=== PATIENT | female | born 1945 | race Caucasian/White ===

== ENCOUNTER 2017-01-20 17:30 | Inpatient (IN) | payer OTHER, MEDICARE ==
[~2017-01-20] VITALS: Ht 175.3 cm; Wt 136.2 kg
[~2017-01-20 17:30] MED LIST: ALL100 PO; ASPI-461 PO; COEN1CAP PO; CZR25 PO; ESCI10TA17 PO; FENO145T26 PO; FERRTAB18 PO; FURO40TA3 PO; IMDSR60 PO; INSUINJ14 SC; INSUINJ4 SC; LORA0.5T12 PO; METO25TA3 PO; NTRGSL/4 UT; OMEG10007 PO; PLV75 PO; POLY335019 PO; TRAM-10 PO; [UNRECOGNIZED DRUG - CODE] PO
[2017-01-20] MEDS ORDERED: LSX40 PO (18:03)
[2017-01-20] MEDS ORDERED: LSX80 PO (18:03)
[2017-01-20] MEDS ORDERED: LXP/20 PO (18:03)
[2017-01-20] MEDS ORDERED: ROSU5TAB9 PO (18:08)
[2017-01-20 18:19] LABS: BASO % 0.6 %; BASO ABS # 0.05 K/uL (0-0.2); COMPLETE YES; EOS % 1.5 %; HEMATOCRIT 36.2 % (37-47); IG% 0.1 %; LYMPH ABS # 1.86 K/uL (1.2-3.4); MEAN CELL VOLUME 91.6 fL (80-100); MEAN CORPUSCULAR HEMOGLOBIN 30.4 pg (25-34); MEAN CORPUSCULAR HGB CONC 33.1 g/dl (32-36); MEAN PLATELET VOLUME 10.4 fL (7.4-10.4); MONO % 5.6 %; NEUT % 70.2 %; PLATELET COUNT 230 K/uL (130-400); RED BLOOD COUNT 3.95 M/uL (4.2-5.4); WHITE BLOOD COUNT 8.44 K/uL (4.8-10.8)
[2017-01-20 18:36] LABS: ALT/SGPT 23 U/L (12-78); AST/SGOT 11 U/L (15-37); BLOOD UREA NITROGEN 76 mg/dl (7-18); BUN/CREATININE RATIO 42.3 (10-20); CALCIUM 10.1 mg/dl (8.5-10.1); CARBON DIOXIDE 31 mmol/L (21-32); CHLORIDE 105 mmol/L (98-107); GLUCOSE 112 mg/dl (70-99); POTASSIUM 4.3 mmol/L (3.5-5.1); SODIUM 142 mmol/L (136-145)
--- NOTE | 2017-01-20 18:40 | DIAGNOSTIC IMAGING REPORT ---
CHEST ONE VIEW PORTABLE CLINICAL HISTORY: Respiratory distress. Shortness of breath. COMPARISON STUDY: 07/21/2016 FINDINGS: The heart remains enlarged. There are postsurgical changes of a midline sternotomy. There is cephalization of pulmonary vascular flow consistent with mild pulmonary venous hypertension. There is no overt edema. There is no focal pulmonary consolidation. There are no pleural effusions.[ IMPRESSION: Cardiomegaly and radiographic evidence of pulmonary venous hypertension. No evidence of overt edema. No evidence of focal pulmonary consolidation Electronically signed by: Erick Briceno M.D. 01/20/2017 6:39 PM Dictated Date/Time: 01/20/2017 6:38 PM
[2017-01-20 18:41] LABS: ALB/GLOB RATIO 1.1 (0.9-2); ALKALINE PHOSPHATASE 52 U/L (45-117)
[2017-01-20 18:48] LABS: PARTIAL THROMBOPLASTIN RATIO 0.9; PROTHROMBIN TIME (PATIENT) 10.8 SECONDS (9.0-12.0)
[2017-01-20 18:57] LABS: URINE APPEARANCE CLEAR (CLEAR); URINE BILIRUBIN NEG (NEG); URINE COLOR YELLOW; URINE NITRITE NEG (NEG); URINE PH 6.5 (4.5-7.5); UROBILINOGEN NEG (NEG)
[2017-01-20] MEDS ORDERED: SODIUM CHLORIDE 0.9% 500ML 500 ML IV STA (19:00)
[2017-01-20] MEDS ORDERED: ASPIRIN 81 MG CHEW PO STA (19:00)
[2017-01-20 19:05] LABS: MANUAL MICROSCOPIC REQUIRED? NO; REVIEW REQ? NO
[2017-01-20] MEDS ORDERED: OPTIRAY 320 IV PRN (20:30)
--- NOTE | 2017-01-20 20:38 | DIAGNOSTIC IMAGING REPORT ---
CT ANGIOGRAM OF THE CHEST CLINICAL HISTORY: Chest pain and shortness of breath. Positive d-dimer. COMPARISON STUDY: 07/29/2011 TECHNIQUE: Following the IV administration of 98 mL of Optiray-320, CT angiogram of the thorax was performed from the thoracic inlet to the lung bases utilizing the pulmonary embolus protocol. Images are reviewed in the axial, sagittal, and coronal planes. IV contrast was administered without complication. MIP imaging was performed. CT DOSE: 817.35 mGy.cm FINDINGS: No pathologically enlarged axillary mediastinal or hilar lymph nodes were visualized. There was no evidence of thoracic aortic dilatation. The heart is enlarged. There are coronary artery calcifications present. There are postsurgical changes of a midline sternotomy. There were no pulmonary artery filling defects to indicate acute pulmonary embolism. No pleural effusions are visualized. There was no evidence of focal pulmonary consolidation. IMPRESSION: 1. No evidence of acute pulmonary embolism 2. No evidence of focal pulmonary consolidation. No pleural effusions identified. 3. Cardiomegaly and coronary artery calcifications. Electronically signed by: Erick Briceno M.D. 01/20/2017 8:37 PM Dictated Date/Time: 01/20/2017 8:32 PM
[2017-01-20 21:18] VITALS: O2SAT 98; BMI 45.3
--- NOTE | 2017-01-20 21:55 | History and Physical ---
History & Physical Date & Time of Service: Jan 20, 2017 at 21:54 Chief Complaint: Sob,Face Flushed,New Meds Primary Care Physician: Chetan Rivas III, M.D. History of Present Illness Source: patient Patient is a 71 yr old female with PMH of CAD S/P CABG, DM II, CKD III, Diastolic HF, Depression, GERD, SAMANTHA ON CPAP, HTN, PAD and other comorbidities presents from evaluation of SOB on exertion, weakness and worsening B/L LE pain on walking. Patient is very poor historian. She states going to her physical therapist today and believes that her physical therapist is concerned about her having SOB on exertion and sent to ED for further evaluation. States being more fatigued today. States having exertional SOB with minimal exertion which lasts for only a minute and resolves with rest, states this has been going on since many days. 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 Also complains of chronic B/L LE swelling/stiffness and pain which ambulation. Also states having minimal chest pain on exertion this morning which resolved. Denies any nausea, vomiting, diaphoresis, dizziness, diarrhea, abd pain, palpitations, headache, urinary symptoms. 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 (7) Gastroparesis Status: Chronic (8) GERD (gastroesophageal reflux disease) Status: Chronic (9) Hyperlipidemia Nec/Nos Status: Chronic (10) Hypertension Nos Status: Chronic (11) SAMANTHA on CPAP Status: Chronic (12) PAD (peripheral artery disease) Status: Chronic Surgical Problems: (1) Bilateral tubal ligation Status: Resolved (2) History of angioplasty Permanent Comment: 05/28/2011- POBA for the PDA and for the right posterolateral branch 11/16/2010- BMS to RCA; LAD with relatively small but severely diffusely diseased and heavily calcified and has an FFR that confirms hemodynamic significance of the lesion-- not intervened Status: Resolved (3) Other Toe(S) Amputation Status Status: Resolved (4) S/P CABG x 4 Status: Chronic (5) S/P peripheral artery angioplasty Permanent Comment: 09/13/13 left superficial femoral artery angioplasty, left popliteal artery angioplasty, left peroneal artery angioplasty, and amputation metatarsal with toe single (Left 5th toe amputation) 10/23/2013 -left popliteal artery angioplasty 01/20/2016- fem/pop artery revasc w/ angioplasty Status: Chronic (6) Status post amputation of finger Status: Chronic (7) Tonsillectomy Status: Resolved Family History Cancer MOTHER FATHER SISTER Cardiac disorder MOTHER FATHER GRANDFATHER GRANDMOTHER Diabetes mellitus FATHER GRANDMOTHER Heart disease Hypertension MOTHER BROTHER Lung disease Social History Smoking Status: Never Smoker Alcohol Use: none Drug Use: none Marital Status: Housing status: lives with family Immunizations History of Influenza Vaccine: Yes Influenza Vaccine Date: May 27, 2012 History of Tetanus Vaccine?: UTD History of Pneumococcal: Yes Pneumococcal Date: May 27, 2007 History of Hepatitis B Vaccine: Unknown Multi-Drug Resistant Organisms History of MDRO: No Allergies Coded Allergies: Sulfa Antibiotics (Verified Allergy, Unknown, RASH, 01/20/17) Lisinopril (Verified Adverse Reaction, Mild, COUGH, 01/20/17) Statins (Verified Adverse Reaction, Unknown, LEG CRAMPS, 01/20/17) Home Medications Scheduled Allopurinol (Allopurinol), 300 MG PO DAILY Aspirin (Aspirin), 81 MG PO QAM Clopidogrel Bisulfate (Clopidogrel), 150 MG PO QAM Coenzyme Q10 (Ubidecarenone) (Co Q10), 1 CAP PO QAM Escitalopram Oxalate (Escitalopram Oxalate), 20 MG PO QAM Fenofibrate (Tricor ), 145 MG PO DAILY Fish Oil ([place]-3), 1,000 MG PO QAM Furosemide (Furosemide), 80 MG PO QAM Furosemide (Furosemide), 40 MG PO HS Insulin Aspart (Novolog Penfill), UNITS SC UD Insulin Glargine (Lantus Solostar Pen), 50 UNITS SC Q12 Iron-Vitamin C (Vitron-C), 1 TAB PO Q2D Isosorbide Mononitrate (Isosorbide Mononitrate ER), 60 MG PO DAILY Losartan Potassium (Losartan Potassium), 12.5 MG PO QAM Metoprolol Succ (Toprol Xl) (Toprol-Xl), 25 MG PO QAM Rosuvastatin Calcium (Rosuvastatin Calcium), 5 MG PO QAM Scheduled PRN Bisacodyl (Ra Laxative), 5 MG PO DAILY PRN for Constipation Lorazepam (Lorazepam), 1 TAB PO TID PRN for Anxiety Nitroglycerin (Nitrostat), 0.4 MG UT UD PRN for Chest Pain Polyethylene Glycol 3350 (Miralax), 17 GM PO DAILY PRN for Constipation Tramadol (Ultram), 25 MG PO Q6 PRN for Pain Review of Systems See HPI for pertinent positives & negatives. A total of 10 systems reviewed and were otherwise negative. Physical Exam Vital Signs Date Time Temp Pulse Resp B/P Pulse Ox O2 Delivery O2 Flow Rate FiO2 01/20/17 21:18 98 Room Air 01/20/17 20:30 147/50 98 Room Air 01/20/17 20:01 139/72 01/20/17 19:45 54 18 95 Room Air 01/20/17 19:32 53 01/20/17 19:31 145/62 01/20/17 19:01 166/57 01/20/17 18:36 53 20 141/51 94 Room Air 01/20/17 18:36 94 Room Air 01/20/17 18:36 94 Room Air 01/20/17 17:34 94 Room Air 01/20/17 17:34 36.5 54 20 138/54 94 Room Air General Appearance: WD/WN, no apparent distress, + obese Head: normocephalic, atraumatic Eyes: normal inspection, PERRL, EOMI, sclerae normal ENT: normal ENT inspection, hearing grossly normal Neck: supple, trachea midline Respiratory/Chest: chest non-tender, lungs clear, no respiratory distress, no accessory muscle use Cardiovascular: regular rate, rhythm, no murmur, + bradycardia, + pertinent finding (B/L LE Edema, Lymphedema ) Abdomen/GI: normal bowel sounds, non tender, soft, no organomegaly Back: normal inspection Extremities/Musculoskelatal: normal inspection, + pertinent finding (B/L LE Edema, Lymphedema, Tender LE bilaterally ) 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2 % Lymphocytes (%) (Auto) 22.0 % Monocytes (%) (Auto) 5.6 % Eosinophils (%) (Auto) 1.5 % Basophils (%) (Auto) 0.6 % Neutrophils # (Auto) 5.92 1.4-6.5 K/uL Lymphocytes # (Auto) 1.86 1.2-3.4 K/uL Monocytes # (Auto) 0.47 0.11-0.59 K/uL Eosinophils # (Auto) 0.13 0-0.5 K/uL Basophils # (Auto) 0.05 0-0.2 K/uL RDW Standard Deviation 52.6 36.4-46.3 fL RDW Coefficient of Variation 15.7 11.5-14.5 % Immature Granulocyte % (Auto) 0.1 % Immature Granulocyte # (Auto) 0.01 0.00-0.02 K/uL Prothrombin Time 10.8 9.0-12.0 SECONDS Prothromb Time International Ratio 1.0 0.9-1.1 Activated Partial Thromboplast Time 23.7 21.0-31.0 SECONDS Partial Thromboplastin Ratio 0.9 D-Dimer 550 0-500 ug/L FEU Sodium Level 142 136-145 mmol/L Potassium Level 4.3 3.5-5.1 mmol/L Chloride Level 105 98-107 mmol/L Carbon Dioxide Level 31 21-32 mmol/L Anion Gap 6.0 3-11 mmol/L Blood Urea Nitrogen 76 7-18 mg/dl Creatinine 1.80 0.60-1.20 mg/dl Est Creatinine Clear Calc Drug Dose 43.7 ml/min Estimated GFR () 32.7 Estimated GFR (Non- 28.2 BUN/Creatinine Ratio 42.3 10-20 Random Glucose 112 70-99 mg/dl Calcium Level 10.1 8.5-10.1 mg/dl Total Bilirubin 0.5 0.2-1 mg/dl Aspartate Amino Transf (AST/SGOT) 11 15-37 U/L Alanine Aminotransferase (ALT/SGPT) 23 12-78 U/L Alkaline Phosphatase 52 45-117 U/L Total Creatine Kinase 59 26-192 U/L Troponin I < 0.015 0-0.045 ng/ml Total Protein 7.4 6.4-8.2 gm/dl Albumin 3.8 3.4-5.0 gm/dl Globulin 3.6 2.5-4.0 gm/dl Albumin/Globulin Ratio 1.1 0.9-2 Urine Color YELLOW Urine Appearance CLEAR CLEAR Urine pH 6.5 4.5-7.5 Urine Specific [place] 1.010 1.000-1.030 Urine Protein NEG NEG Urine Glucose (UA) NEG NEG Urine Ketones NEG NEG Urine Occult Blood NEG NEG Urine Nitrite NEG NEG Urine Bilirubin NEG NEG Urine Urobilinogen NEG NEG Urine Leukocyte Esterase NEG NEG Diagnostic Radiology CTA: 1. No evidence of acute pulmonary embolism 2. No evidence of focal pulmonary consolidation. No pleural effusions identified. 3. Cardiomegaly and coronary artery calcifications. CXR: Cardiomegaly and radiographic evidence of pulmonary venous hypertension. No evidence of overt edema. No evidence of focal pulmonary consolidation EKG EKG: sinus bradycardia, RBBB, No significant changes Impression Assessment and Plan Chest Pain R/O ACS. H/O CAD S/P CABG: presents with exertional SOB and chest pain which relieves with rest Risk factors: H/O CAD, HTN, HLP, DM II, Obesity clinically no overt signs of heart failure Initial Troponin:Negative EKG shows: Sinus bradycardia, RBBB, No signs of ischemia CTA: Negative for PE, consolidation Check ECHO Trend serial cardiac enzymes, repeat EKG, fasting lipid panel in AM Continue Aspirin, Plavix Hold statin for ? concerned for allergy Metoprol decreased in dose secondary to relative bradycardia Oxygen PRN Consider Stress test in AM NPO after midnight Consider Cardiology consult in AM if necessary CHRIS on CKD III: Baseline Cr:1- 1.5 Currently 1.80 [place] IV fluids secondary to history of HF Avoid nephrotoxic agents Hold losartan, Lasix for now Elevated D-dimer: CTA: Negative for PE Check Venous Doppler Sinus Bradycardia: Currently resolved Decrease Metoprolol to 12.5md daily Monitor Chronic Bilateral LE swelling and Pain: Likely secondary to PAD, lymphedema Follows with physical therapy as outpatient DM II: Continue ISS, Lantus, accu checks PAD: Continue ASA, Plavix Statins on hold H/O CAD S/P CABG Currently denies chest pain Continue home meds H/O Diastolic HF Diuretics on hold secondary to CHRIS To resume diuretics when appropriate Check ECHO SAMANTHA on CPAP Stable DVT Px: Heparin SQ Code Status: Full code Disposition: Monitor in Tele Advanced Directives Existing Living Will: No Existing Power of Fire Prevention Specialist: No
[2017-01-20] MEDS ORDERED: SODIUM CHLORIDE 0.9% 1000ML 1,000 ML IV SCH (22:22)
[2017-01-20] MEDS ORDERED: ACETAMINOPHEN 325 MG TAB PO PRN (22:30)
[2017-01-20] MEDS ORDERED: ONDANSETRON INJ 2 MG/ML 2 ML VIAL IV PRN (22:30)
[2017-01-20] MEDS ORDERED: NITROGLYCERIN 0.4 MG SL PER TAB CHARGE SL PRN (22:30)
[2017-01-20] MEDS ORDERED: PHARMACY GLYCEMIC MGMT CONSULT PRN (22:57)
[2017-01-20] MEDS ORDERED: POLYETHYLENE (MIRALAX) 17 GM PACK PO PRN (23:00)
[2017-01-20] MEDS ORDERED: NITROGLYCERIN 0.4 MG SL PER TAB CHARGE UT PRN (23:00)
[2017-01-20] MEDS ORDERED: LORAZEPAM 0.5 MG TAB PO PRN (23:00)
[2017-01-20] MEDS ORDERED: SODIUM CHLORIDE 0.9% 1000ML 1,000 ML IV ONE (23:00)
[2017-01-20] MEDS ORDERED: GLUCOSE 10 TABS/TUBE PO PRN (23:00)
[2017-01-20] MEDS ORDERED: GLUCOSE 40% GEL 15 GM TUBE PO PRN (23:00)
[2017-01-20] MEDS ORDERED: GLUCAGON FOR INJ 1 MG VIAL SQ PRN (23:00)
[2017-01-20] MEDS ORDERED: TRAMADOL HCL 50 MG TAB PO PRN (23:00)
[2017-01-20] MEDS ORDERED: DEXTROSE 50% 50 ML SYR IV PRN (23:00)
[2017-01-21] VITALS (10 sets, daily range): BP systolic 116–163; BP diastolic 51–82; PULSE 53–67; TEMP 36.5–37.2; O2SAT 92–98; Ht 175.3 cm; Wt 136.2 kg
--- NOTE | 2017-01-21 01:14 | EMERGENCY ROOM VISIT NOTE ---
History Report prepared by Manuela: Yaritza George Under the Supervision of: Dr. Cr Dow D.O. First contact with patient: 17:40 Chief Complaint: SHORTNESS OF BREATH Stated Complaint: SOB,FACE FLUSHED,NEW MEDS Nursing Triage Summary: PT PRESENTS WITH SOB FROM PHYSICAL THERAPY, BROUGHT IN BY PHYSICAL THERAPIST. PT VERBALIZES SHE STARTED TAKING CRESTOR ON TUESDAY, BUT HAS A STATIN ALLERGY. PT WONDERING IF HER EXTREME FATIGUE, STIFFNESS IN LEGS, AND SOB ARE R/T NEW MEDICATION. 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 The patient states that she was at physical therapy today when she began feeling short of breath and fatigued. She reports within 1 minute of rest after exertion her symptoms resolve. However, she notes that she recently started taking Crestor again 8 days ago after being off of it for 2 years because she has a statin allergy. She states that she thinks she was sent here today for evaluation after starting the new medication. The patient complains of leg swelling, stiffness, tiredness, SOB with exertion that started 2 years ago and is usual and is not getting any worse than usual, slight chest pain that she had earlier today with exertion and for her but is slightly worsened and more frequent, and fatigue. 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 She denies any nausea, vomiting diarrhea, and urinary symptoms, Review of Systems See HPI for pertinent positives & negatives. A total of 10 systems reviewed and were otherwise negative. 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 (8) Gastroparesis (9) GERD (gastroesophageal reflux disease) (10) Hyperlipidemia Nec/Nos (11) Hypertension Nos (12) SAMANTHA on CPAP (13) PAD (peripheral artery disease) Surgical Problems: (1) Bilateral tubal ligation (2) History of angioplasty (3) Other Toe(S) Amputation Status (4) S/P CABG x 4 (5) S/P peripheral artery angioplasty (6) Status post amputation of finger (7) Tonsillectomy Family History Cancer MOTHER FATHER SISTER Cardiac disorder MOTHER FATHER GRANDFATHER GRANDMOTHER Diabetes mellitus FATHER GRANDMOTHER Heart disease Hypertension MOTHER BROTHER Lung disease Social History Smoking Status: Never Smoker Alcohol Use: none Drug Use: none Marital Status: Housing Status: lives with significant other Current/Historical Medications Scheduled Allopurinol (Allopurinol), 300 MG PO DAILY Aspirin (Aspirin), 81 MG PO QAM Clopidogrel Bisulfate (Clopidogrel), 150 MG PO QAM Coenzyme Q10 (Ubidecarenone) (Co Q10), 1 CAP PO QAM Escitalopram Oxalate (Escitalopram Oxalate), 20 MG PO QAM Fenofibrate (Tricor ), 145 MG PO DAILY Fish Oil ([place]-3), 1,000 MG PO QAM Furosemide (Furosemide), 80 MG PO QAM Furosemide (Furosemide), 40 MG PO HS Insulin Aspart (Novolog Penfill), UNITS SC UD Insulin Glargine (Lantus Solostar Pen), 50 UNITS SC Q12 Iron-Vitamin C (Vitron-C), 1 TAB PO Q2D Isosorbide Mononitrate (Isosorbide Mononitrate ER), 60 MG PO DAILY Losartan Potassium (Losartan Potassium), 12.5 MG PO QAM Metoprolol Succ (Toprol Xl) (Toprol-Xl), 25 MG PO QAM Rosuvastatin Calcium (Rosuvastatin Calcium), 5 MG PO QAM Scheduled PRN Bisacodyl (Ra Laxative), 5 MG PO DAILY PRN for Constipation Lorazepam (Lorazepam), 1 TAB PO TID PRN for Anxiety Nitroglycerin (Nitrostat), 0.4 MG UT UD PRN for Chest Pain Polyethylene Glycol 3350 (Miralax), 17 GM PO DAILY PRN for Constipation Tramadol (Ultram), 25 MG PO Q6 PRN for Pain Allergies Coded Allergies: Sulfa Antibiotics (Verified Allergy, Unknown, RASH, 01/20/17) Lisinopril (Verified Adverse Reaction, Mild, COUGH, 01/20/17) Statins (Verified Adverse Reaction, Unknown, LEG CRAMPS, 01/20/17) Physical Exam Vital Signs Date Time Temp Pulse Resp B/P Pulse Ox O2 Delivery O2 Flow Rate FiO2 01/20/17 21:18 98 Room Air 01/20/17 20:30 147/50 98 Room Air 01/20/17 20:01 139/72 01/20/17 19:45 54 18 95 Room Air 01/20/17 19:32 53 01/20/17 19:31 145/62 01/20/17 19:01 166/57 01/20/17 18:36 53 20 141/51 94 Room Air 01/20/17 18:36 94 Room Air 01/20/17 18:36 94 Room Air 01/20/17 17:34 94 Room Air 01/20/17 17:34 36.5 54 20 138/54 94 Room Air Physical Exam GENERAL: sitting up in bed, disheveled, alert, well appearing, well nourished, non-toxic, talking in full sentences EYE EXAM: normal conjunctiva OROPHARYNX: no exudate, no erythema, lips, buccal mucosa, and tongue normal and mucous membranes are moist NECK: supple, no nuchal rigidity, no adenopathy, non-tender LUNGS: Clear to auscultation. Normal chest wall mechanics HEART: no murmurs, S1 normal and S2 normal ABDOMEN: abdomen soft, non-tender, normo-active bowel sounds, no masses, no rebound or guarding. BACK: Back is symmetrical on inspection and there is no deformity, no midline tenderness, no CVA tenderness. SKIN: no rashes and no bruising UPPER EXTREMITIES: upper extremities are grossly normal. LOWER EXTREMITIES: No pitting edema, calves are equal bilaterally NEURO EXAM: Normal sensorium, cranial nerves II-XII grossly intact, normal speech, no gross weakness of arms, no gross weakness of legs, able to transfer from wheelchair to bed Medical Decision & Procedures ER Provider Diagnostic Interpretation: Radiology results as stated below per my review and the radiologist's interpretation: CHEST ONE VIEW PORTABLE FINDINGS: The heart remains enlarged. There are postsurgical changes of a midline sternotomy. There is cephalization of pulmonary vascular flow consistent with mild pulmonary venous hypertension. There is no overt edema. There is no focal pulmonary consolidation. There are no pleural effusions.[ IMPRESSION: Cardiomegaly and radiographic evidence of pulmonary venous hypertension. No evidence of overt edema. No evidence of focal pulmonary consolidation Electronically signed by: Erick Briceno M.D. 01/20/2017 6:39 PM Dictated Date/Time: 01/20/2017 6:[address] ANGIOGRAM OF THE CHEST FINDINGS: No pathologically enlarged axillary mediastinal or hilar lymph nodes were visualized. There was no evidence of thoracic aortic dilatation. The heart is enlarged. There are coronary artery calcifications present. There are postsurgical changes of a midline sternotomy. There were no pulmonary artery filling defects to indicate acute pulmonary embolism. No pleural effusions are visualized. There was no evidence of focal pulmonary consolidation. IMPRESSION: 1. No evidence of acute pulmonary embolism 2. No evidence of focal pulmonary consolidation. No pleural effusions identified. 3. Cardiomegaly and coronary artery calcifications. Electronically signed by: Erick Briceno M.D. 01/20/2017 8:37 PM Dictated Date/Time: 01/20/2017 8:32 PM Laboratory Results 01/20/17 18:00 Red Blood Count 3.95, Mean Corpuscular Volume 91.6, Mean Corpuscular Hemoglobin 30.4, Mean Corpuscular Hemoglobin Concent 33.1, Mean Platelet Volume 10.4, Neutrophils (%) (Auto) 70.2, Lymphocytes (%) (Auto) 22.0, Monocytes (%) (Auto) 5.6, Eosinophils (%) (Auto) 1.5, Basophils (%) (Auto) 0.6, Neutrophils # (Auto) 5.92, Lymphocytes # (Auto) 1.86, Monocytes # (Auto) 0.47, Eosinophils # (Auto) 0.13, Basophils # (Auto) 0.05 01/20/17 18:00 Test 01/20/17 18:00 01/20/17 18:30 White Blood Count 8.44 K/uL (4.8-10.8) Red Blood Count 3.95 M/uL (4.2-5.4) Hemoglobin 12.0 g/dL (12.0-16.0) Hematocrit 36.2 % (37-47) Mean Corpuscular Volume 91.6 fL (80-100) Mean Corpuscular Hemoglobin 30.4 pg (25-34) Mean Corpuscular Hemoglobin Concent 33.1 g/dl (32-36) Platelet Count 230 K/uL (130-400) Mean Platelet Volume 10.4 fL (7.4-10.4) Neutrophils (%) (Auto) 70.2 % Lymphocytes (%) (Auto) 22.0 % Monocytes (%) (Auto) 5.6 % Eosinophils (%) (Auto) 1.5 % Basophils (%) (Auto) 0.6 % Neutrophils # (Auto) 5.92 K/uL (1.4-6.5) Lymphocytes # (Auto) 1.86 K/uL (1.2-3.4) Monocytes # (Auto) 0.47 K/uL (0.11-0.59) Eosinophils # (Auto) 0.13 K/uL (0-0.5) Basophils # (Auto) 0.05 K/uL (0-0.2) RDW Standard Deviation 52.6 fL (36.4-46.3) RDW Coefficient of Variation 15.7 % (11.5-14.5) Immature Granulocyte % (Auto) 0.1 % Immature Granulocyte # (Auto) 0.01 K/uL (0.00-0.02) Prothrombin Time 10.8 SECONDS (9.0-12.0) Prothromb Time International Ratio 1.0 (0.9-1.1) Activated Partial Thromboplast Time 23.7 SECONDS (21.0-31.0) Partial Thromboplastin Ratio 0.9 D-Dimer 550 ug/L FEU (0-500) Anion Gap 6.0 mmol/L (3-11) Est Creatinine Clear Calc Drug Dose 43.7 ml/min Estimated GFR () 32.7 Estimated GFR (Non- 28.2 BUN/Creatinine Ratio 42.3 (10-20) Calcium Level 10.1 mg/dl (8.5-10.1) Total Bilirubin 0.5 mg/dl (0.2-1) Aspartate Amino Transf (AST/SGOT) 11 U/L (15-37) Alanine Aminotransferase (ALT/SGPT) 23 U/L (12-78) Alkaline Phosphatase 52 U/L (45-117) Total Creatine Kinase 59 U/L (26-192) Total Protein 7.4 gm/dl (6.4-8.2) Albumin 3.8 gm/dl (3.4-5.0) Globulin 3.6 gm/dl (2.5-4.0) Albumin/Globulin Ratio 1.1 (0.9-2) Urine Color YELLOW Urine Appearance CLEAR (CLEAR) Urine pH 6.5 (4.5-7.5) Urine Specific [place] 1.010 (1.000-1.030) Urine Protein NEG (NEG) Urine Glucose (UA) NEG (NEG) Urine Ketones NEG (NEG) Urine Occult Blood NEG (NEG) Urine Nitrite NEG (NEG) Urine Bilirubin NEG (NEG) Urine Urobilinogen NEG (NEG) Urine Leukocyte Esterase NEG (NEG) Laboratory results per my review. Medications Administered Medications (Trade) Dose Ordered Sig/Cheko Route Start Time Stop Time Status Last Admin Dose Admin Aspirin 324 mg 324 mg NOW STAT PO 01/20/17 19:00 01/20/17 19:01 DC 01/20/17 19:00 324 MG Sodium Chloride (Nss 500ml) 500 ml @ 999 mls/hr Q31M STAT IV 01/20/17 19:00 01/20/17 19:30 DC 01/20/17 19:00 999 MLS/HR ECG Indication: chest pain Rate (beats per minute): 53 Rhythm: sinus bradycardia Findings: RBBB, left axis deviation Comparison ECG Date: 21-JUL-2016 Change: no significant change ED Course ED COURSE: Vital signs were reviewed and showed bradycardia The patients medical record was reviewed The above diagnostic studies were performed and reviewed. ED treatments and interventions as stated above. 0: The patient was evaluated in room B9. A complete history and physical examination was performed. 1832: I reevaluated the patient and she is doing okay. 1899: Sodium Chloride 500 ml @ 999 mls/hr IV, Aspirin 324mg PO. 1908: I updated the patient. 1958: I reevaluated the patient. She is uncomfortable sitting on the bed. 2137: I reviewed the patient's case with Dr. Moran of [facility]. Dr. Moran will evaluate the patient for further management. 2144: Upon reevaluation, the patient is hemodynamically stable.I discussed my findings with the patient and she understands and agrees with the treatment plan. Based on the patients age, coexisting illnesses, exam and lab findings the decision to treat as an inpatient was made. The patient remained stable while under my care. The patient will be evaluated for further management. Medical Decision Differential diagnoses includes but is not limited to pneumonia, bronchitis, COPD/Asthma exacerbation, pneumothorax, pulmonary embolism, congestive heart failure, acute coronary syndrome Patient is a 71-year-old female who presents the ER for exertional shortness of breath associated with some worsening chest pain. She has a history of hypertension, diabetes and a CABG 4. Labs show no significant leukocytosis or anemia. Creatinine is at baseline of 1.8. LFTs was unremarkable. Bilirubin was normal. Troponins were negative negative. UA was negative. EKG shows no acute change. Chest x-ray was unremarkable. D-dimer was elevated consequently a CT PE was performed which was negative. Based on her symptoms I am concerned with the exertional shortness of breath and chest pain. I consulted internal medicine for observation overnight. Consults Time Called: 2049 Consulting Physician: Dr. Luisa Diaz Returned Call: [phone] I reviewed the patient's case with Dr. Moran of [facility]. Dr. Moran will evaluate the patient for further management. Impression Primary Impression: Exertional shortness of breath Additional Impressions: Exertional chest pain Chronic kidney disease Scribe Attestation The scribe's documentation has been prepared under my direction and personally reviewed by me in its entirety. I confirm that the note above accurately reflects all work, treatment, procedures, and medical decision making performed by me. Departure Information Dispostion Being Evaluated By Hospitalist Referrals Chetan Rivas III, M.D. (PCP) Patient Instructions My [facility] Problem Qualifiers Additional Impressions: Chronic kidney disease Chronic kidney disease stage: unspecified stage Qualified Codes: N18.9 - Chronic kidney disease, unspecified
[2017-01-21] MEDS: INSULIN ASPART 100 UNITS/ML 3 ML PEN SC SCH ×5 (02:00→21:20)
[2017-01-21 05:15] LABS: BASO % 0.4 %; BASO ABS # 0.03 K/uL (0-0.2); COMPLETE YES; EOS % 1.8 %; HEMATOCRIT 33.2 % (37-47); IG% 0.3 %; LYMPH % 27.3 %; LYMPH ABS # 1.84 K/uL (1.2-3.4); MEAN CORPUSCULAR HEMOGLOBIN 30.7 pg (25-34); MEAN CORPUSCULAR HGB CONC 33.4 g/dl (32-36); MEAN PLATELET VOLUME 10.3 fL (7.4-10.4); MONO % 7.1 %; NEUT % 63.1 %; PLATELET COUNT 194 K/uL (130-400); RED BLOOD COUNT 3.61 M/uL (4.2-5.4); WHITE BLOOD COUNT 6.75 K/uL (4.8-10.8)
[2017-01-21 05:33] LABS: BLOOD UREA NITROGEN 75 mg/dl (7-18); BUN/CREATININE RATIO 46.9 (10-20); CALCIUM 9.4 mg/dl (8.5-10.1); CARBON DIOXIDE 31 mmol/L (21-32); CHLORIDE 107 mmol/L (98-107); GLUCOSE 132 mg/dl (70-99); MAGNESIUM 2.9 mg/dl (1.8-2.4); POTASSIUM 4.2 mmol/L (3.5-5.1); SODIUM 144 mmol/L (136-145)
[2017-01-21 05:39] LABS: CHOLESTEROL 164 mg/dl (0-200); CHOLESTEROL/HDL RATIO 4.8; HDL CHOLESTEROL 34 mg/dl; LDL CHOLESTEROL CALCULATED 73 mg/dl; TRIGLYCERIDES 287 mg/dl (0-150); VERY LOW DENSITY LIPOPROT CALC 57 mg/dl
[2017-01-21] MEDS: HEPARIN SOD 5000 UNIT/0.5 ML CARP SQ SCH ×3 (06:13→21:20)
[2017-01-21 06:38] LABS: ESTIMATED AVERAGE GLUCOSE 183 mg/dl; HA1C FLAG Normal (Normal)
[2017-01-21] MEDS ORDERED: INSULIN GLARGINE SOLOSTAR 100 UNITS/ML 3 ML PEN SC SCH (08:00)
[2017-01-21] MEDS: METOPROLOL SUCC 25MG EXT REL TAB PO SCH (08:23)
[2017-01-21] MEDS: ASPIRIN 81 MG ECTAB PO SCH (08:24)
[2017-01-21] MEDS: ESCITALOPRAM OXALATE 20 MG TAB PO SCH (08:25)
[2017-01-21] MEDS: OMEGA-3 (PURIFIED FISH OIL) 1 GM CAP PO SCH (08:25)
[2017-01-21] MEDS: ISOSORBIDE MONONITRATE 60 MG TABCR PO SCH (08:25)
[2017-01-21] MEDS: ALLOPURINOL 300 MG TAB PO SCH (08:25)
[2017-01-21] MEDS: FENOFIBRATE 145 MG TAB PO SCH (08:25)
[2017-01-21] MEDS: CLOPIDOGREL BISULFATE 75 MG TAB PO SCH (08:36)
[2017-01-21] MEDS ORDERED: METOPROLOL SUCC 25MG EXT REL TAB PO SCH (09:00)
--- NOTE | 2017-01-21 10:01 | Pharmacy Progress Note ---
Glycemic Control Intl Consult Date of Service Jan 21, 2017. Scope Glycemic Pharmacist consulted by Dr Moran on 01/20/17 for glycemic control and to write orders per [facility] inpatient glycemic control protocol Objective Weight (Kilograms): 136.700 Accuchecks BSG (last 24hrs): Test 01/20/17 18:00 01/21/17 01:42 01/21/17 05:03 Random Glucose 112 mg/dl (70-99) 132 mg/dl (70-99) Bedside Glucose 130 mg/dl (70-90) Laboratory Data (last 24hrs) Test 01/20/17 18:00 01/21/17 05:03 Anion Gap 6.0 mmol/L 6.0 mmol/L BUN/Creatinine Ratio 42.3 46.9 Blood Urea Nitrogen 76 mg/dl 75 mg/dl Creatinine 1.80 mg/dl 1.60 mg/dl Potassium Level 4.3 mmol/L 4.2 mmol/L Sodium Level 142 mmol/L 144 mmol/L White Blood Count 8.44 K/uL 6.75 K/uL Red Blood Count 3.95 M/uL 3.61 M/uL Hemoglobin 12.0 g/dL 11.1 g/dL Hematocrit 36.2 % 33.2 % Mean Corpuscular Volume 91.6 fL 92.0 fL Mean Corpuscular Hemoglobin 30.4 pg 30.7 pg Mean Corpuscular Hemoglobin Concent 33.1 g/dl 33.4 g/dl Platelet Count 230 K/uL 194 K/uL Mean Platelet Volume 10.4 fL 10.3 fL Neutrophils (%) (Auto) 70.2 % 63.1 % Lymphocytes (%) (Auto) 22.0 % 27.3 % Monocytes (%) (Auto) 5.6 % 7.1 % Eosinophils (%) (Auto) 1.5 % 1.8 % Basophils (%) (Auto) 0.6 % 0.4 % Neutrophils # (Auto) 5.92 K/uL 4.26 K/uL Lymphocytes # (Auto) 1.86 K/uL 1.84 K/uL Monocytes # (Auto) 0.47 K/uL 0.48 K/uL Eosinophils # (Auto) 0.13 K/uL 0.12 K/uL Basophils # (Auto) 0.05 K/uL 0.03 K/uL Hemoglobin A1c 8.0 % HbA1c Test 01/21/17 05:03 Hemoglobin A1c 8.0 %(4.5-5.6) H Recent Pertinent Medications Outpatient Anti-diabetic Regimen: * Lantus * 50 units SQ BID * NovoLog * 45 units SQ with meals * 20 units with bedtime snack * SS with correction factor of 25mg/dL/unit if BSG >150mg/dL * A1c = 8 % 12/2016 The patient is currently receiving: * Basal insulin: * Lantus 40 units every 12 hours * Bolus Insulin: * NovoLog Correction per scale AC/HS * Goal Range: Low 120 mg/dL - High 160 mg/dL * Correction Factor: 15 mg/dL/unit * Carb ratio of 1 unit per 6 grams CHO consumed Risk Factors for Insulin Resistance: * IVF: NSS * Pain: chest pain on admission * Diet: NPO overnight * Other: large doses of insulin as an outpatient Risk Factors for Insulin Sensitivity: * CHRIS: Serum creatinine 1.8mg/dL on admission - baseline 1-1.5mg/dL Assessment & Plan ASSESSMENT: Initial: * ADA & AACE recommend a goal blood sugar range 140-180 mg/dl for the majority of critically ill & non-critically ill patients. * 71 y/o type 2 diabetic known to the glycemic service with her most recent consultation in July 2016. 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 * BSG control as an outpatient likely appropriate based on the Elements of Diabetes Care Scoring Scale and A1c 01/21/17 * NPO overnight and into this AM * reduce AM Lantus dose to 30 units secondary to this * re-assess ongoing Lantus orders based on lunch BSG and diet * NovoLog parameters not yet able to be assessed, however historically requires large doses * empirically tighten correction factor and carb ratio based on last consultation PLAN FOR INPATIENT GLYCEMIC CONTROL: * Basal insulin: * Lantus 30 units SQ x1 dose this AM * Lantus 40-50 units SQ BID * Bolus insulin: * NovoLog SC AC and HS * Correction factor: 10mg/dL/unit * Carb ratio: 1 unit per 3 g of CHO consumed * Goal: 140-180mg/dL per ADA recommendations * A1c - current * add to discharge instructions RECOMMENDATION FOR DISCHARGE: * Likely, Ms Man can continue home regimen at discharge given A1c * Please note that the plan above was derived based on current level of insulin resistance and hospital stress. These recommendations are appropriate for inpatient admission only. Plan of care upon discharge will need to be reassessed to avoid potential outpatient hypo/hyperglycemia. Thank you.
[2017-01-21] MEDS ORDERED: TRAMADOL HCL 50 MG TAB PO PRN (10:45)
--- NOTE | 2017-01-21 10:58 | Progress Note ---
Medicine Progress Note Date & Time of Visit: Jan 21, 2017 at 10:47. Subjective patient seen resting in bed, comfortable states she still has diffuse muscle stiffness/aches most pronounced on her legs (started after she resumed taking Crestor) reports dyspnea on minimal exertion recently, no chest pain/nausea/dizziness no other symptoms Objective Last 8 Hrs Date Time Temp Pulse Resp B/P Pulse Ox O2 Delivery O2 Flow Rate FiO2 01/21/17 08:23 53 98 01/21/17 08:00 CPAP 01/21/17 07:40 37.0 56 16 136/71 94 Room Air 01/21/17 04:00 Room Air 01/21/17 03:54 36.8 58 20 135/66 94 Room Air Physical Exam: General- oriented x 3, not in distress, speaks in sentences with no effort Head- atraumatic Eyes- EOMI, anicteric ENT- oropharynx clear Neck- supple, no JVD, no adenopathy Lungs- clear to auscultation bilaterally Heart-normal rate, regular rhythm; no murmurs Abdomen- normal bowel sounds, soft, nontender Extremities- trace pretibial edema, mild tenderness on both legs, no erythema, fair dorsalis pedis pulses Neuro- alert, oriented x 3; no gross focal deficits Skin- warm & dry Laboratory Results: Last 24 Hours Test 01/20/17 18:00 01/20/17 18:30 01/20/17 22:52 01/20/17 23:07 White Blood Count 8.44 K/uL Red Blood Count 3.95 M/uL Hemoglobin 12.0 g/dL Hematocrit 36.2 % Mean Corpuscular Volume 91.6 fL Mean Corpuscular Hemoglobin 30.4 pg Mean Corpuscular Hemoglobin Concent 33.1 g/dl Platelet Count 230 K/uL Mean Platelet Volume 10.4 fL Neutrophils (%) (Auto) 70.2 % Lymphocytes (%) (Auto) 22.0 % Monocytes (%) (Auto) 5.6 % Eosinophils (%) (Auto) 1.5 % Basophils (%) (Auto) 0.6 % Neutrophils # (Auto) 5.92 K/uL Lymphocytes # (Auto) 1.86 K/uL Monocytes # (Auto) 0.47 K/uL Eosinophils # (Auto) 0.13 K/uL Basophils # (Auto) 0.05 K/uL RDW Standard Deviation 52.6 fL RDW Coefficient of Variation 15.7 % Immature Granulocyte % (Auto) 0.1 % Immature Granulocyte # (Auto) 0.01 K/uL Prothrombin Time 10.8 SECONDS Prothromb Time International Ratio 1.0 Activated Partial Thromboplast Time 23.7 SECONDS Partial Thromboplastin Ratio 0.9 D-Dimer 550 ug/L FEU Sodium Level 142 mmol/L Potassium Level 4.3 mmol/L Chloride Level 105 mmol/L Carbon Dioxide Level 31 mmol/L Anion Gap 6.0 mmol/L Blood Urea Nitrogen 76 mg/dl Creatinine 1.80 mg/dl Est Creatinine Clear Calc Drug Dose 43.7 ml/min Estimated GFR () 32.7 Estimated GFR (Non- 28.2 BUN/Creatinine Ratio 42.3 Random Glucose 112 mg/dl Calcium Level 10.1 mg/dl Total Bilirubin 0.5 mg/dl Aspartate Amino Transf (AST/SGOT) 11 U/L Alanine Aminotransferase (ALT/SGPT) 23 U/L Alkaline Phosphatase 52 U/L Total Creatine Kinase 59 U/L Troponin I < 0.015 ng/ml < 0.015 ng/ml Total Protein 7.4 gm/dl Albumin 3.8 gm/dl Globulin 3.6 gm/dl Albumin/Globulin Ratio 1.1 Urine Color YELLOW Urine Appearance CLEAR Urine pH 6.5 Urine Specific Wirtz 1.010 Urine Protein NEG Urine Glucose (UA) NEG Urine Ketones NEG Urine Occult Blood NEG Urine Nitrite NEG Urine Bilirubin NEG Urine Urobilinogen NEG Urine Leukocyte Esterase NEG Creatine Kinase MB Ratio Creatine Kinase MB 1.2 ng/ml Test 01/21/17 01:42 01/21/17 04:52 01/21/17 05:03 Bedside Glucose 130 mg/dl Creatine Kinase MB Ratio White Blood Count 6.75 K/uL Red Blood Count 3.61 M/uL Hemoglobin 11.1 g/dL Hematocrit 33.2 % Mean Corpuscular Volume 92.0 fL Mean Corpuscular Hemoglobin 30.7 pg Mean Corpuscular Hemoglobin Concent 33.4 g/dl Platelet Count 194 K/uL Mean Platelet Volume 10.3 fL Neutrophils (%) (Auto) 63.1 % Lymphocytes (%) (Auto) 27.3 % Monocytes (%) (Auto) 7.1 % Eosinophils (%) (Auto) 1.8 % Basophils (%) (Auto) 0.4 % Neutrophils # (Auto) 4.26 K/uL Lymphocytes # (Auto) 1.84 K/uL Monocytes # (Auto) 0.48 K/uL Eosinophils # (Auto) 0.12 K/uL Basophils # (Auto) 0.03 K/uL RDW Standard Deviation 52.8 fL RDW Coefficient of Variation 15.7 % Immature Granulocyte % (Auto) 0.3 % Immature Granulocyte # (Auto) 0.02 K/uL Sodium Level 144 mmol/L Potassium Level 4.2 mmol/L Chloride Level 107 mmol/L Carbon Dioxide Level 31 mmol/L Anion Gap 6.0 mmol/L Blood Urea Nitrogen 75 mg/dl Creatinine 1.60 mg/dl Est Creatinine Clear Calc Drug Dose 49.9 ml/min Estimated GFR () 37.7 Estimated GFR (Non- 32.5 BUN/Creatinine Ratio 46.9 Random Glucose 132 mg/dl Estimated Average Glucose 183 mg/dl Hemoglobin A1c 8.0 % Calcium Level 9.4 mg/dl Magnesium Level 2.9 mg/dl Creatine Kinase MB 1.1 ng/ml Troponin I < 0.015 ng/ml Triglycerides Level 287 mg/dl Cholesterol Level 164 mg/dl HDL Cholesterol 34 mg/dl LDL Cholesterol, Calculated 73 mg/dl VLDL Cholesterol, Calculated 57 mg/dl Cholesterol/HDL Ratio 4.8 Assessment & Plan EXERTIONAL DYSPNEA, R/O ACS. H/O CAD S/P CABG - cardiac markers negative ekg no signs of acute ischemia echo: pending CTA: Negative for PE, consolidation - continued on usual medications including aspirin, plavix, ISMN Metoprolol decreased for bradycardia Statin held for myalgias - will consult Cardiology MYALGIAS LEG PAIN - likely from Crestor - hold Crestor CK normal monitor - check Doppler US to r/o DVT althought d dimer is only 550 SINUS BRADYCARDIA Decreased Metoprolol to 12.5md daily HR still in the 50s monitor CHRIS on CKD III: Baseline Cr:1- 1.5 Currently 1.6 resume Lasix, Losartan Elevated D-dimer CTA: Negative for PE Check Venous Doppler Chronic Bilateral LE swelling and Pain Likely secondary to PAD, lymphedema Follows with physical therapy as outpatient DM II: Continue ISS, Lantus, accu checks PAD: Continue ASA, Plavix Statins on hold H/O Diastolic HF euvolemic resume Lasix SAMANTHA on CPAP Stable DVT Px: Heparin SQ Code Status: Full code Disposition: Monitor in Tele Current Inpatient Medications: Current Inpatient Medications Medications (Trade) Dose Ordered Sig/Cheko Route Start Time Stop Time Status Last Admin Dose Admin Ioversol (Optiray 320) 111 ml UD PRN IV 01/20/17 20:30 01/24/17 20:29 Heparin Sodium (Porcine) (Heparin Sq 5000 Unit/0.5ml) 5,000 unit Q8H SQ 01/21/17 06:00 02/20/17 05:59 01/21/17 06:13 5,000 UNIT Acetaminophen (Tylenol Tab) 650 mg Q4H PRN PO 01/20/17 22:30 02/19/17 22:29 Ondansetron HCl (Zofran Inj) 4 mg Q6H PRN IV 01/20/17 22:30 02/19/17 22:29 Nitroglycerin (Nitrostat Tab) 0.4 mg UD PRN SL 01/20/17 22:30 02/19/17 22:29 Insulin Aspart (novoLOG ASPART) SLIDING SCALE If C... Q6 SC 01/21/17 02:00 02/20/17 01:59 Glucose (Glucose 40% Gel) 15-30 GRAMS 15 GRAMS... UD PRN PO 01/20/17 23:00 02/19/17 22:59 Glucose (Glucose Chew Tab) 4-8 Tablets 4 Tabl... UD PRN PO 01/20/17 23:00 02/19/17 22:59 Dextrose (Dextrose 50% 50ML Syringe) 25-50ML OF 50% DW IV FOR... UD PRN IV 01/20/17 23:00 02/19/17 22:59 Glucagon (Glucagon Inj) 1 mg UD PRN SQ 01/20/17 23:00 02/19/17 22:59 Miscellaneous Information 1 ea 1 ea UD PRN N/A 01/20/17 22:57 02/19/17 22:56 Sodium Chloride (Nss 1000ml) 1,000 ml @ 50 mls/hr Q20H ONCE IV 01/20/17 23:00 01/21/17 18:59 01/21/17 00:10 50 MLS/HR Allopurinol (Zyloprim Tab) 300 mg DAILY PO 01/21/17 09:00 02/20/17 08:59 01/21/17 08:25 300 MG Aspirin (Ecotrin Tab) 81 mg QAM PO 01/21/17 09:00 02/20/17 08:59 01/21/17 08:24 81 MG Clopidogrel Bisulfate (plAVix TAB) 150 mg QAM PO 01/21/17 09:00 02/20/17 08:59 01/21/17 08:36 150 MG Escitalopram Oxalate (Lexapro Tab) 20 mg QAM PO 01/21/17 09:00 02/20/17 08:59 01/21/17 08:25 20 MG Fenofibrate (Tricor Tab) 145 mg DAILY PO 01/21/17 09:00 02/20/17 08:59 01/21/17 08:25 145 MG Fish Oil (Irwin-3 (Purified Fish Oil) Cap) 1 gm QAM PO 01/21/17 09:00 02/20/17 08:59 01/21/17 08:25 1 GM Insulin Glargine (Lantus Solostar Pen) 40 unit Q12 SC 01/21/17 09:00 02/20/17 08:59 Future hold Isosorbide Mononitrate (Imdur Ext Rel Tab) 60 mg DAILY PO 01/21/17 09:00 02/20/17 08:59 01/21/17 08:25 60 MG Lorazepam (Ativan Tab) 0.5 mg TID PRN PO 01/20/17 23:00 02/19/17 22:59 Tramadol HCl (Ultram Tab) 25 mg Q6 PRN PO 01/20/17 23:00 02/19/17 22:59 Polyethylene (Miralax Powder Packet) 17 gm DAILY PRN PO 01/20/17 23:00 02/19/17 22:59 Metoprolol Succinate (Toprol Xl Tab) 12.5 mg QAM PO 01/21/17 09:00 02/20/17 08:59 Furosemide (Lasix Tab) 40 mg HS PO 01/21/17 21:00 02/20/17 20:59 UNV Furosemide (Lasix Tab) 80 mg QAM PO 01/22/17 09:00 02/21/17 08:59 UNV Losartan Potassium (coZAAR TAB) 12.5 mg QAM PO 01/22/17 09:00 02/21/17 08:59 ANNELISE
[2017-01-21] MEDS ORDERED: NURSING VERBAL MED ORDER ONE ×2 (14:00→14:30)
--- NOTE | 2017-01-21 14:29 | CARDIOLOGY CONSULTATION ---
DATE OF CONSULTATION: 01/21/2017 REFERRING PHYSICIAN: Emily garcia. REASON FOR CONSULTATION: Shortness of breath and muscle aches. HISTORY OF PRESENT ILLNESS: This patient is a 71-year-old female with multiple complex medical problems. She has a longstanding history of diabetes with multiple diabetic complications. She has coronary artery disease with previous multiple coronary interventions and previous bypass in 2010, where she received a JEREZ to LAD, saphenous vein graft to obtuse marginal, posterolateral and posterior descending arteries. She also has peripheral vascular disease and has had interventions on her lower extremities. She has chronic renal insufficiency and has been followed by Dr. Teran. In the past, she has had diastolic heart failure. She has also been treated for obstructive sleep apnea, hypertension, and dyslipidemia. Recently, she has been having some lower extremity edema that has been treated by the lymphedema clinic. Approximately 2 weeks ago, she was started on Crestor. She has been on statins in the past and has been intolerant due to muscle aches. She has had increased lower extremity weakness and muscle pain since starting the Crestor. This has resulted in difficulty in her ambulating and some increased dyspnea. She was last seen in our office at the end of November, at which time it was felt that she was slightly volume overloaded and there was consideration of switching her from Lasix to torsemide. She has had no chest pain. She denies heart palpitations or dizziness. ALLERGIES: SULFA ANTIBIOTICS, LISINOPRIL AND STATINS. PAST MEDICAL HISTORY: As per the history of chief complaint. She has multiple diabetic complications including neuropathy, retinopathy, chronic renal failure and diffuse arteriosclerotic vascular disease including severe hopland coronary artery disease and previous bypass as well as peripheral vascular disease with interventions on her lower extremities. SOCIAL HISTORY: She has never smoked. She is . FAMILY MEDICAL HISTORY: Significant for diabetes and heart disease. REVIEW OF SYSTEMS: A 10-point review of systems is negative except for the history of chief complaint. PHYSICAL EXAMINATION: GENERAL: She is alert and oriented. VITAL SIGNS: Blood pressure is 130/60 and pulse is regular at 55 beats per minute. She is afebrile. HEENT: She is normocephalic. Pupils are equal and reactive to light. Mucous membranes are moist. NECK: The neck veins are flat. Carotids have good upstrokes bilaterally without bruits. Thyroid is not palpable. RESPIRATORY: Breath sounds equal bilaterally and clear to auscultation. CARDIOVASCULAR: Heart has a regular rhythm. Normal S1 and S2. No S3 or S4. GASTROINTESTINAL: Abdomen is soft and nontender without organomegaly. EXTREMITIES: Have edema of the lower extremities bilaterally. NEUROLOGIC: Grossly intact. SKIN: Warm to touch. LYMPH NODES: Negative to palpation. IMPRESSION: 1. Exertional dyspnea, which is multifactorial. 2. Muscle aches due to statin medication. 3. Chronic renal disease. 4. Severe diffuse arteriosclerotic vascular disease. RECOMMENDATIONS: I agree with stopping the Crestor, which may be causing her myalgias. I switched her Lasix to torsemide for better absorption. We will follow along with you during her hospital stay.
--- NOTE | 2017-01-21 14:50 | ECHOCARDIOGRAM REPORT ---
*NOTICE TO RECEIVING [employer] This information is strictly Confidential and protected under [place] law. [place] law prohibits you from making any further disclosure of this information unless further disclosure is expressly permitted by the written consent of the person to whom it pertains or is authorized by law. A general authorization for the release of medical or other information is not sufficient for this purpose. Hospital accepts no responsibility if the information is made available to any other person, INCLUDING THE PATIENT. Interpretation Summary * Name: LUCIA HACKETT Study Date: 01/21/2017 07:50 AM BP: 135/66 mmHg * Patient Location: C.2T\S\S233\S\1 HR: 58 * : 1945 (M/d/yyyy) Gender: Female Height: 69 in * Age: 71 yrs Ethnicity: [place] Weight: 306 lb * Ordering Physician: Adrian Moran * Referring Physician: Self, Referred * Performed By: Jax Sol RCS * * Reason For Study: CHF * BSA: 2.5 m2 * The study was technically limited. * -- Conclusions -- * The study was technically limited. * The left ventricle is normal in size. * Ejection Fraction = 60-65%. * The right ventricular systolic function is normal. * The left atrium is moderately dilated. * The right atrium is mild to moderately dilated. * There is moderate to severe mitral annular calcification. Procedure Details * A complete two-dimensional transthoracic echocardiogram was performed (2D, M-mode, Doppler and color flow Doppler). * A contrast injection of Definity was performed to improve assessment of LV function. * Contrast was injected into an intravenous site in the right arm. * One vial of Definity ultrasound contrast was diluted in normal saline to a total volume of 10 ml. A total of '2' ml of solution was administered during imaging. * Lot # 2 of Definity utilized for procedure. * Expiration date 1APR18. * The attending nurse who injected the contrast agent was Jax Ibarra RN. Left Ventricle * The left ventricle is normal in size. * There is normal left ventricular wall thickness. * Ejection Fraction = 60-65%. Right Ventricle * The right ventricle is normal size. * The right ventricular systolic function is normal. Atria * The left atrium is moderately dilated. * The right atrium is mild to moderately dilated. * The interatrial septum is intact with no evidence for an atrial septal defect. Mitral Valve * There is moderate to severe mitral annular calcification. * There is no mitral valve stenosis. * Significant mitral regurgitation is absent. Tricuspid Valve * The tricuspid valve is not well visualized. * Significant tricuspid regurgitation is absent. Aortic Valve * The aortic valve is tricuspid. The leaflet thickness if normal. There is no aortic stenosis, and no significant insufficiency. * The aortic valve opens well. * There is no significant aortic regurgitation. Pulmonic Valve * The pulmonic valve is not well visualized. Great Vessels * The aortic root and proximal ascending aorta are normal sized. Pericardium/Pleural * There is no pericardial effusion. MMode 2D Measurements and Calculations IVSd 1.0 cm IVSs 1.4 cm LVIDd 5.6 cm LVIDs 3.8 cm LVPWd 1.0 cm LVPWs 1.4 cm IVS/LVPW 1.0 FS 32.0 % EDV(Teich) 151.0 ml ESV(Teich) 61.0 ml EF(Teich) 59.6 % EDV(cubed) 171.6 ml ESV(cubed) 53.9 ml EF(cubed) 68.6 % % IVS thick 34.4 % % LVPW thick 39.4 % LV mass(C)d 227.0 grams LV mass(C)dI 91.7 grams/m\S\2 LV mass(C)s 196.1 grams LV mass(C)sI 79.2 grams/m\S\2 CO(Teich) 5.0 l/min CI(Teich) 2.0 l/min/m\S\2 SV(Teich) 90.0 ml SI(Teich) 36.3 ml/m\S\2 CO(cubed) 6.6 l/min CI(cubed) 2.7 l/min/m\S\2 SV(cubed) 117.8 ml SI(cubed) 47.6 ml/m\S\2 Ao root diam 3.2 cm Ao root area 8.3 cm\S\2 ACS 1.8 cm LA dimension 4.9 cm LA/Ao 1.5 LVOT diam 1.9 cm LVOT area 2.8 cm\S\2 LVAd ap4 40.1 cm\S\2 LVLd ap4 9.6 cm EDV(MOD-sp4) 138.0 ml LVAs ap4 19.3 cm\S\2 LVLs ap4 7.0 cm ESV(MOD-sp4) 44.0 ml EF(MOD-sp4) 68.1 % LVAd ap2 39.2 cm\S\2 LVLd ap2 9.3 cm EDV(MOD-sp2) 137.0 ml LVAs ap2 14.9 cm\S\2 LVLs ap2 7.0 cm ESV(MOD-sp2) 26.0 ml EF(MOD-sp2) 81.0 % CO(MOD-sp4) 5.3 l/min CI(MOD-sp4) 2.1 l/min/m\S\2 SV(MOD-sp4) 94.0 ml SI(MOD-sp4) 38.0 ml/m\S\2 CO(MOD-sp2) 6.2 l/min CI(MOD-sp2) 2.5 l/min/m\S\2 SV(MOD-sp2) 111.0 ml SI(MOD-sp2) 44.9 ml/m\S\2 Doppler Measurements and Calculations MV E max maryam 141.9 cm/sec MV A max maryam 103.0 cm/sec MV E/A 1.4 MV P1/2t max maryam 148.6 cm/sec MV P1/2t 108.2 msec MVA(P1/2t) 2.0 cm\S\2 MV dec slope 402.3 cm/sec\S\2 MV dec time 0.23 sec Ao V2 max 171.9 cm/sec Ao max PG 11.8 mmHg Ao max PG (full) 7.8 mmHg Ao V2 mean 117.1 cm/sec Ao mean PG 6.2 mmHg Ao mean PG (full) 4.2 mmHg Ao V2 VTI 40.4 cm SHIVANI(I,A) 1.6 cm\S\2 SHIVANI(I,D) 1.6 cm\S\2 SHIVANI(V,A) 1.6 cm\S\2 SHIVANI(V,D) 1.6 cm\S\2 LV V1 max PG 4.0 mmHg LV V1 mean PG 2.0 mmHg LV V1 max 100.0 cm/sec LV V1 mean 65.5 cm/sec LV V1 VTI 23.1 cm SV(Ao) 334.5 ml SI(Ao) 135.1 ml/m\S\2 SV(LVOT) 64.3 ml SI(LVOT) 26.0 ml/m\S\2 PA V2 max 104.2 cm/sec PA max PG 4.3 mmHg TR max maryam 171.0 cm/sec
[2017-01-21] MEDS: TORSEMIDE 20 MG TAB PO SCH (16:22)
--- NOTE | 2017-01-21 18:13 | DIAGNOSTIC IMAGING REPORT ---
BILATERAL LOWER EXTREMITY VENOUS DOPPLER CLINICAL HISTORY: R/O DVT, Elevated d-dimer COMPARISON STUDY: Bilateral lower extremity venous Doppler June 15, 2016. TECHNIQUE: Sonography of the deep venous system of the bilateral lower extremities was performed. Compression and augmentation were evaluated. FINDINGS: This exam was compromised by suboptimal penetration. The bilateral common femoral, superficial femoral and popliteal veins were compressible. Augmentation was normal. Flow was shown within the deep calf vessels. IMPRESSION: No evidence of deep venous thrombus within the bilateral lower extremities. Electronically signed by: John Carmona M.D. 01/21/2017 6:11 PM Dictated Date/Time: 01/21/2017 6:11 PM
[2017-01-21] MEDS: INSULIN GLARGINE SOLOSTAR 100 UNITS/ML 3 ML PEN SC SCH (20:33)
[2017-01-21] MEDS ORDERED: FUROSEMIDE 40 MG TAB PO SCH (21:00)
[2017-01-22 03:46] VITALS: BP 139/71; PULSE 54; TEMP 36.8; O2SAT 97
[2017-01-22] MEDS: HEPARIN SOD 5000 UNIT/0.5 ML CARP SQ SCH ×2 (05:47→14:13)
[2017-01-22 06:10] LABS: BASO % 0.9 %; BASO ABS # 0.05 K/uL (0-0.2); COMPLETE YES; EOS % 2.6 %; HEMATOCRIT 33.5 % (37-47); IG% 0.2 %; LYMPH % 36.5 %; LYMPH ABS # 2.13 K/uL (1.2-3.4); MEAN CELL VOLUME 92.3 fL (80-100); MEAN CORPUSCULAR HEMOGLOBIN 30.6 pg (25-34); MEAN CORPUSCULAR HGB CONC 33.1 g/dl (32-36); MEAN PLATELET VOLUME 10.3 fL (7.4-10.4); MONO % 6.3 %; NEUT % 53.5 %; PLATELET COUNT 199 K/uL (130-400); RED BLOOD COUNT 3.63 M/uL (4.2-5.4); WHITE BLOOD COUNT 5.84 K/uL (4.8-10.8)
[2017-01-22 06:41] LABS: BUN/CREATININE RATIO 39.1 (10-20); CALCIUM 10.1 mg/dl (8.5-10.1); CREATININE 1.8 mg/dl (0.60-1.20); POTASSIUM 4.4 mmol/L (3.5-5.1)
[2017-01-22 07:38] VITALS: BP 166/73; PULSE 56; TEMP 36.5; O2SAT 96
[2017-01-22] MEDS: INSULIN ASPART 100 UNITS/ML 3 ML PEN SC SCH ×3 (08:39→17:06)
[2017-01-22] MEDS: INSULIN GLARGINE SOLOSTAR 100 UNITS/ML 3 ML PEN SC SCH (08:40)
[2017-01-22] MEDS: ISOSORBIDE MONONITRATE 60 MG TABCR PO SCH (08:47)
[2017-01-22] MEDS: FENOFIBRATE 145 MG TAB PO SCH (08:49)
[2017-01-22] MEDS: ESCITALOPRAM OXALATE 20 MG TAB PO SCH (08:49)
[2017-01-22] MEDS: OMEGA-3 (PURIFIED FISH OIL) 1 GM CAP PO SCH (08:49)
[2017-01-22] MEDS: ALLOPURINOL 300 MG TAB PO SCH (08:49)
[2017-01-22] MEDS: ASPIRIN 81 MG ECTAB PO SCH (08:49)
[2017-01-22] MEDS: CLOPIDOGREL BISULFATE 75 MG TAB PO SCH (08:49)
[2017-01-22] MEDS: TORSEMIDE 20 MG TAB PO SCH ×2 (08:50→17:06)
[2017-01-22] MEDS: METOPROLOL SUCC 25MG EXT REL TAB PO SCH ×2 (08:52→09:00)
[2017-01-22] MEDS ORDERED: FUROSEMIDE 80 MG TAB PO SCH (09:00)
[2017-01-22] MEDS ORDERED: LOSARTAN POTASSIUM 25 MG TAB PO SCH (09:00)
[2017-01-22 11:24] VITALS: BP 149/75; PULSE 67; TEMP 36.6; O2SAT 90
--- NOTE | 2017-01-22 12:22 | CARDIOLOGY PROGRESS NOTE ---
DATE: 01/22/2017 DATE: 01/22/2017. FOLLOW-UP VISIT SUBJECTIVE: The patient is a 71-year-old female with multiple medical problems outlined in my consult. She was admitted because she was having leg weakness and stiffness after starting Crestor. Since that medication was discontinued on admission she has found a marked improvement and is actually able to move her legs and feels very good. I also switched her Lasix to torsemide, which she is tolerating. She has no complaints today. OBJECTIVE: GENERAL: She is alert and oriented in no acute distress. VITAL SIGNS: Blood pressure is 150/75, pulse is regular at 67. She is afebrile. HEAD, EYES, EARS, NOSE, AND THROAT: She wears corrective lenses. Mucous membranes are moist. NECK: The neck veins are flat. Carotids have good upstrokes bilaterally without bruits. Thyroid is nonpalpable. RESPIRATORY: Breath sounds equal bilaterally and clear to auscultation. CARDIOVASCULAR: Heart has a regular rhythm. Normal S1, S2. No S3, S4. No cardiac rubs or murmurs. GASTROINTESTINAL: Abdomen is soft, nontender without organomegaly. EXTREMITIES: Free of edema, digit clubbing, or cyanosis. NEUROLOGIC: Grossly intact. SKIN: Warm to touch. LYMPH NODES: Negative to palpation. LABORATORY DATA: Hemoglobin is 11.1, creatinine is 1.8, potassium is 4.4. IMPRESSION: 1. Muscle aches and weakness due to statin medication. 2. Chronic renal disease. 3. Severe diffuse arteriosclerotic vascular disease. RECOMMENDATIONS: The patient seems to be markedly improved off of the Crestor. Her blood pressure has been elevated here during her admission, but they have been holding her metoprolol and I have asked the nurse to go ahead and give that this morning. If her blood pressure is reasonably controlled at that point with a systolic less than 150 I think she could be discharged to outpatient followup. She has a follow-up visit with Neville Bill in approximately 2 weeks.
--- NOTE | 2017-01-22 12:23 | Progress Note ---
Medicine Progress Note Date & Time of Visit: Jan 22, 2017 at 12:23. Subjective patient seen resting in bedside chair, comfortable states she feels fine overall myalgias resolved, no leg pain ambulated at baseline denies chest pain, dyspnea, dizziness, nausea, palpitations states she is ready for discharge today Objective Last 8 Hrs Date Time Temp Pulse Resp B/P Pulse Ox O2 Delivery O2 Flow Rate FiO2 01/22/17 11:24 36.6 67 16 149/75 90 Room Air 01/22/17 08:00 Room Air 01/22/17 07:38 36.5 56 16 166/73 96 Room Air Physical Exam: General- oriented x 3, not in distress, speaks in sentences with no effort Eyes- anicteric ENT- oropharynx clear Neck- no JVD, no adenopathy Lungs- clear breath sounds bilaterally, no rales/wheeze Heart-mild bradycardia, regular rhythm; no murmurs Abdomen- normal bowel sounds, soft, nontender Extremities- trace pretibial edema,no tenderness on both legs, no erythema, fair dorsalis pedis pulses Neuro- alert, oriented x 3; no gross focal deficits Skin- warm & dry Laboratory Results: Last 24 Hours Test 01/21/17 16:19 01/21/17 20:08 01/21/17 21:16 01/22/17 05:47 Bedside Glucose 275 mg/dl 266 mg/dl 254 mg/dl White Blood Count 5.84 K/uL Red Blood Count 3.63 M/uL Hemoglobin 11.1 g/dL Hematocrit 33.5 % Mean Corpuscular Volume 92.3 fL Mean Corpuscular Hemoglobin 30.6 pg Mean Corpuscular Hemoglobin Concent 33.1 g/dl Platelet Count 199 K/uL Mean Platelet Volume 10.3 fL Neutrophils (%) (Auto) 53.5 % Lymphocytes (%) (Auto) 36.5 % Monocytes (%) (Auto) 6.3 % Eosinophils (%) (Auto) 2.6 % Basophils (%) (Auto) 0.9 % Neutrophils # (Auto) 3.13 K/uL Lymphocytes # (Auto) 2.13 K/uL Monocytes # (Auto) 0.37 K/uL Eosinophils # (Auto) 0.15 K/uL Basophils # (Auto) 0.05 K/uL RDW Standard Deviation 52.9 fL RDW Coefficient of Variation 15.8 % Immature Granulocyte % (Auto) 0.2 % Immature Granulocyte # (Auto) 0.01 K/uL Sodium Level 142 mmol/L Potassium Level 4.4 mmol/L Chloride Level 106 mmol/L Carbon Dioxide Level 30 mmol/L Anion Gap 6.0 mmol/L Blood Urea Nitrogen 70 mg/dl Creatinine 1.80 mg/dl Est Creatinine Clear Calc Drug Dose 43.9 ml/min Estimated GFR () 32.7 Estimated GFR (Non- 28.2 BUN/Creatinine Ratio 39.1 Random Glucose 151 mg/dl Calcium Level 10.1 mg/dl Test 01/22/17 06:50 01/22/17 11:50 Bedside Glucose 166 mg/dl 217 mg/dl Assessment & Plan DYSPNEA ON EXERTION, ACS RULED OUT H/O CAD S/P CABG - cardiac markers negative ekg no signs of acute ischemia echo: * -- Conclusions -- * The study was technically limited. * The left ventricle is normal in size. * Ejection Fraction = 60-65%. * The right ventricular systolic function is normal. * The left atrium is moderately dilated. * The right atrium is mild to moderately dilated. * There is moderate to severe mitral annular calcification. CTA: Negative for PE, consolidation - continued on usual medications including aspirin, plavix, ISMN Metoprolol decreased for bradycardia Statin discontinued for myalgias - Cardiology consulted- Dr. Reyes recommended to change Lasix to Torsemide 20mg po BID for better absorption ff up with Cardiology Clinic in 2 weeks MYALGIAS LEG PAIN - likely from Crestor CK normal Doppler US to r/o DVT - symptoms resolved evaluated by PT, recommend return home - discontinue Crestor SINUS BRADYCARDIA HR in the mid 50s Decreased Metoprolol to 12.5mg daily monitor HR as outpatient CHRIS on CKD III: Baseline Cr:1- 1.5 Currently 1.8 monitor as outpatient Chronic Bilateral LE swelling and Pain Likely secondary to PAD, lymphedema Follows with physical therapy as outpatient DM II: continue usual Insulin regimen PAD: Continue ASA, Plavix Statin discontinued H/O Diastolic HF euvolemic continue Lasix SAMANTHA on CPAP Stable DVT Px: Heparin SQ Code Status: Full code Disposition: d/c home today ff up with PCP in 1 week ff up with Senior Instructor in 2 weeks Current Inpatient Medications: Current Inpatient Medications Medications (Trade) Dose Ordered Sig/Cheko Route Start Time Stop Time Status Last Admin Dose Admin Ioversol (Optiray 320) 111 ml UD PRN IV 01/20/17 20:30 01/24/17 20:29 Heparin Sodium (Porcine) (Heparin Sq 5000 Unit/0.5ml) 5,000 unit Q8H SQ 01/21/17 06:00 02/20/17 05:59 01/22/17 05:47 5,000 UNIT Acetaminophen (Tylenol Tab) 650 mg Q4H PRN PO 01/20/17 22:30 02/19/17 22:29 Ondansetron HCl (Zofran Inj) 4 mg Q6H PRN IV 01/20/17 22:30 02/19/17 22:29 Nitroglycerin (Nitrostat Tab) 0.4 mg UD PRN SL 01/20/17 22:30 02/19/17 22:29 Glucose (Glucose 40% Gel) 15-30 GRAMS 15 GRAMS... UD PRN PO 01/20/17 23:00 02/19/17 22:59 Glucose (Glucose Chew Tab) 4-8 Tablets 4 Tabl... UD PRN PO 01/20/17 23:00 02/19/17 22:59 Dextrose (Dextrose 50% 50ML Syringe) 25-50ML OF 50% DW IV FOR... UD PRN IV 01/20/17 23:00 02/19/17 22:59 Glucagon (Glucagon Inj) 1 mg UD PRN SQ 01/20/17 23:00 02/19/17 22:59 Miscellaneous Information (Consult Glycemic Management Pharmacy) 1 ea UD PRN N/A 01/20/17 22:57 02/19/17 22:56 Allopurinol (Zyloprim Tab) 300 mg DAILY PO 01/21/17 09:00 02/20/17 08:59 01/22/17 08:49 300 MG Aspirin (Ecotrin Tab) 81 mg QAM PO 01/21/17 09:00 02/20/17 08:59 01/22/17 08:49 81 MG Clopidogrel Bisulfate (plAVix TAB) 150 mg QAM PO 01/21/17 09:00 02/20/17 08:59 01/22/17 08:49 150 MG Escitalopram Oxalate (Lexapro Tab) 20 mg QAM PO 01/21/17 09:00 5/28/17 08:59 01/22/17 08:49 20 MG Fenofibrate (Tricor Tab) 145 mg DAILY PO 01/21/17 09:00 02/20/17 08:59 01/22/17 08:49 145 MG Fish Oil ([place]-3 (Purified Fish Oil) Cap) 1 gm QAM PO 01/21/17 09:00 02/20/17 08:59 01/22/17 08:49 1 GM Insulin Glargine (Lantus Solostar Pen) 40 unit Q12 SC 01/21/17 09:00 02/20/17 08:59 Future hold 01/22/17 08:40 40 UNIT Isosorbide Mononitrate (Imdur Ext Rel Tab) 60 mg DAILY PO 01/21/17 09:00 02/20/17 08:59 01/22/17 08:47 60 MG Lorazepam (Ativan Tab) 0.5 mg TID PRN PO 01/20/17 23:00 02/19/17 22:59 Tramadol HCl (Ultram Tab) 25 mg Q6 PRN PO 01/20/17 23:00 02/19/17 22:59 01/21/17 16:39 25 MG Polyethylene (Miralax Powder Packet) 17 gm DAILY PRN PO 01/20/17 23:00 02/19/17 22:59 Metoprolol Succinate (Toprol Xl Tab) 12.5 mg QAM PO 01/21/17 09:00 02/20/17 08:59 01/22/17 09:00 12.5 MG Losartan Potassium (coZAAR TAB) 12.5 mg QAM PO 01/22/17 09:00 02/21/17 08:59 01/22/17 08:48 12.5 MG Tramadol HCl (Ultram Tab) 50 mg Q6H PRN PO 01/21/17 10:45 02/20/17 10:44 Torsemide (Demadex Tab) 20 mg BID17 PO 01/21/17 17:00 02/20/17 16:59 01/22/17 08:50 20 MG Insulin Aspart (novoLOG ASPART) SLIDING SCALE If C... ACHS SC 01/21/17 16:15 02/20/17 16:14 01/22/17 11:57 20 UNITS
[2017-01-22 15:27] VITALS: BP 120/63; PULSE 55; TEMP 36.5; O2SAT 94
[2017-01-22] MEDS ORDERED: DMD20 PO (18:15)
[2017-01-22] MEDS ORDERED: TPRSR25 PO (18:15)
--- NOTE | 2017-01-22 18:21 | Discharge Instructions ---
Discharge Instructions Date of Service Jan 22, 2017. Admission Reason for Admission: CHRIS Discharge Discharge Diagnosis / Problem: MUSCLE ACHES AND WEAKNESS Discharge Goals Goal(s): Diagnostic testing, Therapeutic intervention Activity Recommendations Activity Limitations: as noted below (NO HEAVY EXERTION UNTIL RE-EVALUATED BY PRIMARY CARE PHYSICIAN) . Instructions / Follow-Up Instructions / Follow-Up PLEASE REVIEW YOUR NEW MEDICATION LIST AND FOLLOW INSTRUCTIONS CAREFULLY. CALL PRIMARY CARE PHYSICIAN OR RETURN TO ER IMMEDIATELY IF WITH RECURRENCE OF SYMPTOMS, INCREASING SHORTNESS OF BREATH, CHEST PAIN, LEG SWELLING, INCREASING PAIN. FOLLOW UP WITH DR. ARCE (ASSOCIATE OF DR. ALEGRE) ON THURSDAY JANUARY 26, 2017 AT 1:05PM. FOLLOW UP WITH [facility] REPA[facility] IN 2 WEEKS. Call your Primary Care doctor if any of the following symptoms or problems start or get worse: * Shortness of breath or difficulty breathing * Wake up at night short of breath * Chest pain * Cough * Swelling of your hands, feet, or legs * More fatigued or tired with your normal activity * Palpitations - sudden fast heart beats WEIGHT * Weigh yourself every morning after using the bathroom. * Use the same scale. * Wear the same amount of clothing. * Write your weight down on a chart. * Call your Primary Care doctor if you gain more than 2-3 pounds in 1-2 days. MEDICATIONS * Use this discharge instruction sheet for medication instructions. * Take your medications at the time your doctor ordered. * Do not skip a dose of your medicines. * If you miss a dose of medicine, take it as soon as possible, but DO NOT DOUBLE A DOSE. * Read your medicine information when you get home. * Know all of the side effects of your medicine. If in doubt, ask your pharmacist * Call your Primary Care doctor's office if you have any side effects. * Be sure all of your doctors know what medicine and herbs you take (including cold, flu, and herbal medicine). Take the following with you to your follow-up doctor appointments: * Weight Chart * Medication List * List of questions Do not drink excessive alcohol, beer or wine. Current Hospital Diet Patient's current hospital diet: AHA Diet (Heart Healthy), Diabetes Type 2 Diet Discharge Diet Recommended Diet: AHA Diet (Heart Healthy), Diabetes Type 2 Diet Fluid Restriction: 1500 ml (6 cups) Pending Studies Studies pending at discharge: no Laboratory Results Hemoglobin A1c Test 01/21/17 05:03 Range/Units Estimated Average Glucose 183 mg/dl Hemoglobin A1c 8.0 H 4.5-5.6 % Lipid Panel Test 01/21/17 05:03 Range/Units Triglycerides Level 287 H 0-150 mg/dl Cholesterol Level 164 0-200 mg/dl HDL Cholesterol 34 mg/dl Cholesterol/HDL Ratio 4.8 LDL Cholesterol, Calculated 73 mg/dl Medical Emergencies . Who to Call and When: Call 911 or go to the Emergency Room if: * If at any time you feel your situation is an emergency * You have tightness or pain in your chest that does not go away with rest or Nitroglycerin * You are very short of breath even with rest . Non-Emergent Contact Non-Emergency issues call your: Primary Care Provider Call Non-Emergent contact if: you have a fever, your pain is not controlled, you have any medication questions . 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 "Provider Documentation" section prepared by Mohsen Godoy. . VTE Core Measure Inpt VTE Proph given/why not?: Unfractionated heparin SQ
[2017-01-22 18:24] VITALS: BP 120/63; PULSE 55; TEMP 36.5; O2SAT 94
--- NOTE | 2017-01-22 18:27 | Discharge Summary ---
Discharge Summary Date of Service Jan 22, 2017. Discharge Summary Admission Date: Jan 20, 2017 at 22:30 Discharge Date: Jan 22, 2017 Discharge Disposition: Home Principal Diagnosis: DYSPNEA ON EXERTION, ACUTE CORONARY SYNDROME RULED OUT HISTORY OF CAD S/P CABG Secondary Diagnoses/Problems: PLEASE REFER TO HOSPITAL COURSE BELOW. Procedures: CT ANGIOGRAM OF THE CHEST CLINICAL HISTORY: Chest pain and shortness of breath. Positive d-dimer. COMPARISON STUDY: 07/29/2011 TECHNIQUE: Following the IV administration of 98 mL of Optiray-320, CT angiogram of the thorax was performed from the thoracic inlet to the lung bases utilizing the pulmonary embolus protocol. Images are reviewed in the axial, sagittal, and coronal planes. IV contrast was administered without complication. MIP imaging was performed. CT DOSE: 817.35 mGy.cm FINDINGS: No pathologically enlarged axillary mediastinal or hilar lymph nodes were visualized. There was no evidence of thoracic aortic dilatation. The heart is enlarged. There are coronary artery calcifications present. There are postsurgical changes of a midline sternotomy. There were no pulmonary artery filling defects to indicate acute pulmonary embolism. No pleural effusions are visualized. There was no evidence of focal pulmonary consolidation. IMPRESSION: 1. No evidence of acute pulmonary embolism 2. No evidence of focal pulmonary consolidation. No pleural effusions identified. 3. Cardiomegaly and coronary artery calcifications. BILATERAL LOWER EXTREMITY VENOUS DOPPLER CLINICAL HISTORY: R/O DVT, Elevated d-dimer COMPARISON STUDY: Bilateral lower extremity venous Doppler June 15, 2016. TECHNIQUE: Sonography of the deep venous system of the bilateral lower extremities was performed. Compression and augmentation were evaluated. FINDINGS: This exam was compromised by suboptimal penetration. The bilateral common femoral, superficial femoral and popliteal veins were compressible. Augmentation was normal. Flow was shown within the deep calf vessels. IMPRESSION: No evidence of deep venous thrombus within the bilateral lower extremities. Consultations: COURT DEPUTY DR. REYES Pending Studies/Follow-Up: MONITOR HR AND BP (METOPROLOL DECREASED TO 12.5MG PO DAILY FROM 25MG); PLEASE REFER TO HOSPITAL COURSE BELOW. Medication Reconciliation New Medications: Metoprolol Succinate (Metoprolol Succinate ER) 25 Mg Tabcr 12.5 MG PO QAM for 30 Days, #15 TABS 2 Refills Torsemide (Torsemide) 20 Mg Tab 20 MG PO BID17 for 30 Days, #60 TAB 2 Refills Continued Medications: Allopurinol (Allopurinol) 100 Mg Tab 300 MG PO DAILY Aspirin (Aspirin) 81 Mg Tab 81 MG PO QAM Bisacodyl (Ra Laxative) 5 Mg Tab 5 MG PO DAILY PRN for Constipation Clopidogrel Bisulfate (Clopidogrel) 75 Mg Tab 150 MG PO QAM Coenzyme Q10 (Ubidecarenone) (Co Q10) 30 Mg Cap 1 CAP PO QAM, CAP Escitalopram Oxalate (Escitalopram Oxalate) 20 Mg Tab 20 MG PO QAM, #90 Fenofibrate (Tricor ) 145 Mg Tab 145 MG PO DAILY, TAB Fish Oil ([place]-3) 1 Ea Cap 1000 MG PO QAM, CAP Insulin Aspart (Novolog Penfill) 100 Unit/ Inj UNITS SC UD Inject 45 units before meals, 20 units before bedtime snack, plus corection of 1:25 over 150 Insulin Glargine (Lantus Solostar Pen) 100 Unit/ Inj 50 UNITS SC Q12 Iron-Vitamin C (Vitron-C) 1 Tab Tab 1 TAB PO Q2D Isosorbide Mononitrate (Isosorbide Mononitrate ER) 60 Mg Tab 60 MG PO DAILY, #60 TAB 5 Refills Lorazepam (Lorazepam) 0.5 Mg Tab 1 TAB PO TID PRN for Anxiety for 30 Days, #90 TAB Losartan Potassium (Losartan Potassium) 25 Mg Tab 12.5 MG PO QAM Nitroglycerin (Nitrostat) 0.4 Mg Tab 0.4 MG UT UD PRN for Chest Pain, BTL Polyethylene Glycol 3350 (Miralax) 1 Pow Pow 17 GM PO DAILY PRN for Constipation, GM Tramadol (Ultram) 50 Mg Tab 25 MG PO Q6 PRN for Pain for 30 Days, #60 TAB Discontinued Medications: Furosemide (Furosemide) 80 Mg Tab 80 MG PO QAM, #180 Furosemide (Furosemide) 40 Mg Tab 40 MG PO HS Metoprolol Succ (Toprol Xl) (Toprol-Xl) 25 Mg Tabcr 25 MG PO QAM, 0 Refills Rosuvastatin Calcium (Rosuvastatin Calcium) 5 Mg Tab 5 MG PO QAM, #30 Admission Information HPI (per Admitting provider): Patient is a 71 yr old female with PMH of CAD S/P CABG, DM II, CKD III, Diastolic HF, Depression, GERD, SAMANTHA ON CPAP, HTN, PAD and other comorbidities presents from evaluation of SOB on exertion, weakness and worsening B/L LE pain on walking. Patient is very poor historian. She states going to her physical therapist today and believes that her physical therapist is concerned about her having SOB on exertion and sent to ED for further evaluation. States being more fatigued today. States having exertional SOB with minimal exertion which lasts for only a minute and resolves with rest, states this has been going on since many days. States having tried different statins previously which caused side effects and she recently was restarted on Crestor by her benefits clerk and she believes to have side effects currently from the medication. Also complains of chronic B/L LE swelling/stiffness and pain which ambulation. Also states having minimal chest pain on exertion this morning which resolved. Denies any nausea, vomiting, diaphoresis, dizziness, diarrhea, abd pain, palpitations, headache, urinary symptoms. Physical Exam (per Admitting): General Appearance: WD/WN, no apparent distress, + obese Head: normocephalic, atraumatic Eyes: normal inspection, PERRL, EOMI, sclerae normal ENT: normal ENT inspection, hearing grossly normal Neck: supple, trachea midline Respiratory/Chest: chest non-tender, lungs clear, no respiratory distress, no accessory muscle use Cardiovascular: regular rate, rhythm, no murmur, + bradycardia, + pertinent finding (B/L LE Edema, Lymphedema ) Abdomen/GI: normal bowel sounds, non tender, soft, no organomegaly Back: normal inspection Extremities/Musculoskelatal: normal inspection, + pertinent finding (B/L LE Edema, Lymphedema, Tender LE bilaterally ) Neurologic/Psych: government gauger II-XII nml as tested, no motor/sensory deficits, alert , normal mood/affect, oriented x 3 Skin: normal color, warm/dry, + pertinent finding (Post CABG scar on chest) Hospital Course DYSPNEA ON EXERTION, ACUTE CORONARY SYNDROME RULED OUT HISTORY OF CAD S/P CABG - cardiac markers negative ekg no signs of acute ischemia echo: * -- Conclusions -- * The study was technically limited. * The left ventricle is normal in size. * Ejection Fraction = 60-65%. * The right ventricular systolic function is normal. * The left atrium is moderately dilated. * The right atrium is mild to moderately dilated. * There is moderate to severe mitral annular calcification. CTA: Negative for PE, consolidation - continued on usual medications including aspirin, plavix, ISMN Metoprolol decreased for bradycardia Statin discontinued for myalgias - Cardiology consulted- Dr. Reyes recommended to change Lasix to Torsemide 20mg po BID for better absorption ff up with Cardiology Clinic in 2 weeks MYALGIAS. LEG PAIN, LIKELY FROM CRESTOR - reports diffuse muscle aches, weakness since restarting Crestor - CK normal Doppler US: no DVT - discontinued Crestor - symptoms resolved evaluated by PT, recommend return home SINUS BRADYCARDIA HR in the mid 50s, asymptomatic Decreased Metoprolol to 12.5mg daily monitor HR as outpatient CKD III Baseline Cr:1- 1.5 Currently 1.8 monitor as outpatient Chronic Bilateral LE swelling and Pain Likely secondary to PAD, lymphedema Follows with physical therapy as outpatient DM II: continue usual Insulin regimen PAD: Continue ASA, Plavix Statin discontinued H/O Diastolic HF euvolemic continue Lasix SAMANTHA on CPAP Stable Disposition: d/c home ff up with PCP in 1 week ff up with Insole Presser in 2 weeks Total time spent on discharge = 35 MINUTES This includes examination of the patient, discharge planning, medication reconciliation, and communication with other providers. Discharge Instructions Discharge Instructions Date of Service Jan 22, 2017. Admission Reason for Admission: CHRIS Discharge Discharge Diagnosis / Problem: MUSCLE ACHES AND WEAKNESS Discharge Goals Goal(s): Diagnostic testing, Therapeutic intervention Activity Recommendations Activity Limitations: as noted below (NO HEAVY EXERTION UNTIL RE-EVALUATED BY PRIMARY CARE PHYSICIAN) . Instructions / Follow-Up Instructions / Follow-Up PLEASE REVIEW YOUR NEW MEDICATION LIST AND FOLLOW INSTRUCTIONS CAREFULLY. CALL PRIMARY CARE PHYSICIAN OR RETURN TO ER IMMEDIATELY IF WITH RECURRENCE OF SYMPTOMS, INCREASING SHORTNESS OF BREATH, CHEST PAIN, LEG SWELLING, INCREASING PAIN. FOLLOW UP WITH DR. ARCE (ASSOCIATE OF DR. ALEGRE) ON THURSDAY JANUARY 26, 2017 AT 1:05PM. FOLLOW UP WITH COURT DEPUTY IN 2 WEEKS. Call your Primary Care doctor if any of the following symptoms or problems start or get worse: * Shortness of breath or difficulty breathing * Wake up at night short of breath * Chest pain * Cough * Swelling of your hands, feet, or legs * More fatigued or tired with your normal activity * Palpitations - sudden fast heart beats WEIGHT * Weigh yourself every morning after using the bathroom. * Use the same scale. * Wear the same amount of clothing. * Write your weight down on a chart. * Call your Primary Care doctor if you gain more than 2-3 pounds in 1-2 days. MEDICATIONS * Use this discharge instruction sheet for medication instructions. * Take your medications at the time your doctor ordered. * Do not skip a dose of your medicines. * If you miss a dose of medicine, take it as soon as possible, but DO NOT DOUBLE A DOSE. * Read your medicine information when you get home. * Know all of the side effects of your medicine. If in doubt, ask your pharmacist * Call your Primary Care doctor's office if you have any side effects. * Be sure all of your doctors know what medicine and herbs you take (including cold, flu, and herbal medicine). Take the following with you to your follow-up doctor appointments: * Weight Chart * Medication List * List of questions Do not drink excessive alcohol, beer or wine. Current Hospital Diet Patient's current hospital diet: AHA Diet (Heart Healthy), Diabetes Type 2 Diet Discharge Diet Recommended Diet: AHA Diet (Heart Healthy), Diabetes Type 2 Diet Fluid Restriction: 1500 ml (6 cups) Pending Studies Studies pending at discharge: no Laboratory Results Hemoglobin A1c Test 01/21/17 05:03 Range/Units Estimated Average Glucose 183 mg/dl Hemoglobin A1c 8.0 H 4.5-5.6 % Lipid Panel Test 01/21/17 05:03 Range/Units Triglycerides Level 287 H 0-150 mg/dl Cholesterol Level 164 0-200 mg/dl HDL Cholesterol 34 mg/dl Cholesterol/HDL Ratio 4.8 LDL Cholesterol, Calculated 73 mg/dl Medical Emergencies . Who to Call and When: Call 911 or go to the Emergency Room if: * If at any time you feel your situation is an emergency * You have tightness or pain in your chest that does not go away with rest or Nitroglycerin * You are very short of breath even with rest . Non-Emergent Contact Non-Emergency issues call your: Primary Care Provider Call Non-Emergent contact if: you have a fever, your pain is not controlled, you have any medication questions . 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 "Provider Documentation" section prepared by Mohsen Godoy. . VTE Core Measure Inpt VTE Proph given/why not?: Unfractionated heparin SQ
[2017-01-22] MEDS ORDERED: INSULIN GLARGINE SOLOSTAR 100 UNITS/ML 3 ML PEN SC SCH (21:00)
[2017-05-19] MEDS ORDERED: ALLO300T80 PO (15:44)
[2017-05-19] MEDS ORDERED: TORS20TA2 PO (15:44)
[2017-05-19] MEDS ORDERED: METO25TA3 PO (15:44)
[2017-05-19] MEDS ORDERED: ISOS60TA25 PO (15:44)
== END 2017-01-22 19:22 | disposition home or self-care (01) | DRG 684 ==
LOC: ENRESERVTM → ENRESERVDT → C.EDB 17:31 → C.2T 22:30
PROVIDERS: ADMIT Internal Medicine; ATTEND Internal Medicine
DX: N17.9 Acute kidney failure, unspecified (principal); N18.3 Chronic kidney disease, stage 3 (moderate); F32.9 Major depressive disorder, single episode, unspecified; I25.10 Atherosclerotic heart disease of native coronary artery without angina pectoris; E78.5 Hyperlipidemia, unspecified; K21.9 Gastro-esophageal reflux disease without esophagitis; Z79.4 Long term (current) use of insulin; G47.33 Obstructive sleep apnea (adult) (pediatric); E11.319 Type 2 diabetes mellitus with unspecified diabetic retinopathy without macular edema; E11.49 Type 2 diabetes mellitus with other diabetic neurological complication; I73.9 Peripheral vascular disease, unspecified; I45.10 Unspecified right bundle-branch block; R00.1 Bradycardia, unspecified; M79.1 Myalgia; G89.29 Other chronic pain; Z89.021 Acquired absence of right finger(s); Z95.1 Presence of aortocoronary bypass graft; Z79.02 Long term (current) use of antithrombotics/antiplatelets; Z98.51 Tubal ligation status

== ENCOUNTER → 2017-05-23 | Day surgery (SDC) | payer OTHER, MEDICARE ==
[2017-05-19 15:46] VITALS: Ht 175.3 cm; Wt 136.4 kg
[~2017-05-23] VITALS: Ht 175.3 cm; Wt 136.4 kg
[~2017-05-23] MED LIST changes: +500ML BSSPLUS 0.5ML EPI1:1000 IRRIG ONE; +ACETAMINOPHEN 325 MG TAB PO PRN; -ALL100 PO; +ALLO300T80 PO; +ATROPINE SULFATE 0.1 MG/ML 5ML SYR IV PRN; +BSS FLUSH ONE; +BUPIVACAINE HCL 0.75% 10 ML AMP/VIAL ONE; +CEFAZOLIN SOD 1 GM VIAL ONE; -COEN1CAP PO; -CZR25 PO; +DEXAMETHASONE SOD INJ 4 MG/ML VIAL ONE; -ESCI10TA17 PO; +EpHEDrine SULFATE INJ 50 MG/ML AMP IV PRN; +EpINEphrine INJ 1MG/ML AMP 1 MG/ML AMP ONE; +FENTANYL CITRATE INJ 50 MCG/1 ML 2 ML VIAL IV PRN; -FURO40TA3 PO; +HYALURONIDASE HUMAN 150 UNIT/ML INJ ONE; +HydrALAZINE HCL 20 MG/ML VIAL ONE; -IMDSR60 PO; +ISOS60TA25 PO; +LACTATED RINGER'S 1000ML 500 ML IV SCH; +LIDOCAINE HCL 2% 2 ML VIAL (20MG/ML) ONE; +LIDOCAINE MPF 4% INJ INJ ONE; +LXP/20 PO; +MIDAZOLAM HCL 1 MG/ML 2ML VIAL ONE; +NEOMYCIN/POLYMYX/DEXAMETH OP OINT PER APP CHARGE ONE; +OCUCOAT 1 ML SOLN IO ONE; +ONDANSETRON INJ 2 MG/ML 2 ML VIAL IV PRN; +POVIDONE-IODINE OP SOLN (SURGERY CNTR CHARGING ONLY) ONE; +PROPARACAINE 0.5% OP SOLN PER DROP CHARGE OPL SCH; +PROPOFOL IV EMULSION 10 MG/ML 20 ML VIAL IV ONE; +TIMOLOL MALEATE 0.5% OP SOLN PER DROP CHARGE ONE; +TORS20TA2 PO
[2017-05-23] MEDS: PHENYLEPHRINE HCL 2.5% OP SOLN PER DROP CHARGE OPL SCH ×2 (07:35→07:40)
[2017-05-23] MEDS: TROPICAMIDE 1% OP SOLN PER DROP CHARGE OPL SCH ×2 (07:36→07:41)
--- NOTE | 2017-05-23 08:02 | History & Physical Bridge - SC ---
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 I have examined the patient, reviewed the History & Physical and in the interval since the performance of the History & Physical I have noted the following changes of clinical significance: No changes noted
--- NOTE | 2017-05-23 09:01 | Discharge Instructions-[facility]Ctr ---
Discharge Instructions Date of Service May 23, 2017. Visit Reason for Visit: Left Eye Diabetic Retinopathy Discharge Discharge Diagnosis / Problem: same Discharge Goals Goal(s): Improve function Activity Recommendations Activity Limitations: per Instructions/Follow-up section Anesthesia . Post Anesthesia Instructions: If you have had General Anesthesia or IV Sedation: * Do not drive today. * Resume driving when surgeon permits. * Do not make important decisions or sign legal documents today. * Call surgeon for: 1. Temperature elevations greater than 101 degrees F. 2. Uncontrollable pain. 3. Excessive bleeding. 4. Persistent nausea and vomiting. 5. Medication intolerance (nausea, vomiting or rash). * For nausea and vomiting use only clear liquids such as: tea, soda, bouillon until nausea subsides, then gradually increase diet as tolerated. * If you have any concerns or questions, call your surgeon's office. If physician is unavailable and it is an emergency, call 911 or go to the nearest emergency room. . Diet Recommendations Home Diet: resume previous diet Procedures Procedures Performed: Endolaser Pending Studies Studies pending at discharge: no Medical Emergencies . Who to Call and When: Medical Emergencies: If at any time you feel your situation is an emergency, please call 911 immediately. . Non-Emergent Contact Non-Emergency issues call your: Personnel Clerks Supervisor . . "Provider Documentation" section prepared by Foster Dickinson. .
--- NOTE | 2017-05-23 09:01 | [facility] Operative Report ---
Operative Report Date of Service May 23, 2017. Operative Report PREOPERATIVE DIAGNOSIS: Diabetic retinopathy with vitreous hemorrhage, left eye. POSTOPERATIVE DIAGNOSIS: same. PROCEDURE: 1. Pars plana vitrectomy, 23 gauge. 2. Endolaser. All to the right eye. CPT CODE: 80171 SURGEON: Foster Dickinson D.O. COMPLICATIONS: None. ESTIMATED BLOOD LOSS: None. SPECIMENS: None. ANESTHESIA: Retrobulbar block and MAC INDICATIONS FOR PROCEDURE: Surgery is indicated to decrease risk of vision loss and potentially improve vision. CONSENT: The risks, benefits and alternatives were discussed with the patient including but not limited to decreased visual acuity, failure to achieve desired results, loss of the eye, infection, pain, glaucoma, lens changes, retinal tears, retinal detachment, the need for more procedures, drooping of the eyelid, blindness, and double vision. The patient is aware of risks and consents to the surgery. Consent is signed and on the chart. OPERATION AND FINDINGS: The patient was brought to the operating room where the patient was identified by name, date, and medical record number. The surgical site was confirmed with the informed written consent. The patient was sedated by the anesthesiology team after which a 50:50 mixture of 4% lidocaine and 0.75% bupivacaine with hyaluronidase was administered in a standard retrobulbar fashion. A total of 4 ml was administered without difficulty. The patient was then prepped and draped in the usual sterile manner for retinal surgery. A wire lid speculum was placed and an Lasha 23-gauge trocar cannula system was employed. The inferior temporal trocar cannula was first placed in an angled fashion 3.75mm posterior to the surgical limbus and the infusion cannula was inserted into this cannula after which the intravitreal position was verified prior to turning the infusion on. Two more trocar cannulas were then inserted in an angled fashion, one in the superior temporal, and one in the superior nasal quadrant both 3.75mm posterior to the surgical limbus. A light pipe and vitrector were then introduced into the eye and the BIOM wide angle viewing system was brought into place. Posterior inspection revealed partially regressed proliferative diabetic retinopathy with nonclearing vitreous hemorrhage. There was also noted previous laser treatment. Standard core vitrectomy was performed. The vitreous was insured to be totally detached from the posterior pole with the aid of the vitrector. Endolaser was then used to perform fill-in panretinal photocoagulation. At this point scleral depression was performed for 360 degrees and no retinal tears or detachments were noted. The trocar cannulas were then removed and found to be water tight. The intraocular pressure was found to be within normal limits by palpation and subconjunctival injections of Kefzol and dexamethasone were administered inferiorly and superiorly. The wire lid speculum was removed. Maxitrol was applied to the surface of the eye. A light patch and shield were taped over the surface of the eye and the patient left the Operating Room in stable condition having tolerated the procedure well. DISPOSITION: The patient has an appointment the following morning in the Ophthalmology Clinic. The patient is to call immediately if there are any problems overnight. I attest to the content of the Intraoperative Record and any orders documented therein. Any exceptions are noted below.
[2017-05-23 09:03] VITALS: TEMP 36.4
--- NOTE | 2017-05-23 09:06 | Anesthesia Progress Nt - [facility] ---
Anesthesia Post Op Note Date & Time May 23, 2017 at 09:05 Vital Signs Pain Intensity: 0 Vital Signs Past 12 Hours Date Time Temp Pulse Resp B/P (MAP) Pulse Ox O2 Delivery O2 Flow Rate FiO2 05/23/17 07:29 36.5 66 20 156/69 (98) 95 Room Air Notes Mental Status: alert / awake / arousable, participated in evaluation Pt Amnestic to Procedure: Yes Nausea / Vomiting: adequately controlled Pain: adequately controlled Airway Patency, RR, SpO2: stable & adequate BP & HR: stable & adequate Hydration State: stable & adequate Anesthetic Complications: no major complications apparent Spoke with patient in recovery. She is awake and conversant, denies significant eye pain. Had no questions regarding her anesthetic care.
[2017-05-23 09:30] VITALS: BP 113/65; PULSE 56; O2SAT 98
== END | disposition home or self-care (01) ==
LOC: X.SURG 07:13
PROVIDERS: ATTEND Ophthalmology
DX: E11.319 Type 2 diabetes mellitus with unspecified diabetic retinopathy without macular edema (principal); H43.12 Vitreous hemorrhage, left eye; E66.01 Morbid (severe) obesity due to excess calories; I25.10 Atherosclerotic heart disease of native coronary artery without angina pectoris; E55.9 Vitamin D deficiency, unspecified; F32.9 Major depressive disorder, single episode, unspecified; Z79.82 Long term (current) use of aspirin; E11.40 Type 2 diabetes mellitus with diabetic neuropathy, unspecified; E78.5 Hyperlipidemia, unspecified; K21.9 Gastro-esophageal reflux disease without esophagitis; I11.0 Hypertensive heart disease with heart failure; I50.30 Unspecified diastolic (congestive) heart failure; G47.33 Obstructive sleep apnea (adult) (pediatric); Z79.899 Other long term (current) drug therapy; Z79.84 Long term (current) use of oral hypoglycemic drugs; Z95.5 Presence of coronary angioplasty implant and graft; Z79.4 Long term (current) use of insulin

== ENCOUNTER → 2017-09-05 | Outpatient (CLI) | payer OTHER, MEDICARE ==
[~2017-09-05] MED LIST changes: -500ML BSSPLUS 0.5ML EPI1:1000 IRRIG ONE; -ACETAMINOPHEN 325 MG TAB PO PRN; -ATROPINE SULFATE 0.1 MG/ML 5ML SYR IV PRN; -BSS FLUSH ONE; -BUPIVACAINE HCL 0.75% 10 ML AMP/VIAL ONE; -CEFAZOLIN SOD 1 GM VIAL ONE; -DEXAMETHASONE SOD INJ 4 MG/ML VIAL ONE; -EpHEDrine SULFATE INJ 50 MG/ML AMP IV PRN; -EpINEphrine INJ 1MG/ML AMP 1 MG/ML AMP ONE; -FENTANYL CITRATE INJ 50 MCG/1 ML 2 ML VIAL IV PRN; -HYALURONIDASE HUMAN 150 UNIT/ML INJ ONE; -HydrALAZINE HCL 20 MG/ML VIAL ONE; -LACTATED RINGER'S 1000ML 500 ML IV SCH; -LIDOCAINE HCL 2% 2 ML VIAL (20MG/ML) ONE; -LIDOCAINE MPF 4% INJ INJ ONE; -MIDAZOLAM HCL 1 MG/ML 2ML VIAL ONE; -NEOMYCIN/POLYMYX/DEXAMETH OP OINT PER APP CHARGE ONE; -OCUCOAT 1 ML SOLN IO ONE; -ONDANSETRON INJ 2 MG/ML 2 ML VIAL IV PRN; -POVIDONE-IODINE OP SOLN (SURGERY CNTR CHARGING ONLY) ONE; -PROPARACAINE 0.5% OP SOLN PER DROP CHARGE OPL SCH; -PROPOFOL IV EMULSION 10 MG/ML 20 ML VIAL IV ONE; -TIMOLOL MALEATE 0.5% OP SOLN PER DROP CHARGE ONE
--- NOTE | 2017-09-05 14:35 | DIAGNOSTIC IMAGING REPORT ---
MRI OF THE LUMBAR SPINE WITHOUT CONTRAST CLINICAL HISTORY: Lumbar spine stenosis. Back pain with neurogenic claudication. COMPARISON STUDY: Lumbar spine radiographs October 22, 2009. TECHNIQUE: Utilizing a 1.5 Naida magnet and dedicated coil, multiplanar, multiecho imaging of the lumbar spine was performed without IV contrast. FINDINGS: For purposes of numbering on this exam, the L5-S1 disc space is assigned to axial image 23 of 25. Alignment of the lumbar spine is anatomic. Vertebral body heights are maintained. A few T1 and T2 hyperintense lesions within the lumbar spine are consistent with hemangiomas. The largest is a 3 cm L5 lesion. There is no intracanalicular mass or fluid collection. Conus terminates at the L1-L2 level. A few T2 hyperintense bilateral renal lesions are suboptimally assessed on this unenhanced exam but favor cysts. L1-2: The central canal and neural foramen are patent. L2-3: The central canal and neural foramen are patent. There is mild facet arthrosis. L3-4: The central canal and neural foramina patent. There is mild disc bulge and facet arthrosis. L4-5: There is moderate facet arthrosis. Central canal and neural foramen are patent. L5-S1: There is minimal disc bulge. There is moderate facet arthrosis. Central canal and neural foramen are patent. IMPRESSION: 1. Minimal multilevel degenerative disc disease. No disc herniation. Patent central canal. 2. Moderate multilevel facet arthrosis. No significant neural foraminal narrowing. . Electronically signed by: John Carmona M.D. 09/05/2017 2:34 PM Dictated Date/Time: 09/05/2017 2:28 PM
== END | disposition home or self-care (01) ==
LOC: C.MRIBC 13:32
PROVIDERS: ATTEND Pain Medicine Interventional Pain Medicine
DX: M48.062 Spinal stenosis, lumbar region with neurogenic claudication (principal)

== ENCOUNTER → 2018-05-17 | Day surgery (SDC) | payer OTHER, MEDICARE ==
[2018-05-10 12:24] VITALS: Ht 175.3 cm; Wt 138.6 kg
[~2018-05-17] VITALS: Ht 175.3 cm; Wt 138.6 kg
[~2018-05-17] MED LIST changes: +INSU1INJ2 SC; +INSU1INJ32 SC; -INSUINJ14 SC; -INSUINJ4 SC; +LIDOCAINE HCL 2% 2 ML VIAL (20MG/ML) ONE; +METO2.5T PO; +ONDANSETRON INJ 2 MG/ML 2 ML VIAL IV PRN; +PROPOFOL IV EMULSION 10 MG/ML 20 ML VIAL ONE
--- NOTE | 2018-05-17 10:01 | Endo History and Physical ---
History & Physical Date of Service: May 17, 2018. Chief Complaint: Intermittent difficulty swallowing and colon polyp surveillance Referring Physician: History of Present Illness The patient presents today for upper endoscopy to evaluate a history of intermittent difficulty swallowing ongoing for several months. She also presents for a surveillance colonoscopy given a personal history of colon polyps. Past Medical History Diabetes, Angioplasty/Stent, Arthritis, Fractures, Anxiety, Reflux, High Cholesterol, Sleep Apnea, Heart Disease, CHF, Hypertension, Depression Past Surgical History Hx Cardiac Surgery: Yes (HEART CATH X2, NO STENTS; CABG X4 VESSELS) Hx Internal Defibrillator: No Hx Pacemaker: No Hx Abdominal Surgery: Yes (TUBAL LIGATION) Hx Post-Op Nausea and Vomiting: No Hx Cancer Surgery: No Hx Thoracic Surgery: No Hx Orthopedic: Yes (LT LITTLE TOE AMPUTATION, RT POINTER FINGER AMPUTATION) Hx Urinary Tract Surgery: No Family History Colon CA, Polyp Social History Smoking Status: Never Smoker Hx Substance Use: Yes (ATIVAN PRN, TRAMADOL PRN) Hx Alcohol Use: No Allergies Coded Allergies: Latex (Verified Allergy, Mild, ITCHY, 05/10/18) Sulfa Antibiotics (Verified Allergy, Unknown, RASH, 05/10/18) Lisinopril (Verified Adverse Reaction, Mild, COUGH, 05/10/18) Statins (Verified Adverse Reaction, Unknown, LEG CRAMPS, 05/10/18) Current Medications Reported Home Medications Medications Dose Route/Sig Max Daily Dose Days Date Category Dose Instructions Zaroxolyn (Metolazone) 2.5 Mg Tab 2.5 Mg PO UD 05/10/18 Reported Tresiba Flextouch (Insulin Degludec) 200 Unit/Ml Inj 82 Units SC DAILY 05/10/18 Reported Novolog Penfill (Insulin Aspart) 100 Unit/Ml Inj Units SC DIRECTED 05/10/18 Reported INJECT 45 UNITS BEFORE BREAKFAST, 46 UNITS BEFORE LUNCH, 52 UNITS BEFORE DINNER, 20 UNITS BEFORE BEDTIME SNACK, PLUS 1:15 OVER 150 Demadex (Torsemide) 20 Mg Tab 20 Mg PO BID 05/19/17 Reported Toprol-Xl (Metoprolol Succinate) 25 Mg Tabcr 0.5 Tab PO QAM 05/19/17 Reported Imdur Ext Rel (Isosorbide Mononitrate) 60 Mg Ertab 60 Mg PO QAM 05/19/17 Reported Zyloprim (Allopurinol) 300 Mg Tab 1 Tab PO QAM 05/19/17 Reported Escitalopram Oxalate 20 Mg Tab 20 Mg PO QAM 01/20/17 Reported Ultram (Tramadol HCl) 50 Mg Tab 25 Mg PO Q6 PRN 06/15/16 Reported Lorazepam 0.5 Mg Tab 1 Tab PO TID PRN 06/15/16 Reported Tricor (Fenofibrate) 145 Mg Tab 145 Mg PO QAM 06/15/16 Reported Ra Laxative (Bisacodyl) 5 Mg Tab 5 Mg PO DAILY PRN 06/15/16 Reported Miralax (Polyethylene Glycol 3350) 1 Pow Pow 17 Gm PO DAILY PRN 01/15/16 Reported Vitron-C (Iron-Vitamin C) 1 Tab Tab 1 Tab PO 2-3X/WK 04/28/15 Reported Nitrostat (Nitroglycerin) 0.4 Mg Tab 0.4 Mg UT UD PRN 04/28/15 Reported Aspirin 81 Mg Tab 81 Mg PO QAM 04/28/15 Reported Clopidogrel (Clopidogrel Bisulfate) 75 Mg Tab 150 Mg PO QAM 04/28/15 Reported [place]-3 (Fish Oil) 1 Ea Cap 1,000 Mg PO QAM 02/08/13 Reported Vital Signs Weight (Kilograms): 138.64 Height (Feet): 5 Height (Inches): 9 Physical Exam General Appearance: no apparent distress Respiratory/Chest: Auscultation: deminished air movement Cardiovascular: Heart Auscultation: RRR, II/ WILLAM Abdomen: Inspection & Palpation: soft Assessment and Plan Patient presenting for upper endoscopy today. We have discussed the risks and benefits of EGD to include bleeding, infection, perforation and need for follow- up studies. We are also planning to do a colonoscopy for surveillance of colon polyps. We discussed the risks to include bleeding, infection, post polypectomy bleeding, missed colonic polyps and need for surveillance studies.
--- NOTE | 2018-05-17 11:15 | GI REPORT ---
Patient Name: Emma Man Procedure Date: 05/17/2018 10:39 AM Date of : 1945 Admit Type: Outpatient Age: 72 Gender: Female Attending MD: Bob Kraus DO Procedure: Upper GI endoscopy Providers: Bob Kraus DO Referring MD: Chetan Rivas Indications: Dysphagia Medicines: Monitored Anesthesia Care Complications: No immediate complications. Estimated blood loss: Minimal. Estimated Blood Loss: Estimated blood loss was minimal. Procedure: Pre-Anesthesia Assessment: - Prior to the procedure, a History and Physical was performed, and patient medications, allergies and sensitivities were reviewed. The patient's tolerance of previous anesthesia was reviewed. - Patient identification and proposed procedure were verified prior to the procedure by the physician, the nurse and the supervisor major appliance assembly. The procedure was verified in the procedure room. - Pre-procedure physical examination revealed no contraindications to sedation. - ASA Grade Assessment: III - A patient with severe systemic disease. - After reviewing the risks and benefits, the patient was deemed in satisfactory condition to undergo the procedure. - The anesthesia plan was to use monitored anesthesia care (MAC). - Immediately prior to administration of medications, the patient was re-assessed for adequacy to receive sedatives. - The heart rate, respiratory rate, oxygen saturations, blood pressure, adequacy of pulmonary ventilation, and response to care were monitored throughout the procedure. - The physical status of the patient was re-assessed after the procedure. After obtaining informed consent, the endoscope was passed under direct vision. Throughout the procedure, the patient's blood pressure, pulse, and oxygen saturations were monitored continuously. The scope was introduced through the mouth, and advanced to the third part of duodenum. The upper GI endoscopy was accomplished without difficulty. The patient tolerated the procedure well. Findings: No endoscopic abnormality was evident in the esophagus to explain the patient's complaint of dysphagia. It was decided, however, to proceed with dilation of the entire esophagus. A guidewire was placed and the scope was withdrawn. Dilation was performed with a Savary dilator with no resistance at 54 Fr. The endoscope was then reinserted to evaluate the success of the procedure. Estimated blood loss: none. The Z-line was regular and was found 39 cm from the incisors. The cardia, gastric fundus and gastric body were normal. Diffuse mild inflammation characterized by erythema and granularity was found in the gastric antrum. Biopsies were taken with a cold forceps for histology. Estimated blood loss was minimal. The examined duodenum was normal. Impression: - No endoscopic esophageal abnormality to explain patient's dysphagia. Esophagus dilated. Dilated. - Z-line regular, 39 cm from the incisors. - Normal cardia, gastric fundus and gastric body. - Gastritis. Biopsied. - Normal examined duodenum. Recommendation: - Perform a colonoscopy as previously scheduled. - Await pathology results. - Repeat upper endoscopy PRN for retreatment. Bob Kraus D.O. Bob Kraus, 05/17/2018 11:15:10 AM This report has been signed electronically. Note Initiated On: 05/17/2018 10:39 AM Number of Addenda: 0 I attest to the content of the Intraoperative Record and orders documented therein, exceptions below {[id number]}
--- NOTE | 2018-05-17 11:18 | GI REPORT ---
Patient Name: Emma Man Procedure Date: 05/17/2018 10:38 AM Date of : 1945 Admit Type: Outpatient Age: 72 Gender: Female Attending MD: Bob Kraus DO Procedure: Colonoscopy Providers: Bob Kraus DO Referring MD: Chetan Rivas Indications: High risk colon cancer surveillance: Personal history of colonic polyps Medicines: Monitored Anesthesia Care Complications: No immediate complications. Estimated blood loss: Minimal. Estimated Blood Loss: Estimated blood loss was minimal. Procedure: Pre-Anesthesia Assessment: - Prior to the procedure, a History and Physical was performed, and patient medications, allergies and sensitivities were reviewed. The patient's tolerance of previous anesthesia was reviewed. - The risks and benefits of the procedure and the sedation options and risks were discussed with the patient. All questions were answered and informed consent was obtained. - Patient identification and proposed procedure were verified prior to the procedure by the physician, the nurse and the supervisor orchard. The procedure was verified in the procedure room. - Pre-procedure physical examination revealed no contraindications to sedation. - ASA Grade Assessment: III - A patient with severe systemic disease. - After reviewing the risks and benefits, the patient was deemed in satisfactory condition to undergo the procedure. - The anesthesia plan was to use monitored anesthesia care (MAC). - Immediately prior to administration of medications, the patient was re-assessed for adequacy to receive sedatives. - The heart rate, respiratory rate, oxygen saturations, blood pressure, adequacy of pulmonary ventilation, and response to care were monitored throughout the procedure. - The physical status of the patient was re-assessed after the procedure. After I obtained informed consent, the scope was passed under direct vision. Throughout the procedure, the patient's blood pressure, pulse, and oxygen saturations were monitored continuously. The scope was introduced through the anus and advanced to the terminal ileum. The colonoscopy was performed without difficulty. The patient tolerated the procedure well. The quality of the bowel preparation was adequate to identify polyps 6 mm and larger in size. Findings: The perianal and digital rectal examinations were normal. Pertinent negatives include normal sphincter tone. The terminal ileum appeared normal. A 6 mm polyp was found in the transverse colon. The polyp was sessile. The polyp was removed with a cold snare. Resection and retrieval were complete. Estimated blood loss was minimal. Multiple medium-mouthed diverticula were found in the sigmoid colon and descending colon. Internal hemorrhoids were found during retroflexion. The hemorrhoids were mild. The exam was otherwise without abnormality. Impression: - The examined portion of the ileum was normal. - One 6 mm polyp in the transverse colon, removed with a cold snare. Resected and retrieved. - Diverticulosis in the sigmoid colon and in the descending colon. - Internal hemorrhoids. - The examination was otherwise normal. Recommendation: - Discharge patient to home (ambulatory). - Advance diet as tolerated today. - Await pathology results. - Repeat colonoscopy in 3 years for surveillance based on pathology results. Bob Kraus D.O. Bob Kraus, 05/17/2018 11:17:42 AM This report has been signed electronically. Note Initiated On: 05/17/2018 10:38 AM Number of Addenda: 0 I attest to the content of the Intraoperative Record and orders documented therein, exceptions below {[id number]}
--- NOTE | 2018-05-17 11:25 | Discharge Instructions ---
Endoscopy Patient Instructions Date / Procedure(s) Performed May 17, 2018. Colonoscopy, EGD Allergy Information Coded Allergies: Latex (Verified Allergy, Mild, ITCHY, 05/10/18) Sulfa Antibiotics (Verified Allergy, Unknown, RASH, 05/10/18) Lisinopril (Verified Adverse Reaction, Mild, COUGH, 05/10/18) Statins (Verified Adverse Reaction, Unknown, LEG CRAMPS, 05/10/18) Discharge Date / Findings May 17, 2018. Normal-appearing esophagus Mild gastric inflammation, biopsied 1 colon polyp Diverticulosis of the left colon Internal hemorrhoids Medication Instructions Stopped Medication(s): Patient was told to stop insulin and plavix. Reported Home Medications Medications Dose Route/Sig Max Daily Dose Days Date Category Dose Instructions Zaroxolyn (Metolazone) 2.5 Mg Tab 2.5 Mg PO UD 05/10/18 Reported Tresiba Flextouch (Insulin Degludec) 200 Unit/Ml Inj 82 Units SC DAILY 05/10/18 Reported Novolog Penfill (Insulin Aspart) 100 Unit/Ml Inj Units SC DIRECTED 05/10/18 Reported INJECT 45 UNITS BEFORE BREAKFAST, 46 UNITS BEFORE LUNCH, 52 UNITS BEFORE DINNER, 20 UNITS BEFORE BEDTIME SNACK, PLUS 1:15 OVER 150 Demadex (Torsemide) 20 Mg Tab 20 Mg PO BID 05/19/17 Reported Toprol-Xl (Metoprolol Succinate) 25 Mg Tabcr 0.5 Tab PO QAM 05/19/17 Reported Imdur Ext Rel (Isosorbide Mononitrate) 60 Mg Ertab 60 Mg PO QAM 05/19/17 Reported Zyloprim (Allopurinol) 300 Mg Tab 1 Tab PO QAM 05/19/17 Reported Escitalopram Oxalate 20 Mg Tab 20 Mg PO QAM 01/20/17 Reported Ultram (Tramadol HCl) 50 Mg Tab 25 Mg PO Q6 PRN 06/15/16 Reported Lorazepam 0.5 Mg Tab 1 Tab PO TID PRN 06/15/16 Reported Tricor (Fenofibrate) 145 Mg Tab 145 Mg PO QAM 06/15/16 Reported Ra Laxative (Bisacodyl) 5 Mg Tab 5 Mg PO DAILY PRN 06/15/16 Reported Miralax (Polyethylene Glycol 3350) 1 Pow Pow 17 Gm PO DAILY PRN 01/15/16 Reported Vitron-C (Iron-Vitamin C) 1 Tab Tab 1 Tab PO 2-3X/WK 04/28/15 Reported Nitrostat (Nitroglycerin) 0.4 Mg Tab 0.4 Mg UT UD PRN 04/28/15 Reported Aspirin 81 Mg Tab 81 Mg PO QAM 04/28/15 Reported Clopidogrel (Clopidogrel Bisulfate) 75 Mg Tab 150 Mg PO QAM 04/28/15 Reported Alkol-3 (Fish Oil) 1 Ea Cap 1,000 Mg PO QAM 02/08/13 Reported Provider Instructions Activity Restrictions - No exercising or heavy lifting for 24 hours. - Do not drink alcohol the day of the procedure. - Do not drive a car or operate machinery until the day after the procedure. - Do not make any important decisions or sign important papers in 24 hours after the procedure. Following Day: - Return to full activity which may include returning to work/school. Diet Start your diet with liquids and light foods (jello, soup, juice, toast). Then eat your usual diet if not nauseated. Treatment For Common After Affects For mild abdominal pain, bloating, or excessive gas: - Rest - Eat lightly - Lie on right side Follow-Up Information Repeat colonoscopy in 3 years Repeat upper endoscopy as needed for difficulty swallowing. Difficulty swallowing persists after today's study would consider an upper GI series and perhaps an esophageal motility study Anesthesia Information What You Should Know You have had a procedure that required some medicine to reduce anxiety and discomfort. This treatment is called moderate sedation. After receiving the treatment, you may be sleepy, but you will be able to breathe on your own. The effects of the treatment may last for several hours. Follow these instructions along with Activity/Diet recommendations noted above: * Do NOT do anything where dizziness or clumsiness would be dangerous. * Rest quietly at home today, then you can be up and about tomorrow. * Have a responsible person stay with you the rest of today. * You may have had an I.V. today. If so, you may take the dressing off later today. Recommendations Call your doctor if: * Trouble breathing * Continuous vomiting for more than 24 hours * Temperature above 101 degrees * Severe abdominal pain or bloating * Pain not relieved by pain medicine ordered * There is increased drainage or redness from any incision * A large amount of rectal bleeding greater than 2-3 tablespoons. (If you had a polyp/s removed or have hemorrhoids, a small amount of blood - from the rectum is to be expected.) * You have any unanswered questions or concerns. IN THE EVENT OF A SERIOUS EMERGENCY, GO TO THE NEAREST EMERGENCY ROOM Your discharge instructions were prepared by provider Bob Kraus. Patient Instructions Signature Page Emma Man Patient (or Guardian) Signature/Date: I have read and understand the instructions given to me by my caregivers. Caregiver/RN/Doctor Signature/Date: The above-named patient and/or guardian has received patient instructions on this date. + Original Patient Signature Page (only) stays with chart. Please make copy for patient.
--- NOTE | 2018-05-17 11:40 | Anesthesiology Progress Note ---
Anesthesia Post Op Note Date & Time May 17, 2018 at 11:39 Vital Signs Pain Intensity: 0 Vital Signs Past 12 Hours Date Time Temp Pulse Resp B/P (MAP) Pulse Ox O2 Delivery O2 Flow Rate FiO2 05/17/18 11:30 60 16 155/66 (95) 95 Room Air 05/17/18 11:15 61 16 132/58 (82) 97 Room Air 05/17/18 10:12 36.7 60 22 162/80 (107) 95 Room Air Notes Mental Status: alert / awake / arousable, participated in evaluation Pt Amnestic to Procedure: Yes Nausea / Vomiting: adequately controlled Pain: adequately controlled Airway Patency, RR, SpO2: stable & adequate BP & HR: stable & adequate Hydration State: stable & adequate Anesthetic Complications: no major complications apparent
[2018-05-17 11:45] VITALS: BP 161/58; PULSE 56; O2SAT 97
== END | disposition home or self-care (01) ==
LOC: C.GI 09:25
PROVIDERS: ATTEND Internal Medicine Gastroenterology
DX: R13.10 Dysphagia, unspecified (principal); K29.70 Gastritis, unspecified, without bleeding; K57.30 Diverticulosis of large intestine without perforation or abscess without bleeding; K64.8 Other hemorrhoids; D12.3 Benign neoplasm of transverse colon; Z86.010 Personal history of colon polyps; Z83.71 Family history of colonic polyps; Z80.0 Family history of malignant neoplasm of digestive organs; E11.9 Type 2 diabetes mellitus without complications; M19.90 Unspecified osteoarthritis, unspecified site; F41.9 Anxiety disorder, unspecified; K21.9 Gastro-esophageal reflux disease without esophagitis; E78.00 Pure hypercholesterolemia, unspecified; G47.33 Obstructive sleep apnea (adult) (pediatric); I25.10 Atherosclerotic heart disease of native coronary artery without angina pectoris; I12.9 Hypertensive chronic kidney disease with stage 1 through stage 4 chronic kidney disease, or unspecified chronic kidney disease; I73.9 Peripheral vascular disease, unspecified; N18.3 Chronic kidney disease, stage 3 (moderate); I50.9 Heart failure, unspecified; E66.01 Morbid (severe) obesity due to excess calories; F32.9 Major depressive disorder, single episode, unspecified; Z95.5 Presence of coronary angioplasty implant and graft; Z91.041 Radiographic dye allergy status; Z88.2 Allergy status to sulfonamides; Z88.8 Allergy status to other drugs, medicaments and biological substances; Z79.4 Long term (current) use of insulin; Z79.82 Long term (current) use of aspirin

== ENCOUNTER 2018-12-23 13:00 | Inpatient (IN) ==
[2018-12-23] MEDS ORDERED: SODIUM CHLORIDE 0.9% 1000ML 250 ML IV ONE (14:09)
[2018-12-23 14:34] LABS: Basophils # (auto) 0.03 K/uL (0-0.2); Basophils % (auto) 0.4 %; Eosinophils # (auto) 0.08 K/uL (0-0.5); Eosinophils % (auto) 1.1 %; Hematocrit (blood only) 31.5 % (37-47); Hemoglobin 10.2 g/dL (12.0-16.0); Immature Granulocytes # (auto) 0.02 K/uL (0.00-0.02); Immature Granulocytes % (auto) 0.3 %; Lymphocytes # (auto) 1.14 K/uL (1.2-3.4); Lymphocytes % (auto) 15.7 %; Mean Corpuscular Hgb Conc 32.4 g/dL (32-36); Mean Corpuscular Volume 92.9 fL (80-100); Mean Platelet Volume 10.4 fL (7.4-10.4); Monocytes # (auto) 0.61 K/uL (0.11-0.59); Monocytes % (auto) 8.4 %; Neutrophils # (auto) 5.36 K/uL (1.4-6.5); Neutrophils % (auto) 74.1 %; Platelet Count 216 K/uL (130-400); RDW Coefficient of Variation 16.9 % (11.5-14.5); RDW Standard Deviation 57.5 fL (36.4-46.3); Red Blood Count 3.39 M/uL (4.2-5.4); White Blood Count 7.24 K/uL (4.8-10.8)
[2018-12-23 14:56] LABS: Albumin Level 3.2 gm/dl (3.4-5.0); BUN Creatinine Ratio 32.1 (10-20); Calcium 9.1 mg/dl (8.5-10.1); Creatinine Clr Calc Pharmacy 36.9 ml/min; Est GFR (African American) 27.1; Est GFR (Non-African American) 23.4; Magnesium 2.5 mg/dl (1.8-2.4)
--- NOTE | 2018-12-23 15:08 | XRay Report ---
XR chest 1V portable CLINICAL HISTORY: weakness COMPARISON STUDY: Chest radiograph and chest CT January 20, 2017. FINDINGS: There are median sternotomy wires and clips from bypass grafting. Moderate to marked cardio megaly is noted. Interstitial thickening suggests pulmonary edema. There is no consolidation to sugge st pneumonia. IMPRESSION: 1. Interstitial thickening suggestive of mild pulmonary edema. 2. Stable moderate to marked cardiomegaly. Electronically signed by: John Carmona M.D. 12/23/2018 3:07 PM
[2018-12-23 15:10] LABS: Albumin Globulin Ratio 0.7 (0.9-2); Bilirubin,Total 0.5 mg/dl (0.2-1); Globulin 4.4 gm/dl (2.5-4.0); Total Protein 7.6 gm/dl (6.4-8.2); Troponin I 0.101 ng/ml (0-0.045)
--- NOTE | 2018-12-23 15:15 | CT Scan Report ---
CT head/brain wo con CLINICAL HISTORY: 73 years-old Female with weakness. Acute weakness TECHNIQUE: Multiple axial CT images of the head were obtained without contrast. A dose lowering tech nique was utilized adhering to the principles of ALARA. CT DOSE: 614.27 mGy.cm COMPARISON: CT head 07/11/2011. FINDINGS: No acute intracranial hemorrhage, midline shift, intracranial mass, hydrocephalus, territorial ischem ia or abnormal extra-axial collection. Age-related involutional changes redemonstrated. Cerebral vasc ular calcifications noted. The calvarium is intact. Prior bilateral cataract repair. The paranasal sinuses, mastoid air cells, a nd middle ear cavities are clear. IMPRESSION: No acute intracranial abnormality. The above report was generated using voice recognition software. It may contain grammatical, syntax o r spelling errors. Electronically signed by: Óscar Jimenez M.D. 12/23/2018 3:14 PM
[2018-12-23 17:11] LABS: Appearance Urine Clear (Clear); Bilirubin Urine Negative (Negative); Blood Urine Negative (Negative); Color Urine Yellow; Glucose Urine UA Negative (Negative); Ketones Urine Negative (Negative); Leukocyte Esterase Urine Negative (Negative); Nitrite Urine Negative (Negative); Protein Urine Negative (Negative); Specific Gravity Urine 1.011 (1.000-1.030); Urobilinogen Urine Negative (Negative); pH Urine 6.5 (4.5-7.5)
[2018-12-23] MEDS ORDERED: CARBOHYDRATES FOR HYPOGLYCEMIA PO PRN (17:58)
[2018-12-23] MEDS ORDERED: INSULIN GLARGINE SOLOSTAR 100 UNITS/ML 3 ML PEN SC SCH (17:58)
[2018-12-23] MEDS ORDERED: DEXTROSE 50% 50 ML SYRINGE IV PRN (17:58)
[2018-12-23] MEDS ORDERED: GLUCAGON FOR INJ 1 MG VIAL SQ PRN (17:58)
[2018-12-23] MEDS ORDERED: GLUCOSE 40% GEL 15 GM TUBE PO PRN (17:58)
[2018-12-23] MEDS ORDERED: NON-FORMULARY MEDICATION (Iron,Carbonyl-Vitamin C [Vitron-C] 1 TAB) PO SCH (17:58)
[2018-12-23] MEDS ORDERED: ACETAMINOPHEN 325 MG TAB PO PRN (17:58)
[2018-12-23] MEDS ORDERED: GLUCOSE 10 TABS/TUBE PO PRN (17:58)
[2018-12-23] MEDS ORDERED: NITROGLYCERIN SL 0.4 MG/TAB TAB SL PRN (17:58)
--- NOTE | 2018-12-23 18:01 | XRay Report ---
XR abdomen min 2V HISTORY: 73 years-old Female distention acute generalized abdominal pain with distention COMPARISON: None available TECHNIQUE: 2 views of the abdomen FINDINGS: Heart is mainly with prior median sternotomy. Mild right hemidiaphragmatic elevation. Abdominal vascu lar calcifications. Bowel gas pattern is nonobstructive. No pneumatosis or pneumoperitoneum. Mild to moderate volume of formed stool is noted, notably within the right hemicolon. No definite urolith. In determinate 4 mm radiodensity noted about the left midabdomen. Degenerative changes of the spine, pel vis and hips. No acute fracture identified. IMPRESSION: 1. Nonobstructive bowel gas pattern. 2. Suggested constipation. The above report was generated using voice recognition software. It may contain grammatical, syntax o r spelling errors. Electronically signed by: Óscar Jimenez M.D. 12/23/2018 5:59 PM
--- NOTE | 2018-12-23 18:13 | History & Physical Report ---
Date of Service December 23, 2018 Assessment & Plan (1) Acute on chronic diastolic CHF (congestive heart failure): (2) Elevated troponin: (3) CAD (coronary artery disease): -Admit to telemetry -Patient presenting with exertional lightheadedness and shortness of breath, worsening abdominal distention and lower extremity edema -In the ED, found to have a mildly elevated troponin at 0.101, EKG demonstrates an unchanged bifascicular block -History of CAD, status post CABG x4 in 2010 -With worsening abdominal distention and lower extremity edema, patient may have a mild diastolic CHF exacerbation -Patient does not weigh herself on a daily basis, so recent weight gain is unknown -Routine diuretics at home include torsemide 40 mg daily and metolazone 2.5 mg weekly on Wednesdays; will start Lasix 40 mg IV twice daily -Daily weights, strict I's and O's, low Na+ diet -Mild troponin elevation possibly due to acute CHF exacerbation, will continue to trend and start heparin if significant elevation -Continue aspirin, Plavix, beta-jaison, nitrate, fenofibrate -Echo 11/16/18: EF 55-59%, grade 2 diastolic dysfunction, severe pulmonary hypertension; hold on repeating for now -With reports of lightheadedness, orthostatic BPs checked in ED and noted to be negative -Severe pulmonary hypertension may be contributing to patient's symptoms as well, consider exertional hypoxia; will check ambulatory pulse ox -ABD XR obtained demonstrating constipation which could be contributing to patient's abdominal distention -Cardiology consult, case discussed with Dr. Rodriguez (4) Severe pulmonary arterial systolic hypertension: (5) SAMANTHA on CPAP: -As above, ? If this is contributing to patient's symptoms -will check ambulatory pulse ox -Noted that recently patient had an outpatient nocturnal pulse ox completed. Patient follows with [facility] at [facility] [place] - likely will need to follow up there for results and recommendations (6) Constipation: -Start bowel regimen with MiraLAX and Colace (7) Hypertension: -BP mildly elevated, likely secondary to missed medications today -Continue home doses of metoprolol and isosorbide for now, making adjustments as needed (8) CKD (chronic kidney disease) stage 3, GFR 30-59 ml/min: - baseline creat runs in the high ones to low twos - creat noted to be 2.0 today - continue to monitor, avoid nephrotoxic agents when able (9) PAD (peripheral artery disease): -Stable; continue aspirin, Plavix (10) DM type 2 (diabetes mellitus, type 2): -Hgb A1c 7.5 11/2018 -Managed on NovoLog and Tresiba at home -NovoLog and Lantus per protocol while hospitalized (11) DVT prophylaxis: -SQ heparin History of Present Illness Chief Complaint: Lightheadedness Primary Care Provider: Chetan Rivas 73-year-old female who presents to the ED with a chief complaint of lightheadedness. Patient reports that 4 days ago, she was having several episodes where she reports she felt "woozy" with standing and with any activity. Patient has some difficulty describing her symptoms exactly however it appears as though she got very lightheaded and had some shortness of breath. She also noted increasing abdominal distention that has been coming and going. Those symptoms lasted for about one day, then patient reports she felt better, however today symptoms returned. Patient reports very similar symptoms today. She reports that with minimal activity, she had to sit down and rest. She denies specific chest pain or pressure however reports her chest "does not feel right". She denies jaw, shoulder, arm discomfort. No associated nausea or diaphoresis. Patient has chronic lower extremity edema, she feels as though there is some worsening edema around her ankles today. She denies orthopnea. Patient does not weigh herself on a daily basis however reports her weight is usually "around 300". No abdominal pain, vomiting, diarrhea. She denies fevers and chills. No urinary symptoms. In the ED, troponin is mildly elevated at 0.101, EKG demonstrates an unchanged bifascicular block. Patient is hemodynamically stable. Head CT is negative for acute findings. CXR shows mild pulmonary edema. Patient was given 250cc NSS. Allergies Allergy/AdvReac Type Severity Reaction Status Date / Time latex Allergy Mild ITCHY Verified 12/23/18 13:54 Sulfa (Sulfonamide Allergy Unknown RASH Verified 12/23/18 13:54 Antibiotics) lisinopril AdvReac Mild COUGH Verified 12/23/18 13:54 Vgxrusy-Oxh-App Reductase AdvReac Unknown LEG CRAMPS Verified 12/23/18 13:54 Inhibitor Home Medications Home Medications Medication Instructions Recorded Confirmed Type allopurinol 300 mg PO DAILY 12/23/18 12/23/18 History aspirin 81 mg PO DAILY 12/23/18 12/23/18 History clopidogrel 75 mg PO DAILY 12/23/18 12/23/18 History escitalopram oxalate 20 mg PO DAILY 12/23/18 12/23/18 History fenofibrate nanocrystallized 145 mg PO DAILY 12/23/18 12/23/18 History insulin aspart U-100 [Novolog 1 dose SUBCUT ACHS 12/23/18 12/23/18 History Flexpen U-100 Insulin] insulin degludec [Tresiba 100 units SUBCUT DAILY 12/23/18 12/23/18 History FlexTouch U-200] iron,carbonyl-vitamin C [Vitron-C] 1 tab PO DAILY 12/23/18 12/23/18 History isosorbide mononitrate 60 mg PO DAILY 12/23/18 12/23/18 History metolazone 2.5 mg PO WE 12/23/18 12/23/18 History metoprolol succinate 12.5 mg PO DAILY 12/23/18 12/23/18 History torsemide 40 mg PO DAILY 12/23/18 12/23/18 History isosorbide mononitrate 30 mg PO QAM 30 Days #30 tab 12/28/18 Rx Past Med/Surg History Medical History DM type 2 (diabetes mellitus, type 2) (Chronic) CAD (coronary artery disease) (Chronic) Amputation toe (Chronic) Hypertension (Chronic) Severe pulmonary arterial systolic hypertension (Chronic) Diabetic macular edema (Chronic) Diabetic peripheral neuropathy (Chronic) 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) Gastroparesis (Chronic) SAMANTHA on CPAP (Chronic) PAD (peripheral artery disease) (Chronic) GERD (gastroesophageal reflux disease) (Chronic) Diastolic CHF (Chronic) Depression (Chronic) CKD (chronic kidney disease) stage 3, GFR 30-59 ml/min (Chronic) Surgical History History of tonsillectomy and adenoidectomy (Chronic) History of cataract surgery (Chronic) History of angioplasty (Resolved) " 05/28/2011- POBA for the PDA and for the right posterolateral branch 11/16/2010- BMS to RCA; LAD with relatively small but severely diffusely diseased and heavily calcified and has an FFR that confirms hemodynamic significance of the lesion-- not intervened" S/P peripheral artery angioplasty (Chronic) " 09/13/13 left superficial femoral artery angioplasty, left popliteal artery angioplasty, left peroneal artery angioplasty, and amputation metatarsal with toe single (Left 5th toe amputation) 10/23/2013 -left popliteal artery angioplasty 01/20/2016- fem/pop artery revasc w/ angioplasty " S/P CABG x 4 (Chronic) Status post amputation of finger (Chronic) Family History Mother CML (chronic myelocytic leukemia) Social History Communication Ability: Effective Beliefs That Will Affect Care: None marital status: Current Living Situation: Spouse Other Information That Helps Us Care for You: No Feels Safe at Home: Yes Safety Concerns: Feels Safe At This Time Smoking Status: Never smoker Hx Alcohol Use: No Hx Substance Use: No Review of Systems ROS per HPI, all other systems reviewed and negative Physical Exam Vital Signs (Past 24 Hours): Last Vital Signs Temp 36.8 C 12/23/18 13:10 Pulse 66 12/23/18 16:50 Resp 18 12/23/18 16:50 BP 149/51 H 12/23/18 16:50 Pulse Ox 94 12/23/18 16:50 Constitutional: WD/WN, vitals as above + obese Eyes: PERRL, conjunctivae normal, anicteric sclerae ENMT: external ear and nose normal, oropharynx normal Respiratory: normal respiratory effort; no respiratory distress Auscultation: + diminished lung sounds Cardiovascular: Rate/Rhythm: regular rate and regular rhythm Vessels: normal peripheral pulses Extremities: + edema (+1-+2 BLE, noted to be pitting around the ankles) Gastrointestinal (Abdomen): Inspection/Auscultation: + abdomen distended and normal bowel sounds Percussion/Palpation: abdomen soft; abdomen nontender and no hepatosplenomegaly Musculoskeletal: no cyanosis or clubbing, extremities motor strength 5/5 Skin: no rashes, warm and dry Wound noted to right anterior cedillo, bloody wound bed, no significant surrounding erythema or purulent drainage noted Neurologic: PERRL, EOMI, accommodation nl, no face palsy, no dysarthria Psychiatric: A+Ox3, euthymic affect Results & Data Laboratory Results Laboratory Last Values WBC 7.24 K/uL (4.8-10.8) 12/23/18 14:20 RBC 3.39 M/uL (4.2-5.4) L 12/23/18 14:20 Hgb 10.2 g/dL (12.0-16.0) L 12/23/18 14:20 Hct 31.5 % (37-47) L 12/23/18 14:20 MCV 92.9 fL (80-100) 12/23/18 14:20 MCH 30.1 pg (25-34) 12/23/18 14:20 MCHC 32.4 g/dL (32-36) 12/23/18 14:20 RDW Std Deviation 57.5 fL (36.4-46.3) H 12/23/18 14:20 RDW Coeff of Casey 16.9 % (11.5-14.5) H 12/23/18 14:20 Plt Count 216 K/uL (130-400) 12/23/18 14:20 MPV 10.4 fL (7.4-10.4) 12/23/18 14:20 Immature Gran % (Auto) 0.3 % 12/23/18 14:20 Neut % (Auto) 74.1 % 12/23/18 14:20 Lymph % (Auto) 15.7 % 12/23/18 14:20 [place] % (Auto) 8.4 % 12/23/18 14:20 Eos % (Auto) 1.1 % 12/23/18 14:20 Baso % (Auto) 0.4 % 12/23/18 14:20 Immature Gran # (Auto) 0.02 K/uL (0.00-0.02) 12/23/18 14:20 Neut # (Auto) 5.36 K/uL (1.4-6.5) 12/23/18 14:20 Lymph # (Auto) 1.14 K/uL (1.2-3.4) L 12/23/18 14:20 [place] # (Auto) 0.61 K/uL (0.11-0.59) H 12/23/18 14:20 Eos # (Auto) 0.08 K/uL (0-0.5) 12/23/18 14:20 Baso # (Auto) 0.03 K/uL (0-0.2) 12/23/18 14:20 Sodium 138 mmol/L (136-145) 12/23/18 14:20 Potassium 4.0 mmol/L (3.5-5.1) 12/23/18 14:20 Chloride 105 mmol/L (98-107) 12/23/18 14:20 Carbon Dioxide 27 mmol/L (21-32) 12/23/18 14:20 Anion Gap 6.0 (3-11) 12/23/18 14:20 BUN 67 mg/dl (7-18) H 12/23/18 14:20 Creatinine 2.08 mg/dl (0.6-1.2) H 12/23/18 14:20 Est Cr Clr Drug Dosing 36.9 ml/min 12/23/18 14:20 Est GFR ( Amer) 27.1 12/23/18 14:20 Est GFR (Non-Af Amer) 23.4 12/23/18 14:20 BUN/Creatinine Ratio 32.1 (10-20) H 12/23/18 14:20 Glucose 101 mg/dl (70-99) H 12/23/18 14:20 POC Glucose 80 (70-99) 12/23/18 18:09 Calcium 9.1 mg/dl (8.5-10.1) 12/23/18 14:20 Magnesium 2.5 mg/dl (1.8-2.4) H 12/23/18 14:20 Total Bilirubin 0.5 mg/dl (0.2-1) 12/23/18 14:20 AST 14 U/L (15-37) L 12/23/18 14:20 ALT 15 U/L (12-78) 12/23/18 14:20 Alkaline Phosphatase 48 U/L (45-117) 12/23/18 14:20 Troponin I 0.101 ng/ml (0-0.045) H* 12/23/18 14:20 Total Protein 7.6 gm/dl (6.4-8.2) 12/23/18 14:20 Albumin 3.2 gm/dl (3.4-5.0) L 12/23/18 14:20 Globulin 4.4 gm/dl (2.5-4.0) H 12/23/18 14:20 Albumin/Globulin Ratio 0.7 (0.9-2) L 12/23/18 14:20 TSH 1.430 uIu/ml (0.300-4.500) 12/23/18 14:20 Urine Color Yellow 12/23/18 16:55 Urine Appearance Clear (Clear) 12/23/18 16:55 Urine pH 6.5 (4.5-7.5) 12/23/18 16:55 Ur Specific [place] 1.011 (1.000-1.030) 12/23/18 16:55 Urine Protein Negative (Negative) 12/23/18 16:55 Urine Glucose (UA) Negative (Negative) 12/23/18 16:55 Urine Ketones Negative (Negative) 12/23/18 16:55 Urine Blood Negative (Negative) 12/23/18 16:55 Urine Nitrite Negative (Negative) 12/23/18 16:55 Urine Bilirubin Negative (Negative) 12/23/18 16:55 Urine Urobilinogen Negative (Negative) 12/23/18 16:55 Ur Leukocyte Esterase Negative (Negative) 12/23/18 16:55 Diagnostic Findings CXR IMPRESSION: 1. Interstitial thickening suggestive of mild pulmonary edema. 2. Stable moderate to marked cardiomegaly. HEAD CT IMPRESSION: No acute intracranial abnormality. ABD XR IMPRESSION: 1. Nonobstructive bowel gas pattern. 2. Suggested constipation. Code Status & VTE Plan VTE Prophylaxis Plan VTE Prophylaxis will be ordered: Yes Supervising Physician Co-Signing Physician Notes Attending Addendum: delayed entry date of service as noted above care coordinated with SIMIN Borges please refer to her notes for full details, I agree with her notes patient seen and examined, records reviewed by myself as well on exam, patient seen resting in bed, comfortable reports dizziness/lightheadedness when ambulating no other symptoms VS noted and reviewed oriented x3, not in distress, speaks in sentences with no effort nor accessory muscle use normal rate, regular rhythm, no murmurs clear breath sounds bilaterally non distended, soft, nontender trace bipedal edema, erythema, warmth no neuro deficits Hg 10 Crea 2.0 ASSESSMENT AND PLAN POSSIBLE ACUTE ON CHRONIC DIASTOLIC CHF Lasix IV BID monitor crea MILD TROPONIN ELEVATION no chest pain trend, continue usual cardiac meds other diagnoses and plan of care as per GISELL Borges's notes Mohsen Godoy MD
[2018-12-23] MEDS ORDERED: PHARMACY GLYCEMIC MGMT CONSULT PRN (19:00)
[2018-12-23] MEDS ORDERED: ISOSORBIDE MONO EXTENDED REL 60 MG TABCR PO SCH (19:00)
[2018-12-23] MEDS: POLYETHYLENE (MIRALAX) 17 GM PACK PO SCH (20:24)
[2018-12-23] MEDS: METOPROLOL SUCC 25MG EXT REL TAB PO SCH (20:24)
[2018-12-23] MEDS: ASPIRIN 81 MG ECTAB PO SCH (20:25)
[2018-12-23] MEDS: ESCITALOPRAM OXALATE 20 MG TAB PO SCH (20:26)
[2018-12-23] MEDS: CLOPIDOGREL BISULFATE 75 MG TAB PO SCH (20:26)
[2018-12-23] MEDS: FENOFIBRATE NANOCRYSTALLIZED 145 MG TABLET PO SCH (20:27)
[2018-12-23] MEDS: DOCUSATE SODIUM 100 MG CAP PO SCH (20:27)
[2018-12-23] MEDS: ALLOPURINOL 300 MG TAB PO SCH (20:27)
[2018-12-23 20:41] LABS: INR 1.1 (0.9-1.1); Prothrombin Time 11.1 Seconds (9.0-12.0)
[2018-12-23] MEDS: INSULIN ASPART 100 UNITS/ML 3 ML PEN SC SCH (20:49)
--- NOTE | 2018-12-23 21:44 | Emergency Department Note ---
Entered by Winston Alcantar acting as a scribe for William Jarrett MD History of Present Illness General Chief complaint: Dizziness Stated complaint: DIZZINESS,SOB Time Seen by Provider: 12/23/18 13:58 Source: patient History of Present Illness Provider complaint: Dizziness Onset (ago): day(s) (this morning) Location: head Pain Consistency: + other (worsening) Quality: + other (dizziness) Relieved By: + rest (sitting and/or laying down) Exacerbated By: + movement (walking and standing up) Associated symptoms: + denies other symptoms (melena, difficulty swallowing) and + other (swelling in legs, palpitations); no fever/chills, no headaches, no nausea/vomiting and no shortness of breath The patient is a 73 year old female who presents to the Emergency Room with complaints of dizziness that started this morning and has progressively been getting worse. The patient notes that when she stands up, her "eyes go" and she feels as though she has no energy to move and is going to pass out. The patient notes that laying and sitting down relieve her symptoms. The patient denies any chest pain, shortness of breath, trouble speaking or swallowing, headache, fever, chills, nausea, vomiting, and melena. The patient admits to swelling in her legs, but states they are usually swollen. She also notes that she is bloated and feels as thought she is retaining water. The patient admits to a history of heart failure as well as a stent placement. She notes that 3 days ago when experiencing similar symptoms she developed palpitations during the episode. The patient notes that she is currently prescribed Plavix. The patient denies any recent falls. She admits to using a CPAP machine to sleep, but denies using oxygen otherwise. Home Medications Home Medications Medication Instructions Recorded Confirmed Type allopurinol 300 mg PO DAILY 12/23/18 12/23/18 History aspirin 81 mg PO DAILY 12/23/18 12/23/18 History clopidogrel 75 mg PO DAILY 12/23/18 12/23/18 History escitalopram oxalate 20 mg PO DAILY 12/23/18 12/23/18 History fenofibrate nanocrystallized 145 mg PO DAILY 12/23/18 12/23/18 History insulin aspart U-100 [Novolog 1 dose SUBCUT ACHS 12/23/18 12/23/18 History Flexpen U-100 Insulin] insulin degludec [Tresiba 100 units SUBCUT DAILY 12/23/18 12/23/18 History FlexTouch U-200] iron,carbonyl-vitamin C [Vitron-C] 1 tab PO DAILY 12/23/18 12/23/18 History isosorbide mononitrate 60 mg PO DAILY 12/23/18 12/23/18 History metolazone 2.5 mg PO WE 12/23/18 12/23/18 History metoprolol succinate 12.5 mg PO DAILY 12/23/18 12/23/18 History torsemide 40 mg PO DAILY 12/23/18 12/23/18 History Allergies Allergy/AdvReac Type Severity Reaction Status Date / Time latex Allergy Mild ITCHY Verified 12/23/18 13:54 Sulfa (Sulfonamide Allergy Unknown RASH Verified 12/23/18 13:54 Antibiotics) lisinopril AdvReac Mild COUGH Verified 12/23/18 13:54 Xxdeoci-Rmv-Ekp Reductase AdvReac Unknown LEG CRAMPS Verified 12/23/18 13:54 Inhibitor Past Med/Surg History Medical History DM type 2 (diabetes mellitus, type 2) (Chronic) CAD (coronary artery disease) (Chronic) Amputation toe (Chronic) Hypertension (Chronic) Severe pulmonary arterial systolic hypertension (Chronic) Diabetic macular edema (Chronic) Diabetic peripheral neuropathy (Chronic) 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) Gastroparesis (Chronic) SAMANTHA on CPAP (Chronic) PAD (peripheral artery disease) (Chronic) GERD (gastroesophageal reflux disease) (Chronic) Diastolic CHF (Chronic) Depression (Chronic) CKD (chronic kidney disease) stage 3, GFR 30-59 ml/min (Chronic) Surgical History History of tonsillectomy and adenoidectomy (Chronic) History of cataract surgery (Chronic) History of angioplasty (Resolved) " 05/28/2011- POBA for the PDA and for the right posterolateral branch 11/16/2010- BMS to RCA; LAD with relatively small but severely diffusely diseased and heavily calcified and has an FFR that confirms hemodynamic significance of the lesion-- not intervened" S/P peripheral artery angioplasty (Chronic) " 09/13/13 left superficial femoral artery angioplasty, left popliteal artery angioplasty, left peroneal artery angioplasty, and amputation metatarsal with toe single (Left 5th toe amputation) 10/23/2013 -left popliteal artery angioplasty 01/20/2016- fem/pop artery revasc w/ angioplasty " S/P CABG x 4 (Chronic) Status post amputation of finger (Chronic) Family History Mother CML (chronic myelocytic leukemia) Social History Preferred Language: Nigerien Communication Ability: Effective 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 and A total of 10 systems reviewed and were otherwise negative Physical Exam Vital Signs Vital Signs - 24 hr 12/23/18 13:10 12/23/18 14:28 12/23/18 14:29 Temperature 36.8 C Temperature Source Oral Sepsis Recent Fever Within 48 Hours No Sepsis New/Unexplained Change in Mental Status No Sepsis Action Taken by Nursing No Action Required Pulse Rate - Lying Pulse Rate - Sitting Pulse Rate - Standing Pulse Rate 62 71 Pulse Rate [Apical] 70 Pulse Rate [Finger] Pulse Rhythm [Apical] Pulse Strength [Apical] Respiratory Rate 22 18 18 Respiratory Effort / Characteristics Respiratory Depth Respiratory Pattern Blood Pressure - Lying Blood Pressure - Sitting Blood Pressure- Standing Blood Pressure 144/53 H Blood Pressure [Left Arm] 164/65 H Blood Pressure Mean 83 Blood Pressure Mean [Left Arm] 98 Blood Pressure Position [Left Arm] Pulse Oximetry 92 98 98 Oxygen Delivery Method Room Air Nasal Cannula Nasal Cannula Oxygen Flow Rate 2 2 12/23/18 16:01 12/23/18 16:41 12/23/18 16:50 Temperature Temperature Source Sepsis Recent Fever Within 48 Hours Sepsis New/Unexplained Change in Mental Status Sepsis Action Taken by Nursing Pulse Rate - Lying 60 Pulse Rate - Sitting 66 Pulse Rate - Standing 66 Pulse Rate Pulse Rate [Apical] 67 66 Pulse Rate [Finger] Pulse Rhythm [Apical] Pulse Strength [Apical] Respiratory Rate 20 18 Respiratory Effort / Characteristics Respiratory Depth Respiratory Pattern Blood Pressure - Lying 152/58 H Blood Pressure - Sitting 148/77 H Blood Pressure- Standing 149/51 H Blood Pressure Blood Pressure [Left Arm] 169/79 H 149/51 H Blood Pressure Mean Blood Pressure Mean [Left Arm] 109 83 Blood Pressure Position [Left Arm] Pulse Oximetry 96 94 Oxygen Delivery Method Room Air Room Air Oxygen Flow Rate 12/23/18 18:17 12/23/18 19:50 Temperature 36.7 C 36.8 C Temperature Source Oral Oral Sepsis Recent Fever Within 48 Hours Sepsis New/Unexplained Change in Mental Status Sepsis Action Taken by Nursing Pulse Rate - Lying Pulse Rate - Sitting Pulse Rate - Standing Pulse Rate Pulse Rate [Apical] 64 Pulse Rate [Finger] 62 Pulse Rhythm [Apical] Regular Pulse Strength [Apical] Normal Respiratory Rate 22 18 Respiratory Effort / Characteristics Non-Labored Spontaneous Non-Labored Respiratory Depth Normal Normal Respiratory Pattern Regular Blood Pressure - Lying Blood Pressure - Sitting Blood Pressure- Standing Blood Pressure Blood Pressure [Left Arm] 154/66 H 148/72 H Blood Pressure Mean Blood Pressure Mean [Left Arm] 95 97 Blood Pressure Position [Left Arm] Lying Lying Pulse Oximetry 96 96 Oxygen Delivery Method Room Air Room Air Oxygen Flow Rate General: Non-ill appearing older female in no acute distress. Normal speech. [place] 15. HEENT: Normal cephalic atraumatic. Pupils are equal round and reactive to light. Extraocular movements are intact. Oropharynx is pink with moist mucous membranes. No swelling of the mouth lips or tongue. Neck: Supple with a midline trachea. No meningeal signs or stiffness, no JVD or bruits. No Stridor. Chest: Clear to auscultation bilaterally. No wheezes or rhonchi. No increased work of breathing. Heart: regular rate and rhythm. Abdomen: Soft nontender, nondistended without rebound guarding or rigidity. Extremities: No cyanosis clubbing. No calf tenderness or assymetry. Trace lower extremity edema bilaterally. Spine/Back. Non tender to palpation. No CVA tenderness Skin: Good turgor without rashes. Neurologic exam: Cranial nerves two through 12 are intact. Motor and sensation are intact and symmetrical throughout. Course 1400: Past medical records reviewed. The patient was evaluated in room C10, and a complete history and physical examination were performed. 1535: I spoke with the patient about her test results. I also discussed my recommendation for inpatient stay and the patient was agreeable. 1539: I reviewed the patient's case with Emily Bedoya. She will evaluate the patient for further management. Consultations Consultation #1: Emily Bedoya Time: 15:39 Administered Medications Allopurinol (Zyloprim) 300 mg PO DAILY MIK Stop: 01/22/19 18:59 Last Admin: 12/23/18 20:27 Dose: 300 mg Documented by: [id number] Aspirin (Ecotrin Ectab) 81 mg PO DAILY MIK Stop: 01/22/19 18:59 Last Admin: 12/23/18 20:25 Dose: 81 mg Documented by: [id number] Clopidogrel Bisulfate (Plavix) 75 mg PO DAILY MIK Stop: 01/22/19 18:59 Last Admin: 12/23/18 20:26 Dose: 75 mg Documented by: [id number] Docusate Sodium (Colace) 100 mg PO BID MIK Stop: 01/22/19 20:59 Last Admin: 12/23/18 20:27 Dose: 100 mg Documented by: [id number] Escitalopram Oxalate (Lexapro) 20 mg PO DAILY MIK Stop: 01/22/19 18:59 Last Admin: 12/23/18 20:26 Dose: 20 mg Documented by: [id number] Fenofibrate (Tricor) 145 mg PO DAILY MIK Stop: 01/22/19 18:59 Last Admin: 12/23/18 20:27 Dose: 145 mg Documented by: [id number] Insulin Aspart (Novolog Flexpen) 0 units SC ACHS MIK Stop: 01/22/19 20:59 Last Admin: 12/23/18 20:49 Dose: Not Given Documented by: [id number] Cosigned by: [id number] Isosorbide Mononitrate (Imdur Extended Rel) 60 mg PO Q24H MIK Stop: 01/22/19 18:59 Last Admin: 12/23/18 20:26 Dose: 60 mg Documented by: [id number] Metoprolol Succinate (Toprol Xl) 12.5 mg PO Q24H MIK Stop: 01/22/19 18:59 Last Admin: 12/23/18 20:24 Dose: 12.5 mg Documented by: [id number] Polyethylene Glycol (Miralax Powder Packet) 17 gm PO DAILY MIK Stop: 01/22/19 18:59 Last Admin: 12/23/18 20:24 Dose: 17 gm Documented by: [id number] Discontinued Medications Sodium Chloride (Nss 1000ml) 250 mls @ 999 mls/hr IV .Q16M ONE Stop: 12/23/18 14:24 Last Infusion: 12/23/18 15:27 Dose: 0 mls/hr Documented by: [id number] Admin: 12/23/18 14:25 Dose: 999 mls/hr Documented by: [id number] Medical Decision Making Differential Diagnosis Differentials: Orthostasis, dizziness, vertigo, arrhythmia, anemia, cardiac disease, infection, electrolyte metabolic abnormality. Medical Records Attestation: I reviewed the patient's medical records. Home Medications Current Medication List: was personally reviewed by me Laboratory Data Attestation: I reviewed the patient's lab results. Result diagrams: 12/23/18 14:20 12/23/18 14:20 Lab Results 12/23/18 12/23/18 12/23/18 Range/Units 14:18 14:20 14:20 WBC 7.24 (4.8-10.8) K/uL RBC 3.39 L (4.2-5.4) M/uL Hgb 10.2 L (12.0-16.0) g/dL Hct 31.5 L (37-47) % MCV 92.9 (80-100) fL MCH 30.1 (25-34) pg MCHC 32.4 (32-36) g/dL RDW Std Deviation 57.5 H (36.4-46.3) fL RDW Coeff of Casey 16.9 H (11.5-14.5) % Plt Count 216 (130-400) K/uL MPV 10.4 (7.4-10.4) fL Immature Gran % (Auto) 0.3 % Neut % (Auto) 74.1 % Lymph % (Auto) 15.7 % Spencer % (Auto) 8.4 % Eos % (Auto) 1.1 % Baso % (Auto) 0.4 % Immature Gran # (Auto) 0.02 (0.00-0.02) K/uL Neut # (Auto) 5.36 (1.4-6.5) K/uL Lymph # (Auto) 1.14 L (1.2-3.4) K/uL Spencer # (Auto) 0.61 H (0.11-0.59) K/uL Eos # (Auto) 0.08 (0-0.5) K/uL Baso # (Auto) 0.03 (0-0.2) K/uL PT (9.0-12.0) Seconds INR (0.9-1.1) Sodium 138 (136-145) mmol/L Potassium 4.0 (3.5-5.1) mmol/L Chloride 105 (98-107) mmol/L Carbon Dioxide 27 (21-32) mmol/L Anion Gap 6.0 (3-11) BUN 67 H (7-18) mg/dl Creatinine 2.08 H (0.6-1.2) mg/dl Est Cr Clr Drug Dosing 36.9 ml/min Est GFR ( Amer) 27.1 Est GFR (Non-Af Amer) 23.4 BUN/Creatinine Ratio 32.1 H (10-20) Glucose 101 H (70-99) mg/dl POC Glucose 114 H (70-99) Calcium 9.1 (8.5-10.1) mg/dl Magnesium 2.5 H (1.8-2.4) mg/dl Total Bilirubin 0.5 (0.2-1) mg/dl AST 14 L (15-37) U/L ALT 15 (12-78) U/L Alkaline Phosphatase 48 (45-117) U/L Troponin I 0.101 H* (0-0.045) ng/ml Total Protein 7.6 (6.4-8.2) gm/dl Albumin 3.2 L (3.4-5.0) gm/dl Globulin 4.4 H (2.5-4.0) gm/dl Albumin/Globulin Ratio 0.7 L (0.9-2) TSH 1.430 (0.300-4.500) uIu/ml Urine Color Urine Appearance (Clear) Urine pH (4.5-7.5) Ur Specific Chrisman (1.000-1.030) Urine Protein (Negative) Urine Glucose (UA) (Negative) Urine Ketones (Negative) Urine Blood (Negative) Urine Nitrite (Negative) Urine Bilirubin (Negative) Urine Urobilinogen (Negative) Ur Leukocyte Esterase (Negative) 12/23/18 12/23/18 12/23/18 Range/Units 14:20 16:55 18:09 WBC (4.8-10.8) K/uL RBC (4.2-5.4) M/uL Hgb (12.0-16.0) g/dL Hct (37-47) % MCV (80-100) fL MCH (25-34) pg MCHC (32-36) g/dL RDW Std Deviation (36.4-46.3) fL RDW Coeff of Casey (11.5-14.5) % Plt Count (130-400) K/uL MPV (7.4-10.4) fL Immature Gran % (Auto) % Neut % (Auto) % Lymph % (Auto) % Spencer % (Auto) % Eos % (Auto) % Baso % (Auto) % Immature Gran # (Auto) (0.00-0.02) K/uL Neut # (Auto) (1.4-6.5) K/uL Lymph # (Auto) (1.2-3.4) K/uL Spencer # (Auto) (0.11-0.59) K/uL Eos # (Auto) (0-0.5) K/uL Baso # (Auto) (0-0.2) K/uL PT 11.1 (9.0-12.0) Seconds INR 1.1 (0.9-1.1) Sodium (136-145) mmol/L Potassium (3.5-5.1) mmol/L Chloride (98-107) mmol/L Carbon Dioxide (21-32) mmol/L Anion Gap (3-11) BUN (7-18) mg/dl Creatinine (0.6-1.2) mg/dl Est Cr Clr Drug Dosing ml/min Est GFR ( Amer) Est GFR (Non-Af Amer) BUN/Creatinine Ratio (10-20) Glucose (70-99) mg/dl POC Glucose 80 (70-99) Calcium (8.5-10.1) mg/dl Magnesium (1.8-2.4) mg/dl Total Bilirubin (0.2-1) mg/dl AST (15-37) U/L ALT (12-78) U/L Alkaline Phosphatase (45-117) U/L Troponin I (0-0.045) ng/ml Total Protein (6.4-8.2) gm/dl Albumin (3.4-5.0) gm/dl Globulin (2.5-4.0) gm/dl Albumin/Globulin Ratio (0.9-2) TSH (0.300-4.500) uIu/ml Urine Color Yellow Urine Appearance Clear (Clear) Urine pH 6.5 (4.5-7.5) Ur Specific Chrisman 1.011 (1.000-1.030) Urine Protein Negative (Negative) Urine Glucose (UA) Negative (Negative) Urine Ketones Negative (Negative) Urine Blood Negative (Negative) Urine Nitrite Negative (Negative) Urine Bilirubin Negative (Negative) Urine Urobilinogen Negative (Negative) Ur Leukocyte Esterase Negative (Negative) 12/23/18 12/23/18 Range/Units 20:07 20:21 WBC (4.8-10.8) K/uL RBC (4.2-5.4) M/uL Hgb (12.0-16.0) g/dL Hct (37-47) % MCV (80-100) fL MCH (25-34) pg MCHC (32-36) g/dL RDW Std Deviation (36.4-46.3) fL RDW Coeff of Casey (11.5-14.5) % Plt Count (130-400) K/uL MPV (7.4-10.4) fL Immature Gran % (Auto) % Neut % (Auto) % Lymph % (Auto) % Spencer % (Auto) % Eos % (Auto) % Baso % (Auto) % Immature Gran # (Auto) (0.00-0.02) K/uL Neut # (Auto) (1.4-6.5) K/uL Lymph # (Auto) (1.2-3.4) K/uL Spencer # (Auto) (0.11-0.59) K/uL Eos # (Auto) (0-0.5) K/uL Baso # (Auto) (0-0.2) K/uL PT (9.0-12.0) Seconds INR (0.9-1.1) Sodium (136-145) mmol/L Potassium (3.5-5.1) mmol/L Chloride (98-107) mmol/L Carbon Dioxide (21-32) mmol/L Anion Gap (3-11) BUN (7-18) mg/dl Creatinine (0.6-1.2) mg/dl Est Cr Clr Drug Dosing ml/min Est GFR ( Amer) Est GFR (Non-Af Amer) BUN/Creatinine Ratio (10-20) Glucose (70-99) mg/dl POC Glucose 122 H (70-99) Calcium (8.5-10.1) mg/dl Magnesium (1.8-2.4) mg/dl Total Bilirubin (0.2-1) mg/dl AST (15-37) U/L ALT (12-78) U/L Alkaline Phosphatase (45-117) U/L Troponin I 0.092 H* (0-0.045) ng/ml Total Protein (6.4-8.2) gm/dl Albumin (3.4-5.0) gm/dl Globulin (2.5-4.0) gm/dl Albumin/Globulin Ratio (0.9-2) TSH (0.300-4.500) uIu/ml Urine Color Urine Appearance (Clear) Urine pH (4.5-7.5) Ur Specific Chrisman (1.000-1.030) Urine Protein (Negative) Urine Glucose (UA) (Negative) Urine Ketones (Negative) Urine Blood (Negative) Urine Nitrite (Negative) Urine Bilirubin (Negative) Urine Urobilinogen (Negative) Ur Leukocyte Esterase (Negative) Imaging Data Radiologist's Impression: Radiology results as stated below per my review and the radiologist's interpretation: CT head/brain wo con CLINICAL HISTORY: 73 years-old Female with weakness. Acute weakness TECHNIQUE: Multiple axial CT images of the head were obtained without contrast. A dose lowering technique was utilized adhering to the principles of ALARA. CT DOSE: 614.27 mGy.cm COMPARISON: CT head 07/11/2011. FINDINGS: No acute intracranial hemorrhage, midline shift, intracranial mass, hydrocephalus, territorial ischemia or abnormal extra-axial collection. Age- related involutional changes redemonstrated. Cerebral vascular calcifications noted. The calvarium is intact. Prior bilateral cataract repair. The paranasal sinuses, mastoid air cells, and middle ear cavities are clear. IMPRESSION: No acute intracranial abnormality. The above report was generated using voice recognition software. It may contain grammatical, syntax or spelling errors. Electronically signed by: Óscar Jimenez M.D. 12/23/2018 3:14 PM XR chest 1V portable CLINICAL HISTORY: weakness COMPARISON STUDY: Chest radiograph and chest CT January 20, 2017. FINDINGS: There are median sternotomy wires and clips from bypass grafting. Moderate to marked cardiomegaly is noted. Interstitial thickening suggests pulmonary edema. There is no consolidation to suggest pneumonia. IMPRESSION: 1. Interstitial thickening suggestive of mild pulmonary edema. 2. Stable moderate to marked cardiomegaly. Electronically signed by: John Carmona M.D. 12/23/2018 3:07 PM ECG Data Attestation: I personally reviewed and interpreted this ECG as follows: Indication: other (dizziness) Rate (beats per minute): 61 Rhythm: normal sinus Findings: + LAFB; no acute ischemic change Comparison ECG Date: from (01/21/17) Change: no significant change Blood Pressure Blood Pressure Findings: Elevated blood pressure Blood Pressure Disposition: further management by hospitalist Head Trauma GCS Score: 15 MDM Narrative This patient comes in as described above she complains of feeling dizzy mostly when she lays down. She denies any chest pain. she has some shortness of breath. She has a very complex medical history. IV access established and multiple blood testing was obtained. Her EKG does not show any definite acute ischemic changes however troponin was mildly elevated which is concerning for p ossible cardiac etiology. She has had stable vital signs here and is afebrile. There is nothing to suggest sepsis. Chest x-ray does show some possible mild congestive heart changes. She did receive a small fluid bolus initially of 250 cc IV normal saline bolus. given her dizziness. She layton no neurologic deficits. CAT scan was negative. Given her dizziness and elevated troponin as well as pos sible mild CHF and her symptoms I do think she warrants admission/observation for further cardiac evaluation treatment I have consulted the [facility] [place] her in the ER for these measures. Impression & Plan Dizziness, Elevated troponin, Weakness, Diastolic CHF Discharge Plan Visit Data *Final* Discharge Date/Time: 12/23/18 17:02 Chief Complaint: Dizziness Stated Complaint: DIZZINESS,SOB ED Provider: William Jarrett Discharge Problem: Dizziness, Elevated troponin, Weakness, Diastolic CHF Patient Disposition: Admitted As Inpatient Discharge Instructions Interventions: ED Discharge Assessment Last Done: 12/23/18 17:02 The scribe's documentation has been prepared under my direction and personally reviewed by me in its entirety. I confirm that the note above accurately reflects all work, treatment, procedures, and medical decision making performed by me.
[2018-12-23] MEDS: HEPARIN SOD 5,000 UNIT/0.5 ML VIAL SQ SCH (22:22)
[2018-12-23] MEDS: FUROSEMIDE 40 MG in SYRINGE 0 ML IV SCH (22:24)
[2018-12-24 03:10] LABS: Creatinine Clr Calc Pharmacy 40.2 ml/min; Est GFR (African American) 29.8; Est GFR (Non-African American) 25.7; Potassium 3.9 mmol/L (3.5-5.1)
[2018-12-24 03:20] LABS: Troponin I 0.084 ng/ml (0-0.045)
[2018-12-24] MEDS: HEPARIN SOD 5,000 UNIT/0.5 ML VIAL SQ SCH ×3 (06:02→21:23)
[2018-12-24] MEDS: INSULIN ASPART 100 UNITS/ML 3 ML PEN SC SCH ×4 (06:11→21:23)
[2018-12-24 06:19] LABS: Hematocrit (blood only) 28.8 % (37-47); Hemoglobin 9.3 g/dL (12.0-16.0); Mean Corpuscular Hgb Conc 32.3 g/dL (32-36); Mean Corpuscular Volume 92.6 fL (80-100); Mean Platelet Volume 10.1 fL (7.4-10.4); Platelet Count 223 K/uL (130-400); RDW Coefficient of Variation 16.9 % (11.5-14.5); RDW Standard Deviation 57.1 fL (36.4-46.3); Red Blood Count 3.11 M/uL (4.2-5.4); White Blood Count 5.96 K/uL (4.8-10.8)
[2018-12-24] MEDS: ALLOPURINOL 300 MG TAB PO SCH (10:00)
[2018-12-24] MEDS: POLYETHYLENE (MIRALAX) 17 GM PACK PO SCH (10:00)
[2018-12-24] MEDS: ESCITALOPRAM OXALATE 20 MG TAB PO SCH (10:00)
[2018-12-24] MEDS: CLOPIDOGREL BISULFATE 75 MG TAB PO SCH (10:00)
[2018-12-24] MEDS: FENOFIBRATE NANOCRYSTALLIZED 145 MG TABLET PO SCH (10:00)
[2018-12-24] MEDS: ASPIRIN 81 MG ECTAB PO SCH (10:00)
[2018-12-24] MEDS: DOCUSATE SODIUM 100 MG CAP PO SCH ×2 (10:00→21:23)
--- NOTE | 2018-12-24 10:01 | Hospitalist Progress Note ---
Date of Service December 24, 2018 Assessment & Plan (1) Orthostatic dizziness: (+) orthostasis this AM reduce Imdur from 60 to 30mg at HS continue Metoprolol 12.5mg at HS d/c IV lasix and HOLD further diuretics tomorrow restart usual Torsemide 40mg po daily tomorrow also on Metolazone 2.5mg po weekly (2) Acute on chronic diastolic CHF (congestive heart failure): euvolemic today BP on the lower side d/c IV lasix and HOLD further diuretics tomorrow restart usual Torsemide 40mg po daily tomorrow also on Metolazone 2.5mg po weekly (3) Elevated troponin: 0.1 to 0.8 ACS ruled out (4) CAD (coronary artery disease): -Continue aspirin, Plavix, beta-jaison, nitrate, fenofibrate -Echo 11/16/18: EF 55-59%, grade 2 diastolic dysfunction, severe pulmonary hypertension; hold on repeating for now (5) Severe pulmonary arterial systolic hypertension: will perform 2 step walk test upon discharged (6) SAMANTHA on CPAP: Patient follows with [facility] pulmonary at [facility] - likely will need to follow up there for results and recommendations (+) narcolepsy early ff up with Pulmonary SVC recommended no driving (7) Constipation: bowel regimen with MiraLAX and Colace (8) Hypertension: (+) management as noted above (9) CKD (chronic kidney disease) stage 3, GFR 30-59 ml/min: crea 1.9 monitor (10) PAD (peripheral artery disease): -Stable; continue aspirin, Plavix (11) DM type 2 (diabetes mellitus, type 2): -Hgb A1c 7.5 11/2018 -Managed on NovoLog and Tresiba at home -NovoLog and Lantus per protocol while hospitalized (12) DVT prophylaxis: -SQ heparin Subjective ff up for lightheadedness/presyncope when ambulating noted to be lightheaded again, after transferring from bed to chair with OT, patient again experienced the same symptoms, orthostasis documented by OT seen sitting up in bed, having breakfast states she feels better after laying in bed for a while no active symptoms on my interview no other symptoms Physical Exam Vital Signs (Past 24 Hours): Last Vital Signs Temp 36.3 C L 03/31/19 07:01 Pulse 71 12/24/18 08:00 Resp 18 12/24/18 07:01 BP 148/72 H 12/24/18 07:01 Pulse Ox 95 12/24/18 07:01 Physical Exam: General- oriented x 3, not in distress, speaks in sentences with no effort or accessory muscle use Eyes- anicteric Neck- no JVD Lungs- clear breath sounds bilaterally, no rales/wheezes Heart- normal rate, regular rhythm; no murmurs Abdomen- normal bowel sounds, nondistended, soft, nontender Extremities- trace lower leg edema, no calf tenderness Neuro- alert, oriented x 3; no gross focal neurologic deficits Skin- warm & dry Results & Data Laboratory Results Laboratory Results - last 24 hr 12/23/18 12/23/18 12/23/18 14:18 14:20 14:20 WBC 7.24 RBC 3.39 L Hgb 10.2 L Hct 31.5 L MCV 92.9 MCH 30.1 MCHC 32.4 RDW Std Deviation 57.5 H RDW Coeff of Casey 16.9 H Plt Count 216 MPV 10.4 Immature Gran % (Auto) 0.3 Neut % (Auto) 74.1 Lymph % (Auto) 15.7 Ingham % (Auto) 8.4 Eos % (Auto) 1.1 Baso % (Auto) 0.4 Immature Gran # (Auto) 0.02 Neut # (Auto) 5.36 Lymph # (Auto) 1.14 L Ingham # (Auto) 0.61 H Eos # (Auto) 0.08 Baso # (Auto) 0.03 PT INR Sodium 138 Potassium 4.0 Chloride 105 Carbon Dioxide 27 Anion Gap 6.0 BUN 67 H Creatinine 2.08 H Est Cr Clr Drug Dosing 36.9 Est GFR ( Amer) 27.1 Est GFR (Non-Af Amer) 23.4 BUN/Creatinine Ratio 32.1 H Glucose 101 H POC Glucose 114 H Calcium 9.1 Magnesium 2.5 H Total Bilirubin 0.5 AST 14 L ALT 15 Alkaline Phosphatase 48 Troponin I 0.101 H* Total Protein 7.6 Albumin 3.2 L Globulin 4.4 H Albumin/Globulin Ratio 0.7 L TSH 1.430 Urine Color Urine Appearance Urine pH Ur Specific Navarro Urine Protein Urine Glucose (UA) Urine Ketones Urine Blood Urine Nitrite Urine Bilirubin Urine Urobilinogen Ur Leukocyte Esterase 12/23/18 12/23/18 12/23/18 14:20 16:55 18:09 WBC RBC Hgb Hct MCV MCH MCHC RDW Std Deviation RDW Coeff of Casey Plt Count MPV Immature Gran % (Auto) Neut % (Auto) Lymph % (Auto) Ingham % (Auto) Eos % (Auto) Baso % (Auto) Immature Gran # (Auto) Neut # (Auto) Lymph # (Auto) Ingham # (Auto) Eos # (Auto) Baso # (Auto) PT 11.1 INR 1.1 Sodium Potassium Chloride Carbon Dioxide Anion Gap BUN Creatinine Est Cr Clr Drug Dosing Est GFR ( Amer) Est GFR (Non-Af Amer) BUN/Creatinine Ratio Glucose POC Glucose 80 Calcium Magnesium Total Bilirubin AST ALT Alkaline Phosphatase Troponin I Total Protein Albumin Globulin Albumin/Globulin Ratio TSH Urine Color Yellow Urine Appearance Clear Urine pH 6.5 Ur Specific Navarro 1.011 Urine Protein Negative Urine Glucose (UA) Negative Urine Ketones Negative Urine Blood Negative Urine Nitrite Negative Urine Bilirubin Negative Urine Urobilinogen Negative Ur Leukocyte Esterase Negative 12/23/18 12/23/18 12/24/18 20:07 20:21 02:00 WBC RBC Hgb Hct MCV MCH MCHC RDW Std Deviation RDW Coeff of Casey Plt Count MPV Immature Gran % (Auto) Neut % (Auto) Lymph % (Auto) Ingham % (Auto) Eos % (Auto) Baso % (Auto) Immature Gran # (Auto) Neut # (Auto) Lymph # (Auto) Ingham # (Auto) Eos # (Auto) Baso # (Auto) PT INR Sodium 140 Potassium 3.9 Chloride 105 Carbon Dioxide 30 Anion Gap 5.0 BUN 67 H Creatinine 1.92 H Est Cr Clr Drug Dosing 40.2 Est GFR ( Amer) 29.8 Est GFR (Non-Af Amer) 25.7 BUN/Creatinine Ratio 35.0 H Glucose 100 H POC Glucose 122 H Calcium 9.0 Magnesium Total Bilirubin AST ALT Alkaline Phosphatase Troponin I 0.092 H* 0.084 H* Total Protein Albumin Globulin Albumin/Globulin Ratio TSH Urine Color Urine Appearance Urine pH Ur Specific Navarro Urine Protein Urine Glucose (UA) Urine Ketones Urine Blood Urine Nitrite Urine Bilirubin Urine Urobilinogen Ur Leukocyte Esterase 12/24/18 12/24/18 06:00 06:07 WBC 5.96 RBC 3.11 L Hgb 9.3 L Hct 28.8 L MCV 92.6 MCH 29.9 MCHC 32.3 RDW Std Deviation 57.1 H RDW Coeff of Casey 16.9 H Plt Count 223 MPV 10.1 Immature Gran % (Auto) Neut % (Auto) Lymph % (Auto) Ing[place] % (Auto) Eos % (Auto) Baso % (Auto) Immature Gran # (Auto) Neut # (Auto) Lymph # (Auto) Ingham # (Auto) Eos # (Auto) Baso # (Auto) PT INR Sodium Potassium Chloride Carbon Dioxide Anion Gap BUN Creatinine Est Cr Clr Drug Dosing Est GFR ( Amer) Est GFR (Non-Af Amer) BUN/Creatinine Ratio Glucose POC Glucose 84 Calcium Magnesium Total Bilirubin AST ALT Alkaline Phosphatase Troponin I Total Protein Albumin Globulin Albumin/Globulin Ratio TSH Urine Color Urine Appearance Urine pH Ur Specific Navarro Urine Protein Urine Glucose (UA) Urine Ketones Urine Blood Urine Nitrite Urine Bilirubin Urine Urobilinogen Ur Leukocyte Esterase
[2018-12-24] MEDS: ISOSORBIDE MONO EXTENDED REL 30 MG TABCR PO SCH (11:57)
[2018-12-24] MEDS ORDERED: INSULIN GLARGINE SOLOSTAR 100 UNITS/ML 3 ML PEN SC STA (12:23)
--- NOTE | 2018-12-24 13:53 | Pharmacy Report ---
Pharmacy Glycemic Short Note 2 - Date of Service December 24, 2018 - Glycemic Short BSG Results (Last 24 hours): 12/23/18 12/23/18 12/23/18 14:18 14:20 18:09 Glucose 101 H POC Glucose 114 H 80 12/23/18 12/24/18 12/24/18 20:21 02:00 06:07 Glucose 100 H POC Glucose 122 H 84 12/24/18 11:26 Glucose POC Glucose 148 H OUTPATIENT ANTIDIABETIC REGIMEN: * Tresiba 100units daily, Novolog ACHS, A1C ordered for 12/25/18 ASSESSMENT: * Ms. Man is a 73yo F known to the pharmacy glycemic service from previous admissions. She self-administered her home Rx of Tresiba 100units AM of 12/23/18. Given that tresiba is a ~36-40hr insulin, she will likely not need any insulin until the evening of 12/24/18. She is now ordered a diet. Will follow insulin dosing that yielded adequate BSGs historically. PLAN FOR INPATIENT GLYCEMIC CONTROL: * Basal insulin * Lantus BID set to start tonight * BSGs < 140mg/dL give 30 units * BSGs >/=140mg/dL give 35 units * Bolus insulin * NovoLog per scale ACHS or Q6hrs while NPO * Goal Range: Low 100 mg/dL - High 140 mg/dL * Correction Factor: 15 mg/dL/unit * Nutritional / Prandial insulin per carb ratio of 1 unit per 6 grams CHO consumed
--- NOTE | 2018-12-24 16:04 | Cardiology Consultation ---
Date of Consultation December 24, 2018 Assessment & Plan (1) Acute on chronic diastolic CHF (congestive heart failure): (2) Severe pulmonary arterial systolic hypertension: The patient's most recent outpatient transthoracic echocardiogram performed 11/16/18 revealed moderate concentric left ventricular hypertrophy. The qualitative left ventricular ejection fraction was normal at 55-59%. Grade 2 diastolic dysfunction is noted. Mild mitral regurgitation was present. Mild tricuspid regurgitation was present. Severe pulmonary hypertension was present with estimated pulmonary artery systolic pressure in the range of 50-60 mmHg. The patient has been felt to have pulmonary hypertension due to left heart failure, diastolic dysfunction, and his obstructive sleep apnea. She has had recent difficulty with intolerance to CPAP. She did not tolerate the hospital CPAP machine yesterday. Her does bring in her machine tonight. This is a very challenging situation because the patient describes generalized fatigue and perhaps even dizziness, however she is very prone to volume overload and even though she has been having dizziness, she has noted progressive abdominal bloating. IV diuretics were administered in the emergency room last evening with 1300 mL of urine output noted. Additional diuretics were held today. Her isosorbide mononitrate dose has been reduced. With the exception of her diuretic therapy and the isosorbide mononitrate, she is really not on any significant antihypertensive medications. Present, will resume her prior to hospital dose of torsemide 40 mg p.o. tomorrow, encourage use of CPAP, and observe. Her troponin is mildly elevated, I think this is due to her chronic diastolic heart failure, she does not have a clinical presentation consistent with acute coronary syndrome. History of Present Illness Attending Physician: Mohsen Godoy MD History of Present Illness Emma aMn is a 73-year-old female seen in cardiology consultation per the request of GISELL Bedoya for the evaluation of sensation of dizziness. The patient has a complex cardiac history. Her primary telephone coin box collector is Dr. Oseguera and she has been followed closely in outpatient congestive heart failure clinic with most recent visit having been with Neville Bill PA-C on 2 occasions last month. In early October, she had felt poorly and utilized to 2.5 mg of metolazone on 2 consecutive days with feeling very well subsequently. At her most recent cardiology follow-up visit 11/22/18 she reported feeling better than she had in years. Her weight at that point was down 11 pounds compared to 10/30/18 with documented weight of 299 pounds, 137.8 kg at that time. The patient presented via the emergency room yesterday with complaints of feelin g poorly over the last few days. She describes generalized exhaustion. Increased abdominal bloating has been noted and she has been having what she describes as "spells" where she feels generalized exhaustion and vague dizziness. Orthostatic vital signs were assessed in the emergency room were not suggestive of orthostatic hypotension. Her blood pressure has actually been somewhat high since presentation, with the exception of her most recent reading at 12:18 PM today which was 108/61. Her diuretics were held thus far today. Past Medical / Cardiac History: Complex diffuse diabetic related coronary disease with history of CABG x 4 in June 2011 receiving a JEREZ to LAD, SVG to obtuse marginal, SVG to posterolateral branch, and SVG to the PDA with noted poor targets observed at that time. Multiple peripheral arterial interventions. Diabetic gastroparesis as well as peripheral neuropathy Obstructive sleep apnea, she is supposed to be on CPAP Dyslipidemia on statin intolerance Allergies Allergy/AdvReac Type Severity Reaction Status Date / Time latex Allergy Mild ITCHY Verified 12/23/18 13:54 Sulfa (Sulfonamide Allergy Unknown RASH Verified 12/23/18 13:54 Antibiotics) lisinopril AdvReac Mild COUGH Verified 12/23/18 13:54 [id number]-Mhd Reductase AdvReac Unknown LEG CRAMPS Verified 12/23/18 13:54 Inhibitor Home Medications Home Medications Medication Instructions Recorded Confirmed Type allopurinol 300 mg PO DAILY 12/23/18 12/23/18 History aspirin 81 mg PO DAILY 12/23/18 12/23/18 History clopidogrel 75 mg PO DAILY 12/23/18 12/23/18 History escitalopram oxalate 20 mg PO DAILY 12/23/18 12/23/18 History fenofibrate nanocrystallized 145 mg PO DAILY 12/23/18 12/23/18 History insulin aspart U-100 [Novolog 1 dose SUBCUT ACHS 12/23/18 12/23/18 History Flexpen U-100 Insulin] insulin degludec [Tresiba 100 units SUBCUT DAILY 12/23/18 12/23/18 History FlexTouch U-200] iron,carbonyl-vitamin C [Vitron-C] 1 tab PO DAILY 12/23/18 12/23/18 History isosorbide mononitrate 60 mg PO DAILY 12/23/18 12/23/18 History metolazone 2.5 mg PO WE 12/23/18 12/23/18 History metoprolol succinate 12.5 mg PO DAILY 12/23/18 12/23/18 History torsemide 40 mg PO DAILY 12/23/18 12/23/18 History Patient History Medical History DM type 2 (diabetes mellitus, type 2) (Chronic) CAD (coronary artery disease) (Chronic) Amputation toe (Chronic) Hypertension (Chronic) Severe pulmonary arterial systolic hypertension (Chronic) Diabetic macular edema (Chronic) Diabetic peripheral neuropathy (Chronic) 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) Gastroparesis (Chronic) SAMANTHA on CPAP (Chronic) PAD (peripheral artery disease) (Chronic) GERD (gastroesophageal reflux disease) (Chronic) Diastolic CHF (Chronic) Depression (Chronic) CKD (chronic kidney disease) stage 3, GFR 30-59 ml/min (Chronic) Surgical History History of tonsillectomy and adenoidectomy (Chronic) History of cataract surgery (Chronic) History of angioplasty (Resolved) " 05/28/2011- POBA for the PDA and for the right posterolateral branch 11/16/2010- BMS to RCA; LAD with relatively small but severely diffusely diseased and heavily calcified and has an FFR that confirms hemodynamic significance of the lesion-- not intervened" S/P peripheral artery angioplasty (Chronic) " 09/13/13 left superficial femoral artery angioplasty, left popliteal artery angioplasty, left peroneal artery angioplasty, and amputation metatarsal with toe single (Left 5th toe amputation) 10/23/2013 -left popliteal artery angioplasty 01/20/2016- fem/pop artery revasc w/ angioplasty " S/P CABG x 4 (Chronic) Status post amputation of finger (Chronic) Family History Mother CML (chronic myelocytic leukemia) Social History Preferred Language: Sami Communication Ability: Effective Chemistry Intern Required: No Beliefs That Will Affect Care: None Current Living Situation: Spouse Other Information That Helps Us Care for You: No Feels Safe at Home: Yes Safety Concerns: Feels Safe At This Time Smoking Status: Never smoker Hx Alcohol Use: No Hx Substance Use: No Review of Systems 10 point review of systems is reviewed and is negative with the exception of that above Physical Exam Vital Signs (Past 24 Hours): Last Vital Signs Temp 36.8 C 12/24/18 12:18 Pulse 53 L 12/24/18 12:18 Resp 18 12/24/18 12:18 BP 108/61 12/24/18 12:18 Pulse Ox 95 12/24/18 12:18 Physical Exam: General: no acute distress and stated age Eyes: conjunctiva are pink and non-injected, sclera clear Neck: normal jugular venous pulse, no hepatojugular reflux Chest: normal shape and normal respiratory effort Lungs: clear to auscultation and percussion Cardiac Exam: - regular heart sounds, no murmurs, rubs, or gallops, no jugular venous distention Abdomen: Nonpainful, distended, no tenderness on palpation Extremities: no edema and no cyanosis Neuro:awake, coversant, follows commands, no focal motor deficits Psych: appropriate affect and insight. Results & Data Laboratory Results Cardiac Enzymes 12/23/18 12/24/18 Range/Units 20:07 02:00 Troponin I 0.092 H* 0.084 H* (0-0.045) ng/ml Coagulation 12/23/18 Range/Units 14:20 PT 11.1 (9.0-12.0) Seconds CBC 12/24/18 Range/Units 06:00 WBC 5.96 (4.8-10.8) K/uL RBC 3.11 L (4.2-5.4) M/uL Hgb 9.3 L (12.0-16.0) g/dL Hct 28.8 L (37-47) % Plt Count 223 (130-400) K/uL Comprehensive Metabolic Panel 12/24/18 Range/Units 02:00 Sodium 140 (136-145) mmol/L Potassium 3.9 (3.5-5.1) mmol/L Chloride 105 (98-107) mmol/L Carbon Dioxide 30 (21-32) mmol/L BUN 67 H (7-18) mg/dl Creatinine 1.92 H (0.6-1.2) mg/dl Glucose 100 H (70-99) mg/dl Calcium 9.0 (8.5-10.1) mg/dl Intake and Output 12/24/18 12/24/18 12/24/18 06:59 14:59 22:59 Intake Total 850 / 850 Output Total 1300 / 1300 500 / 500 Balance -1300 / -650 350 / 350 Intake: Oral 850 / 850 Output: Urine 1300 / 1300 500 / 500 Other: Weight 137 kg Diagnostic Findings EKG performed 12/24/18 at 6:49 AM revealed sinus bradycardia at 54 bpm with right bundle branch block, unchanged compared to prior. The right bundle branch block is a chronic finding.
[2018-12-24] MEDS: METOPROLOL SUCC 25MG EXT REL TAB PO SCH (18:16)
[2018-12-24] MEDS: FUROSEMIDE 40 MG in SYRINGE 0 ML IV SCH (19:07)
[2018-12-24] MEDS ORDERED: INSULIN GLARGINE SOLOSTAR 100 UNITS/ML 3 ML PEN SC SCH (21:00)
[2018-12-25] MEDS: HEPARIN SOD 5,000 UNIT/0.5 ML VIAL SQ SCH ×3 (05:35→21:04)
[2018-12-25 07:38] LABS: BUN Creatinine Ratio 35.5 (10-20); Calcium 8.9 mg/dl (8.5-10.1); Creatinine Clr Calc Pharmacy 40.6 ml/min; Est GFR (African American) 30.2; Est GFR (Non-African American) 26.1; Potassium 3.8 mmol/L (3.5-5.1)
[2018-12-25 08:10] LABS: Estimated Average Glucose 160 mg/dl; Hemoglobin A1C 7.2 % (4.5-5.6)
[2018-12-25] MEDS: FENOFIBRATE NANOCRYSTALLIZED 145 MG TABLET PO SCH (08:20)
[2018-12-25] MEDS: ESCITALOPRAM OXALATE 20 MG TAB PO SCH (08:20)
[2018-12-25] MEDS: ISOSORBIDE MONO EXTENDED REL 30 MG TABCR PO SCH (08:20)
[2018-12-25] MEDS: ASPIRIN 81 MG ECTAB PO SCH (08:20)
[2018-12-25] MEDS: CLOPIDOGREL BISULFATE 75 MG TAB PO SCH (08:20)
[2018-12-25] MEDS: ALLOPURINOL 300 MG TAB PO SCH (08:20)
[2018-12-25] MEDS: POLYETHYLENE (MIRALAX) 17 GM PACK PO SCH (08:21)
[2018-12-25] MEDS: TORSEMIDE 20 MG TAB PO SCH (08:21)
[2018-12-25] MEDS: DOCUSATE SODIUM 100 MG CAP PO SCH ×2 (08:21→21:00)
[2018-12-25] MEDS: INSULIN GLARGINE SOLOSTAR 100 UNITS/ML 3 ML PEN SC SCH ×3 (08:21→21:02)
[2018-12-25] MEDS: INSULIN ASPART 100 UNITS/ML 3 ML PEN SC SCH ×4 (08:24→21:00)
--- NOTE | 2018-12-25 09:07 | Pharmacy Report ---
Pharmacy Glycemic Short Note 2 - Date of Service December 25, 2018 - Glycemic Short BSG Results (Last 24 hours): 12/24/18 12/24/18 12/24/18 11:26 16:23 21:18 Glucose POC Glucose 148 H 230 H 234 H 12/25/18 12/25/18 06:19 07:08 Glucose 124 H POC Glucose 126 H OUTPATIENT ANTIDIABETIC REGIMEN: * Tresiba 100units daily * Novolog 45units w/ breakfast + 50 units w/ lunch + 60 units w/ dinner + 20 units HS * A1C 7.2% 12/24/18 The patient is currently receiving: * Basal insulin: Lantus 30-35 units every 12 hours * Correctional Insulin: Novolog Correction per scale ACHS Goal Range: Low 110 mg/dL - High 140 mg/dL Correction Factor: 15 mg/dL/unit * Prandial insulin: Per carb ratio of 1 unit per 6 grams CHO consumed ASSESSMENT: 12/25 * Fasting BSG 126 this AM w/ 35 units Lantus on board. Based upon data from prior admissions, she will likely require 80-100% of her out-pt basal insulin dosage. Will titrate upwards today. * Novolog CF and CR likely need to be adjusted today to allow for larger doses. Post-prandial hyperglycemia observed yesterday. She did require larger doses last admission. 12/24 * Ms. Man is a 73yo F known to the pharmacy glycemic service from previous admissions. She self-administered her home Rx of Tresiba 100units AM of 12/23/18. Given that tresiba is a ~36-40hr insulin, she will likely not need any insulin until the evening of 12/24/18. She is now ordered a diet. Will follow insulin dosing that yielded adequate BSGs historically. PLAN FOR INPATIENT GLYCEMIC CONTROL: * Basal insulin (dosage increase) * Lantus 40 units BID * Bolus insulin (dosage increase) * NovoLog per scale ACHS or Q6hrs while NPO * Goal Range: Low 100 mg/dL - High 140 mg/dL * Correction Factor: 9 mg/dL/unit * Nutritional / Prandial insulin per carb ratio of 1 unit per 3 grams CHO consumed Discharge Plan: * Patient may resume home insulin regimen given good control reflected in most recent A1c
--- NOTE | 2018-12-25 16:49 | Cardiology Progress Note ---
Date of Service December 25, 2018 Assessment & Plan (1) Orthostatic dizziness: Isosorbide mononitrate dose has been discontinued. Question if patient's symptoms are related to diabetic related dysautonomia. (2) Acute on chronic diastolic CHF (congestive heart failure): Continue oral torsemide. I do not think we have a choice but to continue somewhat aggressive diuretic therapy given her tenuous volume status. Continue supportive care. (3) Severe pulmonary arterial systolic hypertension: Continue CPAP, she brought in her home machine yesterday and tolerated it well. Continue diuretic therapy. Subjective Chief complaint: Follow-up generalized episodic weakness, dizziness Subjective: Patient feels well sitting in the bedside chair. Is well documented in her daily Occupational Therapy note today, her episodes do seem to correlate with blood pressures that are lower than her typical sitting blood pressure. For the most part however she remains hypertensive at rest. She received her prior to hospital dose of oral torsemide today, with 1900 mL of urine output thus far today. Physical Exam Vital Signs (Past 24 Hours): Last Vital Signs Temp 36.5 C 12/25/18 15:12 Pulse 53 L 12/25/18 15:12 Resp 18 12/25/18 15:12 BP 160/75 H 12/25/18 15:12 Pulse Ox 95 12/25/18 15:12 Physical Exam: General: no acute distress and stated age Eyes: conjunctiva are pink and non-injected, sclera clear Neck: normal jugular venous pulse, no hepatojugular reflux Chest: normal shape and normal respiratory effort Lungs: clear to auscultation and percussion Cardiac Exam: - regular heart sounds, no murmurs, rubs, or gallops, no jugular venous distention Abdomen: Bloated, mildly distended, nontender Extremities: no edema and no cyanosis Neuro:awake, coversant, follows commands, no focal motor deficits Psych: appropriate affect and insight. Results & Data Diagnostic Findings Telemetry reveals sinus bradycardia in the mid 50 bpm range.
[2018-12-25] MEDS: METOPROLOL SUCC 25MG EXT REL TAB PO SCH (17:52)
--- NOTE | 2018-12-26 02:48 | Hospitalist Progress Note ---
Date of Service December 26, 2018 delayed entry date of service 12/25/18 Assessment & Plan (1) Orthostatic dizziness: still has Orthostasis Imdur discontinued Torsemide resumed continue to monitor BP (2) Acute on chronic diastolic CHF (congestive heart failure): restart usual Torsemide 40mg po daily also on Metolazone 2.5mg po weekly--> may need to DC monitor (3) Elevated troponin: 0.1 to 0.8 ACS ruled out (4) CAD (coronary artery disease): -Continue aspirin, Plavix, beta-jaison, nitrate, fenofibrate -Echo 11/16/18: EF 55-59%, grade 2 diastolic dysfunction, severe pulmonary hypertension; hold on repeating for now (5) Severe pulmonary arterial systolic hypertension: will perform 2 step walk test upon discharged (6) SAMANTHA on CPAP: Patient follows with [facility] pulmonary at [facility] - likely will need to follow up there for results and recommendations (+) narcolepsy early ff up with Pulmonary SVC recommended no driving (7) Constipation: bowel regimen with MiraLAX and Colace (8) Hypertension: (+) management as noted above (9) CKD (chronic kidney disease) stage 3, GFR 30-59 ml/min: crea 1.9 monitor (10) PAD (peripheral artery disease): -Stable; continue aspirin, Plavix (11) DM type 2 (diabetes mellitus, type 2): -Hgb A1c 7.5 11/2018 -Managed on NovoLog and Tresiba at home -NovoLog and Lantus per protocol while hospitalized (12) DVT prophylaxis: -SQ heparin Subjective ff up for presyncope seen resting in bed, comfortable states during OT, she still had orthostasis, but less dizziness no other symptoms Physical Exam Vital Signs (Past 24 Hours): Last Vital Signs Temp 37.2 C 12/25/18 23:58 Pulse 55 L 12/25/18 23:58 Resp 20 12/25/18 23:58 BP 125/48 L 12/25/18 23:58 Pulse Ox 93 12/25/18 23:58 Physical Exam: General- oriented x 3, not in distress, speaks in sentences with no effort or accessory muscle use Eyes- anicteric Neck- no JVD Lungs- clear BS BL, no wheeze Heart- normal rate, regular rhythm; no murmurs Abdomen- normal bowel sounds, nondistended, soft, nontender Extremities- trace pretibial edema, no calf tenderness Neuro- alert, oriented x 3; no gross focal neurologic deficits Skin- warm & dry Results & Data Laboratory Results noted
[2018-12-26 06:01] LABS: Hematocrit (blood only) 29.3 % (37-47); Hemoglobin 9.5 g/dL (12.0-16.0); Mean Corpuscular Hgb Conc 32.4 g/dL (32-36); Mean Corpuscular Volume 92.7 fL (80-100); Mean Platelet Volume 10.3 fL (7.4-10.4); Platelet Count 248 K/uL (130-400); RDW Coefficient of Variation 16.8 % (11.5-14.5); RDW Standard Deviation 56.3 fL (36.4-46.3); Red Blood Count 3.16 M/uL (4.2-5.4); White Blood Count 6.15 K/uL (4.8-10.8)
[2018-12-26] MEDS: HEPARIN SOD 5,000 UNIT/0.5 ML VIAL SQ SCH ×3 (06:28→21:31)
[2018-12-26 06:50] LABS: BUN Creatinine Ratio 34.5 (10-20); Calcium 9.4 mg/dl (8.5-10.1); Creatinine Clr Calc Pharmacy 38.2 ml/min; Est GFR (African American) 28.1; Est GFR (Non-African American) 24.2
[2018-12-26] MEDS: INSULIN ASPART 100 UNITS/ML 3 ML PEN SC SCH ×4 (07:57→21:33)
[2018-12-26] MEDS: ALLOPURINOL 300 MG TAB PO SCH (08:55)
[2018-12-26] MEDS: FENOFIBRATE NANOCRYSTALLIZED 145 MG TABLET PO SCH (08:55)
[2018-12-26] MEDS: TORSEMIDE 20 MG TAB PO SCH (08:55)
[2018-12-26] MEDS: ASPIRIN 81 MG ECTAB PO SCH (08:55)
[2018-12-26] MEDS: POLYETHYLENE (MIRALAX) 17 GM PACK PO SCH (08:58)
[2018-12-26] MEDS: ISOSORBIDE MONO EXTENDED REL 30 MG TABCR PO SCH (10:27)
[2018-12-26] MEDS: DOCUSATE SODIUM 100 MG CAP PO SCH ×2 (10:32→21:22)
[2018-12-26] MEDS: ESCITALOPRAM OXALATE 20 MG TAB PO SCH (10:32)
[2018-12-26] MEDS: CLOPIDOGREL BISULFATE 75 MG TAB PO SCH (10:32)
[2018-12-26] MEDS ORDERED: INSULIN ASPART 100 UNITS/ML 3 ML PEN SC SCH (11:30)
[2018-12-26] MEDS ORDERED: INSULIN GLARGINE SOLOSTAR 100 UNITS/ML 3 ML PEN SC ONE (11:30)
--- NOTE | 2018-12-26 12:02 | Pharmacy Report ---
Pharmacy Glycemic Short Note 2 - Date of Service December 26, 2018 - Glycemic Short BSG Results (Last 24 hours): 12/25/18 12/25/18 12/26/18 16:15 20:16 05:23 Glucose 67 L POC Glucose 176 H 214 H 12/26/18 12/26/18 07:26 10:55 Glucose POC Glucose 73 210 H OUTPATIENT ANTIDIABETIC REGIMEN: * Tresiba 100units daily * Novolog 45units w/ breakfast + 50 units w/ lunch + 60 units w/ dinner + 20 units HS * A1C 7.2% 12/24/18 The patient is currently receiving: * Basal insulin: Lantus 40 units every 12 hours * Correctional Insulin: Novolog Correction per scale ACHS Goal Range: Low 110 mg/dL - High 140 mg/dL Correction Factor: 9 mg/dL/unit * Prandial insulin: Per carb ratio of 1 unit per 3 grams CHO consumed ASSESSMENT: 12/26 * Fasting BSG 67-73 this AM. Given mild hypoglycemia this AM, will reduce basal insulin dose ~20% today and push back AM dose to lunchtime to confirm BSG is on the rise * Mild hypoglycemia observed this AM may be in part due to Novolog given at bedtime last evening (25 units due to CHO's consumed at HS). Will lessen the HS dose of Novolog as a precaution. * Post-prandial BSGs well controlled 2 of 3 yesterday. Will continue the same today, but will monitor post-prandial trend. 12/25 * Fasting BSG 126 this AM w/ 35 units Lantus on board. Based upon data from prior admissions, she will likely require 80-100% of her out-pt basal insulin dosage. Will titrate upwards today. * Novolog CF and CR likely need to be adjusted today to allow for larger doses. Post-prandial hyperglycemia observed yesterday. She did require larger doses last admission. 12/24 * Ms. Man is a 73yo F known to the pharmacy glycemic service from previous admissions. She self-administered her home Rx of Tresiba 100units AM of 12/23/18. Given that tresiba is a ~36-40hr insulin, she will likely not need any insulin until the evening of 12/24/18. She is now ordered a diet. Will follow insulin dosing that yielded adequate BSGs historically. PLAN FOR INPATIENT GLYCEMIC CONTROL: * Basal insulin (dosage decrease) * Lantus 32 units BID * Bolus insulin (dosage increase) * NovoLog per scale ACHS or Q6hrs while NPO * Goal Range: Low 110 mg/dL - High 140 mg/dL * Correction Factor: 9 mg/dL/unit with meals, but use 18mg/dL/unit at HS * Nutritional / Prandial insulin per carb ratio of 1 unit per 3 grams CHO consumed, but use 1 unit per 6 grams CHO consumed at HS Discharge Plan: * Patient may resume home insulin regimen given good control reflected in most recent A1c
--- NOTE | 2018-12-26 13:14 | Cardiology Progress Note ---
Date of Service December 26, 2018 Assessment & Plan (1) Autonomic dysfunction: Patient describes a history of 40 years of diabetes. She has diabetic gastroparesis. I believe her symptoms are consistent with autonomic insufficiency rather than volume depletion. I believe ongoing diuretic therapy needs to be maintained. Not certain is practical for her to wear compression stockings as an outpatient because would be difficult for her to put them on. I will however have been placed while she is here. (2) Acute on chronic diastolic CHF (congestive heart failure): Continue prior to arrival dose of Bumex. Subjective Chief complaint: Follow-up abdominal bloating, dizziness Subjective: Patient comfortable sitting in the bedside chair. No dizziness thus far today. Blood pressure is relatively high. He remains at her typical baseline of around 2 mg/dL. Vigorous urine output noted, fluid balance -2.9 L thus far today. Physical Exam Vital Signs (Past 24 Hours): Last Vital Signs Temp 36.4 C L 12/26/18 11:16 Pulse 58 L 12/26/18 11:16 Resp 16 12/26/18 11:16 BP 161/68 H 12/26/18 11:16 Pulse Ox 96 12/26/18 11:16 Physical Exam: General: no acute distress and stated age Eyes: conjunctiva are pink and non-injected, sclera clear Neck: normal jugular venous pulse, no hepatojugular reflux Chest: normal shape and normal respiratory effort Lungs: clear to auscultation and percussion Cardiac Exam: - regular heart sounds, no murmurs, rubs, or gallops, no jugular venous distention Abdomen: Obese, mildly distended, nontender Musculoskeletal: no gait disturbance, no weakness Extremities: no edema and no cyanosis Neuro:awake, coversant, follows commands, no focal motor deficits Psych: appropriate affect and insight. Results & Data Medications Administered Current Inpatient Medications Acetaminophen (Tylenol) 650 mg PO Q4H PRN PRN Reason: Pain or Fever Stop: 01/22/19 17:57 Allopurinol (Zyloprim) 300 mg PO DAILY [facility] Stop: 01/22/19 18:59 Last Admin: 12/26/18 08:55 Dose: 300 mg Documented by: Aspirin (Ecotrin Ectab) 81 mg PO DAILY [facility] Stop: 01/22/19 18:59 Last Admin: 12/26/18 08:55 Dose: 81 mg Documented by: Clopidogrel Bisulfate (Plavix) 75 mg PO DAILY [facility] Stop: 01/22/19 18:59 Last Admin: 12/26/18 10:32 Dose: 75 mg Documented by: Dextrose (Dextrose 50%) 25 - 50 ml IV UD PRN; Protocol PRN Reason: Hypoglycemia Protocol Stop: 01/22/19 17:57 Docusate Sodium (Colace) 100 mg PO BID [facility] Stop: 01/22/19 20:59 Last Admin: 12/26/18 10:32 Dose: 100 mg Documented by: Escitalopram Oxalate (Lexapro) 20 mg PO DAILY [facility] Stop: 01/22/19 18:59 Last Admin: 12/26/18 10:32 Dose: 20 mg Documented by: Fenofibrate (Tricor) 145 mg PO DAILY [facility] Stop: 01/22/19 18:59 Last Admin: 12/26/18 08:55 Dose: 145 mg Documented by: Glucagon (Glucagen) 1 mg SQ UD PRN; Protocol PRN Reason: Hypoglycemia Protocol Stop: 01/22/19 17:57 Glucose (Glucose 40%) 15 - 30 gm PO UD PRN; Protocol PRN Reason: Hypoglycemia Protocol Stop: 01/22/19 17:57 Glucose (Dex4 Glucose) 4 - 8 tabs PO UD PRN; Protocol PRN Reason: Hypoglycemia Protocol Stop: 01/22/19 17:57 Heparin Sodium (Porcine) (Heparin Sodium (Porcine)) 5,000 units SQ Q8 [facility] Stop: 01/22/19 21:59 Last Admin: 12/26/18 06:28 Dose: 5,000 units Documented by: Insulin Aspart (Novolog Flexpen) 0 units SC AC@0730,1130,1630 [facility] Stop: 01/25/19 07:29 Last Admin: 12/26/18 12:02 Dose: 26 units Documented by: Insulin Aspart (Novolog Flexpen) 0 units SC HS [facility] Stop: 01/25/19 20:59 Insulin Glargine (Lantus Solostar Pen) 32 units SC BID [facility]; Protocol Stop: 01/25/19 20:59 Metoprolol Succinate (Toprol Xl) 12.5 mg PO Q24H [facility] Stop: 01/22/19 18:59 Last Admin: 12/25/18 17:52 Dose: 12.5 mg Documented by: Miscellaneous (Carbohydrates For Hypoglycemia) 15 - 30 gm PO UD PRN PRN Reason: Hypoglycemia Treatment Stop: 01/22/19 17:57 Miscellaneous Information (Consult Glycemic Management Pharmacy) 1 ea N/A UD PRN PRN Reason: Consult Stop: 01/22/19 18:59 Nitroglycerin (Nitrostat) 0.4 mg SL UD PRN PRN Reason: Chest Pain Stop: 01/22/19 17:57 Polyethylene Glycol (Miralax Powder Packet) 17 gm PO DAILY [facility] Stop: 01/22/19 18:59 Last Admin: 12/26/18 08:58 Dose: 17 gm Documented by: Torsemide (Demadex) 40 mg PO QAM [facility] Stop: 01/24/19 08:59 Last Admin: 12/26/18 08:55 Dose: 40 mg Documented by:
[2018-12-26] MEDS ORDERED: AMLODIPINE BESYLATE 5 MG TAB PO ONE (18:00)
[2018-12-26] MEDS: METOPROLOL SUCC 25MG EXT REL TAB PO SCH (18:05)
[2018-12-26] MEDS: INSULIN GLARGINE SOLOSTAR 100 UNITS/ML 3 ML PEN SC SCH (21:33)
[2018-12-27] MEDS: HEPARIN SOD 5,000 UNIT/0.5 ML VIAL SQ SCH ×3 (06:16→20:44)
--- NOTE | 2018-12-27 06:26 | Hospitalist Progress Note ---
Date of Service December 27, 2018 delayed entry date of service 12/26/18 Assessment & Plan (1) Orthostatic dizziness: still has Orthostasis from Imdur, component of Diabetic Dysautonomia Imdur discontinued Torsemide resumed -- BP trending up, systolic 170s will start Amlodipine 5mg - hopefully will not cause Orthostasis compared to Imdur continue usual Torsemide, Metoprolol patient now wearing compression stockings also monitor Orhostatic BP (2) Acute on chronic diastolic CHF (congestive heart failure): restarted usual Torsemide 40mg po daily also on Metolazone 2.5mg po weekly--> may need to DC monitor (3) Elevated troponin: Possible Demand Ischemia in the setting of Acute on Chronic Diastolic Heart Failure Trop 0.1 to 0.8 ACS ruled out (4) CAD (coronary artery disease): -Continue aspirin, Plavix, beta-jaison, nitrate, fenofibrate -Echo 11/16/18: EF 55-59%, grade 2 diastolic dysfunction, severe pulmonary hypertension; hold on repeating for now (5) Severe pulmonary arterial systolic hypertension: will perform 2 step walk test upon discharge (6) SAMANTHA on CPAP: Patient follows with [employer] [facility] pulmonary at [facility] - likely will need to follow up there for results and recommendations (+) narcolepsy early ff up with Pulmonary SVC recommended no driving (7) Constipation: bowel regimen with MiraLAX and Colace (8) Hypertension: (+) management as noted above (9) PAD (peripheral artery disease): -Stable; continue aspirin, Plavix (10) DM type 2 (diabetes mellitus, type 2): -Hgb A1c 7.5 11/2018 -Managed on NovoLog and Tresiba at home -NovoLog and Lantus per protocol while hospitalized (11) DVT prophylaxis: -SQ heparin (12) Morbid obesity: outpatient ff up for weight loss (13) CKD (chronic kidney disease), stage IV: monitor while on Torsemide Subjective ff up for orthostasis, dizziness resting in bed, son at bedside in good spirits states she feels improved today has not ambulated much in the room today denies dizziness, chest pain, dyspnea, palpitations no other symptoms Physical Exam Vital Signs (Past 24 Hours): Last Vital Signs Temp 36.7 C 12/27/18 03:27 Pulse 57 L 12/27/18 05:50 Resp 19 12/27/18 03:27 BP 112/46 L 12/27/18 03:27 Pulse Ox 96 12/27/18 03:27 Physical Exam: General- oriented x 3, not in distress, speaks in sentences with no effort or accessory muscle use Eyes- anicteric Neck- no JVD Lungs- clear BS, no rales BL Heart- normal rate, regular rhythm; no murmurs Abdomen- normal bowel sounds, nondistended, soft, nontender Extremities- trace pretibial edema, no calf tenderness Neuro- alert, oriented x 3; no gross focal neurologic deficits Skin- warm & dry Results & Data Laboratory Results noted, reviewed
[2018-12-27 06:54] LABS: BUN Creatinine Ratio 34.9 (10-20); Calcium 9.1 mg/dl (8.5-10.1); Creatinine Clr Calc Pharmacy 36.5 ml/min; Est GFR (African American) 26.6; Potassium 4.8 mmol/L (3.5-5.1)
[2018-12-27] MEDS: ESCITALOPRAM OXALATE 20 MG TAB PO SCH (07:41)
[2018-12-27] MEDS: ASPIRIN 81 MG ECTAB PO SCH (07:41)
[2018-12-27] MEDS: ALLOPURINOL 300 MG TAB PO SCH (07:41)
[2018-12-27] MEDS: TORSEMIDE 20 MG TAB PO SCH (07:41)
[2018-12-27] MEDS: DOCUSATE SODIUM 100 MG CAP PO SCH ×2 (07:41→20:41)
[2018-12-27] MEDS: FENOFIBRATE NANOCRYSTALLIZED 145 MG TABLET PO SCH (07:41)
[2018-12-27] MEDS: CLOPIDOGREL BISULFATE 75 MG TAB PO SCH (07:41)
[2018-12-27] MEDS: POLYETHYLENE (MIRALAX) 17 GM PACK PO SCH (07:42)
[2018-12-27] MEDS: INSULIN GLARGINE SOLOSTAR 100 UNITS/ML 3 ML PEN SC SCH ×2 (07:42→21:27)
[2018-12-27] MEDS: INSULIN ASPART 100 UNITS/ML 3 ML PEN SC SCH ×6 (07:49→20:48)
--- NOTE | 2018-12-27 08:06 | Pharmacy Report ---
Pharmacy Glycemic Short Note 2 - Date of Service December 27, 2018 - Glycemic Short BSG Results (Last 24 hours): 12/26/18 12/26/18 12/26/18 10:55 16:10 20:34 Glucose POC Glucose 210 H 192 H 177 H 12/27/18 12/27/18 06:08 07:32 Glucose 121 H POC Glucose 120 H OUTPATIENT ANTIDIABETIC REGIMEN: * Tresiba 100units daily * Novolog 45units w/ breakfast + 50 units w/ lunch + 60 units w/ dinner + 20 units HS * A1C 7.2% 12/24/18 The patient is currently receiving: * Basal insulin: Lantus 32 units every 12 hours * Correctional Insulin: Novolog Correction per scale ACHS Goal Range: Low 110 mg/dL - High 140 mg/dL Correction Factor: 9 mg/dL/unit with meals and 18mg/dL/unit at bedtime * Prandial insulin: Per carb ratio of 1 unit per 3 grams CHO consumed with breakfast, lunch and dinner; 1 unit per 6 grams CHO for HS snack ASSESSMENT: 12/27 * Fasting BSG improved today. FBS 120 with 64 units of Lantus on board (dose was reduced yesterday). Will continue the same * Post-prandial BSGs elevated yesterday at lunch time, likely due to rebound from low BSG at breakfast time which led me to omit AM Lantus until later in the day. This combined with a greatly reduced Novolog dose with breakfast likely contributed as well. Otherwise post-prandial BSGs mostly acceptable. 12/26 * Fasting BSG 67-73 this AM. Given mild hypoglycemia this AM, will reduce basal insulin dose ~20% today and push back AM dose to lunchtime to confirm BSG is on the rise * Mild hypoglycemia observed this AM may be in part due to Novolog given at bedtime last evening (25 units due to CHO's consumed at HS). Will lessen the HS dose of Novolog as a precaution. * Post-prandial BSGs well controlled 2 of 3 yesterday. Will continue the same today, but will monitor post-prandial trend. 12/25 * Fasting BSG 126 this AM w/ 35 units Lantus on board. Based upon data from prior admissions, she will likely require 80-100% of her out-pt basal insulin dosage. Will titrate upwards today. * Novolog CF and CR likely need to be adjusted today to allow for larger doses. Post-prandial hyperglycemia observed yesterday. She did require larger doses last admission. PLAN FOR INPATIENT GLYCEMIC CONTROL: * Basal insulin (no change) * Lantus 32 units BID * Bolus insulin (no change) * NovoLog per scale ACHS or Q6hrs while NPO * Goal Range: Low 110 mg/dL - High 140 mg/dL * Correction Factor: 9 mg/dL/unit with meals, but use 18mg/dL/unit at HS * Nutritional / Prandial insulin per carb ratio of 1 unit per 3 grams CHO consumed, but use 1 unit per 6 grams CHO consumed at HS Discharge Plan: * Patient may resume home insulin regimen given good control reflected in most recent A1c
[2018-12-27] MEDS: ISOSORBIDE MONO EXTENDED REL 30 MG TABCR PO SCH (13:08)
--- NOTE | 2018-12-27 13:58 | Hospitalist Progress Note ---
Date of Service December 27, 2018 Assessment & Plan (1) Orthostatic dizziness: Dizziness is likely secondary to postural hypotension due to diabetic autonomic neuropathy Imdur was on hold and Torsemide resumed Appreciate cardiology input and recommendation Symptomatically much better Restarted on a smaller doses of Imdur of 30 mg daily We will transfer to medical Hospital PT and OT evaluation and orthostasis (2) Acute on chronic diastolic CHF (congestive heart failure): restarted usual Torsemide 40mg po daily also on Metolazone 2.5mg po weekly--> may need to DC monitor Clinically a lot better Continue torsemide (3) Elevated troponin: Possible Demand Ischemia in the setting of Acute on Chronic Diastolic Heart Failure Trop 0.1 to 0.8 ACS ruled out (4) CAD (coronary artery disease): -Continue aspirin, Plavix, beta-jaison, nitrate, fenofibrate -Echo 11/16/18: EF 55-59%, grade 2 diastolic dysfunction, severe pulmonary hypertension; hold on repeating for now -Appreciate cardiology input and recommendation (5) Severe pulmonary arterial systolic hypertension: will perform 2 step walk test upon discharge (6) SAMANTHA on CPAP: Patient follows with [facility] - likely will need to follow up there for results and recommendations (+) narcolepsy early ff up with Pulmonary SVC recommended no driving Continue CPAP as an outpatient (7) Constipation: bowel regimen with MiraLAX and Colace (8) Hypertension: (+) management as noted above Blood pressure seems to be stable at this time (9) PAD (peripheral artery disease): -Stable; continue aspirin, Plavix (10) DM type 2 (diabetes mellitus, type 2): -Hgb A1c 7.5 11/2018 -Managed on NovoLog and Tresiba at home -NovoLog and Lantus per protocol while hospitalized (11) DVT prophylaxis: -SQ heparin (12) Morbid obesity: outpatient ff up for weight loss (13) CKD (chronic kidney disease), stage IV: monitor while on Torsemide We will monitor PRP-creatinine 2.1 on today, slightly elevated Subjective 4/3 The patient was seen and examined in telemetry unit She is obese admitted with the questionable symptoms especially dizziness Dizziness seems to be mostly while sitting on bed and lying down Has been feeling a lot better as of this morning Denies any chest pain, shortness of breath, palpitation, any abdominal pain, nausea and/or vomiting Physical Exam Vital Signs (Past 24 Hours): Last Vital Signs Temp 36.7 C 12/27/18 07:00 Pulse 54 L 12/27/18 07:00 Resp 18 12/27/18 07:00 BP 146/53 H 12/27/18 07:00 Pulse Ox 95 12/27/18 07:00 Physical Exam: Sitting on bed comfortably without any dizziness Constitutional: WD/WN, vitals as above + obese Eyes: PERRL, conjunctivae normal, anicteric sclerae ENMT: external ear and nose normal, oropharynx normal Respiratory: normal respiratory effort; no respiratory distress Auscultation: + diminished lung sounds and + crackles (Minimal bibasilar crackles); no wheezes Cardiovascular: Rate/Rhythm: regular rate and regular rhythm Vessels: normal peripheral pulses Extremities: + edema (1+ bilateral legs) Gastrointestinal (Abdomen): Inspection/Auscultation: + abdomen distended and normal bowel sounds Percussion/Palpation: abdomen soft; abdomen nontender and no hepatosplenomegaly Musculoskeletal: no cyanosis or clubbing, extremities motor strength 5/5 Skin: no rashes, warm and dry Neurologic: PERRL, EOMI, accommodation nl, no face palsy, no dysarthria Psychiatric: A+Ox3, euthymic affect Results & Data Laboratory Results [facility] 12/27/18 06:08 Sodium 142 Potassium 4.8 Chloride 106 Carbon Dioxide 30 BUN 74 H Creatinine 2.11 H Glucose 121 H Calcium 9.1 Medications Administered Current Inpatient Medications Acetaminophen (Tylenol) 650 mg PO Q4H PRN PRN Reason: Pain or Fever Stop: 01/22/19 17:57 Allopurinol (Zyloprim) 300 mg PO DAILY [facility] Stop: 01/22/19 18:59 Last Admin: 12/27/18 07:41 Dose: 300 mg Documented by: Aspirin (Ecotrin Ectab) 81 mg PO DAILY [facility] Stop: 01/22/19 18:59 Last Admin: 12/27/18 07:41 Dose: 81 mg Documented by: Clopidogrel Bisulfate (Plavix) 75 mg PO DAILY [facility] Stop: 01/22/19 18:59 Last Admin: 12/27/18 07:41 Dose: 75 mg Documented by: Dextrose (Dextrose 50%) 25 - 50 ml IV UD PRN; Protocol PRN Reason: Hypoglycemia Protocol Stop: 01/22/19 17:57 Docusate Sodium (Colace) 100 mg PO BID [facility] Stop: 01/22/19 20:59 Last Admin: 12/27/18 07:41 Dose: 100 mg Documented by: Escitalopram Oxalate (Lexapro) 20 mg PO DAILY [facility] Stop: 01/22/19 18:59 Last Admin: 12/27/18 07:41 Dose: 20 mg Documented by: Fenofibrate (Tricor) 145 mg PO DAILY [facility] Stop: 01/22/19 18:59 Last Admin: 12/27/18 07:41 Dose: 145 mg Documented by: Glucagon (Glucagen) 1 mg SQ UD PRN; Protocol PRN Reason: Hypoglycemia Protocol Stop: 01/22/19 17:57 Glucose (Glucose 40%) 15 - 30 gm PO UD PRN; Protocol PRN Reason: Hypoglycemia Protocol Stop: 01/22/19 17:57 Glucose (Dex4 Glucose) 4 - 8 tabs PO UD PRN; Protocol PRN Reason: Hypoglycemia Protocol Stop: 01/22/19 17:57 Heparin Sodium (Porcine) (Heparin Sodium (Porcine)) 5,000 units SQ Q8 [facility] Stop: 01/22/19 21:59 Last Admin: 12/27/18 13:08 Dose: 5,000 units Documented by: Insulin Aspart (Novolog Flexpen) 0 units SC AC@0730,1130,1630 [facility] Stop: 01/25/19 07:29 Last Admin: 12/27/18 12:13 Dose: 41 units Documented by: Insulin Aspart (Novolog Flexpen) 0 units SC HS [facility] Stop: 01/25/19 20:59 Last Admin: 12/26/18 21:33 Dose: 3 units Documented by: Insulin Glargine (Lantus Solostar Pen) 32 units SC BID [facility]; Protocol Stop: 01/25/19 20:59 Last Admin: 12/27/18 07:42 Dose: 32 units Documented by: Isosorbide Mononitrate (Imdur Extended Rel) 30 mg PO QAM [facility] Stop: 01/26/19 11:59 Last Admin: 12/27/18 13:08 Dose: 30 mg Documented by: Metoprolol Succinate (Toprol Xl) 12.5 mg PO Q24H [facility] Stop: 01/22/19 18:59 Last Admin: 12/26/18 18:05 Dose: 12.5 mg Documented by: Miscellaneous (Carbohydrates For Hypoglycemia) 15 - 30 gm PO UD PRN PRN Reason: Hypoglycemia Treatment Stop: 01/22/19 17:57 Miscellaneous Information (Consult Glycemic Management Pharmacy) 1 ea N/A UD PRN PRN Reason: Consult Stop: 01/22/19 18:59 Nitroglycerin (Nitrostat) 0.4 mg SL UD PRN PRN Reason: Chest Pain Stop: 01/22/19 17:57 Polyethylene Glycol (Miralax Powder Packet) 17 gm PO DAILY [facility] Stop: 01/22/19 18:59 Last Admin: 12/27/18 07:42 Dose: 17 gm Documented by: Torsemide (Demadex) 40 mg PO QAM [facility] Stop: 01/24/19 08:59 Last Admin: 12/27/18 07:41 Dose: 40 mg Documented by:
[2018-12-27] MEDS: METOPROLOL SUCC 25MG EXT REL TAB PO SCH (19:26)
[2018-12-28 06:26] LABS: BUN Creatinine Ratio 40.9 (10-20); Calcium 9.2 mg/dl (8.5-10.1); Est GFR (African American) 31.6; Est GFR (Non-African American) 27.3; Potassium 4.2 mmol/L (3.5-5.1)
[2018-12-28] MEDS: HEPARIN SOD 5,000 UNIT/0.5 ML VIAL SQ SCH ×2 (07:12→12:36)
[2018-12-28] MEDS ORDERED: INSULIN GLARGINE SOLOSTAR 100 UNITS/ML 3 ML PEN SC SCH (09:00)
[2018-12-28] MEDS: DOCUSATE SODIUM 100 MG CAP PO SCH (09:19)
[2018-12-28] MEDS: CLOPIDOGREL BISULFATE 75 MG TAB PO SCH (09:19)
[2018-12-28] MEDS: ALLOPURINOL 300 MG TAB PO SCH (09:19)
[2018-12-28] MEDS: ESCITALOPRAM OXALATE 20 MG TAB PO SCH (09:19)
[2018-12-28] MEDS: TORSEMIDE 20 MG TAB PO SCH (09:20)
[2018-12-28] MEDS: FENOFIBRATE NANOCRYSTALLIZED 145 MG TABLET PO SCH (09:20)
[2018-12-28] MEDS: ASPIRIN 81 MG ECTAB PO SCH (09:20)
[2018-12-28] MEDS: ISOSORBIDE MONO EXTENDED REL 30 MG TABCR PO SCH (09:20)
[2018-12-28] MEDS: POLYETHYLENE (MIRALAX) 17 GM PACK PO SCH (09:22)
[2018-12-28] MEDS: INSULIN ASPART 100 UNITS/ML 3 ML PEN SC SCH ×3 (09:22→17:29)
--- NOTE | 2018-12-28 09:35 | Pharmacy Report ---
Pharmacy Glycemic Short Note 2 - Date of Service December 28, 2018 - Glycemic Short BSG Results (Last 24 hours): 12/27/18 12/27/18 12/27/18 11:04 16:44 20:03 Glucose POC Glucose 277 H 132 H 188 H 12/28/18 12/28/18 05:25 07:11 Glucose 102 H POC Glucose 103 H OUTPATIENT ANTIDIABETIC REGIMEN: * Tresiba 100units daily * Novolog 45units w/ breakfast + 50 units w/ lunch + 60 units w/ dinner + 20 units HS * A1C 7.2% 12/24/18 The patient is currently receiving: * Basal insulin: Lantus 32 units every 12 hours * Correctional Insulin: Novolog Correction per scale ACHS Goal Range: Low 110 mg/dL - High 140 mg/dL Correction Factor: 9 mg/dL/unit with meals and 18mg/dL/unit at bedtime * Prandial insulin: Per carb ratio of 1 unit per 3 grams CHO consumed with breakfast, lunch and dinner; 1 unit per 6 grams CHO for HS snack ASSESSMENT: 12/28 * Ms. Man received 159 units of insulin yesterday. * Fasting BSG decreased to 102; will reduce basal slightly (~10%) to prevent hypoglycemia * Postprandial BSGs improved with tightening of CR. Will continue same Novolog parameters. * SCr continues to improve. No other significant changes related to glycemic control. 12/27 * Fasting BSG improved today. FBS 120 with 64 units of Lantus on board (dose was reduced yesterday). Will continue the same * Post-prandial BSGs elevated yesterday at lunch time, likely due to rebound from low BSG at breakfast time which led me to omit AM Lantus until later in the day. This combined with a greatly reduced Novolog dose with breakfast likely contributed as well. Otherwise post-prandial BSGs mostly acceptable. 12/26 * Fasting BSG 67-73 this AM. Given mild hypoglycemia this AM, will reduce basal insulin dose ~20% today and push back AM dose to lunchtime to confirm BSG is on the rise * Mild hypoglycemia observed this AM may be in part due to Novolog given at bedtime last evening (25 units due to CHO's consumed at HS). Will lessen the HS dose of Novolog as a precaution. * Post-prandial BSGs well controlled 2 of 3 yesterday. Will continue the same today, but will monitor post-prandial trend. 12/25 * Fasting BSG 126 this AM w/ 35 units Lantus on board. Based upon data from prior admissions, she will likely require 80-100% of her out-pt basal insulin dosage. Will titrate upwards today. * Novolog CF and CR likely need to be adjusted today to allow for larger doses. Post-prandial hyperglycemia observed yesterday. She did require larger doses last admission. PLAN FOR INPATIENT GLYCEMIC CONTROL: * Basal insulin - reduce ~10% * Lantus 30 units BID * Bolus insulin - no change * NovoLog per scale ACHS or Q6hrs while NPO * Goal Range: Low 110 mg/dL - High 140 mg/dL * Correction Factor: 9 mg/dL/unit with meals, but use 18mg/dL/unit at HS * Nutritional / Prandial insulin per carb ratio of 1 unit per 2.5 grams CHO consumed, but use 1 unit per 6 grams CHO consumed at HS Discharge Plan: * Patient may resume home insulin regimen given good control reflected in most recent A1c
--- NOTE | 2018-12-28 13:27 | Hospitalist Progress Note ---
Date of Service December 28, 2018 Assessment & Plan (1) Orthostatic dizziness: Dizziness is likely secondary to postural hypotension due to diabetic autonomic neuropathy Imdur was on hold and Torsemide resumed Appreciate cardiology input and recommendation Symptomatically much better Restarted on a smaller doses of Imdur of 30 mg daily Denies any significant symptoms today Denies any more dizziness Will get PT and OT evaluation today and likely to be discharged this afternoon (2) Acute on chronic diastolic CHF (congestive heart failure): restarted usual Torsemide 40mg po daily also on Metolazone 2.5mg po weekly--> may need to DC monitor Clinically a lot better Continue torsemide Kidney functions has been improving We will continue current dose of torsemide (3) Elevated troponin: Possible Demand Ischemia in the setting of Acute on Chronic Diastolic Heart Failure Trop 0.1 to 0.8 ACS ruled out (4) CAD (coronary artery disease): -Continue aspirin, Plavix, beta-jaison, nitrate, fenofibrate -Echo 11/16/18: EF 55-59%, grade 2 diastolic dysfunction, severe pulmonary hypertension; hold on repeating for now -Appreciate cardiology input and recommendation -No acute cardiac symptoms (5) Severe pulmonary arterial systolic hypertension: will perform 2 step walk test upon discharge 2 step O2 saturation has been requested (6) SAMANTHA on CPAP: Patient follows with [facility] - likely will need to follow up there for results and recommendations (+) narcolepsy early ff up with Pulmonary SVC recommended no driving Continue CPAP as an outpatient (7) Constipation: bowel regimen with MiraLAX and Colace (8) Hypertension: (+) management as noted above Blood pressure seems to be stable at this time (9) PAD (peripheral artery disease): -Stable; continue aspirin, Plavix (10) DM type 2 (diabetes mellitus, type 2): -Hgb A1c 7.5 11/2018 -Managed on NovoLog and Tresiba at home -NovoLog and Lantus per protocol while hospitalized (11) DVT prophylaxis: -SQ heparin (12) Morbid obesity: outpatient ff up for weight loss (13) CKD (chronic kidney disease), stage IV: monitor while on Torsemide We will monitor PRP-creatinine 2.1 on today, slightly elevated Creatinine stable and slightly better Subjective 3 The patient was seen and examined in telemetry unit She is obese admitted with the questionable symptoms especially dizziness Dizziness seems to be mostly while sitting on bed and lying down Has been feeling a lot better as of this morning Denies any chest pain, shortness of breath, palpitation, any abdominal pain, nausea and/or vomiting 12/28 The patient was seen and examined in medical floor Symptoms of dizziness has improved a lot She denies any other symptoms of chest pain, shortness of breath, palpitation She will had physical therapy today and will be going to be discharged this afternoon as per their recommendation Physical Exam Vital Signs (Past 24 Hours): Last Vital Signs Temp 36.6 C 12/28/18 07:00 Pulse 55 L 12/28/18 07:00 Resp 18 12/28/18 07:00 BP 135/70 12/28/18 07:00 Pulse Ox 99 12/28/18 07:00 Physical Exam: No apparent distress at rest Constitutional: WD/WN, vitals as above + obese Eyes: PERRL, conjunctivae normal, anicteric sclerae ENMT: external ear and nose normal, oropharynx normal Respiratory: normal respiratory effort; no respiratory distress Auscultation: + diminished lung sounds and + crackles (Minimal bibasilar crackles); no wheezes Cardiovascular: Rate/Rhythm: regular rate and regular rhythm Vessels: normal peripheral pulses Extremities: + edema (1+ bilateral legs) Gastrointestinal (Abdomen): Inspection/Auscultation: + abdomen distended and normal bowel sounds Percussion/Palpation: abdomen soft; abdomen nontender and no hepatosplenomegaly Musculoskeletal: no cyanosis or clubbing, extremities motor strength 5/5 Skin: no rashes, warm and dry Neurologic: PERRL, EOMI, accommodation nl, no face palsy, no dysarthria Psychiatric: A+Ox3, euthymic affect Results & Data Laboratory Results [facility] 12/28/18 05:25 Sodium 142 Potassium 4.2 Chloride 107 Carbon Dioxide 28 BUN 75 H Creatinine 1.83 H Glucose 102 H Calcium 9.2 Medications Administered Current Inpatient Medications Acetaminophen (Tylenol) 650 mg PO Q4H PRN PRN Reason: Pain or Fever Stop: 01/22/19 17:57 Allopurinol (Zyloprim) 300 mg PO DAILY [facility] Stop: 01/22/19 18:59 Last Admin: 12/28/18 09:19 Dose: 300 mg Documented by: Aspirin (Ecotrin Ectab) 81 mg PO DAILY [facility] Stop: 01/22/19 18:59 Last Admin: 12/28/18 09:20 Dose: 81 mg Documented by: Clopidogrel Bisulfate (Plavix) 75 mg PO DAILY [facility] Stop: 01/22/19 18:59 Last Admin: 12/28/18 09:19 Dose: 75 mg Documented by: Dextrose (Dextrose 50%) 25 - 50 ml IV UD PRN; Protocol PRN Reason: Hypoglycemia Protocol Stop: 01/22/19 17:57 Docusate Sodium (Colace) 100 mg PO BID [facility] Stop: 01/22/19 20:59 Last Admin: 12/28/18 09:19 Dose: 100 mg Documented by: Escitalopram Oxalate (Lexapro) 20 mg PO DAILY [facility] Stop: 01/22/19 18:59 Last Admin: 12/28/18 09:19 Dose: 20 mg Documented by: Fenofibrate (Tricor) 145 mg PO DAILY [facility] Stop: 01/22/19 18:59 Last Admin: 12/28/18 09:20 Dose: 145 mg Documented by: Glucagon (Glucagen) 1 mg SQ UD PRN; Protocol PRN Reason: Hypoglycemia Protocol Stop: 01/22/19 17:57 Glucose (Glucose 40%) 15 - 30 gm PO UD PRN; Protocol PRN Reason: Hypoglycemia Protocol Stop: 01/22/19 17:57 Glucose (Dex4 Glucose) 4 - 8 tabs PO UD PRN; Protocol PRN Reason: Hypoglycemia Protocol Stop: 01/22/19 17:57 Heparin Sodium (Porcine) (Heparin Sodium (Porcine)) 5,000 units SQ Q8 MIK Stop: 01/22/19 21:59 Last Admin: 12/28/18 12:36 Dose: Not Given Documented by: Insulin Aspart (Novolog Flexpen) 0 units SC AC@0730,1130,1630 [facility] Stop: 01/25/19 07:29 Last Admin: 12/28/18 12:35 Dose: 32 units Documented by: Insulin Aspart (Novolog Flexpen) 0 units SC HS [facility] Stop: 01/25/19 20:59 Last Admin: 12/27/18 20:48 Dose: 3 units Documented by: Insulin Glargine (Lantus Solostar Pen) 30 units SC BID [facility]; Protocol Stop: 01/27/19 08:59 Last Admin: 12/28/18 09:23 Dose: 30 units Documented by: Isosorbide Mononitrate (Imdur Extended Rel) 30 mg PO QAM [facility] Stop: 01/26/19 11:59 Last Admin: 12/28/18 09:20 Dose: 30 mg Documented by: Metoprolol Succinate (Toprol Xl) 12.5 mg PO Q24H [facility] Stop: 01/22/19 18:59 Last Admin: 12/27/18 19:26 Dose: 12.5 mg Documented by: Miscellaneous (Carbohydrates For Hypoglycemia) 15 - 30 gm PO UD PRN PRN Reason: Hypoglycemia Treatment Stop: 01/22/19 17:57 Miscellaneous Information (Consult Glycemic Management Pharmacy) 1 ea N/A UD PRN PRN Reason: Consult Stop: 01/22/19 18:59 Nitroglycerin (Nitrostat) 0.4 mg SL UD PRN PRN Reason: Chest Pain Stop: 01/22/19 17:57 Polyethylene Glycol (Miralax Powder Packet) 17 gm PO DAILY [facility] Stop: 01/22/19 18:59 Last Admin: 12/28/18 09:22 Dose: 17 gm Documented by: Torsemide (Demadex) 40 mg PO QAM [facility] Stop: 01/24/19 08:59 Last Admin: 12/28/18 09:20 Dose: 40 mg Documented by:
--- NOTE | 2018-12-29 07:35 | Discharge Summary ---
Date of Service December 29, 2018 Admission HPI Per Admitting Provider 73-year-old female who presents to the ED with a chief complaint of lightheadedness. Patient reports that 4 days ago, she was having several episodes where she reports she felt "woozy" with standing and with any activity. Patient has some difficulty describing her symptoms exactly however it appears as though she got very lightheaded and had some shortness of breath. She also noted increasing abdominal distention that has been coming and going. Those symptoms lasted for about one day, then patient reports she felt better, however today symptoms returned. Patient reports very similar symptoms today. She repo rts that with minimal activity, she had to sit down and rest. She denies specific chest pain or pressure however reports her chest "does not feel right". She denies jaw, shoulder, arm discomfort. No associated nausea or diaphoresis. Patient has chronic lower extremity edema, she feels as though there is some worsening edema around her ankles today. She denies orthopnea. Patient does not weigh herself on a daily basis however reports her weight is usually "around 300". No abdominal pain, vomiting, diarrhea. She denies fevers and chills. No urinary symptoms. In the ED, troponin is mildly elevated at 0.101, EKG demonstrates an unchanged bifascicular block. Patient is hemodynamically stable. Head CT is negative for acute findings. CXR shows mild pulmonary edema. Patient was given 250cc NSS. Admission Exam Per Admitting Provider Vital Signs (Past 24 Hours): Last Vital Signs Temp 36.8 C 12/23/18 13:10 Pulse 66 12/23/18 16:50 Resp 18 12/23/18 16:50 BP 149/51 H 12/23/18 16:50 Pulse Ox 94 12/23/18 16:50 Constitutional: WD/WN, vitals as above + obese Eyes: PERRL, conjunctivae normal, anicteric sclerae ENMT: external ear and nose normal, oropharynx normal Respiratory: normal respiratory effort; no respiratory distress Auscultation: + diminished lung sounds Cardiovascular: Rate/Rhythm: regular rate and regular rhythm Vessels: no rmal peripheral pulses Extremities: + edema (+1-+2 BLE, noted to be pitting around the ankles) Gastrointestinal (Abdomen): Inspection/Auscultation: + abdomen distended and normal bowel sounds Percussion/Palpation: abdomen soft; abdomen nontender and no hepatosplenomegaly Musculoskeletal: no cyanosis or clubbing, extremities motor strength 5/5 Skin: no rashes, warm and dry Wound noted to right anterior cedillo, bloody wound bed, no significant surrounding erythema or purulent drainage noted Neurologic: PERRL, EOMI, accommodation nl, no face palsy, no dysarthria Psychiatric: A+Ox3, euthymic affect Principal Diagnosis Dizziness due to autonomic neuropathy secondary to diabetes, acute on chronic diastolic CHF, CAD, SAMANTHA on CPAP at home Discharge Exam Constitutional WD/WN, vitals as above + obese Eyes PERRL, conjunctivae normal, anicteric sclerae ENMT external ear and nose normal, oropharynx normal Respiratory normal respiratory effort; no respiratory distress Auscultation: + diminished lung sounds and + crackles (Minimal bibasilar crackles); no wheezes Cardiovascular Rate/Rhythm: regular rate and regular rhythm Vessels: normal peripheral pulses Extremities: + edema (1+ bilateral legs) Gastrointestinal (Abdomen) Inspection/Auscultation: + abdomen distended and normal bowel sounds Percussion/Palpation: abdomen soft; abdomen nontender and no hepatosplenomegaly Musculoskeletal no cyanosis or clubbing, extremities motor strength 5/5 Skin no rashes, warm and dry Neurologic PERRL, EOMI, accommodation nl, no face palsy, no dysarthria Psychiatric A+Ox3, euthymic affect Discharge Data Allergies Allergy/AdvReac Type Severity Reaction Status Date / Time latex Allergy Mild ITCHY Verified 12/23/18 13:54 Sulfa (Sulfonamide Allergy Unknown RASH Verified 12/23/18 13:54 Antibiotics) lisinopril AdvReac Mild COUGH Verified 12/23/18 13:54 Cvuqpxp-Uqk-Lti Reductase AdvReac Unknown LEG CRAMPS Verified 12/23/18 13:54 Inhibitor Consultations 12/23/18 15:45 ED Decision to Admit Stat 12/23/18 17:58 Consult Cardiology Routine Consult Case Management - Discharge Planning Routine 12/24/18 10:01 Consult Cardiology Routine Ordered Studies 12/23/18 14:08 CT head/brain wo con Stat Hospital Course (1) Acute on chronic diastolic CHF (congestive heart failure): restarted usual Torsemide 40mg po daily also on Metolazone 2.5mg po weekly--> may need to DC monitor Clinically a lot better Continue torsemide Kidney functions has been improving We will continue current dose of torsemide (2) Elevated troponin: Possible Demand Ischemia in the setting of Acute on Chronic Diastolic Heart Failure Trop 0.1 to 0.8 ACS ruled out (3) CAD (coronary artery disease): -Continue aspirin, Plavix, beta-jaison, nitrate, fenofibrate -Echo 11/16/18: EF 55-59%, grade 2 diastolic dysfunction, severe pulmonary hypertension; hold on repeating for now -Appreciate cardiology input and recommendation -No acute cardiac symptoms (4) Severe pulmonary arterial systolic hypertension: will perform 2 step walk test upon discharge 2 step O2 saturation has been requested (5) SAMANTHA on CPAP: [facility] - likely will need to follow up there for results and recommendations (+) narcolepsy early ff up with Pulmonary SVC recommended no driving Continue CPAP as an outpatient (6) Constipation: bowel regimen with MiraLAX and Colace (7) Hypertension: (+) management as noted above Blood pressure seems to be stable at this time (8) CKD (chronic kidney disease) stage 3, GFR 30-59 ml/min: crea 1.9 monitor (9) PAD (peripheral artery disease): -Stable; continue aspirin, Plavix (10) DM type 2 (diabetes mellitus, type 2): -Hgb A1c 7.5 11/2018 -Managed on NovoLog and Tresiba at home -NovoLog and Lantus per protocol while hospitalized (11) DVT prophylaxis: -SQ heparin Total Time Total Time Spent Total Time Spent (In Minutes): 35 minutes Total Time Includes: Examination of the Patient, Discharge Planning, Medication Reconciliation and Communication With Other Providers Discharge Plan Discharge Items Patient Disposition: Home - Self-Care Reason For Visit: LIGHTHEADEDNESS Discharge Diagnosis: Dizziness due to autonomic neuropathy secondary to diabetes, acute on chronic diastolic CHF, CAD, SAMANTHA on CPAP at home Condition: Fair Discharge Goals: Decrease discomfort, Improve function and Increase independence Activity: Resume your previous activity Non-emergency contact: Primary Care Provider Call non-emergency contact if: you have any medication questions and your symptoms worsen Follow-up/Referrals: Chetan Rivas [Primary Care Provider] - 01/02/19 10:45 am (Please keep appointment with your 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 prospecting 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 and insole buffer) Diet: Carb Consistent or DM2 and Heart Healthy Fluids: 1500ml (6 cups) Addtl Provider Instructions: Call 911 and go to the Emergency Room if: * You have tightness or pain in your chest that does not go away with rest or Nitroglycerin * You are very short of breath even with rest Call your doctor if any of the following symptoms or problems start or get worse: * Shortness of breath or difficulty breathing * Wake up at night short of breath * Chest pain * Cough * Swelling of your hands, fee, or legs * More fatigued or tired with your normal activity * Palpitations - sudden fast heart beats WEIGHT * Weigh yourself every morning after using the bathroom. * Use the same scale. * Wear the same amount of clothing. * Write your weight down on your chart. * Call your doctor if you gain more than 2-3 pounds in 1-2 days. MEDICATIONS * Use this discharge instruction sheet for instructions. * Take your medications at the time your doctor ordered. * Do not skip a dose of your medicines. * If you miss a dose of medicine, take as soon as possible, but DO NOT DOUBLE A DOSE. * Read your medicine information when you get home. * Know all of the side effects of your medicine. * Call your doctor's office if you have any side effects. * Be sure all of your doctors know what medicine and herbs you take (including cold, flu, and herbal medicine). * Pain Medicine: If you do not get relief from your pain, please call your doctor for help. Take the following with you to your follow-up doctor appointments: * Weight Chart * Medication List * List of questions Do not drink excessive alcohol, beer or wine. Prescriptions: New isosorbide mononitrate 30 mg Tablet Extended Release 24 Hr 30 mg PO QAM 30 Days Qty: 30 RF: 0 Continued metolazone 2.5 mg tablet 2.5 mg PO WE RF: 0 torsemide 20 mg tablet 40 mg PO DAILY RF: 0 clopidogrel 75 mg tablet 75 mg PO DAILY RF: 0 aspirin 81 mg Tablet,Delayed Release (Dr/Ec) 81 mg PO DAILY RF: 0 allopurinol 300 mg tablet 300 mg PO DAILY RF: 0 metoprolol succinate 25 mg tablet extended release 24 hr 12.5 mg PO DAILY RF: 0 escitalopram oxalate 20 mg tablet 20 mg PO DAILY RF: 0 Novolog Flexpen U-100 Insulin 100 unit/mL (3 mL) insulin pen 1 dose subcut ACHS RF: 0 fenofibrate nanocrystallized 145 mg tablet 145 mg PO DAILY RF: 0 Vitron-C 65 mg iron- 125 mg Tablet,Delayed Release (Dr/Ec) 1 tab PO DAILY RF: 0 Tresiba FlexTouch U-200 200 unit/mL (3 mL) insulin pen 100 units subcut DAILY RF: 0 Changed isosorbide mononitrate 60 mg tablet extended release 24 hr 30 mg PO DAILY Qty: 0 RF: 0 Stand-Alone Forms: [facility] Discharge Orders: Discharge Order (Routine); Ordered 12/28/18 Ordered By: Sumeet Mesa Admission Data Admit Date/Time: 12/23/18 16:37 Attending Provider: Sumeet Mesa Admit Provider: Mohsen Godoy Primary Care Provider: Chetan Rivas Other Providers: Phill Rodriguez ; Mohsen Godoy ; Blake Banerjee ; José Miguel Jensen ; Danis Oseguera ; Hernan Rod ; Kenny Reyes ; Neville Bill ; Rabia Castillo ; Renae Nowak Service: Medical Other Interventions: Discharge Summary Assessment (RN) Last Done: 12/28/18 17:37 DC Date/Time DO NOT enter until pt leaves facility: 12/28/18 18:15
== END 2018-12-28 18:15 | disposition home or self-care (01) | DRG 73 ==
LOC: ED 13:00 → 2S 16:37 → SUATTDRO 16:37 → 2S 17:02 → 4E 12-27 13:58

== ENCOUNTER 2022-08-22 17:20 | Inpatient (IN) ==
--- NOTE | 2022-08-22 18:02 | Emergency Department Note ---
Impression & Plan Chest pain ADMIT ED Provider Note HPI: The patient is a 76-year-old female with history of coronary artery disease, presents the emergency department with multiple complaints. Patient states over the past 2 to 3 weeks, she has been very short of breath with exertion, states at times she gets chest discomfort however this does not follow any particular pattern. At times she will get it at rest, it time she does not have the chest discomfort when she is exerting herself. Patient states she is also had diminished p.o. intake, she states when she eats or swallows pills she gets a sensation as if they are getting "stuck" in the distal aspect of her throat and at times she will gag and vomit. She does not have any foreign body sensation in her throat currently. Patient also just complains of generalized weakness and a cough over about the past week. On arrival here to the ED the patient is hemodynamically stable, she is saturating well on room air, she does not currently have any chest pain but she does get short of breath with minimal exertion ROS: -Pulmonary: Shortness of breath on exertion, cough -General: Generalized weakness -GI: Sensation of dysphagia *10 point review systems was conducted and is otherwise negative unless stated above *Outpatient medications and allergy history reviewed PE: General: Alert, obese, no acute distress HEENT: Normocephalic, trachea midline Eyes: Extraocular eye movement is intact, no scleral erythema Pulmonary: Slightly diminished bilaterally without any expiratory wheezing Cardio: Regular rate and rhythm GI: Abdomen is soft, nontender : No suprapubic tenderness MSK: No evidence of trauma or malformation of the extremities, no edema Skin: Erythematous changes to the right lower extremity that appear chronic in nature with multiple ulcerations (consistent with 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 Layering bilateral pleural effusions noted, measuring approximately 2.5 cm in the posterior costophrenic margins. No loculation. No pneumothorax. Subsegmental changes at the lung bases are presumed compressive atelectasis. Infection is considered less likely. Cardiomegaly. Minimal reflux of contrast into the intrahepatic IVC. This may be related to rate of contrast injection. However, this finding may also be seen with right heart dysfunction. No pericardial effusion the thoracic aorta demonstrates at this chronic changes without aneurysm or dissection. Nonspecific prevascular and paratracheal lymph nodes predominantly subcentimeter in size. No acute osseous or significant overlying soft tissue abnormality. Radiologist: Carlito Whitaker MD Preliminary Findings Only See Final Report For Complete Findings CT ABDOMEN & PELVIS With Contrast: Layering subcentimeter cholelithiasis in the posterior aspect of the gallbladder. No CT evidence for gallbladder wall thickening or biliary dilatation. No definite choledocholithiasis. Hepatomegaly. The enhancement pattern of the liver demonstrates a nutmeg appearance which is nonspecific but may be related to venous congestion. No focal abnormality. The pancreas, spleen, adrenal glands and kidneys demonstrate no significant acute abnormality. Nonobstructive subcentimeter nephrolithiasis in the inferior pole of the left kidney. No hydronephrosis or ureteral stones. No bowel obstruction. No definite asymmetric bowel mucosal abnormality. No free intraperitoneal fluid or pneumoperitoneum. Incidental normal caliber appendix posterior to the cecum. The bladder is moderately distended without wall abnormalities or calcifications. No acute osseous abnormality. Subcutaneous fat stranding predominantly laterally and posteriorly through the pelvis and inferior abdomen suggests dependent edema changes. Cellulitis is considered much less likely. Radiologist: Carlito Whitaker MD Study ready at 20:46 and initial results transmitted at 21:21 Interventions provided in ED: -IV Lasix Medical Decision Making: Patient presented to the emergency department with shortness of breath on exertion, intermittent chest discomfort. On arrival here to the ED she is in no acute distress. She also complains of a sensation of dysphagia that upon chart review is chronic in nature, she has previously had unremarkable EGD with mild dilation performed. CT imaging of the chest as well as CT imaging of the abdomen and pelvis were obtained and did not show any evidence of any acute surgical abnormalities, no evidence of any mass at the GE junction. No evidence of PE. No evidence of an obvious pneumonia. Troponin is obtained and is slightly elevated at 18.5, EKG does not show any acute ischemic changes. No critical electrolyte abnormalities are noted. I was informed by the bedside RN that the patient has been experiencing some ext benjie dyspnea on exertion just going to the restroom from her bed in the room. She did have desaturations into the mid 80s and required supplemental oxygen for improvement. Patient states at times she is getting chest discomfort with exertion as well. She does have a significant cardiac history, I discussed all the above with the patient at this time she states that she would prefer to be admitted to the hospital for further management in regards to her symptoms. She was given a dose of IV Lasix over concern for possible fluid overload as the source of her dyspnea. I discussed the above findings with the on-call hospitalist, Dr. Lawrence, and the patient was admitted in stable condition for further care. Diagnosis: 1. Chest pain, intermittent, acute 2. Dyspnea on exertion, hypoxia on exertion 3. History of coronary artery disease Disposition: Admission Neville Flowers DO Emergency Medicine Past Med/Surg History Medical History Amputation toe left foot little toe CAD (coronary artery disease) follows with Neville Bill CKD (chronic kidney disease) stage 3, GFR 30-59 ml/min follows with Dr. 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 Gastroparesis GERD (gastroesophageal reflux disease) Hiatal hernia Hypertension PAD (peripheral artery disease) Poor historian Severe pulmonary arterial systolic hypertension Sleep apnea Bipap Surgical History History of angioplasty " 05/28/2011- POBA for the PDA and for the right posterolateral branch 11/16/2010- BMS to RCA; LAD with relatively small but severely diffusely diseased and heavily calcified and has an FFR that confirms hemodynamic significance of the lesion-- not intervened" History of cataract surgery bilat History of colonoscopy History of esophagogastroduodenoscopy (EGD) History of heart artery stent unsure how many, placed several yrs ago per pt History of tonsillectomy and adenoidectomy History of tooth extraction S/P CABG x 4 2010 > [facility] S/P peripheral artery angioplasty " 09/13/13 left superficial femoral artery angioplasty, left popliteal artery angioplasty, left peroneal artery angioplasty, and amputation metatarsal with toe single (Left 5th toe amputation) 10/23/2013 -left popliteal artery angioplasty 01/20/2016- fem/pop artery revasc w/ angioplasty " Status post amputation of finger right first finger Family History Mother CML (chronic myelocytic leukemia) Social History Smoking Status: Never smoker Second Hand Exposure: No; Hx Alcohol Use: No Hx Substance Use: No Preferred Language: Bangladeshi Communication Ability: Effective 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 Required: No Beliefs That Will Affect Care: None marital status: Current Living Situation: Family current occupation: Retired Feels Safe at Home: Yes Assistive Devices: BiPap, Cane, Glasses and Walker Allergies Allergies Allergy/AdvReac Type Severity Reaction Status Date / Time latex Allergy Mild ITCHY Verified 10/23/21 12:23 Sulfa (Sulfonamide Allergy Unknown RASH Verified 10/23/21 12:23 Antibiotics) lisinopril AdvReac Mild COUGH Verified 10/23/21 12:23 Uzdessv-LZP-UxP Reductase AdvReac Unknown LEG CRAMPS Verified 10/23/21 12:23 Inhibitor [Gkosegu-Oso-Ysq Reductase Inhibitor] Home Meds Home Medications Medication Instructions Recorded Confirmed allopurinol 300 mg tablet 300 mg PO QAM 12/23/18 08/22/22 aspirin 81 mg tablet,delayed 81 mg PO QAM 12/23/18 08/22/22 release clopidogrel 75 mg tablet 150 mg PO QAM 12/23/18 08/22/22 iron,carbonyl 65 mg-vitamin C 125 1 tab PO Q OTHER DAY 12/23/18 08/22/22 mg tablet,delayed release (Vitron-C) metoprolol succinate 25 mg 12.5 mg PO QAM 12/23/18 08/22/22 tablet,extended release 24 hr torsemide 20 mg tablet 40 mg PO BID 12/23/18 08/22/22 ezetimibe 10 mg tablet 10 mg PO QAM 09/11/21 08/22/22 insulin regular hum U-500 conc 500 0 unit subcut TID 09/11/21 08/22/22 unit/mL(3 mL) subcut pen (Humulin R U-500 (Conc) Insulin Kwikpen) isosorbide mononitrate 60 mg 60 mg PO QAM 09/11/21 08/22/22 tablet,extended release 24 hr rosuvastatin 5 mg tablet 5 mg PO Q2D 09/11/21 08/22/22 pantoprazole 40 mg tablet,delayed 40 mg PO DAILYBB 10/16/21 08/22/22 release (Protonix) ursodiol 300 mg capsule 300 mg PO BID 10/16/21 08/22/22 dulaglutide 3 mg/0.5 mL 3 mg subcut WK 08/22/22 08/22/22 subcutaneous pen injector (Trulicity) escitalopram oxalate 10 mg tablet 10 mg PO DAILY 08/22/22 08/22/22 lubiprostone 8 mcg capsule 8 mcg PO BIDM 08/22/22 08/22/22 nitroglycerin 0.4 mg sublingual 0.4 mg sublingual UD PRN Chest Pain 08/22/22 08/22/22 tablet (Nitrostat) tramadol 50 mg tablet 25 mg PO Q6H PRN Pain 08/22/22 08/22/22 Results & Data (ED) Vital Signs Vital Signs - 24 hr 08/22/22 17:24 08/22/22 18:36 08/22/22 18:36 Temperature 36.4 C L Temperature Source Temporal Artery Scan Pulse Rate 54 L Pulse Rate [Right Finger] 51 L Pulse Rhythm [Right Finger] Pulse Strength [Right Finger] Respiratory Rate 20 Respiratory Effort / Characteristics Non-Labored Respiratory Depth Normal Respiratory Pattern Regular Blood Pressure 155/61 H Blood Pressure [Right Arm] Blood Pressure Mean 92 Blood Pressure Mean [Right Arm] Blood Pressure Position Sitting Blood Pressure Position [Right Arm] Pulse Oximetry 95 93 Oxygen Delivery Method Room Air Room Air Room Air Oxygen Flow Rate Sepsis Recent Fever Within 48 Hours No Sepsis New/Unexplained Change in Mental Status No Sepsis Action Taken by Nursing No Action Required Pulse Oximetry Post Tiitration 92 08/22/22 18:36 08/22/22 18:43 08/22/22 20:24 Temperature Temperature Source Pulse Rate Pulse Rate [Right Finger] 70 Pulse Rhythm [Right Finger] Regular Pulse Strength [Right Finger] Normal Respiratory Rate 18 Respiratory Effort / Characteristics Non-Labored Spontaneous Respiratory Depth Normal Respiratory Pattern Regular Blood Pressure Blood Pressure [Right Arm] 164/67 H 123/63 Blood Pressure Mean Blood Pressure Mean [Right Arm] 99 83 Blood Pressure Position Blood Pressure Position [Right Arm] Lying Pulse Oximetry 93 96 Oxygen Delivery Method Room Air Room Air Oxygen Flow Rate Sepsis Recent Fever Within 48 Hours Sepsis New/Unexplained Change in Mental Status Sepsis Action Taken by Nursing Pulse Oximetry Post Tiitration 08/22/22 20:47 08/22/22 22:00 Temperature Temperature Source Pulse Rate Pulse Rate [Right Finger] 47 L Pulse Rhythm [Right Finger] Regular Pulse Strength [Right Finger] Normal Respiratory Rate 20 Respiratory Effort / Characteristics Non-Labored Spontaneous Respiratory Depth Normal Respiratory Pattern Regular Blood Pressure Blood Pressure [Right Arm] 164/67 H Blood Pressure Mean Blood Pressure Mean [Right Arm] 99 Blood Pressure Position Blood Pressure Position [Right Arm] Lying Pulse Oximetry 88 L 97 Oxygen Delivery Method Room Air Nasal Cannula Oxygen Flow Rate 3 2 Sepsis Recent Fever Within 48 Hours Sepsis New/Unexplained Change in Mental Status Sepsis Action Taken by Nursing Pulse Oximetry Post Tiitration 100 Laboratory Data Result diagrams: 08/22/22 18:20 08/22/22 18:20 Lab Results 08/22/22 08/22/22 08/22/22 Range/Units 18:20 18:20 18:20 WBC 6.46 (4.8-10.8) K/ul RBC 3.68 L (3.93-5.22) M/uL Hgb 10.8 L (12.0-16.0) g/dl Hct 34.1 (34.1-44.9) % MCV 92.7 (80.0-100.0) fL MCH 29.3 (25.0-34.0) pg MCHC 31.7 L (32.0-36.0) g/dL RDW Std Deviation 56.3 H (36.4-46.3) fL RDW Coeff of Casey 16.6 H (11.5-14.5) % Plt Count 234 (130-400) K/uL MPV 10.1 (9.4-12.3) fL Immature Gran % (Auto) 0.3 % Neut % (Auto) 75.5 % Lymph % (Auto) 14.4 % Mineral % (Auto) 7.9 % Eos % (Auto) 1.1 % Baso % (Auto) 0.8 % Neut # (Auto) 4.88 (1.4-6.5) K/uL Lymph # (Auto) 0.93 L (1.2-3.4) K/uL Mineral # (Auto) 0.51 (0.24-0.82) K/uL Eos # (Auto) 0.07 (0-0.50) K/uL Baso # (Auto) 0.05 (0-0.2) K/uL Immature Gran # (Auto) 0.02 (0.00-0.02) K/uL PT 12.0 (9.0-12.0) Seconds INR 1.1 (0.9-1.1) APTT 25.8 (21.0-31.0) Seconds PTT Ratio 0.9 Sodium 142 (136-145) mmol/L Potassium 4.0 (3.5-5.1) mmol/L Chloride 107 (98-107) mmol/L Carbon Dioxide 29 (21-32) mmol/L Anion Gap 6 (3-11) BUN 41 H (6-23) mg/dl Creatinine 1.20 (0.6-1.2) mg/dl Est Cr Clr Drug Dosing Not Reportable Est GFR ( Amer) 51.6 ml/min Est GFR (Non-Af Amer) 44.5 ml/min BUN/Creatinine Ratio 34.2 H (10-20) Glucose 76 (70-99(Fasting)) mg/dl Calcium 9.9 (8.5-10.1) mg/dl Total Bilirubin 1.0 (0.2-1.0) mg/dl AST 10 L (13-39) U/L ALT 6 L (7-52) U/L Alkaline Phosphatase 79 (34-104) U/L Troponin I High Sens 18.5 H (0-14) pg/ml Total Protein 7.0 (6.0-8.3) gm/dl Albumin 3.7 (3.4-5.0) gm/dl Globulin 3.3 (2.5-4.0) gm/dl Albumin/Globulin Ratio 1.1 (0.9-2) Urine Color Urine Appearance (Clear) Urine pH (4.5-7.5) Ur Specific Lysite (1.000-1.030) Urine Protein (Negative) Urine Glucose (UA) (Negative) Urine Ketones (Negative) Urine Blood (Negative) Urine Nitrite (Negative) Urine Bilirubin (Negative) Urine Urobilinogen (Negative) Ur Leukocyte Esterase (Negative) Urine WBC (Auto) (0-5) /hpf Urine RBC (Auto) (0-4) /hpf U Hyaline Cast (Auto) (0-5) /lpf U Epithel Cells (Auto) (0-5) /lpf Urine Bacteria (Auto) (Negative) SARS-CoV-2 (PCR) (Negative) Influenza Type A (PCR) (Neg) Influenza Type B (PCR) (Neg) RSV (RT-PCR) (Neg) 08/22/22 08/22/22 Range/Units 18:35 20:40 WBC (4.8-10.8) K/ul RBC (3.93-5.22) M/uL Hgb (12.0-16.0) g/dl Hct (34.1-44.9) % MCV (80.0-100.0) fL MCH (25.0-34.0) pg MCHC (32.0-36.0) g/dL RDW Std Deviation (36.4-46.3) fL RDW Coeff of Casey (11.5-14.5) % Plt Count (130-400) K/uL MPV (9.4-12.3) fL Immature Gran % (Auto) % Neut % (Auto) % Lymph % (Auto) % Mineral % (Auto) % Eos % (Auto) % Baso % (Auto) % Neut # (Auto) (1.4-6.5) K/uL Lymph # (Auto) (1.2-3.4) K/uL Mineral # (Auto) (0.24-0.82) K/uL Eos # (Auto) (0-0.50) K/uL Baso # (Auto) (0-0.2) K/uL Immature Gran # (Auto) (0.00-0.02) K/uL PT (9.0-12.0) Seconds INR (0.9-1.1) APTT (21.0-31.0) Seconds PTT Ratio Sodium (136-145) mmol/L Potassium (3.5-5.1) mmol/L Chloride (98-107) mmol/L Carbon Dioxide (21-32) mmol/L Anion Gap (3-11) BUN (6-23) mg/dl Creatinine (0.6-1.2) mg/dl Est Cr Clr Drug Dosing Est GFR ( Amer) ml/min Est GFR (Non-Af Amer) ml/min BUN/Creatinine Ratio (10-20) Glucose (70-99(Fasting)) mg/dl Calcium (8.5-10.1) mg/dl Total Bilirubin (0.2-1.0) mg/dl AST (13-39) U/L ALT (7-52) U/L Alkaline Phosphatase (34-104) U/L Troponin I High Sens (0-14) pg/ml Total Protein (6.0-8.3) gm/dl Albumin (3.4-5.0) gm/dl Globulin (2.5-4.0) gm/dl Albumin/Globulin Ratio (0.9-2) Urine Color Yellow Urine Appearance Cloudy A (Clear) Urine pH 5.5 (4.5-7.5) Ur Specific Lysite 1.014 (1.000-1.030) Urine Protein 2+ H (Negative) Urine Glucose (UA) Negative (Negative) Urine Ketones Negative (Negative) Urine Blood Negative (Negative) Urine Nitrite Negative (Negative) Urine Bilirubin Negative (Negative) Urine Urobilinogen Positive H (Negative) Ur Leukocyte Esterase 2+ H (Negative) Urine WBC (Auto) >30 H (0-5) /hpf Urine RBC (Auto) 0-4 (0-4) /hpf U Hyaline Cast (Auto) 1-5 (0-5) /lpf U Epithel Cells (Auto) >30 H (0-5) /lpf Urine Bacteria (Auto) 4+ H (Negative) SARS-CoV-2 (PCR) NEGATIVE (Negative) Influenza Type A (PCR) Negative (Neg) Influenza Type B (PCR) Negative (Neg) RSV (RT-PCR) Negative (Neg) Administered Medications Discontinued Medications Furosemide (Furosemide 40 Mg/4 Ml Vial) 40 mg IV ONE ONE Stop: 08/22/22 22:08 Last Admin: 08/22/22 22:44 Dose: 40 mg Documented By: KEYANNA Sodium Chloride (Nss 1000ml) 500 mls @ 999 mls/hr IV .Q31M ONE Stop: 08/22/22 18:41 Last Infusion: 08/22/22 18:56 Dose: 0 mls/hr Documented By: Admin: 08/22/22 18:25 Dose: 999 mls/hr Documented By: CELESTE Ioversol (Optiray 320 500ml) 112 ml IV ONCE ONE Stop: 08/22/22 20:32 Last Admin: 08/22/22 20:32 Dose: 112 ml Documented By: EMILY Discharge Plan Visit Data Chief Complaint: Chest Pain Stated Complaint: CHEST PAIN, SOB ED Provider: Neville Flowers Discharge Problem: Chest pain Patient Disposition: Admitted As Inpatient Forms Stand Alone Forms: [facility] Prescriptions Prescriptions: No Action torsemide 20 mg tablet 40 mg PO BID clopidogrel 75 mg tablet 150 mg PO QAM aspirin 81 mg Tablet,Delayed Release (Dr/Ec) 81 mg PO QAM allopurinol 300 mg tablet 300 mg PO QAM metoprolol succinate 25 mg tablet extended release 24 hr 12.5 mg PO QAM Vitron-C 65 mg iron- 125 mg Tablet,Delayed Release (Dr/Ec) 1 tab PO Q OTHER DAY escitalopram oxalate 10 mg tablet 10 mg PO DAILY Trulicity 3 mg/0.5 mL pen injector 3 mg SUBCUT WK lubiprostone 8 mcg capsule 8 mcg PO BIDM Rx Instructions: take with morning and evening meal tramadol 50 mg Tablet 25 mg PO Q6H PRN (Reason: Pain) nitroglycerin [Nitrostat] 0.4 mg Tablet, Sublingual 0.4 mg sublingual UD PRN (Reason: Chest Pain) ezetimibe 10 mg tablet 10 mg PO QAM rosuvastatin 5 mg tablet 5 mg PO Q2D isosorbide mononitrate 60 mg tablet extended release 24 hr 60 mg PO QAM Humulin R U-500 (Conc) Kwikpen 500 unit/mL (3 mL) insulin pen 0 unit SUBCUT TID Rx Instructions: Takes 115 units before breakfast 5 units before lunch 100 units before supper pantoprazole [Protonix] 40 mg Tablet,Delayed Release (Dr/Ec) 40 mg PO DAILYBB ursodiol 300 mg Capsule 300 mg PO BID Referrals Referrals: Chetan Rivas MD [Primary Care Provider] -
[2022-08-22] MEDS ORDERED: SODIUM CHLORIDE 0.9% 1000ML 500 ML IV ONE (18:11)
[2022-08-22 18:40] LABS: Basophils # (auto) 0.05 K/uL (0-0.2); Basophils % (auto) 0.8 %; Eosinophils # (auto) 0.07 K/uL (0-0.50); Eosinophils % (auto) 1.1 %; Hematocrit (blood only) 34.1 % (34.1-44.9); Hemoglobin 10.8 g/dl (12.0-16.0); Immature Granulocytes # (auto) 0.02 K/uL (0.00-0.02); Immature Granulocytes % (auto) 0.3 %; Lymphocytes # (auto) 0.93 K/uL (1.2-3.4); Lymphocytes % (auto) 14.4 %; Mean Corpuscular Hemoglobin 29.3 pg (25.0-34.0); Mean Corpuscular Hgb Conc 31.7 g/dL (32.0-36.0); Mean Corpuscular Volume 92.7 fL (80.0-100.0); Mean Platelet Volume 10.1 fL (9.4-12.3); Monocytes # (auto) 0.51 K/uL (0.24-0.82); Monocytes % (auto) 7.9 %; Neutrophils # (auto) 4.88 K/uL (1.4-6.5); Neutrophils % (auto) 75.5 %; Platelet Count 234 K/uL (130-400); RDW Coefficient of Variation 16.6 % (11.5-14.5); RDW Standard Deviation 56.3 fL (36.4-46.3); Red Blood Count 3.68 M/uL (3.93-5.22); White Blood Count 6.46 K/ul (4.8-10.8)
[2022-08-22 18:53] LABS: INR 1.1 (0.9-1.1); Partial Thromboplastin Ratio 0.9; Partial Thromboplastin Time 25.8 Seconds (21.0-31.0)
[2022-08-22 19:17] LABS: Influenza A virus by PCR Negative (Neg); Influenza B virus by PCR Negative (Neg); RSV by PCR Negative (Neg); SARS CoV2 RNA(COVID-19) Ceph NEGATIVE (Negative)
[2022-08-22 19:17] LABS: Troponin I High Sensitivity 18.5 pg/ml (0-14)
[2022-08-22 19:18] LABS: Alanine Aminotransferase 6 U/L (7-52); Albumin Globulin Ratio 1.1 (0.9-2); Albumin Level 3.7 gm/dl (3.4-5.0); Alkaline Phosphatase 79 U/L (34-104); Anion Gap 6 (3-11); Aspartate Aminotransferase 10 U/L (13-39); BUN Creatinine Ratio 34.2 (10-20); Blood Urea Nitrogen 41 mg/dl (6-23); Calcium 9.9 mg/dl (8.5-10.1); Carbon Dioxide 29 mmol/L (21-32); Chloride 107 mmol/L (98-107); Est GFR (African American) 51.6 ml/min; Est GFR (Non-African American) 44.5 ml/min; Globulin 3.3 gm/dl (2.5-4.0); Glucose 76 mg/dl (70-99(Fasting)); Sodium 142 mmol/L (136-145)
[2022-08-22] MEDS ORDERED: OPTIRAY 320 500ml IV ONE (20:31)
[2022-08-22 21:11] LABS: Appearance Urine Cloudy (Clear); Bacteria Urine Automated 4+ (Negative); Bilirubin Urine Negative (Negative); Blood Urine Negative (Negative); Color Urine Yellow; Epithelial Cell Urine Auto >30 /lpf (0-5); Glucose Urine UA Negative (Negative); Ketones Urine Negative (Negative); Leukocyte Esterase Urine 2+ (Negative); Nitrite Urine Negative (Negative); Protein Urine 2+ (Negative); RBC Urine Automated 0-4 /hpf (0-4); Specific Gravity Urine 1.014 (1.000-1.030); Urobilinogen Urine Positive (Negative); WBC Urine Automated >30 /hpf (0-5); pH Urine 5.5 (4.5-7.5)
[2022-08-22] MEDS ORDERED: FUROSEMIDE 40 MG/4 ML VIAL IV ONE (22:07)
[2022-08-23] MEDS ORDERED: POLYETHYLENE (MIRALAX) 17 GM PACK PO PRN (02:47)
[2022-08-23] MEDS ORDERED: traMADol HCL 50 MG TABLET PO PRN (02:47)
[2022-08-23] MEDS ORDERED: ACETAMINOPHEN 325 MG TAB PO PRN (02:47)
[2022-08-23] MEDS ORDERED: NON-FORMULARY MEDICATION (Iron,Carbonyl-Vitamin C [Vitron-C] 65 mg iron- 125 mg Tablet,Del PO SCH (02:47)
[2022-08-23] MEDS ORDERED: NITROGLYCERIN SL 0.4 MG/TAB TAB SL PRN (02:47)
[2022-08-23] MEDS ORDERED: CARBOHYDRATES FOR HYPOGLYCEMIA PO PRN (03:30)
[2022-08-23] MEDS ORDERED: GLUCOSE 40% GEL 15 GM TUBE PO PRN (03:30)
[2022-08-23] MEDS ORDERED: GLUCAGON FOR INJ 1 MG VIAL IM PRN (03:30)
[2022-08-23] MEDS ORDERED: DEXTROSE 50% 50 ML SYRINGE IV PRN (03:30)
[2022-08-23] MEDS ORDERED: GLUCOSE 10 TAB/TUBE PO PRN (03:30)
[2022-08-23] MEDS: cefTRIAXone SODIUM 2,000 MG in DEXTROSE 5% 50 ML IV SCH ×2 (04:00→21:07)
[2022-08-23] MEDS: PANTOprazole 40 MG TAB PO SCH ×2 (05:35→09:24)
[2022-08-23] MEDS: ENOXAPARIN INJ 40 MG/0.4 ML SYR SQ SCH ×2 (05:36→17:12)
--- NOTE | 2022-08-23 05:51 | History and Physical Report ---
DATE OF ADMISSION: 08/23/2022. CHIEF COMPLAINT: Shortness of breath. HISTORY OF PRESENT ILLNESS: A 76-year-old female with past medical history significant for type 2 diabetes, diabetic peripheral neuropathy, diabetic retinopathy, chronic kidney disease stage III, diabetes with gastroparesis, obstructive sleep apnea treated with BiPAP, history of CAD, status post CABG, status post angioplasty with stent placement, status post peripheral arterial angioplasty, status post amputation of the finger of right hand, STATIN INTOLERANCE, depression, anxiety state, morbid obesity, pulmonary hypertension, diastolic dysfunction, venous stasis ulcers, GERD, symptomatic cholelithiasis, history of proteinuria, history of recurrent UTIs, osteoarthritis, history of syncope, presents with shortness of breath. The patient lives with her son, ambulates with a cane and walker. She comes with shortness of breath going on for the last 2 to 2-1/2 weeks, shortness of breath on exertion. In the ER, she was 88% on room air, on 3 liters, saturating okay. Imaging studies showed pulmonary congestion. The patient is currently resting comfortably, hemodynamically stable, is talking in full sentences, able to give her history. Denies any chest pain, no headache, no back pain. Currently no nausea or abdominal pain. She states her urine is smelling very bad, but denies any blood in the urine or burning micturition. She denies any fevers, but she has some chills. She is constipated and uses medication . Currently, resting comfortably and hemodynamically stable. ALLERGIES: LATEX, SULFA ANTIBIOTICS, LISINOPRIL, STATINS. PAST MEDICAL HISTORY: As mentioned above. PAST SURGICAL HISTORY: Amputation of the right thumb, wound debridement, CABG, colonoscopy, EGDs, femoral popliteal stent/angioplasty injection of oviducts, removal of inner eye fluid, cataract surgery, tonsillectomy and adenoidectomy. MEDICATIONS: The patient is on allopurinol 300 mg p.o. a.m., aspirin 81 mg p.o. a.m., Plavix 150 mg p.o. a.m., Trulicity 3 mg subcutaneous weekly, Lexapro 10 mg p.o. daily, ezetimibe 10 mg p.o. a.m., Humulin R subcutaneous t.i.d., Imdur 60 mg p.o. a.m., lubiprostone 8 mcg p.o. b.i.d., metoprolol succinate 12.5 mg p.o. a.m., nitroglycerin 0.4 mg sublingual p.r.n., Protonix 40 mg p.o. daily,Crestor 5mg po other day, torsemide 40 mg p.o. daily, sometimes takes 60 mg, tramadol 25 mg p.o. q. 6 hours p.r.n., ursodiol 300 mg p.o. b.i.d., Vitron-C 1 tablet p.o. every other day. FAMILY HISTORY: Significant for paternal grandmother has arthritis, diabetes, mother has CML, eye problems, heart disorder, hypertension; father has cancer, diabetes, ear problems, heart disorder; sister has blood disorder, cancer, maternal grandmother has diabetes, heart disorder, obesity. SOCIAL HISTORY: , lives with her son. No smoking, no alcohol, no drug use. REVIEW OF SYSTEMS: As per HPI. Rest of the review of systems is negative. PHYSICAL EXAMINATION: GENERAL: The patient is obese, not in acute distress. VITAL SIGNS: Temperature 36.4, respiratory rate 20, blood pressure 140/54, pulse in 40s, oxygen 100% on 3 liters. HEENT: Pupils equal, round and reactive to light. Oral mucosa dry. NECK: No JVD, no neck masses. CARDIOVASCULAR: S1 and S2 heard. Regular rate and rhythm. No murmur, no gallop. RESPIRATORY SYSTEM: Normal AP diameter. No accessory muscle use. No wheezing. Mild bibasilar crackles. ABDOMEN: Soft, bowel sounds present, nontender, no distention. CENTRAL NERVOUS SYSTEM: Alert and oriented. Speech is clear. No facial droop. Obeys simple commands. Insight is good. Moves extremities. EXTREMITIES: Bilateral lower extremity gross edema present. Right lower extremity has chronic superficial skin ulcer with some erythematous changes. No active drainage seen. LABORATORY DATA: WBC 6.4, hemoglobin 10.8, hematocrit 34.1, platelets 234. PT 12, INR 1.1, APTT 25.8. Sodium 142, potassium 4, chloride 107, CO2 29, BUN 41, creatinine 1.2, serum glucose 76, calcium 9.9, total bilirubin 1, AST 10, ALT 6, alkaline phosphatase 79. Troponin I high sensitivity 118. Urinalysis positive for +2 leukocyte esterase, +4 bacteria. SARS-CoV-2 PCR negative. Influenza A and B PCR negative. RSV PCR negative. IMAGING DATA: CTA chest, preliminary report: No definite evidence of pulmonary embolism, layering bilateral pleural effusions noted approximately 2.5 cm in the posterior costophrenic angles, no loculation, no pneumothorax, minimal reflux of contrast into the intrahepatic IVC. This may be related to the rate of the contrast injection; however, this finding may also be seen with right heart dysfunction. CT abdomen and pelvis preliminary report: Cholelithiasis in the posterior aspect of the gallbladder, no CT evidence for gallbladder wall thickening or biliary dilatation, no different to choledocholithiasis, possible venous congestion and hepatomegaly. No bowel obstruction. EKG: Sinus bradycardia at a rate of 52. Right bundle-branch block, left anterior fascicular block, no significant change was found. QTc of 517. ASSESSMENT AND PLAN: This is a 76-year-old female who presents with shortness of breath. 1. Shortness of breath, hypoxia requiring oxygen, acute on chronic diastolic congestive heart failure, Possible acute on chronic right heart failure. Received IV Lasix 40 in the ER. At home, takes torsemide 40 mg daily, some days takes 60 mg. We will continue with IV Lasix 40 IV b.i.d., daily weights, I's and O's. Echocardiogram. Follow serial cardiac enzymes, consult cardiology in the a.m. We will monitor in the tele floor.Follow final reports of imaging studies. 2. Urinary tract infection: Follow the urine cultures. Empirically started on Rocephin. 3. Morbid obesity, obstructive sleep apnea, on BiPAP at nighttime. 4. History of coronary artery disease, status post coronary artery bypass graft: Continue her home medication of beta jaison, aspirin and Plavix and Crestor.. 5. History of peripheral vascular disease, status post angioplasty: On aspirin, Plavix and ezetimibe and crestor 6. History of hypertension: On Imdur, metoprolol and diuretics. We will monitor the blood pressure. 7. Diabetes: Hold her home medications. Placed on insulin sliding scale. Follow the blood sugars, follow the HbA1c level. 8. History of gallbladder stones: On ursodiol. 9. Anemia, hemoglobin 10.8, seems to be stable. Continue on Vitron-C tablets. 10. Depression: Lexapro. 11. Hyperlipidemia: On ezetimibe. 12. Constipation: On lubiprostone. 13: Gout: On allopurinol. 14. Deep venous thrombosis prophylaxis: Placed on Lovenox. DISPOSITION: Closely monitor in the tele floor. Level 1 full code. PT, OT prior to discharge. Social service to help with discharge planning. Job ID: [id number] MTDMary
[2022-08-23 06:18] LABS: Basophils # (auto) 0.06 K/uL (0-0.2); Basophils % (auto) 1.3 %; Eosinophils % (auto) 2.2 %; Hematocrit (blood only) 30.9 % (34.1-44.9); Hemoglobin 9.7 g/dl (12.0-16.0); Immature Granulocytes # (auto) 0.02 K/uL (0.00-0.02); Immature Granulocytes % (auto) 0.4 %; Lymphocytes # (auto) 0.97 K/uL (1.2-3.4); Lymphocytes % (auto) 21.3 %; Mean Corpuscular Hemoglobin 29.1 pg (25.0-34.0); Mean Corpuscular Hgb Conc 31.4 g/dL (32.0-36.0); Mean Corpuscular Volume 92.8 fL (80.0-100.0); Mean Platelet Volume 10.4 fL (9.4-12.3); Monocytes # (auto) 0.41 K/uL (0.24-0.82); Neutrophils # (auto) 2.99 K/uL (1.4-6.5); Neutrophils % (auto) 65.8 %; Platelet Count 203 K/uL (130-400); RDW Coefficient of Variation 16.7 % (11.5-14.5); RDW Standard Deviation 56.5 fL (36.4-46.3); Red Blood Count 3.33 M/uL (3.93-5.22); White Blood Count 4.55 K/ul (4.8-10.8)
[2022-08-23 06:40] LABS: BUN Creatinine Ratio 31.4 (10-20); Calcium 9.2 mg/dl (8.5-10.1); Creatinine Clr Calc Pharmacy 55.2 ml/min; Magnesium 1.9 mg/dl (1.7-2.4); Potassium 4.2 mmol/L (3.5-5.1)
[2022-08-23 06:41] LABS: Troponin I High Sensitivity 16.3 pg/ml (0-14)
[2022-08-23 07:14] LABS: Estimated Average Glucose 157 mg/dl; Hemoglobin A1C 7.1 % (4.5-5.6)
--- NOTE | 2022-08-23 08:42 | Communication Note ---
Date of Service: August 23, 2022 Has right lower extremity superficial ulcers with erythematous changes. wound care consulted. currently on rocephin. Will monitor.
[2022-08-23] MEDS ORDERED: METOPROLOL SUCC 25MG EXT REL TAB PO SCH (09:00)
[2022-08-23] MEDS: EZETIMIBE 10 MG TABLET PO SCH (09:22)
[2022-08-23] MEDS: FUROSEMIDE 40 MG/4 ML VIAL IV SCH ×2 (09:23→21:10)
[2022-08-23] MEDS: CLOPIDOGREL BISULFATE 75 MG TAB PO SCH (09:23)
[2022-08-23] MEDS: ASPIRIN 81 MG ECTAB PO SCH (09:25)
[2022-08-23] MEDS: ROSUVASTATIN CALCIUM 5 MG TAB PO SCH (09:27)
[2022-08-23] MEDS: ISOSORBIDE MONO EXTENDED REL 60 MG TABCR PO SCH (09:27)
[2022-08-23] MEDS: ESCITALOPRAM OXALATE 10 MG TAB PO SCH (09:28)
[2022-08-23] MEDS: ursodioL 300 MG CAP PO SCH ×2 (09:28→21:09)
[2022-08-23] MEDS: allopurinoL 300 MG TAB PO SCH (09:29)
[2022-08-23] MEDS: LUBIPROSTONE 8 MCG CAP PO SCH ×2 (09:31→17:12)
[2022-08-23] MEDS: FERROUS SULFATE 325 MG TAB PO SCH (09:32)
[2022-08-23] MEDS: ASCORBIC ACID 500 MG TAB PO SCH (09:33)
--- NOTE | 2022-08-23 09:59 | Cardiology Consultation ---
Date of Consultation August 23, 2022 Assessment & Plan (1) Acute on chronic diastolic CHF (congestive heart failure): (2) CKD (chronic kidney disease), stage IV: (3) Hypertension: (4) Diabetic peripheral neuropathy: (5) Gastroparesis: Plan Patient is an extremely complex 76-year-old female with longstanding diabetic coronary and peripheral vascular disease, CKD stage IIIIV with past contrast nephropathy and chronic diastolic heart failure who presents with signs and symptoms of increasing dyspnea and worsening diastolic heart failure. She is symptomatically improved since administration of oxygen and IV furosemide Relative bradycardia observed as well as hypertension issues are addressed as follows 1. Acute on chronic diastolic heart failure, mild pulmonary edema on chest x- ray with hypoxia. Hypoxia improved with oxygen supplementation and IV furosemide. Patient with several week history of worsening dyspnea with exertion, increasing lower extremity edema. We will cautiously continue IV furosemide following renal function closely given recent contrast admi nistration. Patient previously poorly tolerant of AUGUSTA and ARB 2. Chronic ischemic and peripheral vascular disease with mild elevation of troponin: Presentation does not suggest acute coronary syndrome however echocardiogram will be reviewed given symptomatic complaints of several weeks in duration. No acute changes on EKG however bifascicular block present. Patient with very poor coronary surgical targets, 2010 3. Hypertension: We will add topical nitrates holding isosorbide. Past orthostatic hypotension present due to diabetic neuropathy 4. CKD stage III4: Plan follow renal function daily with diuresis. No further contrast 5. Bifascicular heart block with relative bradycardia: Continue telemetry, hold metoprolol 6. Chronic gastroparesis with recent worsening of symptoms 7. Lower extremity edema with wound ulcerations, recurrent cellulitis History of Present Illness Reason for Consultation: Acute on chronic diastolic heart failure Attending Physician: Cecilia Arroyo, History of Present Illness Patient is a very complex 76-year-old female ongoing cardiac issues which include 1. Long-standing ischemic heart disease with diffuse diabetic coronary anatomy and multiple coronary prior coronary interventions. 2. Status post coronary bypass grafting June 2011, receiving a JEREZ graft to LAD, saphenous vein graft to the obtuse marginal, saphenous vein graft to posterolateral branch, and saphenous vein graft to the posterior descending artery with poor surgical targets observed. 3. Atherosclerotic peripheral vascular disease, status post left popliteal artery balloon angioplasty September 2013; repeat angioplasty left popliteal and left peroneal arteries July 2014, drug eluting balloon angioplasty to left SFA and popliteal artery stenoses, angioplasty of bilateral superficial femoral arteries 05/14/2022 via left brachial artery access 4. Long-standing diabetes mellitus with poor control and associated diabetic gastroparesis and peripheral neuropathy. 5. Chronic renal insufficiency with past acute renal failure August 2014, possible contrast related. 6. History of diastolic heart failure with class 2-3 function. 7. Obstructive sleep apnea, BiPAP supplementation. 8. Hypertension. 9. Dyslipidemia. Statin intolerant. 10. Chronic lower extremity edema with recurrent cellulitis 11. 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 12. Anxiety and depression 13. Bifascicular heart block, right bundle branch block, left intrafascicular Patient presented to emergency room today noting several week history of increasing dyspnea and fatigue with minimal exertion. Occasional chest tightness but usually postprandially in association with gastroparesis and poor passage of food and medications. No tachypalpitations syncope or near syncope. Notes lower extremity edema has increased in the past 2 to 3 weeks with chronic ulcerations worsening. Recent complaints of dysuria. No overt fevers but chills. Feels weight has been trending downward. Patient has been compliant with medications. Uses BiPAP at night No sustained chest pains Blood pressures are generally variable with chronic neuropathic orthostasis present, prior poor tolerance of AUGUSTA inhibitor's and ARB Patient currently comfortable and has received IV furosemide in ER. Chest x-ray consistent with acute on chronic diastolic heart failure Allergies Allergy/AdvReac Type Severity Reaction Status Date / Time latex Allergy Mild ITCHY Verified 10/23/21 12:23 Sulfa (Sulfonamide Allergy Unknown RASH Verified 10/23/21 12:23 Antibiotics) lisinopril AdvReac Mild COUGH Verified 10/23/21 12:23 Oihcrjz-TLC-NjK Reductase AdvReac Unknown LEG CRAMPS Verified 10/23/21 12:23 Inhibitor [Drentex-Htd-Fue Reductase Inhibitor] Home Medications Medication Instructions Recorded Confirmed Type allopurinol 300 mg tablet 300 mg PO QAM 12/23/18 08/22/22 History aspirin 81 mg tablet,delayed 81 mg PO QAM 12/23/18 08/22/22 History release clopidogrel 75 mg tablet 150 mg PO QAM 12/23/18 08/22/22 History iron,carbonyl 65 mg-vitamin C 125 1 tab PO Q OTHER DAY 12/23/18 08/22/22 History mg tablet,delayed release (Vitron-C) metoprolol succinate 25 mg 12.5 mg PO QAM 12/23/18 08/22/22 History tablet,extended release 24 hr torsemide 20 mg tablet 40 mg PO DAILY 12/23/18 08/23/22 History ezetimibe 10 mg tablet 10 mg PO QAM 09/11/21 08/22/22 History insulin regular hum U-500 conc 500 0 unit subcut TID 09/11/21 08/22/22 History unit/mL(3 mL) subcut pen (Humulin R U-500 (Conc) Insulin Kwikpen) isosorbide mononitrate 60 mg 60 mg PO QAM 09/11/21 08/22/22 History tablet,extended release 24 hr rosuvastatin 5 mg tablet 5 mg PO Q2D 09/11/21 08/22/22 History pantoprazole 40 mg tablet,delayed 40 mg PO DAILYBB 10/16/21 08/22/22 History release (Protonix) ursodiol 300 mg capsule 300 mg PO BID 10/16/21 08/22/22 History dulaglutide 3 mg/0.5 mL 3 mg subcut WK 08/22/22 08/22/22 History subcutaneous pen injector (Trulicity) escitalopram oxalate 10 mg tablet 10 mg PO DAILY 08/22/22 08/22/22 History lubiprostone 8 mcg capsule 8 mcg PO BIDM 08/22/22 08/22/22 History nitroglycerin 0.4 mg sublingual 0.4 mg sublingual UD PRN Chest Pain 08/22/22 08/22/22 History tablet (Nitrostat) tramadol 50 mg tablet 25 mg PO Q6H PRN Pain 08/22/22 08/22/22 History Patient History Medical History Amputation toe left foot little toe CAD (coronary artery disease) follows with [facility] CKD (chronic kidney disease) stage 3, GFR 30-59 ml/min follows with Dr. Granado ([facility]) Depression Diabetic macular edema Diabetic peripheral neuropathy Diastolic CHF DM type 2 (diabetes mellitus, type 2) DM type 2 causing neurological disease Gastroparesis GERD (gastroesophageal reflux disease) Hiatal hernia Hypertension PAD (peripheral artery disease) Poor historian Severe pulmonary arterial systolic hypertension Sleep apnea Bipap Surgical History History of angioplasty " 05/28/2011- POBA for the PDA and for the right posterolateral branch 11/16/2010- BMS to RCA; LAD with relatively small but severely diffusely diseased and heavily calcified and has an FFR that confirms hemodynamic significance of the lesion-- not intervened" History of cataract surgery bilat History of colonoscopy History of esophagogastroduodenoscopy (EGD) History of heart artery stent unsure how many, placed several yrs ago per pt History of tonsillectomy and adenoidectomy History of tooth extraction S/P CABG x 2010 > [facility] S/P peripheral artery angioplasty " 09/13/13 left superficial femoral artery angioplasty, left popliteal artery angioplasty, left peroneal artery angioplasty, and amputation metatarsal with toe single (Left 5th toe amputation) 10/23/2013 -left popliteal artery angioplasty 01/20/2016- fem/pop artery revasc w/ angioplasty " Status post amputation of finger right first finger Family History Mother CML (chronic myelocytic leukemia) Social History Smoking Status: Never smoker Second Hand Exposure: No; Do You Dip or Chew Tobacco: No; Hx Alcohol Use: No Hx Substance Use: No Preferred Language: Armenian Communication Ability: Effective Interventional Tech Required: No Beliefs That Will Affect Care: None marital status: Current Living Situation: Alone current occupation: Retired Feels Safe at Home: Yes Assistive Devices: BiPap and Walker Review of Systems Review of Systems: All systems reviewed & are unremarkable except as noted in HPI & below Physical Exam Constitutional: + morbidly obese; no acute distress Eyes: PERRL, conjunctivae normal, anicteric sclerae ENMT: external ear and nose normal, oropharynx normal Neck: trachea midline, no thyromegaly Respiratory: Auscultation: + diminished lung sounds and + rales Cardiovascular: Rate/Rhythm: regular rate, regular rhythm and + bradycardic Heart Sounds: no gallop Extremities: + edema (2-3+ with stasis changes right lower extremity) Gastrointestinal (Abdomen): Obese soft moderately distended Skin: Skin ulcerations right calf and cedillo Psychiatric: A+Ox3, euthymic affect Results & Data ([facility]) Vital Signs (Past 12 Hours) Vital Signs Temp Pulse Pulse Resp BP BP Pulse Ox 08/23/22 09:51 57 L 20 176/61 H 100 08/23/22 07:01 49 L 19 100 08/23/22 07:01 174/61 H 08/23/22 07:00 50 L 20 100 08/23/22 06:30 48 L 16 100 08/23/22 06:00 50 L 16 100 08/23/22 06:00 172/71 H 08/23/22 05:30 47 L 17 100 08/23/22 05:01 158/53 H 08/23/22 05:01 47 L 16 100 08/23/22 05:00 48 L 20 100 08/23/22 04:30 48 L 16 100 08/23/22 05:15 08/23/22 04:18 37.0 C 50 L 17 162/71 H 100 08/23/22 04:01 48 L 19 171/65 H 100 08/23/22 03:25 52 L 16 169/70 H 97 08/23/22 03:01 48 L 14 160/58 H 99 08/23/22 02:01 47 L 152/64 H 100 08/23/22 01:01 47 L 151/51 H 100 08/23/22 00:00 45 L 140/54 L 100 08/22/22 23:56 44 L 116/36 L 100 08/22/22 23:44 47 L 24 138/80 100 08/22/22 22:00 47 L 20 164/67 H 97 O2 Del Method O2 Flow Rate 08/23/22 09:51 Nasal Cannula 3 08/23/22 07:01 08/23/22 07:01 08/23/22 07:00 08/23/22 06:30 08/23/22 06:00 08/23/22 06:00 08/23/22 05:30 08/23/22 05:01 08/23/22 05:01 08/23/22 05:00 08/23/22 04:30 08/23/22 05:15 Nasal Cannula 3 08/23/22 04:18 Nasal Cannula 3 08/23/22 04:01 Room Air 08/23/22 03:25 Room Air 08/23/22 03:01 Room Air 08/23/22 02:01 Nasal Cannula 3 08/23/22 01:01 Nasal Cannula 3 08/23/22 00:00 Nasal Cannula 3 08/22/22 23:56 Nasal Cannula 3 08/22/22 23:44 Nasal Cannula 3 08/22/22 22:00 Nasal Cannula 2 Laboratory Results Laboratory Results - last 24 hr 08/22/22 08/22/22 08/22/22 18:20 18:20 18:20 WBC 6.46 RBC 3.68 L Hgb 10.8 L Hct 34.1 MCV 92.7 MCH 29.3 MCHC 31.7 L RDW Std Deviation 56.3 H RDW Coeff of Casey 16.6 H Plt Count 234 MPV 10.1 Immature Gran % (Auto) 0.3 Neut % (Auto) 75.5 Lymph % (Auto) 14.4 Mills % (Auto) 7.9 Eos % (Auto) 1.1 Baso % (Auto) 0.8 Neut # (Auto) 4.88 Lymph # (Auto) 0.93 L Mills # (Auto) 0.51 Eos # (Auto) 0.07 Baso # (Auto) 0.05 Immature Gran # (Auto) 0.02 PT 12.0 INR 1.1 APTT 25.8 PTT Ratio 0.9 Sodium 142 Potassium 4.0 Chloride 107 Carbon Dioxide 29 Anion Gap 6 BUN 41 H Creatinine 1.20 Est Cr Clr Drug Dosing Not Reportable Est GFR ( Amer) 51.6 Est GFR (Non-Af Amer) 44.5 BUN/Creatinine Ratio 34.2 H Glucose 76 POC Glucose Estimat Average Glucose Hemoglobin A1c Calcium 9.9 Magnesium Total Bilirubin 1.0 AST 10 L ALT 6 L Alkaline Phosphatase 79 Troponin I High Sens 18.5 H Total Protein 7.0 Albumin 3.7 Globulin 3.3 Albumin/Globulin Ratio 1.1 Urine Color Urine Appearance Urine pH Ur Specific [place] Urine Protein Urine Glucose (UA) Urine Ketones Urine Blood Urine Nitrite Urine Bilirubin Urine Urobilinogen Ur Leukocyte Esterase Urine WBC (Auto) Urine RBC (Auto) U Hyaline Cast (Auto) U Epithel Cells (Auto) Urine Bacteria (Auto) SARS-CoV-2 (PCR) Influenza Type A (PCR) Influenza Type B (PCR) RSV (RT-PCR) 08/22/22 08/22/22 08/23/22 18:35 20:40 05:40 WBC 4.55 L RBC 3.33 L Hgb 9.7 L Hct 30.9 L MCV 92.8 MCH 29.1 MCHC 31.4 L RDW Std Deviation 56.5 H RDW Coeff of Casey 16.7 H Plt Count 203 MPV 10.4 Immature Gran % (Auto) 0.4 Neut % (Auto) 65.8 Lymph % (Auto) 21.3 Mills % (Auto) 9.0 Eos % (Auto) 2.2 Baso % (Auto) 1.3 Neut # (Auto) 2.99 Lymph # (Auto) 0.97 L Mills # (Auto) 0.41 Eos # (Auto) 0.10 Baso # (Auto) 0.06 Immature Gran # (Auto) 0.02 PT INR APTT PTT Ratio Sodium Potassium Chloride Carbon Dioxide Anion Gap BUN Creatinine Est Cr Clr Drug Dosing Est GFR ( Amer) Est GFR (Non-Af Amer) BUN/Creatinine Ratio Glucose POC Glucose Estimat Average Glucose Hemoglobin A1c Calcium Magnesium Total Bilirubin AST ALT Alkaline Phosphatase Troponin I High Sens Total Protein Albumin Globulin Albumin/Globulin Ratio Urine Color Yellow Urine Appearance Cloudy A Urine pH 5.5 Ur Specific [place] 1.014 Urine Protein 2+ H Urine Glucose (UA) Negative Urine Ketones Negative Urine Blood Negative Urine Nitrite Negative Urine Bilirubin Negative Urine Urobilinogen Positive H Ur Leukocyte Esterase 2+ H Urine WBC (Auto) >30 H Urine RBC (Auto) 0-4 U Hyaline Cast (Auto) 1-5 U Epithel Cells (Auto) >30 H Urine Bacteria (Auto) 4+ H SARS-CoV-2 (PCR) NEGATIVE Influenza Type A (PCR) Negative Influenza Type B (PCR) Negative RSV (RT-PCR) Negative 08/23/22 08/23/22 08/23/22 05:40 05:40 09:18 WBC RBC Hgb Hct MCV MCH MCHC RDW Std Deviation RDW Coeff of Casey Plt Count MPV Immature Gran % (Auto) Neut % (Auto) Lymph % (Auto) Mills % (Auto) Eos % (Auto) Baso % (Auto) Neut # (Auto) Lymph # (Auto) Mills # (Auto) Eos # (Auto) Baso # (Auto) Immature Gran # (Auto) PT INR APTT PTT Ratio Sodium 141 Potassium 4.2 Chloride 107 Carbon Dioxide 27 Anion Gap 7 BUN 38 H Creatinine 1.21 H Est Cr Clr Drug Dosing 55.2 Est GFR ( Amer) 51.0 Est GFR (Non-Af Amer) 44.0 BUN/Creatinine Ratio 31.4 H Glucose 102 H POC Glucose 99 Estimat Average Glucose 157 Hemoglobin A1c 7.1 H Calcium 9.2 Magnesium 1.9 Total Bilirubin AST ALT Alkaline Phosphatase Troponin I High Sens 16.3 H Total Protein Albumin Globulin Albumin/Globulin Ratio Urine Color Urine Appearance Urine pH Ur Specific [place] Urine Protein Urine Glucose (UA) Urine Ketones Urine Blood Urine Nitrite Urine Bilirubin Urine Urobilinogen Ur Leukocyte Esterase Urine WBC (Auto) Urine RBC (Auto) U Hyaline Cast (Auto) U Epithel Cells (Auto) Urine Bacteria (Auto) SARS-CoV-2 (PCR) Influenza Type A (PCR) Influenza Type B (PCR) RSV (RT-PCR) ECG Additional Comments: 22-AUG-2022 17:47:29 [facility]-EDSTAT ROUTINE RETRIEVAL Sinus bradycardia Right bundle branch block Left anterior fascicular block Bifascicular block Left ventricular hypertrophy with repolarization abnormality Abnormal ECG When compared with ECG of 11-SEP-2021 14:46, No significant change was found
--- NOTE | 2022-08-23 10:09 | CT Scan Report ---
CT ANGIOGRAM OF THE CHEST CLINICAL HISTORY: Dyspnea. Nausea and vomiting. COMPARISON STUDY: Chest x-ray dated 09/11/2021. Chest CT dated 01/20/2017. TECHNIQUE: Following the IV administration of 112 cc of Optiray 320, CT angiogram of the chest was pe rformed from the upper abdomen to the thoracic inlet utilizing the pulmonary embolus protocol. Images are reviewed in the axial, sagittal, and coronal planes. 3-D MIPS images are created and assessed. I V contrast was administered without complication. A dose lowering technique was utilized adhering to the principles of ALARA. FINDINGS: Thyroid: Imaged portions of the thyroid gland are normal in size and attenuation. Thoracic aorta: There is atherosclerotic calcification of the thoracic aorta, which is normal in ayde barney and demonstrates standard 3-vessel arch anatomy. No dissection is seen. Pulmonary vasculature: The pulmonary trunk is dilated, measuring 4 cm in diameter. This suggests pulm onary artery hypertension. There are no filling defects identified in main, lobar, or segmental pulmo nary branches to suggest pulmonary embolus. Evaluation of the subsegmental branches is degraded by mo tion artifact. Heart: The patient is status post midline sternotomy. The heart is enlarge and without pericardial ef fusion. The coronary arteries and mitral annulus are densely calcified. Lungs and pleural spaces: Evaluation of the lung parenchyma is degraded by motion artifact. Intralobu lar septal thickening is seen throughout both lungs again suggests congestive failure. The trachea an d central airways are clear. There is no airspace consolidation typical for pneumonia. There are smal l to moderate pleural effusions with dependent atelectasis. Mediastinum: Subcentimeter mediastinal lymph nodes are not pathologically enlarged by size criteria. Adela: Clear. Axillae: There is no axillary lymphadenopathy. Upper abdomen: There are calcified hepatic granulomas. A small hiatal hernia is noted. Reflux of cont rast into the IVC and hepatic veins suggest cardiac dysfunction. Skeletal structures: The skeletal structures are osteopenic. No lytic or blastic bony lesions are see n. Degenerative change is seen throughout the thoracic spine. IMPRESSION: 1. There is no evidence of pulmonary embolus in the main, lobar, or segmental pulmonary arteries. 2. Cardiomegaly with evidence of congestive failure. 3. Small to moderate pleural effusions with dependent atelectasis. 4. Additional findings as above. ACT 112: Negative or not required by law. Electronically signed by: Marquis Babin M.D. 08/23/2022 10:06 AM
--- NOTE | 2022-08-23 10:11 | CT Scan Report ---
CT OF THE ABDOMEN AND PELVIS WITH CONTRAST CLINICAL HISTORY: Dysphasia. Vomiting. COMPARISON STUDY: KUB September 11, 2021 and renal ultrasound July 22, 2016. Right upper quadrant ultrasound April 29, 2015.Z TECHNIQUE: Following IV administration of 112 mL of Optiray, axial images of the abdomen and pelvis w ere obtained from the lung bases to the proximal femurs. Images were reviewed in the axial, sagittal, and coronal planes. IV contrast was administered without complication. Automated exposure control w as utilized for the study. A dose lowering technique was utilized adhering to the principles of ALAR A. CT DOSE: 2092.72 mGy.cm FINDINGS: Please note that the chest CT will be reported separately. Bilateral pleural effusions are better evaluated on that exam. There is cardiomegaly with evidence for interstitial pulmonary edema. No pneumatosis, free air or portal venous gas is present. Heterogeneous enhancement of the liver is l ikely related to passive hepatic congestion. No hepatic lesions are identified. Mild splenomegaly is noted. The adrenal glands and pancreas are unremarkable. Moderate to marked bilateral renal cortical thinning is noted. Numerous hypodense bilateral renal lesions are too small to characterize but favor cysts. A 6 mm calculus within lower pole of the left kidney is present. There are no ureteral calcul i. There is no hydronephrosis. Mild mesenteric stranding is of doubtful significance. There is no nate dence for a bowel obstruction. The appendix is normal. Colonic diverticulosis is present without evid ence for acute diverticulitis. There is no lymphadenopathy. Anasarca is noted. There is extensive vas cular calcification within the abdominal aorta and branch vessels. Numerous gallstones within the gal lbladder present. Gallbladder is distended. There is no adjacent infiltration. IMPRESSION: 1. Cholelithiasis and gallbladder distention. No pericholecystic infiltration to strongly suggest acu te cholecystitis. However, if right upper quadrant pain, ultrasound is recommended. 2. Colonic diverticulosis. No evidence for acute diverticulitis. 3. Heterogeneous enhancement of the liver suggestive of passive hepatic congestion. 4. Bilateral pleural effusions, cardiomegaly and interstitial pulmonary edema better depicted on the chest CT. This will be reported separately. 5. 6 mm left renal calculus. No ureteral calculi or hydronephrosis. Moderate to marked bilateral monica l cortical thinning. ACT 112: Negative or not required by law. Electronically signed by: John Carmona M.D. 08/23/2022 10:10 AM
[2022-08-23] MEDS: INSULIN ASPART PER UNIT SC SCH ×4 (10:44→21:14)
--- NOTE | 2022-08-23 10:44 | Electrocardiogram Report ---
Test Reason : Blood Pressure : / mmHG Vent. Rate : 052 BPM Atrial Rate : 052 BPM P-R Int : 186 ms QRS Dur : 148 ms QT Int : 556 ms P-R-T Axes : 046 -46 161 degrees QTc Int : 517 ms Sinus bradycardia Right bundle branch block Left anterior fascicular block Bifascicular block Left ventricular hypertrophy with repolarization abnormality Abnormal ECG When compared with ECG of 11-SEP-2021 14:46, No significant change was found Confirmed by Foster Leal ([id number]) on 08/23/2022 10:44:11 AM Referred By: REFERRED SELF Confirmed By:Hitesh Leal
[2022-08-23] MEDS: NITROGLYCERIN 2% OINTMENT 30GM TUBE EXT SCH ×3 (11:19→21:14)
[2022-08-23] MEDS ORDERED: FAMOTIDINE 20 MG in SYRINGE 3 ML IV ONE (14:25)
--- NOTE | 2022-08-23 17:22 | Hospitalist Progress Note ---
Date of Service August 23, 2022 Assessment & Plan (1) Acute on chronic diastolic CHF (congestive heart failure): Plan: Clinically worsening dyspnea on exertion with chest discomfort during recovery from exercise x 2 weeks. Pulmonary edema on CXR, echo from overnight reveals EF 60-65% with grade II diastolic dysfunction. Improved on intravenous furosemide therapy. Hypoxia still present. Declines jin at this time. Strict I/Os. Low salt diet. Hold home torsemide and cont intravenous furosemide and has been started on topical nitrates by cardiology. (2) Hypertension: Plan: Topical nitrates, hold Imdur. (3) Leg wound, right: Plan: chronic, patient reports picking at the wound which is chronic. No overt cellulitis at this time. Multiple trauma wounds are scabbed over. Patient doesn't go to the wound clinic regularly. Will consult WOCN and will be encouraged not to pick at these wounds. (4) DM type 2 (diabetes mellitus, type 2): Plan: A1C 7.1. Trulicity on hold, cont with basal/bolus insulin during admission. (5) CAD (coronary artery disease): Plan: chronic, stable. Mildly elevated troponin (18.5, 16.3, 15.4) with no significant rise likely related to demand ischemia in setting of heart failure and chronic kidney disease. EKG with no ST elevation. Cont medical management. (6) Morbid obesity: Plan: Lifestyle modifications recommended. (7) Esophageal reflux: Plan: chronic, appears to have some breakthrough "regurgitation." Trial of pepcid now. (8) CKD (chronic kidney disease), stage III: Plan: chronic, around her baseline creatinine. Will monitor closely with daily BMP given recent contrast administration and ongoing diuretic therapy. (9) DVT prophylaxis: Plan: Lovenox Full Code Dispo-to PCU DO Emily Bailon [facility]ist Admission and Anticipated Discharge Date Admission Date: August 23, 2022 Subjective Chest discomfort after exertion. Today she is also endorsing a feeling of regurgitation that is not consistent with heartburn but is causing her to be avoidant of food. She is on Protonix daily at baseline. She was started on diuretic therapy yesterday and reports feeling somewhat better although not back to baseline. She currently denies any chest discomfort. Review of Systems Review of Systems: All systems were reviewed and negative except as indicated above. Physical Exam Physical Exam: CONSTITUTIONAL: morbid obesity, vitals as above, generally well-appearing, NAD EYES: EOMI bilaterally, PERRL, normal conjunctivae, no scleral icterus ENT: external ear and nose normal, oropharynx clear, MMM NECK: trachea midline RESPIRATORY: clear to auscultation bilaterally with diminished breath sounds throughout, no crackles, rales or wheezes, normal respiratory effort CARDIOVASCULAR: regular rate and rhythm, S1 and 2 heard without murmurs, gallops or rubs, no JVD, no peripheral edema CHEST: inspection of chest was normal GASTROINTESTINAL: soft, nontender, ND, no guarding MUSCULOSKELETAL: strength 5/5 throughout, head is normocephalic and atraumatic SKIN: warm and dry, RLE with traumatic scratches and scabbed over wounds, also similar type trauma to skin on posterior right shoulder. NEUROLOGIC: CN 2-12 grossly intact, no sensory deficit, normal cognition, normal speech, no tremor PSYCHIATRIC: alert cooperative and oriented to person, place and time. Euthymic mood, makes good eye contact, language grossly intact, recent and remote memory grossly intact. Results & Data Results & Data ([facility]) Vital Signs (Past 12 Hours) Vital Signs Pulse Pulse Resp BP BP Pulse Ox O2 Del Method 08/23/22 12:24 60 16 155/59 H 99 Nasal Cannula 08/23/22 11:00 61 18 08/23/22 10:30 53 L 18 08/23/22 10:00 56 L 23 08/23/22 10:00 199/69 H 08/23/22 09:30 54 L 20 98 08/23/22 09:01 53 L 19 100 08/23/22 09:01 176/61 H 08/23/22 09:00 53 L 19 100 08/23/22 08:30 52 L 22 100 08/23/22 08:01 52 L 24 100 08/23/22 08:01 183/67 H 08/23/22 08:00 52 L 16 100 08/23/22 07:30 50 L 23 100 08/23/22 09:51 57 L 20 176/61 H 100 Nasal Cannula 08/23/22 07:01 49 L 19 100 08/23/22 07:01 174/61 H 08/23/22 07:00 50 L 20 100 08/23/22 06:30 48 L 16 100 08/23/22 06:00 50 L 16 100 08/23/22 06:00 172/71 H 08/23/22 05:30 47 L 17 100 08/23/22 05:15 Nasal Cannula O2 Flow Rate 08/23/22 12:24 3 08/23/22 11:00 08/23/22 10:30 08/23/22 10:00 08/23/22 10:00 08/23/22 09:30 08/23/22 09:01 08/23/22 09:01 08/23/22 09:00 08/23/22 08:30 08/23/22 08:01 08/23/22 08:01 08/23/22 08:00 08/23/22 07:30 08/23/22 09:51 3 08/23/22 07:01 08/23/22 07:01 08/23/22 07:00 08/23/22 06:30 08/23/22 06:00 08/23/22 06:00 08/23/22 05:30 08/23/22 05:15 3 Laboratory Results Short CBC 08/22/22 08/23/22 Range/Units 18:20 05:40 WBC 6.46 4.55 L (4.8-10.8) K/ul Hgb 10.8 L 9.7 L (12.0-16.0) g/dl Hct 34.1 30.9 L (34.1-44.9) % Plt Count 234 203 (130-400) K/uL BMP 08/22/22 08/23/22 18:20 05:40 Sodium 142 141 Potassium 4.0 4.2 Chloride 107 107 Carbon Dioxide 29 27 BUN 41 H 38 H Creatinine 1.20 1.21 H Glucose 76 102 H Calcium 9.9 9.2 Liver Function 08/22/22 Range/Units 18:20 Total Bilirubin 1.0 (0.2-1.0) mg/dl AST 10 L (13-39) U/L ALT 6 L (7-52) U/L Alkaline Phosphatase 79 (34-104) U/L Albumin 3.7 (3.4-5.0) gm/dl Urine 08/22/22 Range/Units 20:40 Urine Color Yellow Urine Appearance Cloudy A (Clear) Urine pH 5.5 (4.5-7.5) Ur Specific [place] 1.014 (1.000-1.030) Urine Protein 2+ H (Negative) Urine Glucose (UA) Negative (Negative) Diagnostic Findings Abdomen/Pelvis CT 08/22/22 18:10 CT OF THE ABDOMEN AND PELVIS WITH CONTRAST CLINICAL HISTORY: Dysphasia. Vomiting. COMPARISON STUDY: KUB September 11, 2021 and renal ultrasound July 22, 2016. Right upper quadrant ultrasound April 29, 2015.Z TECHNIQUE: Following IV administration of 112 mL of Optiray, axial images of the abdomen and pelvis were obtained from the lung bases to the proximal femurs. Images were reviewed in the axial, sagittal, and coronal planes. IV contrast was administered without complication. Automated exposure control was utilized for the study. A dose lowering technique was utilized adhering to the principles of ALARA. CT DOSE: 2092.72 mGy.cm FINDINGS: Please note that the chest CT will be reported separately. Bilateral pleural effusions are better evaluated on that exam. There is cardiomegaly with evidence for interstitial pulmonary edema. No pneumatosis, free air or portal venous gas is present. Heterogeneous enhancement of the liver is likely related to passive hepatic congestion. No hepatic lesions are identified. Mild splenomegaly is noted. The adrenal glands and pancreas are unremarkable. Moderate to marked bilateral renal cortical thinning is noted. Numerous hypodense bilateral renal lesions are too small to characterize but favor cysts. A 6 mm calculus within lower pole of the left kidney is present. There are no u reteral calculi. There is no hydronephrosis. Mild mesenteric stranding is of doubtful significance. There is no evidence for a bowel obstruction. The appendix is normal. Colonic diverticulosis is present without evidence for acute diverticulitis. There is no lymphadenopathy. Anasarca is noted. There is extensive vascular calcification within the abdominal aorta and branch vessels. Numerous gallstones within the gallbladder present. Gallbladder is distended. There is no adjacent infiltration. IMPRESSION: 1. Cholelithiasis and gallbladder distention. No pericholecystic infiltration to strongly suggest acute cholecystitis. However, if right upper quadrant pain, ultrasound is recommended. 2. Colonic diverticulosis. No evidence for acute diverticulitis. 3. Heterogeneous enhancement of the liver suggestive of passive hepatic congestion. 4. Bilateral pleural effusions, cardiomegaly and interstitial pulmonary edema better depicted on the chest CT. This will be reported separately. 5. 6 mm left renal calculus. No ureteral calculi or hydronephrosis. Moderate to marked bilateral renal cortical thinning. ACT 112: Negative or not required by law. Electronically signed by: John Carmona M.D. 08/23/2022 10:10 AM Chest CTA 08/22/22 18:10 CT ANGIOGRAM OF THE CHEST CLINICAL HISTORY: Dyspnea. Nausea and vomiting. COMPARISON STUDY: Chest x-ray dated 09/11/2021. Chest CT dated 01/20/2017. TECHNIQUE: Following the IV administration of 112 cc of Optiray 320, CT angiogram of the chest was performed from the upper abdomen to the thoracic inlet utilizing the pulmonary embolus protocol. Images are reviewed in the axial, sagittal, and coronal planes. 3-D MIPS images are created and assessed. IV contrast was administered without complication. A dose lowering technique was utilized adhering to the principles of ALARA. FINDINGS: Thyroid: Imaged portions of the thyroid gland are normal in size and attenuation. Thoracic aorta: There is atherosclerotic calcification of the thoracic aorta, which is normal in caliber and demonstrates standard 3-vessel arch anatomy. No dissection is seen. Pulmonary vasculature: The pulmonary trunk is dilated, measuring 4 cm in diameter. This suggests pulmonary artery hypertension. There are no filling defects identified in main, lobar, or segmental pulmonary branches to suggest pulmonary embolus. Evaluation of the subsegmental branches is degraded by motion artifact. Heart: The patient is status post midline sternotomy. The heart is enlarge and without pericardial effusion. The coronary arteries and mitral annulus are densely calcified. Lungs and pleural spaces: Evaluation of the lung parenchyma is degraded by motion artifact. Intralobular septal thickening is seen throughout both lungs again suggests congestive failure. The trachea and central airways are clear. There is no airspace consolidation typical for pneumonia. There are small to moderate pleural effusions with dependent atelectasis. Mediastinum: Subcentimeter mediastinal lymph nodes are not pathologically enlarged by size criteria. Adela: Clear. Axillae: There is no axillary lymphadenopathy. Upper abdomen: There are calcified hepatic granulomas. A small hiatal hernia is noted. Reflux of contrast into the IVC and hepatic veins suggest cardiac dysfunction. Skeletal structures: The skeletal structures are osteopenic. No lytic or blastic bony lesions are seen. Degenerative change is seen throughout the thoracic spine. IMPRESSION: 1. There is no evidence of pulmonary embolus in the main, lobar, or segmental pulmonary arteries. 2. Cardiomegaly with evidence of congestive failure. 3. Small to moderate pleural effusions with dependent atelectasis. 4. Additional findings as above. ACT 112: Negative or not required by law. Electronically signed by: Marquis Babin M.D. 08/23/2022 10:06 AM Medications Administered Current Inpatient Medications Acetaminophen (Acetaminophen 325 Mg Tab) 650 mg PO Q4H PRN PRN Reason: Pain or Fever Stop: 09/22/22 02:46 Allopurinol (Allopurinol 300 Mg Tab) 300 mg PO QAM [facility] Stop: 09/22/22 08:59 Last Admin: 08/23/22 09:29 Dose: 300 mg Ascorbic Acid (Ascorbic Acid 500 Mg Tab) 250 mg PO Q48H [facility] Stop: 09/22/22 08:59 Last Admin: 08/23/22 09:33 Dose: 250 mg Aspirin (Aspirin 81 Mg Ectab) 81 mg PO QAM [facility] Stop: 09/22/22 08:59 Last Admin: 08/23/22 09:25 Dose: 81 mg Clopidogrel Bisulfate (Clopidogrel Bisulfate 75 Mg Tab) 150 mg PO QAM [facility] Stop: 09/22/22 08:59 Last Admin: 08/23/22 09:23 Dose: 150 mg Dextrose (Dextrose 50% 50 Ml Syringe) 25 - 50 ml IV UD PRN; Protocol PRN Reason: Hypoglycemia Protocol Stop: 09/22/22 03:29 Ezetimibe (Ezetimibe 10 Mg Tablet) 10 mg PO QAM [facility] Stop: 09/22/22 08:59 Last Admin: 08/23/22 09:22 Dose: 10 mg Enoxaparin Sodium (Enoxaparin Inj 40 Mg/0.4 Ml Syr) 40 mg SQ Q12H [facility] Stop: 09/22/22 05:59 Last Admin: 08/23/22 17:12 Dose: 40 mg Escitalopram Oxalate (Escitalopram Oxalate 10 Mg Tab) 10 mg PO DAILY [facility] Stop: 09/22/22 08:59 Last Admin: 08/23/22 09:28 Dose: 10 mg Ferrous Sulfate (Ferrous Sulfate 325 Mg Tab) 325 mg PO Q48H [facility] Stop: 09/22/22 08:59 Last Admin: 08/23/22 09:32 Dose: 325 mg Furosemide (Furosemide 40 Mg/4 Ml Vial) 40 mg IV BID [facility] Stop: 09/22/22 08:59 Last Admin: 08/23/22 09:23 Dose: 40 mg Glucagon (Glucagon For Inj 1 Mg Vial) 1 mg IM UD PRN; Protocol PRN Reason: Hypoglycemia Protocol Stop: 09/22/22 03:29 Glucose (Glucose 40% Gel 15 Gm Tube) 15 - 30 gm PO UD PRN; Protocol PRN Reason: Hypoglycemia Protocol Stop: 09/22/22 03:29 Glucose (Glucose 10 Tab/Tube) 4 - 8 tab PO UD PRN; Protocol PRN Reason: Hypoglycemia Protocol Stop: 09/22/22 03:29 Ceftriaxone Sodium 2,000 mg/ (Dextrose) 70 mls @ 100 mls/hr IV Q24H [facility]; Protocol Stop: 09/02/22 03:29 Last Infusion: 08/23/22 04:42 Dose: Infused Insulin Aspart (Insulin Aspart Per Unit) 0 units SC ACHS [facility] Stop: 09/22/22 07:29 Last Admin: 08/23/22 13:58 Dose: Not Given Isosorbide Mononitrate (Isosorbide [place] Extended Rel 60 Mg Tabcr) [facility] [place] [place]: 09/22/22 08:59 Last Admin: 08/23/22 09:27 Dose: 60 mg Lubiprostone (Lubiprostone 8 Mcg Cap) 8 mcg PO BIDM [facility] Stop: 09/22/22 07:59 Last Admin: 08/23/22 17:12 Dose: 8 mcg Metoprolol Succinate (Metoprolol Succ 25mg Ext Rel Tab) 12.5 mg PO QAM [facility] Stop: 09/22/22 08:59 Last Admin: 08/23/22 09:26 Dose: 12.5 mg Miscellaneous (Carbohydrates For Hypoglycemia ) 15 - 30 gm PO UD PRN PRN Reason: Hypoglycemia Treatment Stop: 09/22/22 03:29 Nitroglycerin (Nitroglycerin Sl 0.4 Mg/Tab Tab) 0.4 mg SL UD PRN PRN Reason: Chest Pain Stop: 09/22/22 02:46 Nitroglycerin (Nitroglycerin 2% Ointment 30gm Tube) 1 inch EXT Q6H [facility] Stop: 09/22/22 10:29 Last Admin: 08/23/22 17:12 Dose: 1 inch Pantoprazole Sodium (Pantoprazole 40 Mg Tab) 40 mg PO DAILYBB [facility] Stop: 09/22/22 06:29 Last Admin: 08/23/22 09:24 Dose: 40 mg Polyethylene Glycol (Polyethylene (Miralax) 17 Gm Pack) 17 gm PO DAILY PRN PRN Reason: Constipation Stop: 09/22/22 02:46 Rosuvastatin Calcium (Rosuvastatin Calcium 5 Mg Tab) 5 mg PO Q48H [facility] Stop: 09/22/22 08:59 Last Admin: 08/23/22 09:27 Dose: 5 mg Tramadol HCl (Tramadol Hcl 50 Mg Tablet) 25 mg PO Q6H PRN PRN Reason: Pain Stop: 09/22/22 02:46 Ursodiol (Ursodiol 300 Mg Cap) 300 mg PO BID [facility] Stop: 09/22/22 08:59 Last Admin: 08/23/22 09:28 Dose: 300 mg (1) Leg wound, right Encounter type: initial encounter Qualified Code(s): S81.801A - Unspecified open wound, right lower leg, initial encounter
[2022-08-24] MEDS: NITROGLYCERIN 2% OINTMENT 30GM TUBE EXT SCH ×2 (04:11→10:13)
[2022-08-24] MEDS: ENOXAPARIN INJ 40 MG/0.4 ML SYR SQ SCH ×2 (05:31→17:19)
[2022-08-24 06:52] LABS: BUN Creatinine Ratio 25.2 (10-20); Calcium 9.2 mg/dl (8.5-10.1); Creatinine Clr Calc Pharmacy 44.6 ml/min; Est GFR (African American) 39.1 ml/min; Est GFR (Non-African American) 33.7 ml/min; Magnesium 1.9 mg/dl (1.7-2.4)
[2022-08-24] MEDS: INSULIN ASPART PER UNIT SC SCH ×4 (08:26→20:18)
[2022-08-24] MEDS: FUROSEMIDE 40 MG/4 ML VIAL IV SCH (08:27)
[2022-08-24] MEDS: CLOPIDOGREL BISULFATE 75 MG TAB PO SCH (08:28)
[2022-08-24] MEDS: ursodioL 300 MG CAP PO SCH ×2 (08:28→20:09)
[2022-08-24] MEDS: LUBIPROSTONE 8 MCG CAP PO SCH ×2 (08:28→17:20)
[2022-08-24] MEDS: ASPIRIN 81 MG ECTAB PO SCH (08:28)
[2022-08-24] MEDS: EZETIMIBE 10 MG TABLET PO SCH (08:29)
[2022-08-24] MEDS: allopurinoL 300 MG TAB PO SCH (08:29)
[2022-08-24] MEDS: ESCITALOPRAM OXALATE 10 MG TAB PO SCH (08:29)
[2022-08-24] MEDS: CEFDINIR 300 MG CAP PO SCH ×2 (10:08→20:09)
--- NOTE | 2022-08-24 10:57 | Cardiology Progress Note ---
Date of Service August 24, 2022 Assessment & Plan (1) Acute on chronic diastolic CHF (congestive heart failure): (2) CKD (chronic kidney disease), stage IV: (3) Hypertension: (4) Diabetic peripheral neuropathy: (5) Gastroparesis: Plan Patient is an extremely complex 76-year-old female with longstanding diabetic coronary and peripheral vascular disease, CKD stage IIIIV with past contrast nephropathy and chronic diastolic heart failure who presents with signs and symptoms of increasing dyspnea and worsening diastolic heart failure. She is symptomatically improved since administration of oxygen and IV furosemide Relative bradycardia observed as well as hypertension issues are addressed as follows 1. Acute on chronic diastolic heart failure, mild pulmonary edema on chest x- ray with hypoxia. Hypoxia improved with oxygen supplementation and IV furosemide. Patient with several week history of worsening dyspnea with exertion, increasing lower extremity edema. We will cautiously continue IV furosemide following renal function closely given recent contrast administr ation. Patient previously poorly tolerant of [place] and ARB 2. Chronic ischemic and peripheral vascular disease with mild elevation of troponin: Presentation does not suggest acute coronary syndrome however echocardiogram will be reviewed given symptomatic complaints of several weeks in duration. No acute changes on EKG however bifascicular block present. Patient with very poor coronary surgical targets, 2010 3. Hypertension: We will add topical nitrates holding isosorbide. Past orthostatic hypotension present due to diabetic neuropathy 4. CKD stage III4: Plan follow renal function daily with diuresis. No further contrast 5. Bifascicular heart block with relative bradycardia: Continue telemetry, hold metoprolol 6. Chronic gastroparesis with recent worsening of symptoms 7. Lower extremity edema with wound ulcerations, recurrent cellulitis 08/24/2022 Patient clinically improving. We will continue IV diuretics though check renal function today at noon given rising creatinine. May need to hold diuretics Resume Imdur discontinue topical nitrates Continue to hold metoprolol Patient requesting wound clinic eval Admission and Anticipated Discharge Date Admission Date: August 23, 2022 Subjective Patient was seen and examined, chart, medications, telemetry reviewed Feels improved after diuresis but feels diuresis has slowed somewhat this morning.. Lower extremity edema improved No worsening shortness of breath no chest pain. Blood pressure trending towards better control No arrhythmias on telemetry Review of Systems Review of Systems: All systems reviewed & are unremarkable except as noted in Subjective Physical Exam Constitutional: + morbidly obese; no acute distress Eyes: PERRL, conjunctivae normal, anicteric sclerae ENMT: external ear and nose normal, oropharynx normal Neck: trachea midline, no thyromegaly Respiratory: Auscultation: + diminished lung sounds and + rales Cardiovascular: Rate/Rhythm: regular rate, regular rhythm and + bradycardic Heart Sounds: no gallop Extremities: + edema (2-3+ with stasis changes right lower extremity) Psychiatric: A+Ox3, euthymic affect Results & Data ([facility]) Vital Signs (Past 12 Hours) Vital Signs Temp Pulse Pulse Resp BP Pulse Ox Pulse Ox 08/24/22 08:00 58 L 08/24/22 08:00 93 08/24/22 08:02 36.8 C 60 18 131/50 L 94 08/24/22 04:13 36.8 C 56 L 18 142/67 H 96 08/23/22 23:02 36.7 C 61 18 149/70 H 95 O2 Del Method O2 Del Method O2 Flow Rate O2 Flow Rate 08/24/22 08:00 08/24/22 08:00 Nasal Cannula 1 08/24/22 08:02 Nasal Cannula 2 08/24/22 04:13 CPAP 3 08/23/22 23:02 Nasal Cannula 1 Laboratory Results Laboratory Results - last 24 hr 08/23/22 08/23/22 08/23/22 11:14 13:58 18:18 Sodium Potassium Chloride Carbon Dioxide Anion Gap BUN Creatinine Est Cr Clr Drug Dosing Est GFR ( Amer) Est GFR (Non-Af Amer) BUN/Creatinine Ratio Glucose POC Glucose 143 H 177 H Calcium Magnesium Troponin I High Sens 15.4 H 08/23/22 08/24/22 08/24/22 21:06 05:50 07:23 Sodium 140 Potassium 4.0 Chloride 104 Carbon Dioxide 27 Anion Gap 9 BUN 38 H Creatinine 1.51 H D Est Cr Clr Drug Dosing 44.6 Est GFR ( Amer) 39.1 Est GFR (Non-Af Amer) 33.7 BUN/Creatinine Ratio 25.2 H Glucose 119 H POC Glucose 187 H 135 H Calcium 9.2 Magnesium 1.9 Troponin I High Sens
[2022-08-24 12:26] LABS: BUN Creatinine Ratio 25.3 (10-20); Calcium 9.7 mg/dl (8.5-10.1); Creatinine Clr Calc Pharmacy 40.6 ml/min; Est GFR (African American) 34.8 ml/min; Potassium 4.1 mmol/L (3.5-5.1)
--- NOTE | 2022-08-24 14:32 | Hospitalist Progress Note ---
Date of Service August 24, 2022 Assessment & Plan (1) Acute on chronic diastolic CHF (congestive heart failure): Plan: Clinically worsening dyspnea on exertion with chest discomfort during recovery from exercise x 2 weeks. Pulmonary edema on CXR, echo from overnight reveals EF 60-65% with grade II diastolic dysfunction. Improved on intravenous furosemide therapy. Hypoxia still present. Declines jin at this time. Strict I/Os. Low salt diet. Hold home torsemide and cont intravenous furosemide. Topical nitrates changed back to Imdur. (2) Hypertension: Plan: chronic, controlled, cont current therapy. (3) Leg wound, right: Plan: chronic, patient reports picking at the wound which is chronic. No overt cellulitis at this time. Multiple trauma wounds are scabbed over. Patient doesn't go to the wound clinic regularly. Will consult WOCN and will be encouraged not to pick at these wounds. (4) DM type 2 (diabetes mellitus, type 2): Plan: A1C 7.1. Trulicity on hold, cont with basal/bolus insulin during admission. (5) CAD (coronary artery disease): Plan: chronic, stable. Mildly elevated troponin (18.5, 16.3, 15.4) with no significant rise likely related to demand ischemia in setting of heart failure and chronic kidney disease. EKG with no ST elevation. Cont medical management. (6) Morbid obesity: Plan: Lifestyle modifications recommended. (7) Esophageal reflux: Plan: chronic, controlled, cont PPI per home regimen. Pepcid for any further breakthrough. (8) CKD (chronic kidney disease), stage III: Plan: chronic, around her baseline creatinine. Will monitor closely with daily BMP given recent contrast administration and ongoing diuretic therapy. (9) DVT prophylaxis: Plan: Lovenox Full Code Dispo-[facility] Ad[facility] and Anticipated Discharge Date Admission Date: August 23, 2022 Subjective 76 yo F presenting with acute heart failure exacerbation Today she endorses an improvement in her dyspnea with exertion She is no longer having a feeling of chest discomfort on recovery from exercise. she doesn't feel any more heartburn or regurgitation and is tolerating food today she states that "Dr. Oseguera said he isn't done with me yet" Review of Systems Review of Systems: All systems were reviewed and negative except as indicated above. Physical Exam Physical Exam: CONSTITUTIONAL: morbid obesity, vitals as above, generally wel l-appearing, NAD EYES: normal conjunctivae, no scleral icterus ENT: external ear and nose normal, MMM NECK: trachea midline RESPIRATORY: clear to auscultation bilaterally with diminished breath sounds throughout, no crackles, rales or wheezes, normal respiratory effort CARDIOVASCULAR: regular rate and rhythm, S1 and 2 heard without murmurs, gallops or rubs, no JVD, trace peripheral edema especially in the feet bilaterally CHEST: inspection of chest was normal GASTROINTESTINAL: soft, nontender, ND, no guarding MUSCULOSKELETAL: strength 5/5 throughout, head is normocephalic and atraumatic SKIN: warm and dry, RLE with traumatic scratches and scabbed over wounds, also similar type trauma to skin on posterior right shoulder. NEUROLOGIC: CN 2-12 grossly intact, no sensory deficit, normal cognition, normal speech, no tremor PSYCHIATRIC: alert cooperative and oriented to person, place and time. Euthymic mood, makes good eye contact, language grossly intact, recent and remote memory grossly intact. Results & Data Results & Data ([facility]) Vital Signs (Past 12 Hours) Vital Signs Temp Pulse Pulse Resp BP Pulse Ox Pulse Ox 08/24/22 11:58 36.4 C L 62 19 137/57 L 94 08/24/22 08:00 58 L 08/24/22 08:00 93 08/24/22 08:02 36.8 C 60 18 131/50 L 94 08/24/22 04:13 36.8 C 56 L 18 142/67 H 96 O2 Del Method O2 Del Method O2 Flow Rate O2 Flow Rate 08/24/22 11:58 Nasal Cannula 2 08/24/22 08:00 08/24/22 08:00 Nasal Cannula 1 08/24/22 08:02 Nasal Cannula 2 08/24/22 04:13 CPAP 3 Laboratory Results BMP 08/24/22 08/24/22 05:50 11:52 Sodium 140 139 Potassium 4.0 4.1 Chloride 104 102 Carbon Dioxide 27 30 BUN 38 H 42 H Creatinine 1.51 H D 1.66 H Glucose 119 H 161 H Calcium 9.2 9.7 Medications Administered Current Inpatient Medications Acetaminophen (Acetaminophen 325 Mg Tab) 650 mg PO Q4H PRN PRN Reason: Pain or Fever Stop: 09/22/22 02:46 Allopurinol (Allopurinol 300 Mg Tab) 300 mg PO QAM MIK Stop: 09/22/22 08:59 Last Admin: 08/24/22 08:29 Dose: 300 mg Ascorbic Acid (Ascorbic Acid 500 Mg Tab) 250 mg PO Q48H MIK Stop: 09/22/22 08:59 Last Admin: 08/23/22 09:33 Dose: 250 mg Aspirin (Aspirin 81 Mg Ectab) 81 mg PO QAM MIK Stop: 09/22/22 08:59 Last Admin: 08/24/22 08:28 Dose: 81 mg Cefdinir (Cefdinir 300 Mg Cap) 300 mg PO BID MIK Stop: 08/29/22 09:29 Last Admin: 08/24/22 10:08 Dose: 300 mg Clopidogrel Bisulfate (Clopidogrel Bisulfate 75 Mg Tab) 150 mg PO QAM MIK Stop: 09/22/22 08:59 Last Admin: 08/24/22 08:28 Dose: 150 mg Dextrose (Dextrose 50% 50 Ml Syringe) 25 - 50 ml IV UD PRN; Protocol PRN Reason: Hypoglycemia Protocol Stop: 09/22/22 03:29 Ezetimibe (Ezetimibe 10 Mg Tablet) 10 mg PO QAM MIK Stop: 09/22/22 08:59 Last Admin: 08/24/22 08:29 Dose: 10 mg Enoxaparin Sodium (Enoxaparin Inj 40 Mg/0.4 Ml Syr) 40 mg SQ Q12H MIK Stop: 09/22/22 05:59 Last Admin: 08/24/22 05:31 Dose: 40 mg Escitalopram Oxalate (Escitalopram Oxalate 10 Mg Tab) 10 mg PO DAILY MIK Stop: 09/22/22 08:59 Last Admin: 08/24/22 08:29 Dose: 10 mg Ferrous Sulfate (Ferrous Sulfate 325 Mg Tab) 325 mg PO Q48H MIK Stop: 09/22/22 08:59 Last Admin: 08/23/22 09:32 Dose: 325 mg Furosemide (Furosemide 40 Mg/4 Ml Vial) 40 mg IV BID MIK Stop: 09/22/22 08:59 Last Admin: 08/24/22 08:27 Dose: 40 mg Glucagon (Glucagon For Inj 1 Mg Vial) 1 mg IM UD PRN; Protocol PRN Reason: Hypoglycemia Protocol Stop: 09/22/22 03:29 Glucose (Glucose 40% Gel 15 Gm Tube) 15 - 30 gm PO UD PRN; Protocol PRN Reason: Hypoglycemia Protocol Stop: 09/22/22 03:29 Glucose (Glucose 10 Tab/Tube) 4 - 8 tab PO UD PRN; Protocol PRN Reason: Hypoglycemia Protocol Stop: 09/22/22 03:29 Insulin Aspart (Insulin Aspart Per Unit) 0 units SC ACHS MIK Stop: 09/22/22 07:29 Last Admin: 08/24/22 12:27 Dose: 9 units Isosorbide Mononitrate (Isosorbide [place] Extended Rel 60 Mg Tabcr) 60 mg PO QAM MIK Stop: 09/22/22 08:59 Last Admin: 08/23/22 09:27 Dose: 60 mg Lubiprostone (Lubiprostone 8 Mcg Cap) 8 mcg PO BIDM MIK Stop: 09/22/22 07:59 Last Admin: 08/24/22 08:28 Dose: 8 mcg Metoprolol Succinate (Metoprolol Succ 25mg Ext Rel Tab) 12.5 mg PO QAM [facility] Stop: 09/22/22 08:59 Last Admin: 08/23/22 09:26 Dose: 12.5 mg Miscellaneous (Carbohydrates For Hypoglycemia ) 15 - 30 gm PO UD PRN PRN Reason: Hypoglycemia Treatment Stop: 09/22/22 03:29 Nitroglycerin (Nitroglycerin Sl 0.4 Mg/Tab Tab) 0.4 mg SL UD PRN PRN Reason: Chest Pain Stop: 09/22/22 02:46 Pantoprazole Sodium (Pantoprazole 40 Mg Tab) 40 mg PO DAILYBB MIK Stop: 09/22/22 06:29 Last Admin: 08/23/22 09:24 Dose: 40 mg Polyethylene Glycol (Polyethylene (Miralax) 17 Gm Pack) 17 gm PO DAILY PRN PRN Reason: Constipation Stop: 09/22/22 02:46 Rosuvastatin Calcium (Rosuvastatin Calcium 5 Mg Tab) 5 mg PO Q48H MIK Stop: 09/22/22 08:59 Last Admin: 08/23/22 09:27 Dose: 5 mg Tramadol HCl (Tramadol Hcl 50 Mg Tablet) 25 mg PO Q6H PRN PRN Reason: Pain Stop: 09/22/22 02:46 Ursodiol (Ursodiol 300 Mg Cap) 300 mg PO BID [facility] Stop: 09/22/22 08:59 Last Admin: 08/24/22 08:28 Dose: 300 mg (1) Leg wound, right Encounter type: initial encounter Qualified Code(s): S81.801A - Unspecified open wound, right lower leg, initial encounter
[2022-08-25 06:40] LABS: Hematocrit (blood only) 30.2 % (34.1-44.9); Hemoglobin 9.7 g/dl (12.0-16.0); Mean Corpuscular Hemoglobin 29.3 pg (25.0-34.0); Mean Corpuscular Hgb Conc 32.1 g/dL (32.0-36.0); Mean Corpuscular Volume 91.2 fL (80.0-100.0); Mean Platelet Volume 10.2 fL (9.4-12.3); Platelet Count 195 K/uL (130-400); RDW Coefficient of Variation 16.5 % (11.5-14.5); Red Blood Count 3.31 M/uL (3.93-5.22); White Blood Count 4.76 K/ul (4.8-10.8)
[2022-08-25 07:24] LABS: BUN Creatinine Ratio 26.8 (10-20); Calcium 9.2 mg/dl (8.5-10.1); Creatinine Clr Calc Pharmacy 34.6 ml/min; Est GFR (African American) 28.1 ml/min; Est GFR (Non-African American) 24.3 ml/min; Potassium 4.1 mmol/L (3.5-5.1)
[2022-08-25] MEDS: ursodioL 300 MG CAP PO SCH ×2 (08:08→21:19)
[2022-08-25] MEDS: EZETIMIBE 10 MG TABLET PO SCH (08:08)
[2022-08-25] MEDS: LUBIPROSTONE 8 MCG CAP PO SCH ×2 (08:08→18:00)
[2022-08-25] MEDS: ISOSORBIDE MONO EXTENDED REL 60 MG TABCR PO SCH (08:08)
[2022-08-25] MEDS: ASPIRIN 81 MG ECTAB PO SCH (08:08)
[2022-08-25] MEDS: PANTOprazole 40 MG TAB PO SCH (08:08)
[2022-08-25] MEDS: CEFDINIR 300 MG CAP PO SCH ×2 (08:08→21:19)
[2022-08-25] MEDS: ESCITALOPRAM OXALATE 10 MG TAB PO SCH (08:09)
[2022-08-25] MEDS: ENOXAPARIN INJ 40 MG/0.4 ML SYR SQ SCH ×2 (08:09→18:01)
[2022-08-25] MEDS: FERROUS SULFATE 325 MG TAB PO SCH (08:09)
[2022-08-25] MEDS: CLOPIDOGREL BISULFATE 75 MG TAB PO SCH (08:09)
[2022-08-25] MEDS: ASCORBIC ACID 500 MG TAB PO SCH (08:09)
[2022-08-25] MEDS: allopurinoL 300 MG TAB PO SCH (08:09)
[2022-08-25] MEDS: INSULIN ASPART PER UNIT SC SCH ×4 (08:41→21:21)
[2022-08-25] MEDS: ROSUVASTATIN CALCIUM 5 MG TAB PO SCH (08:44)
--- NOTE | 2022-08-25 10:19 | Cardiology Progress Note ---
Date of Service August 25, 2022 Assessment & Plan (1) Acute on chronic diastolic CHF (congestive heart failure): (2) CKD (chronic kidney disease), stage IV: (3) Hypertension: (4) Diabetic peripheral neuropathy: (5) Gastroparesis: (6) Contrast-induced nephropathy: Plan Patient is an extremely complex 76-year-old female with longstanding diabetic coronary and peripheral vascular disease, CKD stage IIIIV with past contrast nephropathy and chronic diastolic heart failure who presents with signs and symptoms of increasing dyspnea and worsening diastolic heart failure. She is symptomatically improved since administration of oxygen and IV furosemide Relative bradycardia observed as well as hypertension issues are addressed as follows 1. Acute on chronic diastolic heart failure, mild pulmonary edema on chest x- ray with hypoxia. Hypoxia improved with oxygen supplementation and IV furosemide. Patient with several week history of worsening dyspnea with exertion, increasing lower extremity edema. We will cautiously continue IV furosemide following renal function closely given recent contrast administration. Patient previously poorly tolerant of [place] and ARB 2. Chronic ischemic and peripheral vascular disease with mild elevation of troponin: Presentation does not suggest acute coronary syndrome however echocardiogram will be reviewed given symptomatic complaints of several weeks in duration. No acute changes on EKG however bifascicular block present. Patient with very poor coronary surgical targets, 2010 3. Hypertension: We will add topical nitrates holding isosorbide. Past orthostatic hypotension present due to diabetic neuropathy 4. CKD stage III4: Plan follow renal function daily with diuresis. No further contrast 5. Bifascicular heart block with relative bradycardia: Continue telemetry, hold metoprolol 6. Chronic gastroparesis with recent worsening of symptoms 7. Lower extremity edema with wound ulcerations, recurrent cellulitis 08/25/2022 Patient with mild abdominal bloating but examines at near euvolemic status. Renal function declining in association with contrast administration and diuretics. Diuretics held yesterday after a.m. dose on review of renal function. Prior history of contrast nephropathy Recommendations: Consult nephrology for assistance. May require mild hydration despite history of diastolic heart failure now compensated Continue antihypertensives as ordered with room to increase isosorbide Admission and Anticipated Discharge Date Admission Date: August 23, 2022 Subjective Patient was seen and examined, chart, medications, telemetry reviewed. No acute complaints other than mild abdominal bloating and fullness this morning. Notes minimal urine output, concentrated. Food does not stick in throat but bloated after eating. No chest pains. Lower extremity edema improved with chronic stasis changes of the right leg Diuretics held yesterday after review of renal function Review of Systems Review of Systems: All systems reviewed & are unremarkable except as noted in Subjective Physical Exam Constitutional: + morbidly obese; no acute distress Eyes: PERRL, conjunctivae normal, anicteric sclerae ENMT: external ear and nose normal, oropharynx normal Neck: trachea midline, no thyromegaly Respiratory: Auscultation: + diminished lung sounds and + rales Cardiovascular: Rate/Rhythm: regular rate, regular rhythm and + bradycardic Heart Sounds: no gallop Extremities: + edema (1+ left, 2+ right with chronic stasis change) Gastrointestinal (Abdomen): Percussion/Palpation: abdomen soft; abdomen nontender Mildly distended Psychiatric: A+Ox3, euthymic affect Results & Data ([facility]) Vital Signs (Past 12 Hours) Vital Signs Temp Pulse Pulse Resp BP Pulse Ox O2 Del Method 08/25/22 08:00 36.3 C L 64 16 161/75 H 91 Room Air 08/25/22 03:04 36.4 C L 58 L 16 140/61 96 CPAP 08/25/22 00:00 61 08/24/22 23:45 36.6 C 60 20 144/67 H 96 Nasal Cannula O2 Flow Rate 08/25/22 08:00 08/25/22 03:04 2 08/25/22 00:00 08/24/22 23:45 1 Laboratory Results Laboratory Results - last 24 hr 08/24/22 08/24/22 08/24/22 11:38 11:52 16:17 WBC RBC Hgb Hct MCV MCH MCHC RDW Std Deviation RDW Coeff of [place] Plt Count MPV Sodium 139 Potassium 4.1 Chloride 102 Carbon Dioxide 30 Anion Gap 7 BUN 42 H Creatinine 1.66 H Est Cr Clr Drug Dosing 40.6 Est GFR ( Amer) 34.8 Est GFR (Non-Af Amer) 30.0 BUN/Creatinine Ratio 25.3 H Glucose 161 H POC Glucose 161 H 146 H Calcium 9.7 Magnesium 08/24/22 08/25/22 08/25/22 20:14 05:56 05:56 WBC 4.76 L RBC 3.31 L Hgb 9.7 L Hct 30.2 L MCV 91.2 MCH 29.3 MCHC 32.1 RDW Std Deviation 54.0 H RDW Coeff of [place] 16.5 H Plt Count 195 MPV 10.2 Sodium 138 Potassium 4.1 Chloride 102 Carbon Dioxide 28 Anion Gap 8 BUN 53 H Creatinine 1.98 H D Est Cr Clr Drug Dosing 34.6 Est GFR ( Amer) 28.1 Est GFR (Non-Af Amer) 24.3 BUN/Creatinine Ratio 26.8 H Glucose 167 H POC Glucose 178 H Calcium 9.2 Magnesium 2.0 08/25/22 07:19 WBC RBC Hgb Hct MCV MCH MCHC RDW Std Deviation RDW Coeff of [place] Plt Count MPV Sodium Potassium Chloride Carbon Dioxide Anion Gap BUN Creatinine Est Cr Clr Drug Dosing Est GFR ( Amer) Est GFR (Non-Af Amer) BUN/Creatinine Ratio Glucose POC Glucose 187 H Calcium Magnesium
--- NOTE | 2022-08-25 12:49 | Hospitalist Progress Note ---
Date of Service August 25, 2022 Assessment & Plan (1) Acute on chronic diastolic CHF (congestive heart failure): Plan: per Dr. Arroyo's notes with addendum: Clinically worsening dyspnea on exertion with chest discomfort during recovery from exercise x 2 weeks. Pulmonary edema on CXR, echo from overnight reveals EF 60-65% with grade II diastolic dysfunction. Improved on intravenous furosemide therapy. Hypoxia still present. Declines jin at this time. Strict I/Os. Low salt diet. Hold home torsemide and cont intravenous furosemide. Topical nitrates changed back to Imdur. 08/25 on 2 L NC crea increasing, 1.9 today Lasix held for now monitor renal function (2) Hypertension: Plan: continue Imdur, Metoprolol (3) Leg wound, right: Plan: chronic, patient reports picking at the wound which is chronic. No overt cellulitis at this time. Multiple trauma wounds are scabbed over. Patient doesn't go to the wound clinic regularly. Will consult WOCN and will be encouraged not to pick at these wounds. 08/25 wound care notes reviewed will check tomorrow during dressing change (4) DM type 2 (diabetes mellitus, type 2): Plan: A1C 7.1. Trulicity on hold, cont with basal/bolus insulin during admission. (5) CAD (coronary artery disease): Plan: chronic, stable. Mildly elevated troponin (18.5, 16.3, 15.4) with no significant rise likely related to demand ischemia in setting of heart failure and chronic kidney disease. EKG with no ST elevation. (6) Morbid obesity: Plan: Lifestyle modifications recommended. (7) Esophageal reflux: Plan: chronic, controlled, cont PPI per home regimen. Pepcid for any further breakthrough. (8) CKD (chronic kidney disease), stage III: Plan: Acute Kidney Injury on CKD 3 possible contrast induced nephropathy in the setting of IV Lasix management per above (9) DVT prophylaxis: Plan: Lovenox Full Code Disposition PT/OT evaluation Admission and Anticipated Discharge Date Admission Date: August 23, 2022 Subjective ff up for acute CHF- Diastolic, etc seen resting in bed, comfortable on 2 L Oxygen states her abdomen feels bloated (+) flatus, BMs no chest pain, dyspnea, palpitations, dizziness no leg pain no other symptoms Review of Systems Review of Systems: all noted and negative except for above Physical Exam Physical Exam: General- oriented x 3, not in distress, speaks in sentences with no effort or accessory muscle use Eyes- anicteric Neck- no JVD Lungs- clear breath sounds bilaterally, no rales/wheezes Heart- normal rate, regular rhythm; no murmurs Abdomen- normal bowel sounds, nondistended, soft, nontender Extremities- grade 1 -2 LE edema, no calf tenderness R LE: (+) dressing in place no bleeding/discharge mild erythema Neuro- alert, oriented x 3; no gross focal neurologic deficits Skin- warm & dry Results & Data Results & Data ([facility]) Vital Signs (Past 12 Hours) Vital Signs Temp Pulse Resp BP BP Pulse Ox O2 Del Method 08/25/22 12:17 36.7 C 73 18 173/68 H 95 Nasal Cannula 08/25/22 08:00 36.3 C L 64 16 161/75 H 91 Room Air 08/25/22 03:04 36.4 C L 58 L 16 140/61 96 CPAP O2 Flow Rate 08/25/22 12:17 0.5 08/25/22 08:00 08/25/22 03:04 2 all noted and reviewed including below (1) Leg wound, right Encounter type: initial encounter Qualified Code(s): S81.801A - Unspecified open wound, right lower leg, initial encounter
--- NOTE | 2022-08-25 15:19 | Nephrology Consultation ---
Date of Consultation August 25, 2022 Assessment & Plan (1) Acute on chronic renal failure: nonoliguric worsening stage 1 acute on chronic renal failure with contrast induced nephropathy certainly a possibility, though heightened by obligate diuretic use after contrast administration. baseline CKD 3B w/ at least 1 gm proteinuria and creatinine usually mid ones; was better than baseline on arrival, likely d/t very poor po in days prior to presentation. mild volume overload adn chemistries acceptable. no indication for urgent HD or for discussion of it. -cont to hold diuretics -repeat UACM ordered -too late at this point to administer IVF to slow contrast induced nephropathy if that is what's happening here > no IVF for now -daily bmp -continue to hold diuretics for now -did order low sodium diet and 1.5L fluid limit -elevate legs as much as possible -recommend PT eval so that we can start getting daily standing weights History of Present Illness Reason for Consultation: concern for contrast induced nephropathy Requesting Physician: Dr Oseguera Attending Physician: Mohsen Godoy MD History of Present Illness 76 y/o F whom I'm asked to see for possible contrast induced nephropathy was admitted on 08/23 with acute on chronic diastolic heart failure with hypoxia af ter presenting with a week of worsening dyspnea and exertional fatigue; also some dysuria at admission. Cardiology is following and administering diuretics. PMH includes longstanding ischemic heart disease both diffuse and status post multiple coronary interventions, extensive peripheral vascular disease s/p BL angioplasty superficial femoral arteries 04/2022 and s/p muliple prior L lower extremity interventions, CKD 3B w/ baseline creatinine mid ones and 1 gm proteinuria at least, longstanding uncontrolled DM w/ gastroparesis and autonomic dysfunction, SAMANTHA on bipap, HTN, HL, chronic lower extremity edema w/ cellulitis, R bundle branch and bifascicular heart block. Her presenting creatinine on 08/22 was 1.2; increased to 1.5 yesterday am and to 2 this am. She had IV contrast for CT chest and abd/pelvis on presentation. She had been receiving lasix 40 mg IV bid up through AM dose 08/24 (4 doses total. Had 500 mL NS in ER as well. She takes 40 mg daily torsemide as OP and reported adherence to dosing prior to admission, at times taking up to 60 mg daily. She was on 2-3 L 02nc at presentation and at 0.5L now. she is per I/O 30 mL negative for the admission, with 1 unmeasured void. no standing wts documented this admission but so far bed weights uptrending from 115.1 kg at admission to 120.8 kg today. she feels generally well > remains on 02NC; ongoing lower extremity edema; not as dypneic as prior to admission. today noting increasing bloat in her abdomen jeovany upper abdomen. no n/v; tolerating some po. denies new/worrisome voiding sx; dysuria from admission improved. Allergies Allergy/AdvReac Type Severity Reaction Status Date / Time latex Allergy Mild ITCHY Verified 10/23/21 12:23 Sulfa (Sulfonamide Allergy Unknown RASH Verified 10/23/21 12:23 Antibiotics) lisinopril AdvReac Mild COUGH Verified 10/23/21 12:23 Uxitccr-ZXW-HvH Reductase AdvReac Unknown LEG CRAMPS Verified 10/23/21 12:23 Inhibitor [Ioqcand-Dyr-Bng Reductase Inhibitor] Home Medications Medication Instructions Recorded Confirmed Type allopurinol 300 mg tablet 300 mg PO QAM 12/23/18 08/22/22 History aspirin 81 mg tablet,delayed 81 mg PO QAM 12/23/18 08/22/22 History release clopidogrel 75 mg tablet 150 mg PO QAM 12/23/18 08/22/22 History iron,carbonyl 65 mg-vitamin C 125 1 tab PO Q OTHER DAY 12/23/18 08/22/22 History mg tablet,delayed release (Vitron-C) metoprolol succinate 25 mg 12.5 mg PO QAM 12/23/18 08/22/22 History tablet,extended release 24 hr torsemide 20 mg tablet 40 mg PO DAILY 12/23/18 08/23/22 History ezetimibe 10 mg tablet 10 mg PO QAM 09/11/21 08/22/22 History insulin regular hum U-500 conc 500 0 unit subcut TID 09/11/21 08/22/22 History unit/mL(3 mL) subcut pen (Humulin R U-500 (Conc) Insulin Kwikpen) isosorbide mononitrate 60 mg 60 mg PO QAM 09/11/21 08/22/22 History tablet,extended release 24 hr rosuvastatin 5 mg tablet 5 mg PO Q2D 09/11/21 08/22/22 History pantoprazole 40 mg tablet,delayed 40 mg PO DAILYBB 10/16/21 08/22/22 History release (Protonix) ursodiol 300 mg capsule 300 mg PO BID 10/16/21 08/22/22 History dulaglutide 3 mg/0.5 mL 3 mg subcut WK 08/22/22 08/22/22 History subcutaneous pen injector (Trulicity) escitalopram oxalate 10 mg tablet 10 mg PO DAILY 08/22/22 08/22/22 History lubiprostone 8 mcg capsule 8 mcg PO BIDM 08/22/22 08/22/22 History nitroglycerin 0.4 mg sublingual 0.4 mg sublingual UD PRN Chest Pain 08/22/22 08/22/22 History tablet (Nitrostat) tramadol 50 mg tablet 25 mg PO Q6H PRN Pain 08/22/22 08/22/22 History Patient History Medical History Amputation toe left foot little toe CAD (coronary artery disease) CKD (chronic kidney disease) stage 3, GFR 30-59 ml/min follows with Dr. Granado ([facility] [place]) Depression Diabetic macular edema Diabetic peripheral neuropathy Diastolic CHF DM type 2 (diabetes mellitus, type 2) DM type 2 causing neurological disease Gastroparesis GERD (gastroesophageal reflux disease) Hiatal hernia Hypertension PAD (peripheral artery disease) Poor historian Severe pulmonary arterial systolic hypertension Sleep apnea Bipap Surgical History History of angioplasty " 05/28/2011- POBA for the PDA and for the right posterolateral branch 11/16/2010- BMS to RCA; LAD with relatively small but severely diffusely diseased and heavily calcified and has an FFR that confirms hemodynamic significance of the lesion-- not intervened" History of cataract surgery bilat History of colonoscopy History of esophagogastroduodenoscopy (EGD) History of heart artery stent unsure how many, placed several yrs ago per pt History of tonsillectomy and adenoidectomy History of tooth extraction S/P CABG x 4 2010 > [place] S/P peripheral artery angioplasty " 09/13/13 left superficial femoral artery angioplasty, left popliteal artery angioplasty, left peroneal artery angioplasty, and amputation metatarsal with toe single (Left 5th toe amputation) 10/23/2013 -left popliteal artery angioplasty 01/20/2016- fem/pop artery revasc w/ angioplasty " Status post amputation of finger right first finger Family History Mother CML (chronic myelocytic leukemia) Social History Smoking Status: Never smoker Second Hand Exposure: No; Do You Dip or Chew Tobacco: No; Hx Alcohol Use: No Hx Substance Use: No Preferred Language: [place] Communication Ability: Effective Mat Puncher Required: No Beliefs That Will Affect Care: None marital status: / Current Living Situation: Alone current occupation: Retired Feels Safe at Home: Yes Assistive Devices: BiPap, Cane and Walker Review of Systems Review of Systems: All systems reviewed & are unremarkable except as noted in HPI & below Physical Exam Constitutional: well developed, well nourished (up in chair on 02nc), + obese and cooperative Eyes: EOM intact bilaterally ENMT: Ears: no external ear abnormality Nose: no external nose abnormality Mouth: + dry oral mucous membranes Neck: no nuchal rigidity Respiratory: normal respiratory effort Auscultation: + diminished lung sounds and + crackles (1/2 up BL posterior holt) Cardiovascular: Rate/Rhythm: regular rate and regular rhythm Extremities: + edema (R (2+) >>L (1+)) Gastrointestinal (Abdomen): Inspection/Auscultation: normal bowel sounds Percussion/Palpation: abdomen soft; abdomen nontender Musculoskeletal: Extremities: strength 5/5 throughout Skin: no rashes, warm and dry Neurologic: walls, fluent speech, no tremor Psychiatric: Orientation: oriented x 3 Genitourinary: no jin Results & Data ([facility]) Vital Signs (Past 12 Hours) Vital Signs Temp Pulse Resp BP BP Pulse Ox O2 Del Method 08/25/22 12:17 36.7 C 73 18 173/68 H 95 Nasal Cannula 08/25/22 08:00 36.3 C L 64 16 161/75 H 91 Room Air O2 Flow Rate 08/25/22 12:17 0.5 08/25/22 08:00 Laboratory Results 08/25/22 05:56 08/25/22 05:56 08/22 UA > cloudy 2+ protein, 2+ LE, + urobili, 4+ bacter, > 30 WBC adn epi 2 E coli species on cx Diagnostic Findings CT a/p w/ con FINDINGS: Please note that the chest CT will be reported separately. Bilateral pleural effusions are better evaluated on that exam. There is cardiomegaly with evidence for interstitial pulmonary edema. No pneumatosis, free air or portal venous gas is present. Heterogeneous enhancement of the liver is likely related to passive hepatic congestion. No hepatic lesions are identified. Mild splenomegaly is noted. The adrenal glands and pancreas are unremarkable. Moderate to marked bilateral renal cortical thinning is noted. Numerous hypodense bilateral renal lesions are too small to characterize but favor cysts. A 6 mm calculus within lower pole of the left kidney is present. There are no ureteral calculi. There is no hydronephrosis. Mild mesenteric stranding is of doubtful significance. There is no evidence for a bowel obstruction. The appendix is normal. Colonic diverticulosis is present without evidence for acute diverticulitis. There is no lymphadenopathy. Anasarca is noted. There is extensive vascular calcification within the abdominal aorta and branch vessels. Numerous gallstones within the gallbladder present. Gallbladder is distended. There is no adjacent infiltration. IMPRESSION: 1. Cholelithiasis and gallbladder distention. No pericholecystic infiltration to strongly suggest acute cholecystitis. However, if right upper quadrant pain, ultrasound is recommended. 2. Colonic diverticulosis. No evidence for acute diverticulitis. 3. Heterogeneous enhancement of the liver suggestive of passive hepatic congestion. 4. Bilateral pleural effusions, cardiomegaly and interstitial pulmonary edema better depicted on the chest CT. This will be reported separately. 5. 6 mm left renal calculus. No ureteral calculi or hydronephrosis. Moderate to marked bilateral renal cortical thinning. CT chest w/ con Thyroid: Imaged portions of the thyroid gland are normal in size and attenuation. Thoracic aorta: There is atherosclerotic calcification of the thoracic aorta, which is normal in caliber and demonstrates standard 3-vessel arch anatomy. No dissection is seen. Pulmonary vasculature: The pulmonary trunk is dilated, measuring 4 cm in diameter. This suggests pulmonary artery hypertension. There are no filling defects identified in main, lobar, or segmental pulmonary branches to suggest pu lmonary embolus. Evaluation of the subsegmental branches is degraded by motion artifact. Heart: The patient is status post midline sternotomy. The heart is enlarge and without pericardial effusion. The coronary arteries and mitral annulus are densely calcified. Lungs and pleural spaces: Evaluation of the lung parenchyma is degraded by motion artifact. Intralobular septal thickening is seen throughout both lungs again suggests congestive failure. The trachea and central airways are clear. There is no airspace consolidation typical for pneumonia. There are small to moderate pleural effusions with dependent atelectasis. Mediastinum: Subcentimeter mediastinal lymph nodes are not pathologically e nlarged by size criteria. Adela: Clear. Axillae: There is no axillary lymphadenopathy. Upper abdomen: There are calcified hepatic granulomas. A small hiatal hernia is noted. Reflux of contrast into the IVC and hepatic veins suggest cardiac dysfunction. Skeletal structures: The skeletal structures are osteopenic. No lytic or blastic bony lesions are seen. Degenerative change is seen throughout the thoracic spine. IMPRESSION: 1. There is no evidence of pulmonary embolus in the main, lobar, or segmental pulmonary arteries. 2. Cardiomegaly with evidence of congestive failure. 3. Small to moderate pleural effusions with dependent atelectasis.
[2022-08-26] MEDS: ENOXAPARIN INJ 40 MG/0.4 ML SYR SQ SCH ×2 (05:47→17:29)
[2022-08-26] MEDS: PANTOprazole 40 MG TAB PO SCH (05:47)
[2022-08-26 06:39] LABS: Hematocrit (blood only) 29.3 % (34.1-44.9); Hemoglobin 9.7 g/dl (12.0-16.0); Mean Corpuscular Hemoglobin 29.8 pg (25.0-34.0); Mean Corpuscular Hgb Conc 33.1 g/dL (32.0-36.0); Mean Corpuscular Volume 90.2 fL (80.0-100.0); Mean Platelet Volume 10.5 fL (9.4-12.3); Platelet Count 209 K/uL (130-400); RDW Coefficient of Variation 16.4 % (11.5-14.5); RDW Standard Deviation 52.9 fL (36.4-46.3); Red Blood Count 3.25 M/uL (3.93-5.22); White Blood Count 5.41 K/ul (4.8-10.8)
[2022-08-26 06:59] LABS: BUN Creatinine Ratio 36.7 (10-20); Calcium 9.2 mg/dl (8.5-10.1); Creatinine Clr Calc Pharmacy 38.9 ml/min; Est GFR (African American) 32.2 ml/min; Est GFR (Non-African American) 27.8 ml/min
[2022-08-26] MEDS: CEFDINIR 300 MG CAP PO SCH ×2 (08:07→20:45)
[2022-08-26] MEDS: ursodioL 300 MG CAP PO SCH ×2 (08:07→20:45)
[2022-08-26] MEDS: ESCITALOPRAM OXALATE 10 MG TAB PO SCH (08:08)
[2022-08-26] MEDS: CLOPIDOGREL BISULFATE 75 MG TAB PO SCH (08:08)
[2022-08-26] MEDS: ASPIRIN 81 MG ECTAB PO SCH (08:08)
[2022-08-26] MEDS: allopurinoL 300 MG TAB PO SCH (08:08)
[2022-08-26] MEDS: LUBIPROSTONE 8 MCG CAP PO SCH ×2 (08:08→17:29)
[2022-08-26] MEDS: EZETIMIBE 10 MG TABLET PO SCH (08:09)
[2022-08-26] MEDS: ISOSORBIDE MONO EXTENDED REL 60 MG TABCR PO SCH (08:09)
[2022-08-26] MEDS: INSULIN ASPART PER UNIT SC SCH ×4 (08:23→20:44)
--- NOTE | 2022-08-26 08:42 | Nephrology Progress Note ---
Date of Service August 26, 2022 Assessment & Plan (1) Acute on chronic renal failure: Plan: nonoliguric improving stage 1 acute on chronic renal failure with contrast induced nephropathy certainly a possibility, though heightened by obligate diuretic use after contrast administration. baseline CKD 3B w/ at least 1 gm proteinuria and creatinine usually mid ones; was better than baseline on arrival, likely d/t very poor po in days prior to presentation. baseline creatinine 1.5, presenting creatinine 08/22 1.2, peak creatinine 2.0 08/25. mild volume overload and chemistries acceptable. no indication for urgent HD or for discussion of it. -cont to hold diuretics -repeat UACM ordered yesterday/awaited -too late at this point to administer IVF to slow contrast induced nephropathy if that is what's happening here > no IVF for now -daily bmp -would continue to hold diuretics for now > hope to resume tomorrow 08/27 -continue low sodium diet and 1.5L fluid limit -elevate legs as much as possible -recommend PT eval so that we can start getting daily standing weights Admission and Anticipated Discharge Date Admission Date: August 23, 2022 Subjective seen on rounds; feeling improved or at least stable in terms of breathing, edema though wt uptrend continues; no voiding concerns; ambulating w/in her room Review of Systems Review of Systems: All systems reviewed & are unremarkable except as noted in Subjective Physical Exam Constitutional: well developed, well nourished (up on side of bed w/ 02nc off), + obese and cooperative Eyes: EOM intact bilaterally ENMT: Ears: no external ear abnormality Nose: no external nose abnormality Mouth: + dry oral mucous membranes Neck: no nuchal rigidity Respiratory: normal respiratory effort Auscultation: + diminished lung sounds and + crackles (1/3 up BL posterior holt) Cardiovascular: Rate/Rhythm: regular rate and regular rhythm Extremities: + edema (R (2+) >>L (1+)) Gastrointestinal (Abdomen): Inspection/Auscultation: normal bowel sounds Percussion/Palpation: abdomen soft; abdomen nontender Musculoskeletal: Extremities: strength 5/5 throughout Skin: no rashes, warm and dry Psychiatric: Orientation: oriented x 3 Results & Data ([facility]) Vital Signs (Past 12 Hours) Vital Signs Temp Pulse Pulse Resp BP Pulse Ox O2 Del Method 08/26/22 08:00 36.6 C 76 16 175/73 H 96 Room Air, Nasal Cannula 08/26/22 07:41 59 L 08/26/22 03:06 36.4 C L 56 L 16 146/69 H 96 BiPAP 08/25/22 23:06 36.4 C L 57 L 18 144/72 H 96 BiPAP 08/26/22 00:58 54 L 08/26/22 00:35 Nasal Cannula 08/25/22 20:42 36.4 C L 63 18 174/74 H 95 Nasal Cannula O2 Flow Rate 08/26/22 08:00 1 08/26/22 07:41 08/26/22 03:06 08/25/22 23:06 08/26/22 00:58 08/26/22 00:35 2 08/25/22 20:42 1.0 Laboratory Results 08/26/22 06:06 08/26/22 06:06
--- NOTE | 2022-08-26 11:53 | Cardiology Progress Note ---
Date of Service August 26, 2022 Assessment & Plan (1) Acute on chronic diastolic CHF (congestive heart failure): (2) CKD (chronic kidney disease), stage IV: (3) Hypertension: (4) Diabetic peripheral neuropathy: (5) Gastroparesis: (6) Contrast-induced nephropathy: Plan Patient is an extremely complex 76-year-old female with longstanding diabetic coronary and peripheral vascular disease, CKD stage IIIIV with past contrast nephropathy and chronic diastolic heart failure who presents with signs and symptoms of increasing dyspnea and worsening diastolic heart failure. She is symptomatically improved since administration of oxygen and IV furosemide Relative bradycardia observed as well as hypertension issues are addressed as follows 1. Acute on chronic diastolic heart failure, mild pulmonary edema on chest x- ray with hypoxia. Hypoxia improved with oxygen supplementation and IV furosemide. Patient with several week history of worsening dyspnea with exertion, increasing lower extremity edema. We will cautiously continue IV furosemide following renal function closely given recent contrast administration. Patient previously poorly tolerant of [place] and ARB 2. Chronic ischemic and peripheral vascular disease with mild elevation of troponin: Presentation does not suggest acute coronary syndrome however echocardiogram will be reviewed given symptomatic complaints of several weeks in duration. No acute changes on EKG however bifascicular block present. Patient with very poor coronary surgical targets, 2010 3. Hypertension: We will add topical nitrates holding isosorbide. Past orthostatic hypotension present due to diabetic neuropathy 4. CKD stage III4: Plan follow renal function daily with diuresis. No further contrast 5. Bifascicular heart block with relative bradycardia: Continue telemetry, hold metoprolol 6. Chronic gastroparesis with recent worsening of symptoms 7. Lower extremity edema with wound ulcerations, recurrent cellulitis 08/26/2022 Patient examines at near euvolemic status. Renal function appears to stabilized will continue to hold diuretics ultimate goal resume oral diuretic in a.m. Suspect patient would benefit from chronic oxygen supplementation We will increase isosorbide mononitrate for further blood pressure control Admission and Anticipated Discharge Date Admission Date: August 23, 2022 Subjective Patient seen and examined, chart, medications, telemetry reviewed. Patient comfortable this morning less abdominal bloating. Lower extremity edema improved with chronic stasis edema right lower extremity. Renal function improved this morning Blood pressure still elevated at time Review of Systems Review of Systems: All systems reviewed & are unremarkable except as noted in Subjective Physical Exam Constitutional: + morbidly obese; no acute distress Eyes: PERRL, conjunctivae normal, anicteric sclerae ENMT: external ear and nose normal, oropharynx normal Neck: trachea midline, no thyromegaly Respiratory: Auscultation: + diminished lung sounds and + rales Cardiovascular: Rate/Rhythm: regular rate, regular rhythm and + bradycardic Heart Sounds: no gallop Extremities: + edema (1+ left, 2+ right with chronic stasis change) Gastrointestinal (Abdomen): Percussion/Palpation: abdomen soft; abdomen nontender Psychiatric: A+Ox3, euthymic affect Results & Data ([facility]) Vital Signs (Past 12 Hours) Vital Signs Temp Pulse Pulse Resp BP Pulse Ox O2 Del Method 08/26/22 10:49 36.6 C 59 L 20 168/69 H 97 Nasal Cannula 08/26/22 08:00 36.6 C 76 16 175/73 H 96 Room Air, Nasal Cannula 08/26/22 07:41 59 L 08/26/22 03:06 36.4 C L 56 L 16 146/69 H 96 BiPAP 08/26/22 00:58 54 L 08/26/22 00:35 Nasal Cannula O2 Flow Rate 08/26/22 10:49 2 08/26/22 08:00 1 08/26/22 07:41 08/26/22 03:06 08/26/22 00:58 08/26/22 00:35 2
[2022-08-26] MEDS ORDERED: ISOSORBIDE MONO EXTENDED REL 60 MG TABCR PO ONE (11:54)
--- NOTE | 2022-08-26 16:32 | Hospitalist Progress Note ---
Date of Service August 26, 2022 Assessment & Plan (1) Acute on chronic diastolic CHF (congestive heart failure): Plan: per Dr. Arroyo's notes with addendum: Clinically worsening dyspnea on exertion with chest discomfort during recovery from exercise x 2 weeks. Pulmonary edema on CXR, echo from overnight reveals EF 60-65% with grade II diastolic dysfunction. Improved on intravenous furosemide therapy. Hypoxia still present. Declines jin at this time. Strict I/Os. Low salt diet. Hold home torsemide and cont intravenous furosemide. Topical nitrates changed back to Imdur. 08/25 on 2 L NC crea increasing, 1.9 today Lasix held for now monitor renal function 08/26 Creatinine improved to 1.6 Plan to resume Lasix tomorrow if renal function continues to improve Monitor closely (2) Hypertension: Plan: Imdur increased Continue metoprolol (3) Leg wound, right: Plan: chronic, patient reports picking at the wound which is chronic. No overt cellulitis at this time. Multiple trauma wounds are scabbed over. Patient doesn't go to the wound clinic regularly. Will consult WOCN and will be encouraged not to pick at these wounds. wound care notes reviewed Wounds seems to be healing well Monitor closely E. coli UTI Continue cefdinir twice daily (4) DM type 2 (diabetes mellitus, type 2): Plan: A1C 7.1. Trulicity on hold, cont with basal/bolus insulin during admission. (5) CAD (coronary artery disease): Plan: chronic, stable. Mildly elevated troponin (18.5, 16.3, 15.4) with no significant rise likely related to demand ischemia in setting of heart failure and chronic kidney disease. EKG with no ST elevation. (6) Morbid obesity: Plan: Lifestyle modifications recommended. (7) Esophageal reflux: Plan: chronic, controlled, cont PPI per home regimen. Pepcid for any further breakthrough. (8) CKD (chronic kidney disease), stage III: Plan: Acute Kidney Injury on CKD 3 possible contrast induced nephropathy in the setting of IV Lasix management per above (9) DVT prophylaxis: Plan: Lovenox Full Code Disposition PT/OT evaluation Admission and Anticipated Discharge Date Admission Date: August 23, 2022 Subjective ff up for acute CHF diastolic, etc. Seen after doing physical therapy in the room Was slightly short of breath, 91% on 2 L after PT States that she feels okay overall today Has some cough productive of clear sputum Mild neck discomfort No other symptoms Review of Systems Review of Systems: all noted and negative except for above Physical Exam Physical Exam: General- oriented x 3, not in distress, speaks in sentences with no effort or accessory muscle use Eyes- anicteric Neck- no JVD Lungs-mild rales at the bases, no wheeze Heart- normal rate, regular rhythm; no murmurs Abdomen- normal bowel sounds, nondistended, soft, nontender Extremities-grade 1-2 lower extremity edema edema, no calf tenderness (+) eschars on the R LE-no tenderness/warmth, mild erythema Neuro- alert, oriented x 3; no gross focal neurologic deficits Skin- warm & dry Results & Data Results & Data ([facility]) Vital Signs (Past 12 Hours) Vital Signs Temp Pulse Pulse Resp BP Pulse Ox O2 Del Method 08/26/22 16:09 36.3 C L 60 18 150/71 H 97 Nasal Cannula 08/26/22 15:52 91 08/26/22 07:30 Nasal Cannula 08/26/22 10:49 36.6 C 59 L 20 168/69 H 97 Nasal Cannula 08/26/22 08:00 36.6 C 76 16 175/73 H 96 Room Air, Nasal Cannula 08/26/22 07:41 59 L O2 Flow Rate 08/26/22 16:09 1.5 08/26/22 15:52 08/26/22 07:30 1 08/26/22 10:49 2 08/26/22 08:00 1 08/26/22 07:41 all noted and reviewed including below (1) Leg wound, right Encounter type: initial encounter Qualified Code(s): S81.801A - Unspecified open wound, right lower leg, initial encounter
[2022-08-26 17:03] LABS: Appearance Urine Clear (Clear); Bacteria Urine Automated Negative (Negative); Bilirubin Urine Negative (Negative); Blood Urine Negative (Negative); Color Urine Yellow; Epithelial Cell Urine Auto >30 /lpf (0-5); Glucose Urine UA Negative (Negative); Ketones Urine Negative (Negative); Leukocyte Esterase Urine Negative (Negative); Nitrite Urine Negative (Negative); Protein Urine 1+ (Negative); RBC Urine Automated 0-4 /hpf (0-4); Urobilinogen Urine Negative (Negative); pH Urine 5.5 (4.5-7.5)
[2022-08-27] MEDS: ENOXAPARIN INJ 40 MG/0.4 ML SYR SQ SCH ×2 (05:25→17:34)
[2022-08-27] MEDS: PANTOprazole 40 MG TAB PO SCH (05:25)
[2022-08-27] MEDS: LUBIPROSTONE 8 MCG CAP PO SCH ×2 (08:38→17:33)
--- NOTE | 2022-08-27 08:38 | Nephrology Progress Note ---
Date of Service August 27, 2022 Assessment & Plan (1) Acute on chronic renal failure: Plan: nonoliguric improving as of yesterday stage 1 acute on chronic renal failure with contrast induced nephropathy certainly a possibility, though heightened by obligate diuretic use after contrast administration. baseline CKD 3B w/ at least 1 gm proteinuria and creatinine usually mid ones; was better than baseline on arrival, likely d/t very poor po in days prior to presentation. baseline creatinine 1.5, presenting creatinine 08/22 1.2, peak creatinine 2.0 08/25. mild volume overload and chemistries acceptable. no indication for urgent HD or for discussion of it. UA bland but for known proteinuria. -based on labs this am , resumed low dose IV lasix >> 20 mg IV bid17 plus 20 mEq/day K -too late at this point to administer IVF to slow contrast induced nephropathy if that is what's happening here > no IVF for now -daily bmp >>if labs ok on 08/28, resume OP torsemide and stop lasix -continue low sodium diet and 1.5L fluid limit -elevate legs as much as possible -continue daily standing weights Admission and Anticipated Discharge Date Admission Date: August 23, 2022 Subjective seen on rounds this am 1030 approx. ambulating w/ asst for short distances; improving breathing, edema or at least not worse Review of Systems Review of Systems: All systems reviewed & are unremarkable except as noted in Subjective Physical Exam Constitutional: well developed, well nourished (up on side of bed w/ 02nc ), + obese and cooperative Eyes: EOM intact bilaterally ENMT: Ears: no external ear abnormality Nose: no external nose abnormality Mouth: + dry oral mucous membranes Neck: no nuchal rigidity Respiratory: normal respiratory effort Auscultation: + diminished lung sounds Cardiovascular: Rate/Rhythm: regular rate and regular rhythm Extremities: + edema (R (2+) >>L (1+)) Gastrointestinal (Abdomen): Inspection/Auscultation: normal bowel sounds Percussion/Palpation: abdomen soft; abdomen nontender Musculoskeletal: Extremities: strength 5/5 throughout Skin: no rashes, warm and dry Psychiatric: Orientation: oriented x 3 Results & Data ([facility]) Vital Signs (Past 12 Hours) Vital Signs Temp Pulse Pulse Resp BP Pulse Ox O2 Del Method 08/27/22 07:37 36.5 C 62 18 159/68 H 95 Room Air 08/27/22 07:21 60 08/27/22 03:10 36.5 C 61 18 155/68 H 96 BiPAP 08/27/22 00:35 55 L 08/26/22 23:58 36.3 C L 60 16 127/69 97 Nasal Cannula O2 Flow Rate 08/27/22 07:37 08/27/22 07:21 08/27/22 03:10 08/27/22 00:35 08/26/22 23:58 1.5 Laboratory Results 08/26/22 06:06 08/27/22 07:40
[2022-08-27] MEDS: ROSUVASTATIN CALCIUM 5 MG TAB PO SCH (08:39)
[2022-08-27] MEDS: ASPIRIN 81 MG ECTAB PO SCH (08:39)
[2022-08-27] MEDS: CLOPIDOGREL BISULFATE 75 MG TAB PO SCH (08:39)
[2022-08-27] MEDS: EZETIMIBE 10 MG TABLET PO SCH (08:39)
[2022-08-27] MEDS: FERROUS SULFATE 325 MG TAB PO SCH (08:40)
[2022-08-27] MEDS: allopurinoL 300 MG TAB PO SCH (08:40)
[2022-08-27] MEDS: ASCORBIC ACID 500 MG TAB PO SCH (08:40)
[2022-08-27] MEDS: ursodioL 300 MG CAP PO SCH ×2 (08:41→20:50)
[2022-08-27] MEDS: ISOSORBIDE MONO EXTENDED REL 60 MG TABCR PO SCH (08:41)
[2022-08-27] MEDS: CEFDINIR 300 MG CAP PO SCH ×2 (08:41→20:50)
[2022-08-27] MEDS: ESCITALOPRAM OXALATE 10 MG TAB PO SCH (08:42)
[2022-08-27 09:00] LABS: BUN Creatinine Ratio 38.3 (10-20); Calcium 9.6 mg/dl (8.5-10.1); Creatinine Clr Calc Pharmacy 41.1 ml/min; Est GFR (African American) 34.6 ml/min; Est GFR (Non-African American) 29.8 ml/min; Potassium 4.1 mmol/L (3.5-5.1)
[2022-08-27] MEDS: INSULIN ASPART PER UNIT SC SCH ×4 (09:24→20:50)
[2022-08-27] MEDS: FUROSEMIDE INJ 20 MG/2 ML VIAL IV SCH ×2 (10:13→17:34)
[2022-08-27] MEDS: POTASSIUM CHLORIDE CRTAB 20 MEQ TABCR PO SCH (10:13)
--- NOTE | 2022-08-27 10:16 | Cardiology Progress Note ---
Date of Service August 27, 2022 Assessment & Plan (1) Acute on chronic diastolic CHF (congestive heart failure): (2) CKD (chronic kidney disease), stage IV: (3) Hypertension: (4) Diabetic peripheral neuropathy: (5) Gastroparesis: (6) Contrast-induced nephropathy: Plan Patient is an extremely complex 76-year-old female with longstanding diabetic coronary and peripheral vascular disease, CKD stage IIIIV with past contrast nephropathy and chronic diastolic heart failure who presents with signs and symptoms of increasing dyspnea and worsening diastolic heart failure. She is symptomatically improved since administration of oxygen and IV furosemide Relative bradycardia observed as well as hypertension issues are addressed as follows 1. Acute on chronic diastolic heart failure, mild pulmonary edema on chest x- ray with hypoxia. Hypoxia improved with oxygen supplementation and IV furosemide. Patient with several week history of worsening dyspnea with exertion, increasing lower extremity edema. We will cautiously continue IV furosemide following renal function closely given recent contrast administration. Patient previously poorly tolerant of [place] and ARB 2. Chronic ischemic and peripheral vascular disease with mild elevation of troponin: Presentation does not suggest acute coronary syndrome however echocardiogram will be reviewed given symptomatic complaints of several weeks in duration. No acute changes on EKG however bifascicular block present. Patient with very poor coronary surgical targets, 2010 3. Hypertension: We will add topical nitrates holding isosorbide. Past orthostatic hypotension present due to diabetic neuropathy 4. CKD stage III4: Plan follow renal function daily with diuresis. No further contrast 5. Bifascicular heart block with relative bradycardia: Continue telemetry, hold metoprolol 6. Chronic gastroparesis with recent worsening of symptoms 7. Lower extremity edema with wound ulcerations, recurrent cellulitis 08/27/2022 Renal function appears to stabilized. If okay with nephrology would resume torsemide at prehospital dosing Suspect patient would benefit from chronic oxygen supplementation in addition to CPAP at night Would not resume metoprolol on discharge Patient requesting rehab facility Admission and Anticipated Discharge Date Admission Date: August 23, 2022 Subjective Patient seen and examined, chart, medications and telemetry reviewed. No acute complaints this morning does feel legs are slightly more edematous. Has been wearing oxygen while in hospital. No chest pains, tachypalpitations. Telemetry reveals sinus with occasional atrial ectopic beats Physical Exam Constitutional: + morbidly obese; no acute distress Eyes: PERRL, conjunctivae normal, anicteric sclerae ENMT: external ear and nose normal, oropharynx normal Neck: trachea midline, no thyromegaly Respiratory: Auscultation: + diminished lung sounds and + rales Cardiovascular: Rate/Rhythm: regular rate, regular rhythm and + bradycardic Heart Sounds: no gallop Extremities: + edema (1+ left, 2+ right with chronic stasis change) Gastrointestinal (Abdomen): Percussion/Palpation: abdomen soft; abdomen nontender Psychiatric: A+Ox3, euthymic affect Results & Data ([facility]) Vital Signs (Past 12 Hours) Vital Signs Temp Pulse Pulse Resp BP Pulse Ox O2 Del Method 08/27/22 07:37 36.5 C 62 18 159/68 H 95 Room Air 08/27/22 07:21 60 08/27/22 03:10 36.5 C 61 18 155/68 H 96 BiPAP 08/27/22 00:35 55 L 08/26/22 23:58 36.3 C L 60 16 127/69 97 Nasal Cannula O2 Flow Rate 08/27/22 07:37 08/27/22 07:21 08/27/22 03:10 08/27/22 00:35 08/26/22 23:58 1.5 Laboratory Results Laboratory Results - last 24 hr 08/26/22 08/26/22 08/26/22 11:23 16:25 16:44 Sodium Potassium Chloride Carbon Dioxide Anion Gap BUN Creatinine Est Cr Clr Drug Dosing Est GFR ( Amer) Est GFR (Non-Af Amer) BUN/Creatinine Ratio Glucose POC Glucose 212 H 118 H Calcium Urine Color Yellow Urine Appearance Clear Urine pH 5.5 Ur Specific [place] 1.010 Urine Protein 1+ H Urine Glucose (UA) Negative Urine Ketones Negative Urine Blood Negative Urine Nitrite Negative Urine Bilirubin Negative Urine Urobilinogen Negative Ur Leukocyte Esterase Negative Urine WBC (Auto) 1-5 Urine RBC (Auto) 0-4 U Hyaline Cast (Auto) 1-5 U Epithel Cells (Auto) >30 H Urine Bacteria (Auto) Negative 08/26/22 08/27/22 08/27/22 20:32 07:32 07:40 Sodium 138 Potassium 4.1 Chloride 104 Carbon Dioxide 29 Anion Gap 5 BUN 64 H Creatinine 1.67 H Est Cr Clr Drug Dosing 41.1 Est GFR ( Amer) 34.6 Est GFR (Non-Af Amer) 29.8 BUN/Creatinine Ratio 38.3 H Glucose 182 H POC Glucose 145 H 204 H Calcium 9.6 Urine Color Urine Appearance Urine pH Ur Specific [place] Urine Protein Urine Glucose (UA) Urine Ketones Urine Blood Urine Nitrite Urine Bilirubin Urine Urobilinogen Ur Leukocyte Esterase Urine WBC (Auto) Urine RBC (Auto) U Hyaline Cast (Auto) U Epithel Cells (Auto) Urine Bacteria (Auto)
--- NOTE | 2022-08-27 17:34 | Hospitalist Progress Note ---
Date of Service August 27, 2022 Assessment & Plan (1) Acute on chronic diastolic CHF (congestive heart failure): Plan: per Dr. Arroyo's notes with addendum: Clinically worsening dyspnea on exertion with chest discomfort during recovery from exercise x 2 weeks. Pulmonary edema on CXR, echo from overnight reveals EF 60-65% with grade II diastolic dysfunction. Improved on intravenous furosemide therapy. Hypoxia still present. Declines jin at this time. Strict I/Os. Low salt diet. Hold home torsemide and cont intravenous furosemide. Topical nitrates changed back to Imdur. 08/25 on 2 L NC crea increasing, 1.9 today Lasix held for now monitor renal function 08/26 Creatinine improved to 1.6 Plan to resume Lasix tomorrow if renal function continues to improve Monitor closely 08/27 Creatinine remains at 1.6 Lasix resumed, 20 mg IV twice daily (2) Hypertension: Plan: Imdur increased Continue metoprolol (3) Leg wound, right: Plan: chronic, patient reports picking at the wound which is chronic. No overt cellulitis at this time. Multiple trauma wounds are scabbed over. Patient doesn't go to the wound clinic regularly. Will consult WOCN and will be encouraged not to pick at these wounds. wound care notes reviewed Wounds seems to be healing well Monitor closely E. coli UTI Continue cefdinir twice daily (4) DM type 2 (diabetes mellitus, type 2): Plan: A1C 7.1. Trulicity on hold, cont with basal/bolus insulin during admission. (5) CAD (coronary artery disease): Plan: chronic, stable. Mildly elevated troponin (18.5, 16.3, 15.4) with no significant rise likely related to demand ischemia in setting of heart failure and chronic kidney disease. EKG with no ST elevation. (6) Morbid obesity: Plan: Lifestyle modifications recommended. (7) Esophageal reflux: Plan: chronic, controlled, cont PPI per home regimen. Pepcid for any further breakthrough. (8) CKD (chronic kidney disease), stage III: Plan: Acute Kidney Injury on CKD 3 possible contrast induced nephropathy in the setting of IV Lasix management per above (9) DVT prophylaxis: Plan: Lovenox Full Code Disposition PT/OT evaluation Admission and Anticipated Discharge Date Admission Date: August 23, 2022 Subjective Follow-up for CHF exacerbation, etc. Seen resting in bed, comfortable, no distress On 2 L of oxygen via nasal cannula States she had mild dyspnea exertion today Has some mild discomfort No other symptoms Review of Systems Review of Systems: all noted and negative except for above Physical Exam Physical Exam: General- oriented x 3, not in distress, speaks in sentences with no effort or accessory muscle use Eyes- anicteric Neck- no JVD Lungs-mild rales bilateral bases, no wheezing Heart- normal rate, regular rhythm; no murmurs Abdomen- normal bowel sounds, nondistended, soft, nontender Extremities-grade 1 lower extremity edema, no calf tenderness Neuro- alert, oriented x 3; no gross focal neurologic deficits Skin- warm & dry Results & Data Results & Data ([facility]) Vital Signs (Past 12 Hours) Vital Signs Temp Pulse Pulse Resp BP Pulse Ox O2 Del Method 08/27/22 15:57 36.4 C L 62 18 164/68 H 96 Nasal Cannula 08/27/22 15:00 61 08/27/22 12:33 36.5 C 61 16 143/68 H 99 Nasal Cannula 08/27/22 12:12 Nasal Cannula 08/27/22 07:37 36.5 C 62 18 159/68 H 95 Room Air 08/27/22 07:21 60 O2 Flow Rate 08/27/22 15:57 1 08/27/22 15:00 08/27/22 12:33 1 08/27/22 12:12 1 08/27/22 07:37 08/27/22 07:21 all noted and reviewed including below (1) Leg wound, right Encounter type: initial encounter Qualified Code(s): S81.801A - Unspecified open wound, right lower leg, initial encounter
[2022-08-28] MEDS: PANTOprazole 40 MG TAB PO SCH (05:33)
[2022-08-28] MEDS: ENOXAPARIN INJ 40 MG/0.4 ML SYR SQ SCH ×2 (05:34→17:12)
[2022-08-28 07:38] LABS: BUN Creatinine Ratio 36.6 (10-20); Calcium 9.5 mg/dl (8.5-10.1); Creatinine Clr Calc Pharmacy 39.9 ml/min; Est GFR (African American) 33.4 ml/min; Est GFR (Non-African American) 28.8 ml/min; Potassium 4.3 mmol/L (3.5-5.1)
[2022-08-28] MEDS: LUBIPROSTONE 8 MCG CAP PO SCH ×2 (08:08→17:12)
[2022-08-28] MEDS: CEFDINIR 300 MG CAP PO SCH ×2 (08:08→20:26)
[2022-08-28] MEDS: CLOPIDOGREL BISULFATE 75 MG TAB PO SCH (08:08)
[2022-08-28] MEDS: ISOSORBIDE MONO EXTENDED REL 60 MG TABCR PO SCH (08:08)
[2022-08-28] MEDS: ursodioL 300 MG CAP PO SCH ×2 (08:08→20:26)
[2022-08-28] MEDS: allopurinoL 300 MG TAB PO SCH (08:08)
[2022-08-28] MEDS: EZETIMIBE 10 MG TABLET PO SCH (08:09)
[2022-08-28] MEDS: FUROSEMIDE INJ 20 MG/2 ML VIAL IV SCH (08:09)
[2022-08-28] MEDS: ASPIRIN 81 MG ECTAB PO SCH (08:09)
[2022-08-28] MEDS: POTASSIUM CHLORIDE CRTAB 20 MEQ TABCR PO SCH (08:09)
[2022-08-28] MEDS: ESCITALOPRAM OXALATE 10 MG TAB PO SCH (08:09)
[2022-08-28] MEDS: INSULIN ASPART PER UNIT SC SCH ×4 (09:01→20:25)
[2022-08-28] MEDS ORDERED: ARTIFICIAL TEARS OP PRN (09:28)
--- NOTE | 2022-08-28 09:44 | Nephrology Progress Note ---
Date of Service August 28, 2022 Assessment & Plan Admission and Anticipated Discharge Date Admission Date: August 23, 2022 Subjective Assessment & Plan (1) Acute on chronic renal failure: Plan: Mostly CKD with frequent fluctuation in creatinine because of varying hydration status. Some contrast induced nephropathy also. baseline CKD 3B w/ at least 1 gm proteinuria and creatinine usually mid ones. was better than baseline on arrival from fluid retention and poor po intake. baseline creatinine 1.5, presenting creatinine 08/22 1.2, peak creatinine 2.0 08/25. Will resume OP torsemide and stop lasix -continue low sodium diet and 1.5L fluid limit -elevate legs as much as possible -continue daily standing weights Given that patient came in with SOB from CHF/Pulm edema/Pl effusion--i think she needs a slightly higher dose of torsemide going forward to avoid Similar admission. Raise torsemide to 60 daily. Subjective seen on rounds this am 1030 approx. ambulating w/ asst for short distances; improving breathing, edema or at least not worse Review of Systems Review of Systems: All systems reviewed & are unremarkable except as noted in Subjective Physical Exam Constitutional: well developed, well nourished (up on side of bed w/ 02nc ), + obese and cooperative Eyes: EOM intact bilaterally ENMT: Ears: no external ear abnormality Nose: no external nose abnormality Mouth: + dry oral mucous membranes Neck: no nuchal rigidity Respiratory: normal respiratory effort Auscultation: + diminished lung sounds Cardiovascular: Rate/Rhythm: regular rate and regular rhythm Extremities: + edema (R (2+) >>L (1+)) Gastrointestinal (Abdomen): Inspection/Auscultation: normal bowel sounds Percussion/Palpation: abdomen soft; abdomen nontender Musculoskeletal: Extremities: strength 5/5 throughout Skin: no rashes, warm and dry Psychiatric: Orientation: oriented x 3 Results & Data ([facility]) Vital Signs (Past 12 Hours) Vital Signs Temp Pulse Pulse Resp BP BP Pulse Ox 08/28/22 07:21 36.7 C 60 19 157/62 H 93 08/28/22 04:57 36.8 C 63 16 151/68 H 93 08/27/22 22:16 48 L 08/27/22 23:59 36.6 C 53 L 20 116/51 L 96 O2 Del Method 08/28/22 07:21 Room Air 08/28/22 04:57 CPAP 12/02/22 22:16 08/27/22 23:59 CPAP
[2022-08-28] MEDS ORDERED: TORSEMIDE 10 MG TAB PO SCH (09:45)
--- NOTE | 2022-08-28 10:32 | XRay Report ---
SINGLE VIEW CHEST CLINICAL HISTORY: Cough FINDINGS: An AP, portable, upright chest radiograph is compared to study dated 09/11/2021 and correla marcy with chest CT dated 08/22/2022. The patient is status post midline sternotomy. The heart is enlar ged noting atherosclerotic calcification of the thoracic aorta. There is mild pulmonary vascular lorrie estion. There is a left pleural effusion bibasilar opacities. No pneumothorax is seen. The skeletal s tructures are osteopenic. The bony thorax is grossly intact. IMPRESSION: 1. Cardiomegaly with pulmonary vascular congestion. 2. Small left pleural effusion and dependent opacities. This likely represents atelectasis and clinic al correlation will be required. ACT 112: Negative or not required by law. Electronically signed by: Marquis Babin M.D. 08/28/2022 10:30 AM
--- NOTE | 2022-08-28 13:44 | Cardiology Progress Note ---
Date of Service August 28, 2022 Assessment & Plan (1) Acute on chronic diastolic CHF (congestive heart failure): (2) CKD (chronic kidney disease), stage IV: (3) Hypertension: (4) Diabetic peripheral neuropathy: (5) Gastroparesis: (6) Contrast-induced nephropathy: Plan Patient is an extremely complex 76-year-old female with longstanding diabetic coronary and peripheral vascular disease, CKD stage IIIIV with past contrast nephropathy and chronic diastolic heart failure who presents with signs and symptoms of increasing dyspnea and worsening diastolic heart failure. She is symptomatically improved since administration of oxygen and IV furosemide Relative bradycardia observed as well as hypertension issues are addressed as follows 1. Acute on chronic diastolic heart failure, mild pulmonary edema on chest x- ray with hypoxia. Hypoxia improved with oxygen supplementation and IV furosemide. Patient with several week history of worsening dyspnea with exertion, increasing lower extremity edema. We will cautiously continue IV furosemide following renal function closely given recent contrast administration. Patient previously poorly tolerant of [place] and ARB 2. Chronic ischemic and peripheral vascular disease with mild elevation of troponin: Presentation does not suggest acute coronary syndrome however echocardiogram will be reviewed given symptomatic complaints of several weeks in duration. No acute changes on EKG however bifascicular block present. Patient with very poor coronary surgical targets, 2010 3. Hypertension: We will add topical nitrates holding isosorbide. Past orthostatic hypotension present due to diabetic neuropathy 4. CKD stage III4: Plan follow renal function daily with diuresis. No further contrast 5. Bifascicular heart block with relative bradycardia: Continue telemetry, hold metoprolol 6. Chronic gastroparesis with recent worsening of symptoms 7. Lower extremity edema with wound ulcerations, recurrent cellulitis 08/28/2022 Lower extremity edema now once again reaccumulating. Torsemide resumed at 60 mg p.o. daily Continue oxygen supplementation with CPAP Admission and Anticipated Discharge Date Admission Date: August 23, 2022 Subjective Patient seen and examined, chart, medications, telemetry reviewed. No bradycardia arrhythmias on telemetry No worsening dyspnea. No dizziness or lightheadedness. Lower extremity edema mildly increased Review of Systems Review of Systems: All systems reviewed & are unremarkable except as noted in Subjective Physical Exam Constitutional: + morbidly obese; no acute distress Eyes: PERRL, conjunctivae normal, anicteric sclerae ENMT: external ear and nose normal, oropharynx normal Neck: trachea midline, no thyromegaly Respiratory: Auscultation: + diminished lung sounds and + rales Cardiovascular: Rate/Rhythm: regular rate, regular rhythm and + bradycardic Heart Sounds: no gallop Extremities: + edema (1+ left, 2+ right with chronic stasis change) Gastrointestinal (Abdomen): Percussion/Palpation: abdomen soft; abdomen nontender Psychiatric: A+Ox3, euthymic affect Results & Data ([facility]) Vital Signs (Past 12 Hours) Vital Signs Temp Pulse Pulse Resp BP BP Pulse Ox 08/28/22 11:20 36.5 C 75 19 150/73 H 97 08/28/22 09:00 08/28/22 08:00 62 08/28/22 07:21 36.7 C 60 19 157/62 H 93 08/28/22 04:57 36.8 C 63 16 151/68 H 93 O2 Del Method O2 Flow Rate 08/28/22 11:20 Nasal Cannula 1.5 08/28/22 09:00 Room Air 08/28/22 08:00 08/28/22 07:21 Room Air 08/28/22 04:57 CPAP Laboratory Results Laboratory Results - last 24 hr 08/27/22 08/27/22 08/28/22 16:13 20:24 06:20 Sodium 139 Potassium 4.3 Chloride 106 Carbon Dioxide 26 Anion Gap 7 BUN 63 H Creatinine 1.72 H Est Cr Clr Drug Dosing 39.9 Est GFR ( Amer) 33.4 Est GFR (Non-Af Amer) 28.8 BUN/Creatinine Ratio 36.6 H Glucose 159 H POC Glucose 181 H 198 H Calcium 9.5 08/28/22 08/28/22 07:14 11:19 Sodium Potassium Chloride Carbon Dioxide Anion Gap BUN Creatinine Est Cr Clr Drug Dosing Est GFR ( Amer) Est GFR (Non-Af Amer) BUN/Creatinine Ratio Glucose POC Glucose 189 H 221 H Calcium
--- NOTE | 2022-08-28 17:37 | Hospitalist Progress Note ---
Date of Service August 28, 2022 Assessment & Plan (1) Acute on chronic diastolic CHF (congestive heart failure): Plan: per Dr. Arroyo's notes with addendum: Clinically worsening dyspnea on exertion with chest discomfort during recovery from exercise x 2 weeks. Pulmonary edema on CXR, echo from overnight reveals EF 60-65% with grade II diastolic dysfunction. Improved on intravenous furosemide therapy. Hypoxia still present. Declines jin at this time. Strict I/Os. Low salt diet. Hold home torsemide and cont intravenous furosemide. Topical nitrates changed back to Imdur. 08/25 on 2 L NC crea increasing, 1.9 today Lasix held for now monitor renal function 08/26 Creatinine improved to 1.6 Plan to resume Lasix tomorrow if renal function continues to improve Monitor closely 08/27 Creatinine remains at 1.6 Lasix resumed, 20 mg IV twice daily 08/28 Creatinine 1.7 Diuresing fairly Continue Lasix 20 mg IV twice daily (2) Hypertension: Plan: Imdur increased Continue metoprolol (3) Leg wound, right: Plan: chronic, patient reports picking at the wound which is chronic. No overt cellulitis at this time. Multiple trauma wounds are scabbed over. Patient doesn't go to the wound clinic regularly. Will consult WOCN and will be encouraged not to pick at these wounds. wound care notes reviewed Wounds seems to be healing well Monitor closely E. coli UTI Continue cefdinir twice daily day 5/5 (4) DM type 2 (diabetes mellitus, type 2): Plan: A1C 7.1. Trulicity on hold, cont with basal/bolus insulin during admission. (5) CAD (coronary artery disease): Plan: chronic, stable. Mildly elevated troponin (18.5, 16.3, 15.4) with no significant rise likely related to demand ischemia in setting of heart failure and chronic kidney disease. EKG with no ST elevation. (6) Morbid obesity: Plan: Lifestyle modifications recommended. (7) Esophageal reflux: Plan: chronic, controlled, cont PPI per home regimen. Pepcid for any further breakthrough. (8) CKD (chronic kidney disease), stage III: Plan: Acute Kidney Injury on CKD 3 possible contrast induced nephropathy in the setting of IV Lasix management per above (9) DVT prophylaxis: Plan: Lovenox Full Code Disposition PT/OT evaluation Admission and Anticipated Discharge Date Admission Date: August 23, 2022 Subjective Follow-up for acute on chronic CHF exacerbation, etc. Seen sitting up in chair, comfortable, not in distress On 2 L of oxygen via nasal cannula States she feels fine overall Has occasional cough with clear sputum Denies nasal congestion No chest pain No leg pain Review of Systems Review of Systems: all noted and negative except for above Physical Exam Physical Exam: General- oriented x 3, not in distress, speaks in sentences with no effort or accessory muscle use Eyes- anicteric Neck- no JVD Lungs-mild rales bilateral bases, no wheezing Heart- normal rate, regular rhythm; no murmurs Abdomen- normal bowel sounds, nondistended, soft, nontender Extremities-grade 1-2 lower extremity edema no calf tenderness Neuro- alert, oriented x 3; no gross focal neurologic deficits Skin- warm & dry Results & Data Results & Data ([facility]) Vital Signs (Past 12 Hours) Vital Signs Temp Pulse Pulse Resp BP BP Pulse Ox 08/28/22 16:00 61 08/28/22 15:37 36.5 C 61 19 154/57 H 96 08/28/22 11:20 36.5 C 75 19 150/73 H 97 08/28/22 09:00 08/28/22 08:00 62 08/28/22 07:21 36.7 C 60 19 157/62 H 93 O2 Del Method O2 Flow Rate 08/28/22 16:00 08/28/22 15:37 Nasal Cannula 1.5 08/28/22 11:20 Nasal Cannula 1.5 08/28/22 09:00 Room Air 08/28/22 08:00 08/28/22 07:21 Room Air all noted and reviewed including below (1) Leg wound, right Encounter type: initial encounter Qualified Code(s): S81.801A - Unspecified open wound, right lower leg, initial encounter
[2022-08-29] MEDS: ENOXAPARIN INJ 40 MG/0.4 ML SYR SQ SCH ×2 (06:59→17:26)
[2022-08-29] MEDS: PANTOprazole 40 MG TAB PO SCH (07:00)
[2022-08-29 07:18] LABS: Hematocrit (blood only) 29.2 % (34.1-44.9); Hemoglobin 9.3 g/dl (12.0-16.0); Mean Corpuscular Hgb Conc 31.8 g/dL (32.0-36.0); Mean Platelet Volume 10.6 fL (9.4-12.3); Platelet Count 182 K/uL (130-400); RDW Coefficient of Variation 17.1 % (11.5-14.5); RDW Standard Deviation 55.5 fL (36.4-46.3); Red Blood Count 3.21 M/uL (3.93-5.22); White Blood Count 4.75 K/ul (4.8-10.8)
[2022-08-29] MEDS: ASPIRIN 81 MG ECTAB PO SCH (08:24)
[2022-08-29] MEDS: LUBIPROSTONE 8 MCG CAP PO SCH ×2 (08:24→17:26)
[2022-08-29] MEDS: CLOPIDOGREL BISULFATE 75 MG TAB PO SCH (08:24)
[2022-08-29] MEDS: ESCITALOPRAM OXALATE 10 MG TAB PO SCH (08:25)
[2022-08-29] MEDS: ASCORBIC ACID 500 MG TAB PO SCH (08:25)
[2022-08-29] MEDS: FERROUS SULFATE 325 MG TAB PO SCH (08:25)
[2022-08-29] MEDS: ROSUVASTATIN CALCIUM 5 MG TAB PO SCH (08:28)
[2022-08-29] MEDS: EZETIMIBE 10 MG TABLET PO SCH (08:28)
[2022-08-29] MEDS: allopurinoL 300 MG TAB PO SCH (08:28)
[2022-08-29] MEDS: ISOSORBIDE MONO EXTENDED REL 60 MG TABCR PO SCH (08:28)
[2022-08-29] MEDS: POTASSIUM CHLORIDE CRTAB 20 MEQ TABCR PO SCH (08:29)
[2022-08-29] MEDS: ursodioL 300 MG CAP PO SCH ×2 (08:29→20:41)
[2022-08-29] MEDS: CEFDINIR 300 MG CAP PO SCH (08:29)
[2022-08-29] MEDS: TORSEMIDE 20 MG TAB PO SCH (08:30)
[2022-08-29] MEDS: INSULIN ASPART PER UNIT SC SCH ×4 (08:39→20:40)
[2022-08-29 09:48] LABS: BUN Creatinine Ratio 37.7 (10-20); Calcium 9.7 mg/dl (8.5-10.1); Est GFR (African American) 32.7 ml/min; Est GFR (Non-African American) 28.2 ml/min; Potassium 4.8 mmol/L (3.5-5.1)
--- NOTE | 2022-08-29 11:37 | Cardiology Progress Note ---
Date of Service August 29, 2022 Assessment & Plan (1) Acute on chronic diastolic CHF (congestive heart failure): (2) CKD (chronic kidney disease), stage IV: (3) Hypertension: (4) Diabetic peripheral neuropathy: (5) Gastroparesis: (6) Contrast-induced nephropathy: Plan Patient is an extremely complex 76-year-old female with longstanding diabetic coronary and peripheral vascular disease, CKD stage IIIIV with past contrast nephropathy and chronic diastolic heart failure who presents with signs and symptoms of increasing dyspnea and worsening diastolic heart failure. She is symptomatically improved since administration of oxygen and IV furosemide Relative bradycardia observed as well as hypertension issues are addressed as follows 1. Acute on chronic diastolic heart failure, mild pulmonary edema on chest x- ray with hypoxia. Hypoxia improved with oxygen supplementation and IV furosemide. Patient with several week history of worsening dyspnea with exertion, increasing lower extremity edema. We will cautiously continue IV furosemide following renal function closely given recent contrast administration. Patient previously poorly tolerant of AUGUSTA and ARB 2. Chronic ischemic and peripheral vascular disease with mild elevation of troponin: Presentation does not suggest acute coronary syndrome however echocardiogram will be reviewed given symptomatic complaints of several weeks in duration. No acute changes on EKG however bifascicular block present. Patient with very poor coronary surgical targets, 2010 3. Hypertension: We will add topical nitrates holding isosorbide. Past orthostatic hypotension present due to diabetic neuropathy 4. CKD stage III4: Plan follow renal function daily with diuresis. No further contrast 5. Bifascicular heart block with relative bradycardia: Continue telemetry, hold metoprolol 6. Chronic gastroparesis with recent worsening of symptoms 7. Lower extremity edema with wound ulcerations, recurrent cellulitis 08/29/2022 Lower extremity edema improved with oral torsemide and diuresis Renal function stable Continue current therapies with increase isosorbide mononitrate 120 mg/day, discontinuation of metoprolol succinate Torsemide now at 60 mg/day Oxygen supplementation as indicated Patient anticipates discharge to [facility] in a.m. Cardiology appointment next Tuesday Admission and Anticipated Discharge Date Admission Date: August 23, 2022 Subjective Patient was seen and examined, chart, medications, telemetry reviewed. Good diuresis overnight with stable renal function. Lower extremity edema improved Review of Systems Review of Systems: All systems reviewed & are unremarkable except as noted in Subjective Physical Exam Constitutional: + morbidly obese; no acute distress Eyes: PERRL, conjunctivae normal, anicteric sclerae ENMT: external ear and nose normal, oropharynx normal Neck: trachea midline, no thyromegaly Respiratory: Auscultation: + diminished lung sounds Cardiovascular: Rate/Rhythm: regular rate and regular rhythm Heart Sounds: no gallop Extremities: + edema (1+ improved) Gastrointestinal (Abdomen): Percussion/Palpation: abdomen soft; abdomen nontender Psychiatric: A+Ox3, euthymic affect Results & Data ([place]) Vital Signs (Past 12 Hours) Vital Signs Temp Pulse Resp BP Pulse Ox O2 Del Method O2 Del Method 08/29/22 07:40 Room Air 08/29/22 07:10 36.8 C 59 L 19 160/75 H 97 CPAP 08/29/22 02:33 36.4 C L 57 L 18 116/48 L 99 CPAP 08/29/22 01:00 BiPAP O2 Flow Rate 08/29/22 07:40 08/29/22 07:10 2 08/29/22 02:33 08/29/22 01:00 Laboratory Results Laboratory Results - last 24 hr 08/28/22 08/28/22 08/29/22 16:10 19:27 06:46 WBC 4.75 L RBC 3.21 L Hgb 9.3 L Hct 29.2 L MCV 91.0 MCH 29.0 MCHC 31.8 L RDW Std Deviation 55.5 H RDW Coeff of Casey 17.1 H Plt Count 182 MPV 10.6 Sodium Potassium Chloride Carbon Dioxide Anion Gap BUN Creatinine Est Cr Clr Drug Dosing Est GFR ( Amer) Est GFR (Non-Af Amer) BUN/Creatinine Ratio Glucose POC Glucose 246 H 203 H Calcium 08/29/22 08/29/22 07:09 08:30 WBC RBC Hgb Hct MCV MCH MCHC RDW Std Deviation RDW Coeff of Casey Plt Count MPV Sodium 140 Potassium 4.8 Chloride 104 Carbon Dioxide 28 Anion Gap 8 BUN 66 H Creatinine 1.75 H Est Cr Clr Drug Dosing 39.0 Est GFR ( Amer) 32.7 Est GFR (Non-Af Amer) 28.2 BUN/Creatinine Ratio 37.7 H Glucose 208 H POC Glucose 208 H Calcium 9.7
--- NOTE | 2022-08-29 12:59 | Nephrology Progress Note ---
Date of Service August 29, 2022 Assessment & Plan Admission and Anticipated Discharge Date Admission Date: August 23, 2022 Subjective Assessment & Plan (1) Acute on chronic renal failure: Plan: Mostly CKD with frequent fluctuation in creatinine because of varying hydration status. Some contrast induced nephropathy also. baseline CKD 3B w/ at least 1 gm proteinuria and creatinine usually mid ones. was better than baseline on arrival from fluid retention and poor po intake. baseline creatinine 1.5, presenting creatinine 08/22 1.2, peak creatinine 2.0 08/25. Will resume OP torsemide and stop lasix -continue low sodium diet and 1.5L fluid limit -elevate legs as much as possible -continue daily standing weights Given that patient came in with SOB from CHF/Pulm edema/Pl effusion--i think she needs a slightly higher dose of torsemide going forward to avoid Similar admission. Creat under 2 is still reasonable. better to keep her on dry side than wet. Continue torsemide to 60 daily. Lower Kcl to 10 daily -may not even need it Subjective seen on rounds this am 1030 approx. ambulating w/ asst for short distances; improving breathing, edema or at least not worse Review of Systems Review of Systems: All systems reviewed & are unremarkable except as noted in Subjective Physical Exam Constitutional: well developed, well nourished (up on side of bed w/ 02nc ), + obese and cooperative Eyes: EOM intact bilaterally ENMT: Ears: no external ear abnormality Nose: no external nose abnormality Mouth: + dry oral mucous membranes Neck: no nuchal rigidity Respiratory: normal respiratory effort Auscultation: + diminished lung sounds Cardiovascular: Rate/Rhythm: regular rate and regular rhythm Extremities: + edema (R (2+) >>L (1+)) Gastrointestinal (Abdomen): Inspection/Auscultation: normal bowel sounds Percussion/Palpation: abdomen soft; abdomen nontender Musculoskeletal: Extremities: strength 5/5 throughout Skin: no rashes, warm and dry Psychiatric: Orientation: oriented x 3 Results & Data ([facility]) Vital Signs (Past 12 Hours) Vital Signs Temp Pulse Resp BP Pulse Ox O2 Del Method O2 Del Method 08/29/22 12:19 36.7 C 64 18 157/60 H 94 Room Air 08/29/22 07:40 Room Air 08/29/22 07:10 36.8 C 59 L 19 160/75 H 97 CPAP 08/29/22 02:33 36.4 C L 57 L 18 116/48 L 99 CPAP 08/29/22 01:00 BiPAP O2 Flow Rate 08/29/22 12:19 08/29/22 07:40 08/29/22 07:10 2 08/29/22 02:33 08/29/22 01:00
--- NOTE | 2022-08-29 15:09 | Hospitalist Progress Note ---
Date of Service August 29, 2022 Assessment & Plan (1) Acute on chronic diastolic CHF (congestive heart failure): Plan: (1) Acute on chronic diastolic CHF (congestive heart failure): Plan: per Dr. Arroyo's notes with addendum: Clinically worsening dyspnea on exertion with chest discomfort during recovery from exercise x 2 weeks. Pulmonary edema on CXR, echo from overnight reveals EF 60-65% with grade II diastolic dysfunction. Improved on intravenous furosemide therapy. Hypoxia still present. Declines jin at this time. Strict I/Os. Low salt diet. Hold home torsemide and cont intravenous furosemide. Topical nitrates changed back to Imdur. 08/25 on 2 L NC crea increasing, 1.9 today Lasix held for now monitor renal function 08/26 Creatinine improved to 1.6 Plan to resume Lasix tomorrow if renal function continues to improve Monitor closely 08/27 Creatinine remains at 1.6 Lasix resumed, 20 mg IV twice daily 08/28 Creatinine 1.7 Diuresing fairly Continue Lasix 20 mg IV twice daily 08/29 crea stable transitioned to Torsemide PO monitor (2) Hypertension: Plan: Imdur increased Continue metoprolol (3) Leg wound, right: Plan: chronic, patient reports picking at the wound which is chronic. No overt cellulitis at this time. Multiple trauma wounds are scabbed over. Patient doesn't go to the wound clinic regularly. Will consult WOCN and will be encoura ged not to pick at these wounds. wound care notes reviewed Wounds seems to be healing well Monitor closely E. coli UTI completed cefdinir twice daily day 5/5 (4) DM type 2 (diabetes mellitus, type 2): Plan: A1C 7.1. Trulicity on hold, cont with basal/bolus insulin during admission. (5) CAD (coronary artery disease): Plan: chronic, stable. Mildly elevated troponin (18.5, 16.3, 15.4) with no significant rise likely related to demand ischemia in setting of heart failure and chronic kidney disease. EKG with no ST elevation. (6) Morbid obesity: Plan: Lifestyle modifications recommended. (7) Esophageal reflux: Plan: chronic, controlled, cont PPI per home regimen. Pepcid for any further breakthrough. (8) CKD (chronic kidney disease), stage III: Plan: Acute Kidney Injury on CKD 3 possible contrast induced nephropathy in the setting of IV Lasix management per above (9) DVT prophylaxis: Plan: Lovenox Full Code Disposition d/c to [facility] tomorrow Admission and Anticipated Discharge Date Admission Date: August 23, 2022 Subjective ff up for CHF exacerbation, etc seen resting in chair on room air in good spirits states she feels better overall no SOB, chest pain, leg pain, fever/chills no other symptoms Review of Systems Review of Systems: all noted and negative except for above Physical Exam Physical Exam: General- oriented x 3, not in distress, speaks in sentences with no effort or accessory muscle use Eyes- anicteric Neck- no JVD Lungs- clear BS bilaterally, no rales/wheezes Heart- normal rate, regular rhythm; no murmurs Abdomen- normal bowel sounds, nondistended, soft, nontender Extremities- grade 1 lower ext edema - no erythema/warmth/tenderness - scabbed wounds R anterior cedillo no signs of infection Neuro- alert, oriented x 3; no gross focal neurologic deficits Skin- warm & dry Results & Data Results & Data ([facility]) Vital Signs (Past 12 Hours) Vital Signs Temp Pulse Resp BP Pulse Ox O2 Del Method O2 Flow Rate 08/29/22 12:19 36.7 C 64 18 157/60 H 94 Room Air 08/29/22 07:40 Room Air 08/29/22 07:10 36.8 C 59 L 19 160/75 H 97 CPAP 2 all noted and reviewed including below
[2022-08-29] MEDS ORDERED: amLODIPine BESYLATE 5 MG TAB PO SCH (19:30)
--- NOTE | 2022-08-29 19:31 | Communication Note ---
Date of Service: August 29, 2022 Made aware by RN of uncontrolled blood pressure. SBP 150 to 170s since a.m. . Cardiac rate 60s Patient asymptomatic as per RN. AP Uncontrolled hypertension Beta-jaison currently on hold Initiate low-dose amlodipine Will relay to AM provider.
[2022-08-30] MEDS: PANTOprazole 40 MG TAB PO SCH (06:33)
[2022-08-30] MEDS: ENOXAPARIN INJ 40 MG/0.4 ML SYR SQ SCH (06:33)
[2022-08-30] MEDS: INSULIN ASPART PER UNIT SC SCH ×2 (08:06→12:18)
[2022-08-30] MEDS: LUBIPROSTONE 8 MCG CAP PO SCH (08:07)
[2022-08-30] MEDS: ASPIRIN 81 MG ECTAB PO SCH (08:11)
[2022-08-30] MEDS: allopurinoL 300 MG TAB PO SCH (08:11)
[2022-08-30] MEDS: EZETIMIBE 10 MG TABLET PO SCH (08:12)
[2022-08-30] MEDS: ISOSORBIDE MONO EXTENDED REL 60 MG TABCR PO SCH (08:12)
[2022-08-30] MEDS: CLOPIDOGREL BISULFATE 75 MG TAB PO SCH (08:12)
[2022-08-30] MEDS: ESCITALOPRAM OXALATE 10 MG TAB PO SCH (08:12)
[2022-08-30] MEDS: TORSEMIDE 20 MG TAB PO SCH (08:13)
[2022-08-30] MEDS: ursodioL 300 MG CAP PO SCH (08:13)
[2022-08-30] MEDS ORDERED: POTASSIUM CHLORIDE 10 MEQ TABCR PO SCH (09:00)
--- NOTE | 2022-08-30 09:11 | Nephrology Progress Note ---
Date of Service August 30, 2022 Assessment & Plan Admission and Anticipated Discharge Date Admission Date: August 23, 2022 Subjective Assessment & Plan (1) Acute on chronic renal failure: Plan: Mostly CKD with frequent fluctuation in creatinine because of varying hydration status. Some contrast induced nephropathy also. baseline CKD 3B w/ at least 1 gm proteinuria and creatinine usually mid ones. was better than baseline on arrival from fluid retention and poor po intake. baseline creatinine 1.5, presenting creatinine 08/22 1.2, peak creatinine 2.0 08/25. Will resume OP torsemide and stop lasix -continue low sodium diet and 1.5L fluid limit -elevate legs as much as possible -continue daily standing weights Given that patient came in with SOB from CHF/Pulm edema/Pl effusion--i think she needs a slightly higher dose of torsemide going forward to avoid Similar admission. Creat under 2 is still reasonable. better to keep her on dry side than wet. Continue torsemide to 60 daily. Lower Kcl to 10 daily -may not even need it BP slightly high. Amlo 2.5 added overnight. Defer to Cards regarding BB ( currently on hold) Subjective ambulating w/ asst for short distances; improving breathing, edema is stable. BP was somewhat high Review of Systems Review of Systems: All systems reviewed & are unremarkable except as noted in Subjective Physical Exam Constitutional: well developed, well nourished (up on side of bed w/ 02nc ), + obese and cooperative Eyes: EOM intact bilaterally ENMT: Ears: no external ear abnormality Nose: no external nose abnormality Mouth: + dry oral mucous membranes Neck: no nuchal rigidity Respiratory: normal respiratory effort Auscultation: + diminished lung sounds Cardiovascular: Rate/Rhythm: regular rate and regular rhythm Extremities: + edema (R (2+) >>L (1+)) Gastrointestinal (Abdomen): Inspection/Auscultation: normal bowel sounds Percussion/Palpation: abdomen soft; abdomen nontender Musculoskeletal: Extremities: strength 5/5 throughout Skin: no rashes, warm and dry Psychiatric:L Orientation: oriented x 3 Results & Data ([facility]) Vital Signs (Past 12 Hours) Vital Signs Temp Pulse Pulse Resp BP Pulse Ox O2 Del Method 08/30/22 08:06 36.5 C 82 19 176/76 H 94 Room Air 08/30/22 02:55 37 C 55 L 16 139/52 L 97 CPAP 08/29/22 22:09 56 L 08/29/22 23:15 36.5 C 54 L 16 125/46 L CPAP O2 Flow Rate 08/30/22 08:06 08/30/22 02:55 1.5 08/29/22 22:09 08/29/22 23:15 1.5
[2022-08-30] MEDS ORDERED: carvediloL 3.125 MG TAB PO SCH (09:30)
--- NOTE | 2022-08-30 10:42 | Cardiology Progress Note ---
Date of Service August 30, 2022 Assessment & Plan (1) Acute on chronic diastolic CHF (congestive heart failure): (2) CKD (chronic kidney disease), stage IV: (3) Hypertension: (4) Diabetic peripheral neuropathy: (5) Gastroparesis: (6) Contrast-induced nephropathy: Plan Patient is an extremely complex 76-year-old female with longstanding diabetic coronary and peripheral vascular disease, CKD stage IIIIV with past contrast nephropathy and chronic diastolic heart failure who presents with signs and symptoms of increasing dyspnea and worsening diastolic heart failure. She is symptomatically improved since administration of oxygen and IV furosemide Relative bradycardia observed as well as hypertension issues are addressed as follows 1. Acute on chronic diastolic heart failure, mild pulmonary edema on chest x- ray with hypoxia. Hypoxia improved with oxygen supplementation and IV furosemide. Patient with several week history of worsening dyspnea with exertion, increasing lower extremity edema. We will cautiously continue IV furosemide following renal function closely given recent contrast administration. Patient previously poorly tolerant of [place] and ARB 2. Chronic ischemic and peripheral vascular disease with mild elevation of troponin: Presentation does not suggest acute coronary syndrome however echocardiogram will be reviewed given symptomatic complaints of several weeks in duration. No acute changes on EKG however bifascicular block present. Patient with very poor coronary surgical targets, 2011 3. Hypertension: isosorbide resumed, amloidpine added by hospitalist, however may worsen LE edema. Add low dose carvedilol. 4. CKD stage III4: Plan follow renal function daily with diuresis. No further contrast 5. Bifascicular heart block with relative bradycardia. Bradycardia resolved. No arrhythmias. 6. Chronic gastroparesis with recent worsening of symptoms 7. Lower extremity edema with wound ulcerations, recurrent cellulitis Fluid status improved from admission with IV diuretics. Oral torsemide resumed yesterday. Continues to diurese. Previously on torsemide 40 mg daily and this was increased to 60 mg to aid with volume status on discharge. BP remains elevated. Start carvedilol 3.125 mg BID. Continue current therapies with isosorbide mononitrate 120 mg/day (dose increased) Oxygen supplementation as indicated [facility] next Tuesday Case discussed with Dr. Oseguera. Admission and Anticipated Discharge Date Admission Date: August 23, 2022 Supervising Physician Co-Signing Physician Notes Chart and telemetry reviewed. Assessment and plan as well outlined above. Anticipates discharge today with adjustments in medications as noted Keep already scheduled cardiology appointment Subjective Patient resting in bed with CPAP in place. Noted mild chest heaviness and "heart pounding" this morning after getting a shower and cleaned up. Symptoms resolved with rest. No current symptoms resting in bed. Denies dizziness or lightheadedness. Hopeful for discharge to rehab soon. Review of Systems Review of Systems: All systems reviewed & are unremarkable except as noted in HPI & below Physical Exam Constitutional: + morbidly obese; no acute distress Eyes: PERRL, conjunctivae normal, anicteric sclerae ENMT: external ear and nose normal, oropharynx normal Neck: trachea midline, no thyromegaly Respiratory: Auscultation: + diminished lung sounds and + rales Cardiovascular: Rate/Rhythm: regular rate and regular rhythm Heart Sounds: no gallop Vessels: no JVD Extremities: + edema (2+ edema b/l to knees with chronic stasis changes) Gastrointestinal (Abdomen): Percussion/Palpation: abdomen soft; abdomen nontender Psychiatric: A+Ox3, euthymic affect Results & Data ([facility]) Vital Signs (Past 12 Hours) Vital Signs Temp Pulse Pulse Resp BP Pulse Ox O2 Del Method 08/30/22 08:00 Room Air 08/30/22 10:12 76 121/69 08/30/22 08:06 36.5 C 82 19 176/76 H 94 Room Air 08/30/22 02:55 37 C 55 L 16 139/52 L 97 CPAP 08/29/22 23:15 36.5 C 54 L 16 125/46 L CPAP O2 Flow Rate 08/30/22 08:00 08/30/22 10:12 08/30/22 08:06 08/30/22 02:55 1.5 08/29/22 23:15 1.5 Laboratory Results Intake and Output 08/29/22 08/30/22 08/30/22 22:59 06:59 14:59 Intake Total 200 / 875 Output Total 1000 / 2475 675 / 2475 Balance -800 / -1600 -675 / -1600 Intake: Oral 200 / 875 Output: Urine 1000 / 2475 675 / 2475 Other: Weight 117.8 kg Weight Measurement Method Standing Scale Diagnostic Findings Telemetry reviewed: NSR in the 70-80 bpm range. No bradycardia Medications Administered Current Inpatient Medications Acetaminophen (Acetaminophen 325 Mg Tab) 650 mg PO Q4H PRN PRN Reason: Pain or Fever Stop: 09/22/22 02:46 Allopurinol (Allopurinol 300 Mg Tab) 300 mg PO QAM [facility] Stop: 09/22/22 08:59 Last Admin: 08/30/22 08:11 Dose: 300 mg Amlodipine Besylate (Amlodipine Besylate 5 Mg Tab) 2.5 mg PO HS [facility] Stop: 09/28/22 19:29 Last Admin: 08/29/22 20:41 Dose: 2.5 mg Artificial Tears (Artificial Tears) 2 drops OP Q4H PRN PRN Reason: dry eyes Stop: 09/27/22 09:27 Ascorbic Acid (Ascorbic Acid 500 Mg Tab) 250 mg PO Q48H [facility] Stop: 09/22/22 08:59 Last Admin: 08/29/22 08:25 Dose: 250 mg Aspirin (Aspirin 81 Mg Ectab) [facility] [place] [facility] [place]: 09/22/22 08:59 Last Admin: 08/30/22 08:11 Dose: 81 mg Carvedilol (Carvedilol 3.125 Mg Tab) 3.125 mg PO BID [facility] Stop: 09/29/22 09:29 Last Admin: 08/30/22 10:14 Dose: 3.125 mg Clopidogrel Bisulfate (Clopidogrel Bisulfate 75 Mg Tab) [facility] [place]: 09/22/22 08:59 Last Admin: 08/30/22 08:12 Dose: 150 mg Dextrose (Dextrose 50% 50 Ml Syringe) 25 - 50 ml IV UD PRN; Protocol PRN Reason: Hypoglycemia Protocol Stop: 09/22/22 03:29 Ezetimibe (Ezetimibe 10 Mg Tablet) [facility] [place]: 09/22/22 08:59 Last Admin: 08/30/22 08:12 Dose: 10 mg Enoxaparin Sodium (Enoxaparin Inj 40 Mg/0.4 Ml Syr) 40 mg SQ Q12H [facility] Stop: 09/22/22 05:59 Last Admin: 08/30/22 06:33 Dose: 40 mg Escitalopram Oxalate (Escitalopram Oxalate 10 Mg Tab) 10 mg PO DAILY [facility] Stop: 09/22/22 08:59 Last Admin: 08/30/22 08:12 Dose: 10 mg Ferrous Sulfate (Ferrous Sulfate 325 Mg Tab) 325 mg PO Q48H [facility] Stop: 09/22/22 08:59 Last Admin: 08/29/22 08:25 Dose: 325 mg Glucagon (Glucagon For Inj 1 Mg Vial) 1 mg IM UD PRN; Protocol PRN Reason: Hypoglycemia Protocol Stop: 09/22/22 03:29 Glucose (Glucose 40% Gel 15 Gm Tube) 15 - 30 gm PO UD PRN; Protocol PRN Reason: Hypoglycemia Protocol Stop: 09/22/22 03:29 Glucose (Glucose 10 Tab/Tube) 4 - 8 tab PO UD PRN; Protocol PRN Reason: Hypoglycemia Protocol Stop: 09/22/22 03:29 Insulin Aspart (Insulin Aspart Per Unit) 0 units SC ACHS [facility] Stop: 09/22/22 07:29 Last Admin: 08/30/22 08:06 Dose: 12 units Isosorbide Mononitrate (Isosorbide [place] Extended Rel 60 Mg Tabcr) 120 mg PO QAM [facility] Stop: 09/26/22 08:59 Last Admin: 08/30/22 08:12 Dose: 120 mg Lubiprostone (Lubiprostone 8 Mcg Cap) 8 mcg PO BIDM [facility] Stop: 09/22/22 07:59 Last Admin: 08/30/22 08:07 Dose: 8 mcg Miscellaneous (Carbohydrates For Hypoglycemia ) 15 - 30 gm PO UD PRN PRN Reason: Hypoglycemia Treatment Stop: 09/22/22 03:29 Nitroglycerin (Nitroglycerin Sl 0.4 Mg/Tab Tab) 0.4 mg SL UD PRN PRN Reason: Chest Pain Stop: 09/22/22 02:46 Pantoprazole Sodium (Pantoprazole 40 Mg Tab) 40 mg PO DAILYBB [facility] Stop: 09/22/22 06:29 Last Admin: 08/30/22 06:33 Dose: 40 mg Polyethylene Glycol (Polyethylene (Miralax) 17 Gm Pack) 17 gm PO DAILY PRN PRN Reason: Constipation Stop: 09/22/22 02:46 Potassium Chloride (Potassium Chloride 10 Meq Tabcr) 10 meq PO QAM [facility] Stop: 09/29/22 08:59 Last Admin: 08/30/22 08:12 Dose: 10 meq Rosuvastatin Calcium (Rosuvastatin Calcium 5 Mg Tab) 5 mg PO Q48H [facility] Stop: 09/22/22 08:59 Last Admin: 08/29/22 08:28 Dose: 5 mg Torsemide (Torsemide 20 Mg Tab) 60 mg PO QAM [facility] Stop: 09/28/22 08:59 Last Admin: 08/30/22 08:13 Dose: 60 mg Tramadol HCl (Tramadol Hcl 50 Mg Tablet) 25 mg PO Q6H PRN PRN Reason: Pain Stop: 09/22/22 02:46 Ursodiol (Ursodiol 300 Mg Cap) 300 mg PO BID [facility] Stop: 09/22/22 08:59 Last Admin: 08/30/22 08:13 Dose: 300 mg
[2022-08-30] MEDS ORDERED: PHARMACY GLYCEMIC MGMT CONSULT PRN (12:30)
[2022-08-30] MEDS ORDERED: LANTUS PER UNIT CHARGE SQ ONE (13:00)
--- NOTE | 2022-08-30 13:43 | Pharmacy Report ---
Pharmacy Glycemic Short Note 2 - Date of Service August 30, 2022 - Glycemic Short BSG Results (Last 24 hours): 08/29/22 08/29/22 08/30/22 16:10 20:32 07:30 POC Glucose 295 H 241 H 229 H 08/30/22 12 11:22 11:23 POC Glucose 302 H* 297 H OUTPATIENT ANTIDIABETIC REGIMEN: * Trulicity 3 mg SQ weekly * U-500 --> 115 units with breakfast; 5 units with lunch; 100 units with dinner * HbA1C = 7.1% (08/23/22) ASSESSMENT: * Ms Man is a 76 y/o F with a PMH of T2DM on insulin who presents with an acute exacerbation of CHF. Patient was initially started on Novolog on 08/23/22. BSGs have steadily been trending upwards. * Reviewed previous hospitalization in 2019 where patient received Lantus 60 units daily + Novolog with tight CF/CR. * Fasting BSG today was 229 mg/dL and lunch was 297 mg/dL. * Start Lantus 60 units SQ x 1 since this was effective Last hospitalization. This aligns with weight-based stress of 3. * Novolog weight-based stress of 3. Additional Novolog not given at lunch [facility] pharmacy consulted about 40 mins after insulin given. PLAN FOR INPATIENT GLYCEMIC CONTROL: * Basal insulin * Lantus 60 units SQ x 1 then reassess tomorrow * Bolus insulin * NovoLog per scale ACHS or Q6hrs while NPO * Goal Range: Low 110 mg/dL - High 140 mg/dL * Correction Factor: 15 mg/dL/unit * Nutritional / Prandial insulin per carb ratio of 1 unit per 5 grams CHO consumed
--- NOTE | 2022-08-30 19:28 | Hospitalist Progress Note ---
Date of Service August 30, 2022 delayed entry date of service noted above Assessment & Plan (1) Acute on chronic diastolic CHF (congestive heart failure): Plan: (1) Acute on chronic diastolic CHF (congestive heart failure): Plan: per Dr. Arroyo's notes with addendum: Clinically worsening dyspnea on exertion with chest discomfort during recovery from exercise x 2 weeks. Pulmonary edema on CXR, echo from overnight reveals EF 60-65% with grade II diastolic dysfunction. Improved on intravenous furosemide therapy. Hypoxia still present. Declines jin at this time. Strict I/Os. Low salt diet. Hold home torsemide and cont intravenous furosemide. Topical nitrates changed back to Imdur. patient required 2 L NC crea increased up to 1.9 today Lasix held crea improved to 1.6 Lasix resumed 20 mg IV twice daily diuresed transitioned to Torsemide PO- increased to 60mg po daily monitor closely (2) Hypertension: Plan: Imdur increased Continue metoprolol (3) Leg wound, right: Plan: chronic, patient reports picking at the wound which is chronic. No overt cellulitis at this time. Multiple trauma wounds are scabbed over. Patient doesn't go to the wound clinic regularly. Will consult WOCN and will be encouraged not to pick at these wounds. wound care notes reviewed Wounds seems to be healing well Monitor closely E. coli UTI completed cefdinir twice daily day 5 (4) DM type 2 (diabetes mellitus, type 2): Plan: A1C 7.1. continue usual medication regimen (5) CAD (coronary artery disease): Plan: chronic, stable. Mildly elevated troponin (18.5, 16.3, 15.4) with no significant rise likely related to demand ischemia in setting of heart failure and chronic kidney disease. EKG with no ST elevation. (6) Morbid obesity: Plan: Lifestyle modifications recommended. (7) Esophageal reflux: Plan: chronic, controlled, cont PPI per home regimen. Pepcid for any further breakthrough. (8) CKD (chronic kidney disease), stage III: Plan: Acute Kidney Injury on CKD 3 possible contrast induced nephropathy in the setting of IV Lasix management per above (9) DVT prophylaxis: Plan: Lovenox Full Code Disposition d/c to [facility] Admission and Anticipated Discharge Date Admission Date: August 23, 2022 Subjective ff up for acute renal failure, CHF etc seen resting in chair comfortable in good spirits states she feels better overall no chest pain, dyspnea, palpitations, dizziness no leg pain no problems voiding no other symptoms states she is ready for discharge Review of Systems Review of Systems: all noted and negative except for above Physical Exam Physical Exam: General- oriented x 3, not in distress, speaks in sentences with no effort or accessory muscle use Eyes- anicteric Neck- no JVD Lungs- clear breath sounds bilaterally, no rales/wheezes Heart- normal rate, regular rhythm; no murmurs Abdomen- normal bowel sounds, nondistended, soft, nontender Extremities- mild lower extremity edema, no erythema/tenderness, no calf tenderness Neuro- alert, oriented x 3; no gross focal neurologic deficits Skin- warm & dry Results & Data Results & Data ([facility]) Vital Signs (Past 12 Hours) Vital Signs Temp Pulse Pulse Resp BP BP Pulse Ox 08/30/22 14:24 36.6 C 57 L 82 19 145/69 H 121/69 98 08/30/22 11:23 36.6 C 57 L 19 145/69 H 98 08/30/22 08:00 08/30/22 10:12 76 121/69 08/30/22 08:06 36.5 C 82 19 176/76 H 94 O2 Del Method O2 Flow Rate 08/30/22 14:24 08/30/22 11:23 CPAP 2 08/30/22 08:00 Room Air 08/30/22 10:12 08/30/22 08:06 Room Air all noted and reviewed including below
--- NOTE | 2022-09-03 16:19 | Discharge Summary ---
Discharge Summary Date of Service September 03, 2022 delayed entry date of service August 30, 2022 Notes For Next Care Provider monitor renal function closely Medication Changes From Visit Imdur 120 mg p.o. daily Potassium 10 mEq p.o. daily Carvedilol 3.125 mg p.o. twice daily Increased torsemide from 40mg, now 60 mg p.o. daily Admission HPI Per Admitting Provider CHIEF COMPLAINT: Shortness of breath. 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 The patient lives with her son, ambulates with a cane and walker. She comes with shortness of breath going on for the last 2 to 2-1/2 weeks, shortness of breath on exertion. In the ER, she was 88% on room air, on 3 liters, saturating okay. Imaging studies showed pulmonary congestion. The patient is currently resting comfortably, hemodynamically stable, is talking in full sentences, able to give her history. Denies any chest pain, no headache, no back pain. Currently no nausea or abdominal pain. She states her urine is smelling very bad, but denies any blood in the urine or burning micturition. She denies any fevers, but she has some chills. She is constipated and uses medication . Currently, resting comfortably and hemodynamically stable. Admission Exam Per Admitting Provider GENERAL: The patient is obese, not in acute distress. VITAL SIGNS: Temperature 36.4, respiratory rate 20, blood pressure 140/54, pulse in 40s, oxygen 100% on 3 liters. HEENT: Pupils equal, round and reactive to light. Oral mucosa dry. NECK: No JVD, no neck masses. CARDIOVASCULAR: S1 and S2 heard. Regular rate and rhythm. No murmur, no gallop. RESPIRATORY SYSTEM: Normal AP diameter. No accessory muscle use. No wheezing. Mild bibasilar crackles. ABDOMEN: Soft, bowel sounds present, nontender, no distention. CENTRAL NERVOUS SYSTEM: Alert and oriented. Speech is clear. No facial droop. Obeys simple commands. Insight is good. Moves extremities. EXTREMITIES: Bilateral lower extremity gross edema present. Right lower extremity has chronic superficial skin ulcer with some erythematous changes. No active drainage seen. Principal Dx & Hospital Course #1 = Principal Diagnosis (1) Acute on chronic diastolic CHF (congestive heart failure): (1) Acute on chronic diastolic CHF (congestive heart failure): Plan: per Dr. Arroyo's notes with addendum: Clinically worsening dyspnea on exertion with chest discomfort during recovery from exercise x 2 weeks. Pulmonary edema on CXR, echo from overnight reveals EF 60-65% with grade II diastolic dysfunction. Improved on intravenous furosemide therapy. Hypoxia still present. Declines jin at this time. Strict I/Os. Low salt diet. Hold home torsemide and cont intravenous furosemide. Topical nitrates changed back to Imdur. patient required 2 L NC crea increased up to 1.9 Lasix held crea improved to 1.6 Lasix resumed 20 mg IV twice daily diuresed transitioned to Torsemide PO- increased to 60mg po daily monitor closely (2) Hypertension: Plan: Imdur increased Continue metoprolol (3) Leg wound, right: Plan: chronic, patient reports picking at the wound which is chronic. No overt cellulitis at this time. Multiple trauma wounds are scabbed over. Patient doesn't go to the wound clinic regularly. Will consult WOCN and will be encouraged not to pick at these wounds. wound care notes reviewed Wounds seems to be healing well Monitor closely E. coli UTI completed cefdinir twice daily day 5/5 (4) DM type 2 (diabetes mellitus, type 2): Plan: A1C 7.1. continue usual medication regimen (5) CAD (coronary artery disease): Plan: chronic, stable. Mildly elevated troponin (18.5, 16.3, 15.4) with no significant rise likely related to demand ischemia in setting of heart failure and chronic kidney disease. EKG with no ST elevation. (6) Morbid obesity: Plan: Lifestyle modifications recommended. (7) Esophageal reflux: Plan: chronic, controlled, cont PPI per home regimen. Pepcid for any further breakthrough. (8) CKD (chronic kidney disease), stage III: Plan: Acute Kidney Injury on CKD 3 possible contrast induced nephropathy in the setting of IV Lasix management per above (9) DVT prophylaxis: Plan: Lovenox Full Code Disposition d/c to [facility] Discharge Exam General- oriented x 3, not in distress, speaks in sentences with no effort or accessory muscle use Eyes- anicteric Neck- no JVD Lungs- clear breath sounds bilaterally, no rales/wheezes Heart- normal rate, regular rhythm; no murmurs Abdomen- normal bowel sounds, nondistended, soft, nontender Extremities- mild lower extremity edema, no erythema/tenderness, no calf te nderness Neuro- alert, oriented x 3; no gross focal neurologic deficits Skin- warm & dry Updated Medication List Medication Instructions Recorded Confirmed Type allopurinol 300 mg tablet 300 mg PO QAM 12/23/18 08/22/22 History aspirin 81 mg tablet,delayed 81 mg PO QAM 12/23/18 08/22/22 History release clopidogrel 75 mg tablet 150 mg PO QAM 12/23/18 08/22/22 History iron,carbonyl 65 mg-vitamin C 125 1 tab PO Q OTHER DAY 12/23/18 08/22/22 History mg tablet,delayed release (Vitron-C) ezetimibe 10 mg tablet 10 mg PO QAM 09/11/21 08/22/22 History insulin regular hum U-500 conc 500 0 unit subcut TID 09/11/21 08/22/22 History unit/mL(3 mL) subcut pen (Humulin R U-500 (Conc) Insulin Kwikpen) rosuvastatin 5 mg tablet 5 mg PO Q2D 09/11/21 08/22/22 History pantoprazole 40 mg tablet,delayed 40 mg PO DAILYBB 10/16/21 08/22/22 History release (Protonix) ursodiol 300 mg capsule 300 mg PO BID 10/16/21 08/22/22 History dulaglutide 3 mg/0.5 mL 3 mg subcut WK 08/22/22 08/22/22 History subcutaneous pen injector (Trulicity) escitalopram oxalate 10 mg tablet 10 mg PO DAILY 08/22/22 08/22/22 History lubiprostone 8 mcg capsule 8 mcg PO BIDM 08/22/22 08/22/22 History nitroglycerin 0.4 mg sublingual 0.4 mg sublingual UD PRN Chest Pain 08/22/22 08/22/22 History tablet (Nitrostat) tramadol 50 mg tablet 25 mg PO Q6H PRN Pain 08/22/22 08/22/22 History carvedilol 3.125 mg tablet 3.125 mg PO BID #60 tabs 08/30/22 Rx isosorbide mononitrate 60 mg 120 mg PO QAM #30 tabs 08/30/22 Rx tablet,extended release 24 hr potassium chloride 10 mEq 10 meq PO QAM #30 tabs 08/30/22 Rx tablet,extended release(part/cryst) torsemide 20 mg tablet 60 mg PO QAM 30 days #90 tabs 08/30/22 Rx Hospital Stay Data Consultations 08/22/22 21:49 ED Decision to Admit Stat 08/23/22 08:00 Consult Cardiology Routine 08/25/22 10:11 Consult Nephrology Routine Diagnostic Imagining Performed Abdomen/Pelvis CT 08/22/22 18:10 CT OF THE ABDOMEN AND PELVIS WITH CONTRAST CLINICAL HISTORY: Dysphasia. Vomiting. COMPARISON STUDY: [facility] September 11, 2021 and renal ultrasound July 22, 2016. Right upper quadrant ultrasound April 29, 2015.Z TECHNIQUE: Following IV administration of 112 mL of Optiray, axial images of the abdomen and pelvis were obtained from the lung bases to the proximal femurs. Images were reviewed in the axial, sagittal, and coronal planes. IV contrast was administered without complication. Automated exposure control was utilized for the study. A dose lowering technique was utilized adhering to the principles of ALARA. CT DOSE: 2092.72 mGy.cm FINDINGS: Please note that the chest CT will be reported separately. Bilateral pleural effusions are better evaluated on that exam. There is cardiomegaly with evidence for interstitial pulmonary edema. No pneumatosis, free air or portal venous gas is present. Heterogeneous enhancement of the liver is likely related to passive hepatic congestion. No hepatic lesions are identified. Mild splenomegaly is noted. The adrenal glands and pancreas are unremarkable. Moderate to marked bilateral renal cortical thinning is noted. Numerous hypodense bilateral renal lesions are too small to characterize but favor cysts. A 6 mm calculus within lower pole of the left kidney is present. There are no ureteral calculi. There is no hydronephrosis. Mild mesenteric stranding is of doubtful significance. There is no evidence for a bowel obstruction. The appendix is normal. Colonic diverticulosis is present without evidence for acute diverticulitis. There is no lymphadenopathy. Anasarca is noted. There is extensive vascular calcification within the abdominal aorta and branch vessels. Numerous gallstones within the gallbladder present. Gallbladder is distended. There is no adjacent infiltration. IMPRESSION: 1. Cholelithiasis and gallbladder distention. No pericholecystic infiltration to strongly suggest acute cholecystitis. However, if right upper quadrant pain, ultrasound is recommended. 2. Colonic diverticulosis. No evidence for acute diverticulitis. 3. Heterogeneous enhancement of the liver suggestive of passive hepatic congestion. 4. Bilateral pleural effusions, cardiomegaly and interstitial pulmonary edema better depicted on the chest CT. This will be reported separately. 5. 6 mm left renal calculus. No ureteral calculi or hydronephrosis. Moderate to marked bilateral renal cortical thinning. ACT 112: Negative or not required by law. Electronically signed by: John Carmona M.D. 08/23/2022 10:10 AM Chest CTA 08/22/22 18:10 CT ANGIOGRAM OF THE CHEST CLINICAL HISTORY: Dyspnea. Nausea and vomiting. COMPARISON STUDY: Chest x-ray dated 09/11/2021. Chest CT dated 01/20/2017. TECHNIQUE: Following the IV administration of 112 cc of Optiray 320, CT angiogram of the chest was performed from the upper abdomen to the thoracic inlet utilizing the pulmonary embolus protocol. Images are reviewed in the axial, sagittal, and coronal planes. 3-D MIPS images are created and assessed. IV contrast was administered without complication. A dose lowering technique was utilized adhering to the principles of ALARA. FINDINGS: Thyroid: Imaged portions of the thyroid gland are normal in size and attenuation. Thoracic aorta: There is atherosclerotic calcification of the thoracic aorta, which is normal in caliber and demonstrates standard 3-vessel arch anatomy. No dissection is seen. Pulmonary vasculature: The pulmonary trunk is dilated, measuring 4 cm in diameter. This suggests pulmonary artery hypertension. There are no filling defects identified in main, lobar, or segmental pulmonary branches to suggest pulmonary embolus. Evaluation of the subsegmental branches is degraded by motion artifact. Heart: The patient is status post midline sternotomy. The heart is enlarge and without pericardial effusion. The coronary arteries and mitral annulus are densely calcified. Lungs and pleural spaces: Evaluation of the lung parenchyma is degraded by motion artifact. Intralobular septal thickening is seen throughout both lungs again suggests congestive failure. The trachea and central airways are clear. There is no airspace consolidation typical for pneumonia. There are small to moderate pleural effusions with dependent atelectasis. Mediastinum: Subcentimeter mediastinal lymph nodes are not pathologically enlarged by size criteria. Adela: Clear. Axillae: There is no axillary lymphadenopathy. Upper abdomen: There are calcified hepatic granulomas. A small hiatal hernia is noted. Reflux of contrast into the IVC and hepatic veins suggest cardiac dysfunction. Skeletal structures: The skeletal structures are osteopenic. No lytic or blastic bony lesions are seen. Degenerative change is seen throughout the thoracic spine. IMPRESSION: 1. There is no evidence of pulmonary embolus in the main, lobar, or segmental pulmonary arteries. 2. Cardiomegaly with evidence of congestive failure. 3. Small to moderate pleural effusions with dependent atelectasis. 4. Additional findings as above. ACT 112: Negative or not required by law. Electronically signed by: Marquis Babin M.D. 08/23/2022 10:06 AM Chest X-Ray 08/28/22 09:28 SINGLE VIEW CHEST CLINICAL HISTORY: Cough FINDINGS: An AP, portable, upright chest radiograph is compared to study dated 09/11/2021 and correlated with chest CT dated 08/22/2022. The patient is status post midline sternotomy. The heart is enlarged noting atherosclerotic calcification of the thoracic aorta. There is mild pulmonary vascular congestion. There is a left pleural effusion bibasilar opacities. No pneumothorax is seen. The skeletal structures are osteopenic. The bony thorax is grossly intact. IMPRESSION: 1. Cardiomegaly with pulmonary vascular congestion. 2. Small left pleural effusion and dependent opacities. This likely represents atelectasis and clinical correlation will be required. ACT 112: Negative or not required by law. Electronically signed by: Marquis Babin M.D. 08/28/2022 10:30 AM Pending Results Patient Have Any Pending Studies at Discharge: Yes Discharge Instructions Given to Patient (Per Discharging Provider) PLEASE REFER TO YOUR NEW MEDICATION LIST AND FOLLOW INSTRUCTIONS CAREFULLY. YOUR NEW MEDICATIONS INCLUDE: Imdur 120 mg p.o. daily Potassium 10 mEq p.o. daily Carvedilol 3.125 mg p.o. twice daily Increase torsemide from 40mg, now 60 mg p.o. daily PLEASE CALL YOUR PRIMARY CARE PHYSICIAN OR RETURN TO THE ER IF WITH WORSENING OF SYMPTOMS, INCLUDING Leg swelling, redness, pain, shortness of breath, chest pain, dizziness, fevers or chills, etc. FOLLOW UP WITH PRIMARY CARE PHYSICIAN in 1 week after discharge from acute rehab. Follow-up with [facility] 2 weeks after discharge from acute rehab. Total Time Total Time Spent Total Time Spent (In Minutes): >30 minutes
== END 2022-08-30 16:38 | DRG 291 ==
LOC: ED 17:20 → SUATTDRO 08-23 01:12 → EDINP 08-23 01:12 → 2S 08-23 02:51